=== PATIENT | female | born 1960 | race Caucasian/White ===

== ENCOUNTER 2021-02-15 10:46 | Outpatient (CLI) | payer OTHER, SELFPAY ==
--- NOTE | ~2021-02-15 | MR_ITS ---
EXAMINATION: MR lumbar spine wo con DATE: 02/15/2021 11:33 INDICATION: Lumbar radiculopathy. Low back pain. TECHNIQUE: Magnetic resonance imaging (MRI) of the lumbar spine was performed without intravenous con trast. Sequences included sagittal T2-weighted FSE, sagittal T2-weighted FS FSE, sagittal T1-weighted FSE, and axial T2-weighted FSE. COMPARISON: Lumbar spine MRI 06/24/13 FINDINGS: There is 6 degrees dextrocurvature of lumbar spine. There is 3 mm anterolisthesis of L4 on L5. Vertebral body heights are normal. There is mildly decreased disc height at L4-L5 and L5-S1. The distal spinal cord signal intensity is normal. The conus medullaris is at L1. There is peripheral dis placement of the nerve roots at S1, consistent with arachnoiditis. The following disc levels are spec ifically discussed: L1-L2: The disc does not extend beyond the endplate margin. There is mild bilateral facet joint osteo arthritis. There is no neural foraminal stenosis. There is no central canal stenosis. L2-L3: The disc is mildly bulging. There is mild bilateral facet joint osteoarthritis. There is mild bilateral neural foraminal stenosis. There is mild central canal stenosis. L3-L4: The disc is bulging. There is moderate bilateral facet joint osteoarthritis. There is mild yady ateral neural foraminal stenosis. There is mild central canal stenosis. L4-L5: The disc is bulging and has an annular fissure. There is severe bilateral facet joint osteoart hritis. There is moderate right and mild left neural foraminal stenosis. There is mild central canal stenosis. L5-S1: The disc is bulging with superimposed left subarticular zone extrusion with mass effect on lef t S1 nerve root in left lateral recess. There is moderate bilateral facet joint osteoarthritis. There is mild bilateral neural foraminal stenosis. There is mild central canal stenosis. There is mild rivera nosis in left lateral recess. IMPRESSION: 1. Moderate lumbar spondylosis, worsened from 06/24/13. Of note, a recurrent extrusion at L5-S1 exerts mass effect on left S1 nerve root. 2. Arachnoiditis. Reviewed, dictated and finalized at location A. IMPRESSION: 1. Moderate lumbar spondylosis, worsened from 06/24/13. Of note, a recurrent ext rusion at L5-S1 exerts mass effect on left S1 nerve root. 2. Arachnoiditis.
== END 2021-02-15 10:47 | disposition home or self-care (01) ==
LOC: ANHIMG 10:47
PROVIDERS: PCP Internal Medicine; Visit Provider Internal Medicine
DX: M47.816 Spondylosis without myelopathy or radiculopathy, lumbar region (principal); T63.301A Toxic effect of unspecified spider venom, accidental (unintentional), initial encounter
CPT/HCPCS: 72148

== ENCOUNTER 2021-09-06 00:25 | Day surgery (SDC) | payer OTHER, SELFPAY ==
[2021-08-31 13:41] VITALS: BMI 32.0
[2021-09-06 08:07] VITALS: BP 135/78; PULSE 88; RESP 21; TEMP 36; O2SAT 98; BMI 32.8
[2021-09-06] MEDS: LACTATED RINGERS 1,000 ML 150 ML IV CONT (08:14)
--- NOTE | 2021-09-06 08:40 | WPDGICN ---
Assessment and Plan Assessment and plan (1) Screening for colon cancer: Code(s): Z12.11 - Encounter for screening for malignant neoplasm of colon Status: Acute Assessment and Plan: Colonoscopy with possible biopsy or polypectomy or cautery or injection of substances. GI Consult Note Consult date/time: 09/06/21 08:40 HPI: Page Paz is a 60 year old female referred for colon cancer screening. Her last colonoscopy was about 10 years ago. She denies any family history of colon cancer. She denies change in bowel habits or blood in her stools. Her weight has been stable Review of Systems Review of Systems: All systems reviewed & are unremarkable except as noted in HPI and below PMFSH Family History Family History Mother Family history of liver disease Family history of diabetes mellitus in first degree relative Diabetes mellitus Father Family history of diabetes mellitus in first degree relative Family history of lymphoma Diabetes mellitus Sibling Patient's sister is in good health Patient's brother is in good health Social History Social History Smoking status: Never smoker Second hand tobacco smoke exposure: Yes Smoking end date: 06/09/83 Alcohol intake: never Substance use: never Living arrangements: with family Spiritual care concerns: No Meds Home Medications and Allergies Home Medications Medication Instructions Recorded Confirmed Type tramadol 37.5 mg-acetaminophen 325 1 tablet PO QID PRN tablet 04/23/19 09/06/21 History mg tablet valacyclovir 500 mg tablet 500 mg PO DAILY 09/13/19 09/06/21 History methylprednisolone 4 mg tablets in See Rx Instructions PO PER PKG DIR 08/21/21 09/06/21 Rx a dose pack #21 ea Allergies Allergy/AdvReac Type Severity Reaction Status Date / Time Quinolones Allergy Mild unknown Verified 09/06/21 08:05 codeine Allergy Unknown Nausea and Verified 09/06/21 08:05 Vomiting Vital Signs Vital Signs - 24 hr 09/06/21 08:07 Temperature 36.0 C L Pulse Rate 88 Respiratory Rate 21 H Blood Pressure 135/78 Pulse Oximetry 98 Exam Const: General: alert Orientation/consciousness: patient oriented x3 Resp: Auscultation: clear to auscultation bilaterally Cardio: Rhythm: regular rhythm GI: GI Palp: Yes Soft to palpation and No Tenderness to palpation present (GI) Neuro: General: patient oriented x3
--- NOTE | 2021-09-06 08:47 | P.PNAN_ITS ---
Anes - Initial Pre Proc Eval Procedure: Operation Date: 09/06/21 09:00 Proposed Procedures p Screening Colonoscopy - Kameron Giles MD Date/Time: 09/06/21 08:47 Surgeon: Kameron Giles MD Pre Op Diagnosis: neoplasm screening Patient Data Age: 60 Gender: F Height: 1.68 m Weight: 92.4 kg Last Vital Signs Temp 96.8 F L 09/06/21 08:07 Pulse 88 09/06/21 08:07 Resp 21 H 09/06/21 08:07 BP 135/78 09/06/21 08:07 Pulse Ox 98 09/06/21 08:07 Allergies Allergy/AdvReac Type Severity Reaction Status Date / Time Quinolones Allergy Mild unknown Verified 09/06/21 08:05 codeine Allergy Unknown Nausea and Verified 09/06/21 08:05 Vomiting Home Medications Medication Instructions Recorded Confirmed Type tramadol 37.5 mg-acetaminophen 325 1 tablet PO QID PRN tablet 04/23/19 09/06/21 History mg tablet valacyclovir 500 mg tablet 500 mg PO DAILY 09/13/19 09/06/21 History methylprednisolone 4 mg tablets in See Rx Instructions PO PER PKG DIR 08/21/21 09/06/21 Rx a dose pack #21 ea Patient hx anesthesia problems: none Family hx anesthesia problems: none Results Review: All pre-operative results and documents have been reviewed as part of the pre-operative evaluation. [facility] Family History Family History Mother Family history of liver disease Family history of diabetes mellitus in first degree relative Diabetes mellitus Father Family history of diabetes mellitus in first degree relative Family history of lymphoma Diabetes mellitus Sibling Patient's sister is in good health Patient's brother is in good health Social History Social History Smoking status: Never smoker Second hand tobacco smoke exposure: Yes Smoking end date: 06/09/83 Alcohol intake: never Substance use: never Living arrangements: with family Spiritual care concerns: No Anes - Eval Final PreProcedure Day of Procedure 09/06/21 08:47 Patient weight: obese Heart: regular rate and rhythm Lungs: clear to auscultation Airway: Mallampati scale class II Neurological: alert and oriented Last oral intake: >/= 8 hours ASA classification: II Emergent: no Anesthetic plan: proceed Anesthesia type and monitoring: general GIVS and standard monitoring Results Review: All pre-operative results and documents have been reviewed as part of the pre-operative evaluation. Informed Consent: The patient's anesthetic plan and its attendant risks and benefits were discussed with the patient/family/POA. Questions were solicited and answers provided to the satisfaction of the patient/family/POA.
[2021-09-06 09:14] VITALS: BP 118/63; PULSE 77; RESP 19; O2SAT 97
[2021-09-06 09:24] VITALS: BP 118/67; PULSE 69; RESP 18; O2SAT 96
[2021-09-06 09:34] VITALS: BP 121/69; PULSE 68; RESP 19; O2SAT 97
[2021-09-06 09:44] VITALS: BP 122/63; PULSE 69; RESP 19; O2SAT 99
[2021-09-06] MEDS: ARTIFICIAL TEARS OPHTH SOLN 15 ML BOTTLE 1 DROP EACH EYE (09:45)
[2021-09-06] MEDS: PROPARACAINE HCL 0.5% 15 ML OPHTH SOLN 1 DROP EACH EYE (09:53)
[2021-09-06] MEDS: DICLOFENAC SODIUM 0.1% OPHTH SOLN 2.5 ML BOTTLE 1 DROP EACH EYE (09:59)
== END 2021-09-06 10:02 | disposition home or self-care (01) ==
PROVIDERS: PCP Internal Medicine; Visit Provider Internal Medicine Gastroenterology
PROC: 0DJD8ZZ Inspection of Lower Intestinal Tract, Via Natural or Artificial Opening Endoscopic (ICD-10-PCS; CPT 45378; principal; 2021-09-06 09:00)
DX: Z12.11 Encounter for screening for malignant neoplasm of colon (principal); K57.30 Diverticulosis of large intestine without perforation or abscess without bleeding; E66.9 Obesity, unspecified; Z68.32 Body mass index [BMI] 32.0-32.9, adult
CPT/HCPCS: 45378; A9270; J2704; J7120

== ENCOUNTER 2021-09-11 17:22 | Outpatient (CLI) | payer OTHER, SELFPAY ==
--- NOTE | ~2021-09-11 | MM_ITS ---
EXAMINATION: MM screening [facility] BI w chula HISTORY: Screening TECHNIQUE: Craniocaudal and mediolateral oblique 3-D tomosynthesis images were obtained and synthetic 2-D images were generated. CAD analysis was submitted and interpreted. COMPARISON: Comparison to multiple prior studies sequentially, with oldest reviewed study dated 08/2011. BREAST PARENCHYMAL COMPOSITION: There are scattered areas of fibroglandular density. FINDINGS: There is no evidence of suspicious mass, calcification, or architectural distortion to sugg est malignancy in either breast. There has been no suspicious interval change. IMPRESSION: 1. No mammographic evidence of malignancy. 2. Recommend routine screening mammography in one year. BI-RADS Category 1: Negative Reviewed, dictated and finalized at location A.
== END 2021-09-11 17:23 | disposition home or self-care (01) ==
PROVIDERS: PCP Internal Medicine; Visit Provider Internal Medicine
DX: Z12.31 Encounter for screening mammogram for malignant neoplasm of breast (principal)
CPT/HCPCS: 77063; 77067

== ENCOUNTER 2022-03-18 08:43 | Emergency (ER) | payer OTHER, SELFPAY ==
[2022-03-18 08:49] VITALS: BP 115/70; PULSE 75; RESP 16; TEMP 36; O2SAT 98
--- NOTE | 2022-03-18 08:54 | ED.URI ---
HPI - URI/Sore Throat General Chief Complaint: Upper Respiratory Infection Stated Complaint: Sore Throat Time Seen by Provider: 03/18/22 08:50 Source: patient Mode of arrival: ambulatory Limitations: no limitations History of Present Illness HPI Narrative: Ms. Paz is a 61-year-old female patient presenting to the clinic today with complaints of chronic pharyngitis. She reports that she gets this pharyngitis flareup every year. States that her ENT doctor retired however he used to give her amoxicillin and a steroid to help with her symptoms. She reports that she is felt as though her throat is swelling and she is having difficulty swallowing for the past 1 to 2 days. She reports that she had fever yesterday that had broken as well as some chills. States she called her ENT and found out that he retired so she is seeking treatment here today. MD elicited complaint: sore throat Related Data Home Medications Medication Instructions Recorded Confirmed tramadol 37.5 mg-acetaminophen 325 1 tablet PO QID PRN Pain 04/23/19 03/18/22 mg tablet valacyclovir 500 mg tablet 500 mg PO DAILY 09/13/19 03/18/22 Allergies Allergy/AdvReac Type Severity Reaction Status Date / Time Quinolones Allergy Mild unknown Verified 03/18/22 08:46 codeine Allergy Unknown Nausea and Verified 03/18/22 08:46 Vomiting Review of Systems Review of Systems: Pertinent positives per HPI. Patient denies any fever, chills, rash, headache, visual changes, dizziness, cough, shortness of breath, chest pain, palpitations, nausea, vomiting, diarrhea, constipation, abdominal pain, or any urinary issues. [facility] Family History Family History Mother Family history of liver disease Family history of diabetes mellitus in first degree relative Diabetes mellitus Father Family history of diabetes mellitus in first degree relative Family history of lymphoma Diabetes mellitus Sibling Patient's sister is in good health Patient's brother is in good health Social History Social History Smoking status: Never smoker Second hand tobacco smoke exposure: Yes Smoking end date: 06/09/83 Alcohol intake: never Substance use: never Spiritual care concerns: No Comments At the time of my signature, I reviewed and agree with the nursing past medical, surgical, social, and family history. There is no relevant family history pertinent to the patient complaint. Exam Narrative: General: Well-developed, well nourished, in no apparent distress Head: Normocephalic, atraumatic Eyes: Pupils equally round and reactive to light bilaterally, EOM intact, sclera and conjunctive clear, no discharge, lids normal Ears: TMs intact and clear, ear canals clear, no drainage, grossly hearing normal. Nose: Nares patent, no discharge, no inflammation, no sinus tenderness. Mouth: Oral pharynx without lesions or masses, good dentition, MMM. Oropharynx red with swelling and erythremia Neck: Supple, trachea midline, enlargement of anterior cervical nodes, no thyroid masses or goiter palpable. Cardio: Regular rate and rhythm, s1 and s2 normal, no murmur appreciated. Resp: Clear to auscultation bilaterally, no rhonchi, rales, wheezing or rubs Course Course Emergency Course: Portions of this record may have been created with voice recognition software. Level of Care: Express Care Visit Vital Signs Vital signs: Vital Signs Temperature 36.0 C L 03/18/22 08:49 Pulse Rate 75 03/18/22 08:49 Respiratory Rate 16 03/18/22 08:49 Blood Pressure 115/70 03/18/22 08:49 Pulse Oximetry 98 03/18/22 08:49 Oxygen Delivery Room Air 03/18/22 08:49 Temperature 36.0 C L 03/18/22 08:49 Pulse Rate 75 03/18/22 08:49 Respiratory Rate 16 03/18/22 08:49 Blood Pressure 115/70 03/18/22 08:49 Pulse Oximetry 98 03/18/22 08:49 Oxygen D
== END 2022-03-18 09:00 | disposition home or self-care (01) ==
PROVIDERS: Emergency Provider Nurse Practitioner Family; PCP Internal Medicine
DX: J02.9 Acute pharyngitis, unspecified (principal); Z87.891 Personal history of nicotine dependence
CPT/HCPCS: 99213; G0463

== ENCOUNTER 2022-05-30 11:28 | Outpatient (CLI) | payer OTHER, SELFPAY ==
[2022-05-30 12:26] LABS: Basophils Percent Auto 0.6 % (0.2-1.2); Eosinophils Absolute Auto 0.1 K/mm3 (0-0.3); Eosinophils Percent Auto 1.7 % (0-4.4); Hematocrit 38.4 % (37.0-47.0); Hemoglobin 12.5 g/dL (12.0-15.0); Immature Granulocyte Absolute 0.04 K/mm3 (0.00-0.031); Immature Granulocyte Percent A 0.6 % (0-0.5); Lymphocytes Absolute Auto 2.59 K/mm3 (0.9-3.2); Lymphocytes Percent Auto 36.2 % (18.3-44.2); Mean Corpuscular HGB Conc 32.6 g/dl (32-36); Mean Corpuscular Hemoglobin 30.7 pg (26-34); Mean Corpuscular Volume 94.3 fl (80-100); Mean Platelet Volume 8.8 fl (7.4-10.4); Monocytes Absolute Auto 0.4 K/mm3 (0.1-0.6); Monocytes Percent Auto 5.9 % (2.6-8.5); Neutrophils Absolute Auto 3.9 K/mm3 (1.3-6.7); Platelet Count Result 275 k/mm3 (150-375); Red Blood Count 4.07 M/mm3 (4.2-5.4); Red Cell Distribution Width 12.7 % (11.5-14.5); White Blood Count 7.2 K/mm3 (4.5-10.0)
[2022-05-30 12:37] LABS: Alanine Aminotransferase 19 U/L (6-35); Alkaline Phosphatase 107 U/L (38-126); Anion Gap 3 mmol/L (8-16); Aspartate Amino Transferase 22 U/L (14-36); Bilirubin,Total 0.2 mg/dL (0.2-1.3); Blood Urea Nitrogen 26 mg/dL (7-17); Calcium 8.6 mg/dL (8.4-10.2); Carbon Dioxide 29 mmol/L (22-30); Chloride 106 mmol/L (98-107); Estimated Glomerular Filt Rate > 60; Glucose 100 mg/dL (65-110); Potassium 3.9 mmol/L (3.4-5.0); Sodium 138 mmol/L (137-145)
== END 2022-05-30 11:29 | disposition home or self-care (01) ==
LOC: ANHLAB 11:29
PROVIDERS: PCP Internal Medicine; Visit Provider Internal Medicine
DX: R19.5 Other fecal abnormalities (principal)
CPT/HCPCS: 36415; 80053; 85025

== ENCOUNTER 2022-06-06 08:06 | Outpatient (CLI) | payer OTHER, SELFPAY ==
--- NOTE | ~2022-06-06 | US_ITS ---
Limited Abdominal Sonogram: Real-time sonographic imaging of the right upper quadrant was performed. Clinical History: Abdominal pain, fecal abnormality Findings: The liver appears echogenic, with no evidence of bile duct dilatation. There are multiple apparent hepatic cysts, largest measuring 4.6 cm and the right hepatic lobe. Main portal vein demonst rates normal direction of flow. The gallbladder is well distended, and appears normal with no evidenc e of gallstone or wall thickening. The common bile duct measures less than 3 mm. The visualized panc reas, aorta, and IVC are unremarkable. Impression: Probable diffuse fatty infiltration of liver. Multiple hepatic cysts. Reviewed, dictated and finalized at location . T MAKER Impression: Probable diffuse fatty infiltration of liver. Multiple hepatic cysts.
== END 2022-06-06 08:07 | disposition home or self-care (01) ==
PROVIDERS: PCP Internal Medicine; Visit Provider Internal Medicine
DX: R19.5 Other fecal abnormalities (principal); K76.89 Other specified diseases of liver
CPT/HCPCS: 76705

== ENCOUNTER 2022-06-07 07:30 | Outpatient (CLI) | payer OTHER, SELFPAY | END 2022-06-07 07:31 | disposition home or self-care (01) | LOC: ANHLAB 07:32 | PROVIDERS: PCP Internal Medicine; Visit Provider Internal Medicine | DX: R19.5 Other fecal abnormalities (principal) | CPT/HCPCS: 87045; 87427 ==

== ENCOUNTER 2022-07-02 07:23 | Outpatient (CLI) | payer OTHER, SELFPAY ==
[2022-07-02 08:21] LABS: Amylase 88 U/L (30-110); Lipase 121 U/L (23-300)
== END 2022-07-02 07:24 | disposition home or self-care (01) ==
LOC: ANHLAB 07:24
PROVIDERS: PCP Emergency Medicine; Visit Provider Emergency Medicine
DX: R19.5 Other fecal abnormalities (principal)
CPT/HCPCS: 36415; 82150; 83690

== ENCOUNTER 2022-07-10 07:43 | Outpatient (CLI) | payer OTHER, SELFPAY ==
[2022-07-14 05:36] LABS: Fecal Fat, Ql Abnormal (Normal)
[2022-07-17 22:32] LABS: Calprotectin, Stool 17 mcg/g
== END 2022-07-10 07:44 | disposition home or self-care (01) ==
PROVIDERS: PCP Emergency Medicine; Visit Provider Nurse Practitioner Family
DX: R19.5 Other fecal abnormalities (principal); K90.9 Intestinal malabsorption, unspecified; K76.0 Fatty (change of) liver, not elsewhere classified
CPT/HCPCS: 82705; 83993; 87269

== ENCOUNTER 2024-06-14 11:33 | Emergency (ER) | payer OTHER, SELFPAY ==
--- NOTE | ~2024-06-14 | XR_ITS ---
XR chest 2V Ordering provider: Caryn Sampson History: 63 years Female with . cough, CONGESTION . Comparison: June 17, 2013 FINDINGS: MEDIASTINUM: The cardiac silhouette is not enlarged. LUNGS: No infiltrates, effusions or pneumothorax. OTHER: No free air under the diaphragm. IMPRESSION: No acute cardiopulmonary pathology. Reviewed, dictated and finalized at location A. RANCE APPLICATION INVESTIGATOR
[2024-06-14 11:45] VITALS: BP 126/80; PULSE 78; RESP 16; TEMP 36.8; O2SAT 99
--- NOTE | 2024-06-14 11:53 | ED_ITS ---
HPI - URI/Sore Throat General Chief Complaint: Upper Respiratory Infection <Caryn Sampson PA-C - Last Filed: 06/14/24 16:55> Stated Complaint: cough <Caryn Sampson PA-C - Last Filed: 06/14/24 16:55> Time Seen by Provider: 06/14/24 11:53 <Caryn Sampson PA-C - Last Filed: 06/14/24 16:55> Focused HPI: This is a 63 year old female that presents to the ER for cold symptoms. Present over the last week. Reports she has not been able to get rid of her cough which prompted her to be seen. GENERAL: Well-appearing, well-nourished, and in no acute distress. HEAD: Normocephalic, atraumatic. CHEST: Clear to auscultation. ?No respiratory distress. HEART: Regular rate and rhythm.? NEURO: ?Alert and oriented x3. Patient screened in triage and initial orders placed.? ?Additional care and disposition to be based upon?diagnostic testing and treatment. <Caryn Sampson PA-C - Last Filed: 06/14/24 16:55> Source: patient <Azra Zavala MD - Last Filed: 06/14/24 21:31> Mode of arrival: ambulatory <Azra Zavala MD - Last Filed: 06/14/24 21:31> Limitations: no limitations <Azra Zavala MD - Last Filed: 06/14/24 21:31> History of Present Illness HPI Narrative: Agree with the above with following additions/corrections: Patient has had a dry cough of 1 week's duration as it started last Friday. She has been trying [id number] medications like Coricidin, Mucinex DM, and ibuprofen but does not feel they are helping. She denies any hemoptysis or fever. She developed a sore through after coughing. She has air travel coming up tomorrow (to [place]) and wanted it checked out for this reason. Her previous traveled before this was a few weeks before she felt sick. No underlying respiratory conditions such as COPD or asthma. Although she states she o ccasionally smokes, she states she is a social smoker and not for awhile. <Azra Zavala MD - Last Filed: 06/14/24 21:31> Related Data Home Medications: Home Medications ?Medication ?Instructions ?Recorded ?Confirmed ?Last Taken ?Type tramadol 37.5 mg-acetaminophen 325 1 tablet PO QID PRN Pain 04/23/19 07/08/22 09/05/21 History mg tablet valacyclovir 500 mg tablet 500 mg PO DAILY 09/13/19 07/08/22 09/05/21 History <Caryn Sampson PA-C - Last Filed: 06/14/24 16:55> Allergies/Adverse Reactions: Allergies Allergy/AdvReac Type Severity Reaction Status Date / Time Quinolones Allergy Mild unknown Verified 08/01/22 08:26 codeine AdvReac Unknown Nausea and Verified 06/14/24 15:12 Vomiting <Caryn Sampson PA-C - Last Filed: 06/14/24 16:55> Review of Systems Review of Systems: All systems reviewed & are unremarkable except as noted in HPI and below <Caryn Sampson PA-C - Last Filed: 06/14/24 16:55> [facility] Past Medical History Medical History: Medical History Enlarged tonsils Hernia of abdominal wall Post-hysterectomy menopause Steatorrhea <Caryn Sampson PA-C - Last Filed: 06/14/24 16:55> Family History Family History: Family History Mother Family history of liver disease Family history of diabetes mellitus in first degree relative Diabetes mellitus Father Family history of diabetes mellitus in first degree relative Family history of lymphoma Diabetes mellitus Sibling Patient's sister is in good health Patient's brother is in good health <Caryn Sampson PA-C - Last Filed: 06/14/24 16:55> Social History Social History: Social History Smoking status: Current some day smoker Second hand tobacco smoke exposure: Yes Additional smoking assessment comments: Social smoker Alcohol intake: never Substance use: never Lack of Transportation: No Lack of Food: Never True Current Housing: I Have Housing Concerned About Future Housing: No Difficulty Paying Gas/Electric Bills: No Difficulty Paying for Meds: No Currently Unemployed: No Education: Associate Degree Difficulty w/ Childcare or Family Care: No Living arrangements: with family Spiritual care concerns: No <Caryn Sampson PA-C - Last Filed: 06/14/24 16:55> Exam Narrative: GENERAL: Well-appearing, well-nourished, and in no acute distress. HEAD: Normocephalic, atraumatic. EYES: Non injected, non icteric ENT: Nares clear, no rhinorrhea or epistaxis. NECK: Supple. CHEST: Speaking in full sentences. No respiratory distress. Lungs clear to auscultation bilaterally with good air movement and no appreciable wheezes, crackles, stridor or areas of consolidation. HEART: Regular rate and rhythm. . ABDOMEN: Soft, nondistended. EXTREMITIES: Normal range of motion. SKIN: Warm, dry, no rash. NEURO: No focal deficits. Alert and oriented x3. PSYCH: Normal mood and affect. <Azra Zavala MD - Last Filed: 06/14/24 21:31> Course Vital Signs Vital signs: Vital Signs Temperature 98.2 F 06/14/24 11:45 Pulse Rate 78 06/14/24 11:45 Respiratory Rate 16 06/14/24 11:45 Blood Pressure 126/80 06/14/24 11:45 Pulse Oximetry 99 06/14/24 11:45 Oxygen Delivery Room Air 06/14/24 11:45 Temperature 98.2 F 06/14/24 11:45 Pulse Rate 78 06/14/24 11:45 Respiratory Rate 16 06/14/24 11:45 Blood Pressure 126/80 06/14/24 11:45 Pulse Oximetry 99 06/14/24 11:45 Oxygen Delivery Room Air 06/14/24 11:45 <Caryn Sampson PA-C - Last Filed: 06/14/24 16:55> Vital Signs Temperature 98.2 F 06/14/24 11:45 Pulse Rate 78 06/14/24 11:45 Respiratory Rate 16 06/14/24 11:45 Blood Pressure 126/80 06/14/24 11:45 Pulse Oximetry 99 06/14/24 11:45 Oxygen Delivery Room Air 06/14/24 11:45 Temperature 98.2 F 06/14/24 11:45 Pulse Rate 78 06/14/24 11:45 Respiratory Rate 16 06/14/24 11:45 Blood Pressure 126/80 06/14/24 11:45 Pulse Oximetry 99 06/14/24 11:45 Oxygen Delivery Room Air 06/14/24 11:45 <Azra Zavala MD - Last Filed: 06/14/24 21:31> MDM - URI/Sore Throat MDM Narrative Medical decision making narrative: Patient presents with a cough of 1 week's duration. No fever. She developed a sore throat after her cough. In the emergency department they are afebrile with vital signs within normal limits. Cough without positive viral testing and with a negative chest x-ray will be presumed to be acute bronchitis especially given symptoms been going on for greater than 5 days. Otherwise reassuring physical exam without wheeze and lungs are clear to auscultation bilaterally. No role for steroids or antibiotics. Patient given various medications in the emergency department for symptom relief and discharged with combination of similar. Advised follow-up with her primary care physician return to the emergency department with any new or worsening symptoms. <Azra Zavala MD - Last Filed: 06/14/24 21:31> Differential Diagnosis Differential diagnosis: Likely upper respiratory infection, viral infection, bronchitis, influenza and other (Pneumonia) <Azra Zavala MD - Last Filed: 06/14/24 21:31> Lab Data Attestation: I reviewed the patient's lab results. <Azra Zavala MD - Last Filed: 06/14/24 21:31> Labs: Lab Results 06/14/24 Range/Units 11:59 Influenza A (RT-PCR) Negative (Negative) Influenza B (RT-PCR) Negative (Negative) RSV (RT-PCR) Negative (Negative) SARS-CoV-2 RNA (RT-PCR) Negative (Negative) <Caryn Sampson PA-C - Last Filed: 06/14/24 16:55> Lab Results 06/14/24 Range/Units 11:59 Influenza A (RT-PCR) Negative (Negative) Influenza B (RT-PCR) Negative (Negative) RSV (RT-PCR) Negative (Negative) SARS-CoV-2 RNA (RT-PCR) Negative (Negative) <Azra Zavala MD - Last Filed: 06/14/24 21:31> Imaging Data Radiologist's impression: ITS Impressions Chest X-Ray 06/14/24 12:20 IMPRESSION: No acute cardiopulmonary pathology. <Caryn Sampson PA-C - Last Filed: 06/14/24 16:55> Critical Care Time Critical Care Time Critical Care Time: No <Caryn Sampson PA-C - Last Filed: 06/14/24 16:55> Discharge Plan Discharge Clinical Impression: Acute cough Acute bronchitis Qualifiers: Bronchitis organism: unspecified organism Qualified Code(s): J20.9 - Acute bronchitis, unspecified <Caryn Sampson PA-C - Last Filed: 06/14/24 16:55> Patient Disposition: Home, Self-Care <Caryn Sampson PA-C - Last Filed: 06/14/24 16:55> Condition: Stable <Caryn Sampson PA-C - Last Filed: 06/14/24 16:55> Instructions: Antibiotic Form, Acute Bronchitis (ED), Acute Cough (ED) <Caryn Sampson PA-C - Last Filed: 06/14/24 16:55> Additional Instructions: Acetaminophen/Tylenol (maximum 4000 mg per day) is safe to take with NSAIDs (ibuprofen/Motrin) for pain relief. No evidence of pneumonia on chest x-ray. You can use the medications as been prescribed for symptom relief/management. No role for antibiotics. Rest and maintain your hydration to allow your body to immune system to fight this infection which is likely viral although As we discussed, you tested negative for RSV, influenza a, influenza B, and COVID Follow-up with primary care physician. Return to the emergency department with new or worsening or unmanaged symptoms. <Caryn Sampson PA-C - Last Filed: 06/14/24 16:55> Patient Language: Tajik <ROBERT Carcamo Last Filed: 06/14/24 16:55> Prescriptions: New ibuprofen 600 mg tablet 600 mg PO TID PRN (Reason: pain) Qty: 20 0RF acetaminophen 500 mg capsule 1,000 mg PO Q6H PRN (Reason: pain) Qty: 20 0RF benzonatate 100 mg capsule 100 mg PO BID PRN (Reason: cough) Qty: 20 0RF Sore Throat and Cough 5-7.5 mg lozenge 1 idalmis PO Q4H PRN (Reason: cough) Qty: 18 0RF dextromethorphan HBr 15 mg/5 mL liquid 15 mg PO QHS Qty: 118 0RF No Action Saccharomyces boulardii [Florastor] 250 mg capsule 250 mg PO BID Qty: 120 0RF tramadol-acetaminophen 37.5-325 mg tablet 1 tablet PO QID PRN (Reason: Pain) valacyclovir 500 mg tablet 500 mg PO DAILY <Caryn Sampson PA-C - Last Filed: 06/14/24 16:55> Follow-up/Referrals: Prem Collier MD [Primary Care Provider] - <Caryn Sampson PA-C - Last Filed: 06/14/24 16:55> Stand Alone Forms: Work/School Release IP <Caryn Sampson PA-C - Last Filed: 06/14/24 16:55> Time of Disposition: 15:15 <Caryn Sampson PA-C - Last Filed: 06/14/24 16:55> 15:15 <Azra Zavala MD - Last Filed: 06/14/24 21:31>
[2024-06-14 12:41] LABS: Influenza A QL RT-PCR Negative (Negative); Influenza B QL RT-PCR Negative (Negative); RSV RNA, RT-PCR Negative (Negative); SARS-CoV-2 RNA PCR Negative (Negative)
--- OUTSIDE RECORDS SUMMARY | 2024-06-20 19:03 | XMS_ITS | Encounter Summary ---
Author Organization [facility] Healthcare Address [address] [place] [address] Care Team Providers Care Molecular Biology Professor Name Role Phone Maged Godoy DO Primary Care Provider [phone] Zuly Barriga MD Unavailable Reason for Visit * Reason Comments Follow-up Back Pain Encounter Details Date Type Department Care Team (Latest Contact Info) Description 01/12/2024 3:42 PM CDT - 01/12/2024 11:59 PM CDT Hospital Encounter [facility] [address] [place] [address] Zuly Barriga MD [address] [place] [address] Encounter for monitoring opioid maintenance therapy (Primary Dx); Low back pain, unspecified back pain laterality, unspecified chronicity, unspecified whether sciatica present; Chronic pain syndrome Discharge Disposition: Discharge to home or self care Social History Tobacco Use Types Packs/Day Years Used Date Smoking Tobacco: Former Smokeless Tobacco: Never Alcohol Use Standard Drinks/Week Comments Yes 0 (1 standard drink = 0.6 oz pur e alcohol) occasionally AUDIT-C Answer Date Recorded Q1: How often do you have a drink containing alc ohol? Monthly or less 12/24/2021 Q2: How many drinks containi ng alcohol do you have on a typical day when you are drinking? 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 Gender Identity Not on file Sexual Orientation Not on file documented as of this encounter Last Filed Vital Signs Vital Sign Reading Time Taken Comments Blood Pressure 131/89 01/12/2024 3:53 PM CDT Pulse 68 01/12/2024 3:53 PM CDT Temperature 36.3 ??C (97.4 ??F) 01/12/2024 3:53 PM CD T Respiratory Rate 16 01/12/2024 3:53 PM CDT Oxygen Saturation 97% 01/12/2024 3:53 PM CDT Inhaled Oxygen Concentration - - Weight - - Height - - Body Mass Index - - documented in this encounter Discharge Instructions * Patient Instructions* Dianna Bradshaw RN - 01/12/2024 3:45 PM CDT PAIN MANAGEMENT [facility] DISCHARGE INFORMATION PLAN / NEW ORDERS: Follow up in 6 months [phone] Calls are accepted Friday-Friday, 7:30am-4pm, excluding observed holidays. We highly encourage the use of [facility] for non-urgent matters as well as prescription refill requests. If you are scheduled for an injection and have an active infection and/or feeling ill in any way, please contact the office for further instructions. MEDICATION REFILL REQUESTS: To allow timely scheduling of evaluations, please contact the office to schedule your appointment 6-8 weeks in advance. For all opioid/narcotic prescription refills and non-opioid/non-narcotic refills with no refills remaining, please contact the Pain Management Center 5-7 business days prior to the date of need to avoid any delays. Refills may be requested thru MyChart which is the preferred method for refill requests. Call [phone] and leave a message on the RN Message Line with the following information: Name, date of , and phone number Name(s) of the medication(s) needing refill Name and number for the pharmacy where the refill(s) should be sent Please note, prescription refill dates are calculated based on the quantity of medication provided,not the date on which the pharmacy filled the prescription. Patients whom are prescribed opioid medications are required to be evaluated at least once every three months or more frequently, as deemed appropriate by the prescribing provider. Patients who are prescribed non-opioid medications are required to be evaluated at least every 6 months or more frequently, as deemed appropriate by the prescribing provider. [] Physical Therapy Scheduling - [phone] [] Surgical Evaluation Center - [phone] (Surgical Eval Center will call to schedule your pre-op evaluation appt) [] Dr. Mallory and Dr. Edmond - Pain Psychologist - [phone] [] MRI Scheduling - [phone] We encourage you to schedule at [facility] as our physicians work closely withthe Radiology Imaging Department and the physicians that read the images. In addition the images are of higher quality, and we receive the results quicker. If you choose to use an imaging location outside of [facility] You will need to bring the CD to the film library at [facility] prior to any future appointments. You will need to bring a copy of the report to your next appointment. Please notify us immediately with a message on our nurse line or by sending a [facility] message with the following: Location Location phone number Date your MRI is scheduled Please note that MRI authorizations may take up to 7-14 business days for determination. Pain Management will not fill out FMLA, workers compensation forms or disability forms. Please contact your primary care physician. Pain Management does not print or supply copies of medical records. Medical records may be requested thru [facility] medical records department [phone]. We strive to provide you with EXCELLENT service as our patient. You may receive a survey after your visit today. If you can not rate your experience as EXCELLENT, please let us know before you leave how we can improve and better meet your needs. Thank you for choosing [facility] / Pain Management! documented in this encounter Medications at Time of Discharge docusate calcium (COLACE) 240 mg capsuleIndication s:constipation ibuprofen (ADVIL,MOTRIN) 200 mg tab/cap Take 3 tablet/capsul e (600 mg total) by mouth 2 (two) times a day as needed valACYclovir (VALTREX) 500 mg tablet Take 1 tablet (500 mg total) by mouth daily 01/23/2018 methocarbamoL (ROBAXIN) 500 mg tablet Take 1 tablet (500 mg total) by mouth 3 (three) times a day as needed for muscle spasms 90 tablet 1 10/03/2023 03/22/2024 traMADol-acetamin ophen (ULTRACET) 37.5-325 mg per tabletIndications :Chronic pain syndrome Take 1 tablet by mouth 3 (three) times a day as needed for pain for pain 90 tablet 1 12/08/2023 03/24/2024 documented as of this encounter Discharge Disposition Disposition Code Departure Means Destination Discharge to home or self care documented in this encounter Progress Notes * Zuly Barriga MD - 01/12/2024 3:45 PM CDT Pain Management Follow up Note Patient ID Name: Page Paz Date of : 1960 PCP: Maged Godoy DO Chief Complaint: Chief Complaint Patient presents with Follow-up Back Pain Today's visit: Page Paz is a 63 y.o. female with low back and hip pain who returns today for follow-up. The pain is overall significantly improved. It is occasionally 7/10 however this is on rare occasions. It is aching and she uses ice on occasion. She has had improvement in her sleep, she has been using cognitive strategies which were beneficial. She continues to be as active as possible. She takes Ultramoccasionally at night as well as methocarbamol. She denies any concerns for addiction or tolerance,no side effects from this medication. Pain Assessment Pain Score: 1 Pain Location: Back (Lumbar) Pain Radiating Towards: does not radiate Pain Descriptors: Aching Pain Frequency: Intermittent Pain Onset: Ongoing Clinical Progression: Not changed Patient's Stated Pain Goal: No pain 05/06/2023 8:00 AM 01/12/2024 4:00 PM MODIFIED OSWESTRY LOW BACK PAIN QUESTIONNAIRE Section 1 - Pain Intensity 0 - I can tolerate the pain I have without having to use pain medication2 - Pain medication provides me with complete relief from pain Section 2 - Personal Care (e.g., washing, dressing) 0 - I can take care of myself normally without causing increased pain 0 - I can take care of myself normally without causing increased pain Section 3 - Lifting 3 - Pain prevents me from lifting heavy weights off the floor, but I can managelight to medium weights if they are conveniently positioned 2 - Pain prevents me from lifting heavyweights off the floor, but I can manage if the weights are conveniently positioned (e.g., on a table) Section 4 - Walking 1 - Pain prevents me from walking more than 1 mile (1.6 km) 0 - Pain does not prevent me from walking any distance Section 5 - Sitting 1 - I can sit in my favorite chair for as long as I like 1 - I can sit in my favorite chair for as long as I like Section 6 - Standing 2 - Pain prevents me from standing for more than 1 hour 2 - Pain prevents me from standing for more than 1 hour Section 7 - Sleeping 4 - Even when I take medication, I sleep less than 2 hours 1 - I can sleep well only using pain medication Section 8 - Social Life 2 - Pain prevents me from participating in more energetic activities (e.g.,sports, dancing) 0 - My social life is normal and does not increase my pain Section 9 - Traveling 1 - I can travel anywhere, but it increases my pain 1 - I can travel anywhere, but it increases my pain Section 10 - Employment/Homemaking 1 - My normal homemaking/job activities increase my pain, but I can still perform all that is required of me 1 - My normal homemaking/job activities increase my pain, but I can still perform all that is required of me Modified Oswestry Low Back Pain Score 15 10 Percentage 30 20 REVIEW OF MEDICATIONS She has a current medication list which includes the following prescription(s): docusate calcium, ibuprofen, methocarbamol, tramadol-acetaminophen, and valacyclovir. Vitals Vitals: 01/12/24 1553 BP: 131/89 Pulse: 68 Resp: 16 Temp: 97.4 ??F (36.3 ??C) SpO2: 97% Physical Exam BP 131/89 Pulse 68 Temp 97.4 ??F (36.3 ??C) Resp 16 SpO2 97% CONSTITUTIONAL: general appearance normal EYES: Normal conjunctivae/lids EARS / NOSE / MOUTH / THROAT: Hearing assessment normal. CARDIOVASCULAR: no lower extremity edema CHEST: Symmetric. RESPIRATORY: Normal effort MUSCULOSKELETAL EXAMINATION: Moving all four extremities spontaneously against gravity. SKIN: no obvious rashes PSYCHIATRIC: Normal mood and affect. Memory intact. Alert. Speech Patterns: Normal. Assessment: Page Paz is a 63 y.o. female with lumbago who returns today for follow-up. Plan: Continue with current medications, no changes, no concerns for addiction or tolerance, no side effects. Follow-up in 3 to 6 months I Zuly Barriga MD Director Of Trauma Pain Management, Department of Anesthesiology [facility] 01/12/2024 documented in this encounter Nursing Notes * Dianna Bradshaw, RN - 01/12/2024 3:45 PM CDT Escorted patient to exam room. Obtained vital signs. Reviewed patient's allergies and current medications. Obtained and verified patient's complex medical/surgical history. Confirmed the reason for visit with the patient. Obtained the following screening assessments: [x] Modified Oswestry Low Back Pain Questionnaire [x] PMC Intake Questionnaire [x] [facility] Follow up Questionnaire [x] Fall Risk Assessment (Angelia Gomez Steadi) [x] Depression/Anxiety Assessment (GAD7, PHQ-9, [place] Suicide, [place] Depression) [] Disability Scale [] CAGE [] SOAPP-R Additional tasks included: [] Random medication adherence check (pill verification by two nurses) [] Work/school note written [] Wound/skin check/dressing change [] Pain assessment for more than one site [] Coordination of a specialty referral or imaging study (stat MRI for same day) [] Anticoagulant therapy coordination on day of visit [] Monitoring or assistance in patient physical exam or assessment [] Expanded evaluation and/or monitoring of vital signs [] Coordination of multiple or complex referrals or imaging studies [] Administration of medication by the clinical staff [x] Specimen/lab preparation and collection (urine drug screen) [] Vital Signs Temp: 97.4 ??F (36.3 ??C) Pulse: 68 Resp: 16 BP: 131/89 SpO2: 97 % Post-visit transport confirmed with the patient. Total time spent for patient care, education, and care coordination was approximately 31-40 minutes. documented in this encounter Plan of Treatment Not on file documented as of this encounter Goals Goal Patient Goal Type Associated Problems Recent Progress Patient-Stated? Author CCM Chronic Pain Care Plan Chronic Care Management On track(2023 3:53 PM CDT) No Landy Gomez, MARIE Note: Problem: Chronic Pain Goals: 1. Minimize further functional decline 2. Maximize quality of life 3. Control pain Strategies: - Activity/exercise program recommendation - Conservative stepwise pain medicine strategy with multi-disciplinary approach - Recommend healthy lifestyle strategies and compensatory methods as needed Reduce the likelihood of falling Lifestyle On track(2023 3:53 PM CDT) No Landy Gomez RN Note: Below are four things you can do to prevent falls: 1. Begin an exercise program to improve your leg strength & balance 2. Ask your doctor or pharmacist to review your medicines 3. Get annual eye check-ups & update your eyeglasses 4. Make your home safer by: ?? Removing clutter & tripping hazards ?? Putting railings on all stairs & adding grab bars in the bathroom ?? Having good lighting, especially on stairs Contact your local community or senior center for information on exercise, fall prevention programs, or options for improving home safety. documented as of this encounter Results * Pain Management Profile 6 with Confirmation, Urine (01/13/2024 9:29 PM CDT) Creatinine, ur 27.2 > or = 20.0 mg/dL [facility] pH, ur 6.2 4.5 - 9.0 [facility] Oxidants, ur NEGATIVE <200 mcg/mL [facility] Comment: Test Performed at: [facility] [address] ??[id number] ? AUBREE ALBERT Amphetamine, ur NEGATIVE <500 ng/mL [facility] Barbiturates, ur NEGATIVE <300 ng/mL [facility] Benzodiazepines, ur NEGATIVE <100 ng/mL [facility] Tetrahydrocannabino l, ur NEGATIVE <20 ng/mL [facility] Benzoylecgonine NEGATIVE <150 ng/mL [facility] Pain mgt Methadone, Ur NEGATIVE <100 ng/mL [facility] Opiates, ur NEGATIVE <100 ng/mL [facility] Pain mgt Oxycodone, Ur NEGATIVE <100 ng/mL [facility] Phencyclidine, ur NEGATIVE <25 ng/mL [facility] Ethanol, ur NEGATIVE <500 ng/mL [facility] Pain mgt 6-Acetylmorphine, Ur NEGATIVE <10 ng/mL [facility] Urine 01/13/2024 9:29 PM CDT 01/13/2024 9:29 PM CDT Zuly Barriga MD LAB BLOOD ORDERABLES Final Result [facility] [address] Department [place] [address] [employer] documented in this encounter Visit Diagnoses Diagnosis Encounter for monitoring opioid maintenance therapy- Primary Low back pain, unspecified back pain laterality, unspecified chronicity, unspecified whether sciatica present Chronic pain syndrome documented in this encounter Care Teams Molecular Biology Professor Relationship Specialty Start Date End Date Maged Godoy DO PCP - General 09/28/20 Zuly Barriga MD Consulting Physician Pain Management 12/14/21 documented as of this encounter
--- OUTSIDE RECORDS SUMMARY | 2024-06-20 19:03 | XMS_ITS | Clinical Summary ---
Author Organization [facility] Address [address] [place] [address] Care Team Providers Care Autoglazier Name Role Phone Unavailable Primary Care Provider Unavailabl e Source Comments [facility],non-owned Affiliates and Associated Physician Practices is amultiple site organization consisting of ambulatory clinics and hospital sitesin [place], [place], [place] and [place]. This disclosure is being madepursuant to the Care Everywhere program and may not contain all information available regarding this patient. Last updated 18.[facility] Qwilt Allergies Active Allergy Reactions Criticality Noted Date Comments Codeine 05/07/2017 Immunizations Name Administration Dates Next Due INFLUENZA VACCINE, QUADR. (F LUZONE; FLULAVAL; FLUARIX; AFLURIA QUADRIVALENT; 6MO+), 0.5 ML (IIV4) 05/07/2017 Social History Tobacco Use Types Packs/Day Years Used Date Smoking Tobacco: Never Assessed Sex and Gender Information Value Date Recorded Sex Assigned at Not on file Gender Identity Not on file Sexual Orientation Not on file Plan of Treatment Health Maintenance Due Date Last Done Comments COLOGUARD (AGES 45-75) - COL ON CA SCREENING 1960 COLON MONITORING 1960 COLONOSCOPY - COLON CA SCREENING 1960 CT COLONOGRAPHY - COLON CA SCREENING 1960 Colorectal Cancer Screening 1960 FIT - COLON CA SCREENING 1961 FLEX SIG - COLON CA SCREENING 1960 LIPID TESTING 1960 MAMMOGRAM 1960 PAP SMEAR 1961 HIV SCREENING 1976 HEPATITIS C SCREENING 10/10/1979 DTAP/TDAP/TD VACCINES (1 - Tdap) 1980 PNEUMOCOCCAL VACCINE 50+ (1 of 1 - PCV) 10/15/2011 ZOSTER VACCINE (1 of 2) 10/15/2011 COVID-19 VACCINE (1 - 2023-2 5 season) 2024 INFLUENZA VACCINE (#1) 2024 05/07/2017 DEPRESSION SCREENING 06/09/2024 Respiratory Syncytial Virus (RSV) Vaccine Pt: or over 60 yrs (1 - 1-dose 75+ series) 2036 HEPATITIS B VACCINE Aged Out No longe r eligible based on patient's age to complete this topic HIB VACCINE Aged Out No longer eligi ble based on patient's age to complete this topic HPV VACCINE Aged Out No longer eligi ble based on patient's age to complete this topic MENINGOCOCCAL (Group B) VACCINE Aged Out No longer eligible based on patient's age to complete this topic MENINGOCOCCAL VACCINE Aged Out No celio lyndon eligible based on patient's age to complete this topic PNEUMOCOCCAL VACCINE Aged Out No long er eligible based on patient's age to complete this topic
--- OUTSIDE RECORDS SUMMARY | 2024-06-20 19:03 | XMS_ITS | Clinical Summary ---
Author Organization [facility] Address [address] [address] Care Team Providers Care Secondary Market Manager Name Role Phone Maged Godoy Primary Care Provider [phone] Zuly Barriga MD Unavailable Allergies Active Allergy Reactions Criticality Noted Date Comments Codeine Rash,Headache Medium Reaction: Headache, Rash, Medications docusate calcium (COLACE) 240 mg capsuleIndicatio ns:constipation Acti ve valACYclovir (VALTREX) 500 mg tablet Take 1 tablet (500 mg total) by mouth daily 01/23/2018 Active ibuprofen (ADVIL,MOTRIN) 200 mg tab/cap Take 3 tablet/caps ule (600 mg total) by mouth 2 (two) times a day as needed Active traMADol-acetami nophen (ULTRACET) 37.5-325 mg per tabletIndication s:Chronic pain syndrome Take 1 tablet by mouth 3 (three) times a day as needed for pain for pain 90 tablet 3 03/24/2024 Active methocarbamoL (ROBAXIN) 500 mg tablet Take 1 tablet (500 mg total) by mouth 3 (three) times a day as needed for muscle spasms 90 tablet 1 03/24/2024 Active Active Problems Problem Noted Date Diagnosed Date Degeneration of intervertebral disc of lumbar re gion 02/09/2015 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 05/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 Lumbago 07/20/2013 Pain in the coccyx 07/20/2013 Chronic pain 07/20/2013 Pain in extremity 03/15/2013 Surgical History Surgery Date Site/Laterality Comments VT TOTAL ABDOMINAL HYSTERECT W/WO RMVL TUBE OVARY Hysterectomy - (Added by TW Conv) BLADDER SURGERY Bladder Surgery - (Added by TW Conv) [place] UNLISTED PROCEDURE ABDOME N PERITONEUM & OMENTUM Hernia Repair - (Added by TW Conv) [place] TONSILLECTOMY PRIMARY/SEC ONDARY <AGE 12 Tonsillectomy - (Added by TW Conv) Medical History Medical History Date Comments Personal history of other di seases of the circulatory system History of mitral valve diso rder - (Added by TW Conv) Mitral valve prolapse Family History Medical History Relation Name Comments Diabetes Other 1 Diabetes Mellit us - (Added by TW Conv) Cancer Other 2 Cancer - (Added by TW Conv) Relation Name Status Comments Other 1 Other 2 Social History Tobacco Use Types Packs/Day Years Used Date Smoking Tobacco: Former Smokeless Tobacco: Never Tobacco Cessation:Counseling Given: Not Answered Alcohol Use Standard Drinks/Week Comments Yes 0 [...] on file Legal 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 Gender Identity Not on file Sexual Orientation Not on file Obstetrics History Last Filed Vital Signs Vital Sign Reading Time Taken Comments Blood Pressure 131/89 01/12/2024 3:53 PM CDT Pulse 68 01/12/2024 3:53 PM CDT Temperature 36.3 ??C (97.4 ??F) 01/12/2024 3:53 PM CD T Respiratory Rate 16 01/12/2024 3:53 PM CDT Oxygen Saturation 97% 01/12/2024 3:53 PM CDT Inhaled Oxygen Concentration - - Weight 90.7 kg (200 lb) 08/01/2021 10:28 AM INSTRUCTOR OF SPANISH Height 167.6 cm (5' 6 ) 08/01/2021 10:28 AM INSTRUCTOR OF SPANISH Body Mass Index 32.28 08/01/2021 10:28 AM INSTRUCTOR OF SPANISH Plan of Treatment Health Maintenance Due Date Last Done Comments Breast Cancer Screening-Mammogram 1960 Colon Cancer Screening-Colonoscopy 1960 Depression Screening 1960 Hepatitis C Screening 1960 DTaP/Tdap/Td Vaccine (1 - Tdap) 1972 Hepatitis B Screening 10/15/1979 Regular Well Visit/Exam 18-64 10/15/1979 Zoster Vaccine (1 of 2) 10/15/2011 Influenza Vaccine (#1) 2024 05/07/2017 Pneumococcal vaccine <65 Aged Out No longer eligible based on patient's age to complete this topic Goals Goal Patient Goal Type Associated Problems Recent Progress Patient-Stated? Author CCM Chronic Pain Care Plan Chronic Care Management On track(2023 3:53 PM CDT) Landy Beckford, RN Note: Problem: Chronic Pain Goals: 1. Minimize further functional decline 2. Maximize quality of life 3. Control pain Strategies: - Activity/exercise program recommendation - Conservative stepwise pain medicine strategy with multi-disciplinary approach - Recommend healthy lifestyle strategies and compensatory methods as needed Reduce the likelihood of falling Lifestyle On track(2023 3:53 PM CDT) No Landy Gomez, RN Note: Below are four things you [...] programs, or options for improving home safety. Insurance [facility] OPEN ACCESS [employer] ACCESS [employer] [facility] Care Teams Secondary Market Manager Relationship Specialty Start Date End Date Maged Godoy DO PCP - General 09/28/20 Zuly Barriga MD Consulting Physician Pain Management 12/14/21
--- OUTSIDE RECORDS SUMMARY | 2024-06-20 19:03 | XMS_ITS | Patient Health Summary ---
Author Organization [facility] Address [address] [place] [address] Care Team Providers Care Switchman Supervisor Name Role Phone Unavailable Primary Care Provider Unavailabl e Note from [facility],non-owned Affiliates and Associated Physician Practices is amultiple site organization consisting of ambulatory clinics and hospital sitesin [place], [place], [place] and [place]. This disclosure is being madepursuant to the Care Everywhere program and may not contain all information available regarding this patient. Last updated 18.[facility] Allergies * Codeine Immunizations * INFLUENZA VACCINE, QUADR. (FLUZONE; FLULAVAL; FLUARIX; AFLURIA QUADRIVALENT; 6MO+), 0.5 ML (IIV4)(Given 05/07/2017) Social History Tobacco Use Types Packs/Day Years Used Date Smoking Tobacco: Never Assessed Sex and Gender Information Value Date Recorded Sex Assigned at Not on file Gender Identity Not on file Sexual Orientation Not on file Procedures * SKIN TEST PPD - POINT OF CARE(Performed 02/06/2017) Performed for PPD screening test Results * SKIN TEST PPD - POINT OF CARE (02/06/2017) PPD 0mm Comment:no induration, paper signed and scanned into patient's chart. MISCELLANEOUS SAMPLE S / Unknown 02/06/2017 Josephine Palmer APRN-[facility] - POINT OF CARE ORDERABLES
--- OUTSIDE RECORDS SUMMARY | 2024-06-20 19:03 | XMS_ITS | Encounter Summary ---
Author Organization [facility] Address [address] [place] [address] Care Team Providers Care Podiatric Technician Name Role Phone Unavailable Primary Care Provider Unavailabl e Reason for Visit * Reason Comments PPD Skin Test Placement Encounter Details Date Type Department Care Team (Late st Contact Info) Description 02/04/2017 4:00 PM CDT Office Visit [facility] [address] [place] [id number] Provider, Mariposa Munoz Nameokleena PPD screening test (Primary Dx) Social History Tobacco Use Types Packs/Day Years Used Date Smoking Tobacco: Never Assessed Sex and Gender Information Value Date Recorded Sex Assigned at Not on file Gender Identity Not on file Sexual Orientation Not on file documented as of this encounter Patient Instructions * Patient Instructions* Josephine Palmer APRN-CARI - 02/04/2017 4:16 PM CDT Tuberculin Skin Test TOURIST CAMP ATTENDANT: A tuberculin skin test is done to see if you are infected with the bacteria that cause tuberculosis(TB). Tuberculin is a liquid that healthcare providers inject into the skin of your arm. Your skin will react to tuberculin if you are infected. TB is a serious infection that usually starts in the lungs. The bacteria are easily spread from one person to another through the air. They can live in your body a long time without making you sick. This is called latent TB. Latent TB can develop into active TB if it is not treated. Why you need a tuberculin skin test: The most common reason for a tuberculin skin test is for a job, such as a healthcare worker. You may need this test if you have been exposed to someone with TB ortraveled to an area where TB is more common. Contact your healthcare provider if: You have questions or concerns about the test or about TB. After the test: ?? Return in 2 to 3 days. Your skin must be checked 2 to 3 days after the test. You will need another TB skin test if you do not come back within 3 days. ?? Watch for signs of allergic reaction. Some people have an allergic reaction to tuberculin. Seek care immediately if you have any symptoms of allergic reaction, such as hives or swelling. What the test results mean: Your test is negative if there is no change to your skin. Your test is positive if the area around the skin test is raised or hard. Talk to your healthcare provider about your test results. The TB skin test can only show that you were infected with the germ that causes tuberculosis. You will need more tests to learn if you have latent or active TB. The most common tests are chest x-rays and sputum samples. ?? 2016 [employer]. Information is for End User's use only and may not be sold, redistributed or otherwise used for commercial purposes. All illustrations and images included in CareNotes?? are the copyrighted property of [employer] or [employer]. The above information is an federal aid coordinator only. It is not intended as medical advice for individual conditions or treatments. Talk to your doctor, nurse or pharmacist before following any medical regimen to see if it is safe and effective for you. documented in this encounter Progress Notes * Josephine Palmer APRN-CNP - 02/04/2017 4:18 PM CDT Patient here today for PPD placement. Patient to return to clinic in 48-72 hours, as discussed, forPPD reading. Allergies reviewed. Patient's PPD form reviewed with patient, scanned into record, andreturned to patient. Patient tolerated well. Josephine Palmer APRN, GENIE-BC documented in this encounter Plan of Treatment Not on file documented as of this encounter Procedures Procedure Name Priority Date/Time Associated Diagnosis Comments SKIN TEST PPD - POINT OF CARE Routine 02/06/2017 PPD screening test documented in this encounter Results * SKIN TEST PPD - POINT OF CARE (02/06/2017) PPD 0mm Comment:no induration, paper signed and scanned into patient's chart. MISCELLANEOUS SAMPLE S / Unknown 02/06/2017 Josephine Palmer APRN-PLACEMENT ASSISTANT LAB - POINT OF CARE ORDERABLES documented in this encounter Visit Diagnoses Diagnosis PPD screening test- Primary Screening examination for pulmonary tuberculosis documented in this encounter Administered Medications Administered Medications Medication Order MAR Action Action Date Dose Rate Site PPD Intradermal Given 02/04/2017 0.1 mL Left Forearm documented in this encounter
--- OUTSIDE RECORDS SUMMARY | 2024-06-20 19:03 | XMS_ITS | Encounter Summary ---
Author Organization [facility] Healthcare Address [address] [place] [address] Care Team Providers Care Assembler Knife Name Role Phone Maged Godoy DO Primary Care Provider [phone] Zuly Barriga MD Unavailable Reason for Visit * Reason Comments Back Pain Encounter Details Date Type Department Care Team (Latest Contact Info) Description 10/03/2022 8:34 AM CDT - 10/03/2022 11:59 PM CDT Hospital Encounter [facility] at [facility] [address] [place] [address] Zuly Barriga MD [address] [place] [address] Low back pain, unspecified back pain laterality, unspecified chronicity, unspecified whether sciatica present Discharge Disposition: Discharge to home or self [...] on file Legal Sex Female 4:55 AM DISPOSAL 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 Gender Identity Not on file Sexual Orientation Not on file documented as of this encounter Last Filed Vital Signs Vital Sign Reading Time Taken Comments Blood Pressure 138/82 10/03/2022 8:42 AM CDT Pulse 69 10/03/2022 8:42 AM CDT Temperature 36.2 ??C (97.2 ??F) 10/03/2022 8:42 AM CD T Respiratory Rate 17 10/03/2022 8:42 AM CDT Oxygen Saturation 95% 10/03/2022 8:42 AM CDT Inhaled Oxygen Concentration - - Weight - - Height - - Body Mass Index - - documented in this encounter Discharge Instructions * Patient Instructions* Nidia Leon RN - 10/03/2022 8:45 AM CDT Follow up in 3 months documented in this encounter Medications at Time [...] as needed for muscle spasms 90 tablet 2 12/24/2021 12/16/2022 predniSONE (DELTASONE) 20 mg tablet Take 1 tablet (20 mg) by mouth daily 02/11/2021 05/06/2023 traMADol-acetamin ophen (ULTRACET) 37.5-325 mg per tabletIndications :Chronic pain syndrome TAKE 1 TABLET BY MOUTH THREE TIMES DAILY NEEDED FOR PAIN 60 tablet 3 10/03/2022 05/06/2023 documented as of this encounter Discharge Disposition Disposition Code Departure Means Destination Discharge to home or self care documented in this encounter Progress Notes * Zuly Barriga MD - 10/03/2022 8:45 AM CDT Pain Management Follow up Note Patient ID Name: Page Paz Date of : 1960 DOS: 10/03/2022 PCP: Maged Godoy DO Chief Complaint: Chief Complaint Patient presents with Back Pain Today's visit 10/03/2022: Page Paz is a 61 y.o. female with low back pain and hip pain. Previous hip injections of significant benefit (>80%), able to work in the garden, in has resulted in slightly increase in back pain. Overall pain significantly improved. Tramadol continues to be of benefit, no side effects, no concerns for addiction or tolerance. There is no signs of aberrant use. She denies dry mouth, constipation. Methocarbamol of benefit, heat of benefit with aching low back pain. No radiation of pain into the lower extremities, no associated numbness or tingling. Pain Assessment Pain Score: 4 Pain Location: Back (Lumbar) Pain Radiating Towards: hip pain resolved Pain Descriptors: Aching Pain Frequency: Intermittent Pain Onset: Ongoing Clinical Progression: Not changed REVIEW OF MEDICATIONS She has a current medication list which includes the following prescription(s): docusate calcium, ibuprofen, methocarbamol, tramadol-acetaminophen, valacyclovir, and prednisone. Current Meds Current Outpatient Medications Medication Sig Dispense Refill docusate calcium (COLACE) 240 mg capsule ibuprofen (ADVIL,MOTRIN) 200 mg tab/cap Take 3 tablet/capsule (600 mg total) by mouth 2 (two) timesa day as needed methocarbamoL (ROBAXIN) 500 mg tablet Take 1 tablet (500 mg total) by mouth 3 (three) times a day as needed for muscle spasms 90 tablet 2 traMADol-acetaminophen (ULTRACET) 37.5-325 mg per tablet Take 1 tablet by mouth 3 (three) times a day as needed for pain for pain 60 tablet 0 valACYclovir (VALTREX) 500 mg tablet Take 1 tablet (500 mg total) by mouth daily predniSONE (DELTASONE) 20 mg tablet Take 20 mg by mouth daily (Patient not taking: Reported on 10/03/2022) No current facility-administered medications for this encounter. 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 Chronic pain History Past Medical History: Diagnosis Date Mitral valve prolapse Personal history of other diseases of the circulatory system History of mitral valve disorder - (Added by TW Conv) Past Surgical History: Procedure Laterality Date BLADDER SURGERY Bladder Surgery - (Added by TW Conv) [place] TONSILLECTOM[place] PRIMARY/SECONDARY <AGE 13 Tonsillectomy - (Added by TW Conv) [place] TOTAL ABDOMINAL HYSTERECT W/WO RMVL TUBE OVARY Hysterectomy - (Added by TW Conv) [place] UNLISTED PROCEDURE ABDOMEN PERITONEUM & OMENTUM Hernia Repair - (Added by TW Conv) Family History Problem Relation Age of Onset Diabetes Other Diabetes Mellitus - (Added by TW Conv) Cancer Other Cancer - (Added by TW Conv) Vitals Vitals: 10/03/22 0842 BP: 138/82 Pulse: 69 Resp: 17 Temp: 97.2 ??F (36.2 ??C) SpO2: 95% ROS 8 pt ROS is negative except as above in HPI and is reviewed in intake form today. Physical Exam BP 138/82 Pulse 69 Temp 97.2 ??F (36.2 ??C) Resp 17 SpO2 95% CONSTITUTIONAL: general appearance normal EYES: Normal conjunctivae/lids EARS / NOSE / MOUTH / THROAT: Hearing assessment normal. CARDIOVASCULAR: no lower extremity edema CHEST: Symmetric. RESPIRATORY: Normal effort MUSCULOSKELETAL EXAMINATION: Moving all four extremities spontaneously against gravity, strength 5/5 bilateral lower extremities, negative log roll bilaterally. Sensation intact to light touch. SKIN: no obvious rashes PSYCHIATRIC: Normal mood and affect. Memory intact. Alert. Speech Patterns: Normal. Assessment: Page Paz is a 61 y.o. female with lumbago, low back pain who returns today for follow-up. Plan: The patient shows no signs of aberrant drug use. We discussed appropriate use of opioid medicationsand advised the patient not to take other sedating medications (e.g. Benzodiazepines) with the opioids at the same time. We also advised not to drive under the influence of opioid medications. We advised patient store opioids in a locked container. We educated the patient on the risks of prolonged opioid use (e.g. side effects, tolerance, dependency, addiction) and recommend that she try to minimize her dose to the lowest dose necessary. Chronic Opioid Therapy Current analgesics: Tramadol 37.5 TID Daily dose (MME):11.25 Benzodiazepines: None Other Considerations: Complaint with all requests Plan: Continue Zuly Barriga MD Supervisor Hand Workers Pain Management, Department of Anesthesiology [facility] 10/03/2022 documented in this encounter Plan of Treatment Not on file documented as of this encounter Goals Goal Patient Goal Type Associated Problems Recent Progress Patient-Stated? Author CCM Chronic Pain Care Plan Chronic Care Management On track(2023 3:53 PM CDT) No Landy Gomez, RN Note: Problem: Chronic Pain Goals: 1. [...] stairs Contact your local community or [facility] for information on exercise, fall prevention programs, or options for improving home safety. documented as of this encounter Visit Diagnoses Diagnosis Low back pain, unspecified back pain laterality, unspecified chronicity, unspecified whether sciatica present documented in this encounter Care Teams Assembler Knife Relationship Specialty Start Date End Date Maged Godoy DO PCP - General 09/28/20 Zuly Barriga MD Consulting Physician Pain Management 12/14/21 documented as of this encounter
--- OUTSIDE RECORDS SUMMARY | 2024-06-20 19:03 | XMS_ITS | Referral Summary ---
Author Organization [facility] Address [address] [place] [address] Care Team Providers Care Accessibility Lift Technician Name Role Phone Unavailable Primary Care Provider Unavailabl e Source Comments [facility],non-owned Affiliates and Associated Physician Practices is amultiple site organization consisting of ambulatory clinics and hospital sitesin [place], [place], [place] and [place]. This disclosure is being madepursuant to the Care Everywhere program and may not contain all information available regarding this patient. Last updated 18.[facility] Allergies Active Allergy Reactions Criticality Noted Date [...] Orientation Not on file Plan of Treatment Not on file Administered Medications
--- OUTSIDE RECORDS SUMMARY | 2024-06-20 19:03 | XMS_ITS | Encounter Summary ---
Author Organization [facility] Healthcare Address [address] [place] [address] Care Team Providers Care Chemical Treatment Plant Technician Name Role Phone Maged Godoy DO Primary Care Provider [phone] Zuly Barriga MD Unavailable Reason for Visit * Reason Comments Back Pain Encounter Details Date Type Department Care Team (Latest Contact Info) Description 05/06/2023 7:54 AM VEGETABLE PACKER - 05/06/2023 11:59 PM VEGETABLE PACKER Hospital Encounter [facility] at [facility] [address] [place] [address] Zuly Barriga MD [address] [place] [address] Chronic pain syndrome Discharge Disposition: Discharge to [...] on file Legal Sex Female 4:55 AM VEGETABLE PACKER Gender Identity Not on file Sexual Orientation Not on file documented as of this encounter Last Filed Vital Signs Vital Sign Reading Time Taken Comments Blood Pressure 141/93 05/06/2023 8:12 AM VEGETABLE PACKER Pulse 75 05/06/2023 8:12 AM VEGETABLE PACKER Temperature 36.1 ??C (96.9 ??F) 05/06/2023 8:12 AM CS T Respiratory Rate 14 05/06/2023 8:12 AM VEGETABLE PACKER Oxygen Saturation 99% 05/06/2023 8:12 AM VEGETABLE PACKER Inhaled Oxygen Concentration - - Weight - - Height - - Body Mass Index - - documented in this encounter Discharge Instructions * Patient Instructions* Brittany Jacobs RN - 05/06/2023 8:00 AM VEGETABLE PACKER Implement the following sleep stimulus control protocol Keep a consistent bedtime and wake time. Do not use your bed for anything except sleep; that is, do not read, watch TV, eat, or worry in bed If you find yourself unable to fall asleep within 15 minutes, get up and go into another part of the room. Since we do not want you to watch the clock, just estimate how long you have been lying awake. Remember, that goal is to associate your bed with falling asleep quickly! If you are in bed more than 15 minutes without falling asleep get out of bed. Return to bed intending to go to sleep only when you are very sleepy. While out of bed during the night, you can engage in quiet but boring activities like reading, organizing your desk, etc. Do not exercise, or take warm showers or baths. Do not lie down or fall asleep when not in bed. Do not have a TV in your room. If you do return to bed and still cannot fall asleep within 15 minutes, get back out of bed and repeat the steps. Do this as often as necessary throughout the night. Set your alarm and get up at the same time every morning no matter how much you sleep you got during the night. This will help your body acquire a consistent sleep rhythm. Do not nap during the day. Try a guided meditation clotilde such as Sheldon, Calm or Headspace PAIN MANAGEMENT [facility] DISCHARGE INFORMATION PLAN / NEW ORDERS: Follow up in [address] Barriga [phone] Calls are accepted Friday-Friday, 7:30am-4pm, excluding observed holidays. We highly encourage the use of [employer] for non-urgent matters as well as prescription [...] the preferred method for refill requests. Call [phone] and leave a message on the RN [...] prescribing provider. [] Physical Therapy Scheduling - [phone] [] Dr. Mallory - Pain Psychologist - [phone] [] MRI Scheduling - [phone] We encourage you to schedule at [facility] as our physicians work closely withthe Radiology Imaging Department and the physicians that read the images. In addition the images are of higher quality, and we receive the results quicker. If you choose to use an imaging location outside of [facility] You will need to bring the CD to the film library at [facility] prior to any future appointments. You will need to bring a copy of the report to your next appointment. Please notify us immediately with a message on our nurse line or by sending a MyChart message with the following: Location Location phone number Date your MRI is scheduled Please note that MRI authorizations may take up to 7-14 business days for determination. Pain Management will not fill out workers compensation forms or disability forms. Please contact your primary care physician. Pain Management does not print or supply copies of medical records. Medical records may be requested thru [facility] medical records department [phone]. We strive to provide you with EXCELLENT service as our patient. You may receive a survey after your visit today. If you can not rate your experience as EXCELLENT, please let us know before you leave how we can improve and better meet your needs. Thank you for choosing [facility] / Pain Management! TABLE PACKER TABLE PACKER documented in this encounter Medications at Time [...] needed for muscle spasms 90 tablet 2 12/16/2022 10/02/2023 traMADol-acetamin ophen (ULTRACET) 37.5-325 mg per tabletIndications :Chronic pain syndrome Take 1 tablet by mouth 3 (three) times a day as needed for pain for pain 60 tablet 3 05/06/2023 12/08/2023 documented as of this encounter Ordered Prescriptions Prescription Sig Dispense Quantity Refills Last Filled Start Date End Date traMADol-acetamino phen (ULTRACET) 37.5-325 mg per tabletIndications: Chronic pain syndrome Take 1 tablet by mouth 3 (three) times a day as needed for pain for pain 60 tablet 3 05/06/2023 12/08/2023 documented in this encounter Discharge Disposition Disposition Code Departure Means Destination Discharge to home or self care documented in this encounter Progress Notes * Zuly Barriga MD - 05/06/2023 8:00 AM CST Pain Management Follow up Note Patient ID Name: Page Paz Date of : 1960 PCP: Maged Godoy DO Chief Complaint: Chief Complaint Patient presents with Back Pain Today's visit: Page Paz is a 62 y.o. female with low back pain who returns today for six month follow up. Overall the pain is well controlled. The pain is in the low back and is aching. There is no radiation. She is taking 1 tramadol at night. No side effects, no concerns for addiction or tolerance. No change in pain. Pain Assessment Pain Score: 1 Pain Location: Back (Lumbar) Pain Descriptors: Aching Pain Frequency: Intermittent Pain Onset: Ongoing Struggling with nightly insomina. Has been having issues with falling asleep and not staying asleep. PCP has retired and has not spoken with them about this. 1 tramadol at night, has tried melatonin (trial of increasing doses for 12 months). Wakes up feeling tired. At night takes hours to fall asleep. She tosses and turns, gets up to take care of bio needs. When it gets to be early hours she will get up to watch TV. Aurora sleepiness scale - 1 Will keep room dark and quiet. 05/06/2023 8:00 AM MODIFIED OSWESTRY LOW BACK PAIN QUESTIONNAIRE Section 1 - Pain Intensity 0 - I can tolerate the pain I have without having to use pain medication Section 2 - Personal Care (e.g., washing, dressing) 0 - I can take care of myself normally without causing increased pain Section 3 - Lifting 3 - Pain prevents me from lifting heavy weights off the floor, but I can managelight to medium weights if they are conveniently positioned Section 4 - Walking 1 - Pain prevents me from walking more than 1 mile (1.6 km) Section 5 - Sitting 1 - I can sit in my favorite chair for as long as I like Section 6 - Standing 2 - Pain prevents me from standing for more than 1 hour Section 7 - Sleeping 4 - Even when I take medication, I sleep less than 2 hours Section 8 - Social Life 2 - Pain prevents me from participating in more energetic activities (e.g.,sports, dancing) Section 9 - Traveling 1 - I can travel anywhere, but it increases my pain Section 10 - Employment/Homemaking 1 - My normal homemaking/job activities increase my pain, but I can still perform all that is required of me Modified Oswestry Low Back Pain Score 15 Percentage 30 REVIEW OF MEDICATIONS She has a current medication list which includes the following prescription(s): docusate calcium, ibuprofen, methocarbamol, tramadol-acetaminophen, and valacyclovir. Vitals Vitals: 05/06/23 0812 BP: 141/93 Pulse: 75 Resp: 14 Temp: 96.9 ??F (36.1 ??C) SpO2: 99% ROS 8 pt ROS as above in HPI and as reviewed in intake form today Physical Exam BP 141/93 Pulse 75 Temp 96.9 ??F (36.1 ??C) Resp 14 SpO2 99% CONSTITUTIONAL: general appearance normal EYES: Normal conjunctivae/lids EARS / NOSE / MOUTH / THROAT: Hearing assessment normal. CARDIOVASCULAR: no lower extremity edema CHEST: Symmetric. RESPIRATORY: Normal effort MUSCULOSKELETAL EXAMINATION: moving all 4 extremities against gravity. SKIN: no obvious rashes PSYCHIATRIC: Normal mood and affect. Memory intact. Alert. Speech Patterns: Normal. Assessment: Page Paz is a 62 y.o. female with low back pain who returns today for follow up. Plan: Education regarding sleep hygiene given Discussed sleep study - given the trouble is falling asleep will hold off Continue Ultracet for pain as needed daily. Follow up in 6 months; to reach out in 1 month if no improvement in sleep. Zuly Barriga MD Cyber Instructor Pain Management, Department of Anesthesiology [facility] 05/06/2023 TABLE PACKER documented in this encounter Plan of Treatment [...] on stairs Contact your local community or [facility] for information on exercise, fall prevention programs, or options for improving home safety. documented as of this encounter Visit Diagnoses Diagnosis Chronic pain syndrome documented in this encounter Discontinued Medications Medication Sig Discontinue Reason Start Date End Da te predniSONE (DELTASONE) 20 mg tablet Take 1 tablet (20 mg) by mouth daily Therapy completed 02/11/2021 05/06/2023 traMADol-acetaminophen (ULTRACET) 37.5-325 mg per tabletIndications:Chroni c pain syndrome TAKE 1 TABLET BY MOUTH THREE TIMES DAILY NEEDED FOR PAIN Reorder 10/03/2022 05/06/2023 documented as of this encounter Care Teams Chemical Treatment Plant Technician Relationship Specialty Start Date End Date Maged Godoy DO PCP - General 09/28/20 Zuly Barriga MD Consulting Physician Pain Management 12/14/21 documented as of this encounter
--- OUTSIDE RECORDS SUMMARY | 2024-06-20 19:03 | XMS_ITS | Encounter Summary ---
Author Organization [facility] Address [address] [place] [address] Care Team Providers Care Call Out Clerk Name Role Phone Unavailable Primary Care Provider Unavailabl e Reason for Visit * Reason Comments Imm Inj Encounter Details Date Type Department Care Team (Late st Contact Info) Description 05/07/2017 6:20 PM RETAIL DEPARTMENT MANAGER Office Visit [facility] [address] [place] [id number] Provider, Mariposa Munoz Nameokleena Encounter for vaccination (Primary Dx) Social History Tobacco Use Types Packs/Day Years Used Date Smoking Tobacco: Never Assessed Sex and Gender Information Value Date Recorded Sex Assigned at Not on file Gender Identity Not on file Sexual Orientation Not on file documented as of this encounter Progress Notes * Katherine Price APRN-CNP - 05/07/2017 6:22 PM CST Patient here for influenza vaccine today. Allergies reviewed. Vaccine consent signed, reviewed withpatient, and scanned into record. Education materials provided to patient. Patient tolerated well. Katherine Price APRN, IMPLEMENTATION ARCHITECT-BC [place] DEPARTMENT MANAGER documented in this encounter Plan of Treatment Not on file documented as of this encounter Visit Diagnoses Diagnosis Encounter for vaccination- Primary documented in this encounter
--- OUTSIDE RECORDS SUMMARY | 2024-06-20 19:03 | XMS_ITS | Encounter Summary ---
Author Organization [facility] Healthcare Address [address] [place] [address] Care Team Providers Care Rock Breaker Name Role Phone Maged Godoy DO Primary Care Provider [phone] Zuly Barriga MD Unavailable [phone] Reason for Visit * Reason Comments Back Pain Encounter Details Date Type Department Care Team (Latest Contact Info) Description 12/24/2021 2:29 PM CDT - 12/24/2021 11:59 PM CDT Hospital Encounter 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 Gender Identity Not on file Sexual Orientation Not on file documented as of this encounter Last Filed Vital Signs Vital Sign Reading Time Taken Comments Blood Pressure 130/72 12/24/2021 2:38 PM CDT Pulse 81 12/24/2021 2:38 PM CDT Temperature 36.1 ??C (97 ??F) 12/24/2021 2:38 PM CDT Respiratory Rate 16 12/24/2021 2:38 PM CDT Oxygen Saturation 97% 12/24/2021 2:38 PM CDT Inhaled Oxygen Concentration - - Weight - - Height - - Body Mass Index - - documented in this encounter Discharge Instructions * Patient Instructions* Nidia Leon RN - 12/24/2021 2:45 PM CDT Discharged by Dr Barriga documented in this encounter Medications at Time [...] needed for pain for pain 60 tablet 12/24/2021 03/14/2022 documented as of this encounter Ordered Prescriptions Prescription Sig Dispense Quantity Refills Last Filled Start Date End Date traMADol-acetamino phen (ULTRACET) 37.5-325 mg per tabletIndications: Chronic pain syndrome Take 1 tablet by mouth 3 (three) times a day as needed for pain for pain 60 tablet 12/24/2021 03/14/2022 methocarbamoL (ROBAXIN) 500 mg tablet Take 1 tablet (500 mg total) by mouth 3 (three) times a day as needed for muscle spasms 90 tablet 2 12/24/2021 12/16/2022 documented in this encounter Discharge Disposition Disposition Code Departure Means Destination Discharge to home or self care documented in this encounter Progress Notes * Zuly Barriga MD - 12/24/2021 2:45 PM CDT Pain Management Follow up Note Patient ID Name: Page Paz Date of : 1960 DOS: 12/24/2021 PCP: Maged Godoy DO Chief Complaint: Chief Complaint Patient presents with ??? Back Pain Today's visit 12/24/2021: Page Paz is a 61 y.o. female with chronic low back pain, hip pain who returns today for follow-up. At last appointment she underwent hip injection which resulted in near complete resolution of her pain. She continues to take methocarbamol and tramadol which are of benefit. She denies any concerns for addiction or tolerance. Pain today is 3/10. She has some low back pain however it is more of an ache, in no longer takes all of her attention. 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 She denies any bowel or bladder incontinence, no new signs or symptoms. REVIEW OF MEDICATIONS She has a current medication list which includes the following prescription(s): docusate calcium, ibuprofen, methocarbamol, tramadol-acetaminophen, valacyclovir, and prednisone. Allergies Allergies Allergen Reactions ??? Codeine Rash and Headache Reaction: Headache, Rash, Active Problems Patient Active Problem List Diagnosis ??? Pain in extremity ??? Lumbago ??? Pain in the coccyx ??? 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 Degeneration of intervertebral disc of lumbar region ??? Chronic pain History Past Medical History: Diagnosis Date ??? Mitral valve prolapse ??? Personal history of other diseases of the circulatory system History of mitral valve disorder - (Added by TW Conv) Past Surgical History: Procedure Laterality Date ??? BLADDER SURGERY Bladder Surgery - (Added by Conv) ??? [place] ABDOMEN SURG[place] PROC UNLISTED Hernia Repair - (Added by Conv) ? ? [place] REMOVAL OF TONSILS,<12 Y/O Tonsillectomy - (Added by TW Conv) ??? [place] TOTAL ABDOM HYSTERECTOMY Hysterectomy - (Added by TW Conv) Family History Problem Relation Age of Onset ??? Diabetes Other Diabetes Mellitus - (Added by Conv) ??? Cancer Other Cancer - (Added by TW Conv) Vitals Vitals: 12/24/21 1438 BP: 130/72 Pulse: 81 Resp: 16 Temp: 97 ??F (36.1 ??C) SpO2: 97% ROS Eight point review systems is negative except as above in HPI and is reviewed in intake form today. Physical Exam BP 130/72 Pulse 81 Temp 97 ??F (36.1 ??C) Resp 16 SpO2 97% CONSTITUTIONAL: general appearance normal EYES: Normal conjunctivae/lids EARS / NOSE / MOUTH / THROAT: Hearing assessment normal. CARDIOVASCULAR: no lower extremity edema CHEST: Symmetric. RESPIRATORY: Normal effort MUSCULOSKELETAL EXAMINATION: moving all four extremities spontaneously against gravity, nonantalgicgait. SKIN: no obvious rashes PSYCHIATRIC: Normal mood and affect. Memory intact. Alert. Speech Patterns: Normal. Assessment: Page Paz is a 61 y.o. female with low back and hip pain who returns today for follow-up. Plan: Continue with current medications, no concerns for addiction or tolerance, oral morphine equivalents 11.25 MME. Follow-up in three months. Zuly Barriga MD [facility], Department of Anesthesiology [facility] 12/24/2021 documented in this encounter Plan of Treatment Not on file documented as of this encounter Goals Goal Patient Goal Type Associated Problems Recent Progress Patient-Stated? Author CCM Chronic Pain Care Plan Chronic Care Management On track(2023 3:53 PM CDT) No Landy Gomez RN Note: Problem: Chronic Pain Goals: 1. Minimize further functional decline 2. Maximize quality of life 3. Control pain Strategies: - Activity/exercise program recommendation - Conservative stepwise pain medicine strategy with multi-disciplinary approach - Recommend healthy lifestyle strategies and compensatory methods as needed Reduce the likelihood of falling Lifestyle On track(2023 3:53 PM CDT) Landy Beckford, RN Note: Below are four things you [...] on stairs Contact your local community or [facility] for information on exercise, fall prevention programs, or options for improving home safety. documented as of this encounter Visit Diagnoses Diagnosis Low back pain, unspecified back pain laterality, unspecified chronicity, unspecified whether sciatica present- Primary Other chronic pain Chronic pain syndrome documented in this encounter Discontinued Medications Medication Sig Discontinue Reason Start Date End Da te methocarbamoL (ROBAXIN) 500 mg tablet TAKE 1 TABLET(500 MG) BY MOUTH FOUR TIMES DAILY Reorder 10/10/2021 12/24/2021 traMADol-acetaminophen (ULTRACET) 37.5-325 mg per tabletIndications:Chroni c pain syndrome Take 1 tablet by mouth 3 (three) times a day as needed for pain for pain Reorder 11/27/2021 12/24/2021 documented as of this encounter Care Teams Rock Breaker Relationship Specialty Start Date End Date Maged Godoy DO PCP - General 09/28/20 Zuly Barriga MD Consulting Physician Pain Management 12/14/21 documented as of this encounter
--- OUTSIDE RECORDS SUMMARY | 2024-06-20 19:03 | XMS_ITS | Encounter Summary ---
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 documented as of this encounter Procedures Procedure Name Priority Date/Time Associated Diagnosis Comments DRUG MONITORING TEMPLATE Routine 01/13/2024 9:29 PM CDT PAIN MANAGEMENT PROFILE 6 WITH CONFIRMATION, URINE Routine 01/13/2024 9:29 PM CDT Encounter for monitoring opioid maintenance therapy documented in this encounter Results * Drug Monitoring Template (01/13/2024 9:29 PM CDT) Service Comment 3 SEE NOTE [facility] Comment: This drug testing is for medical treatment only. Analysis was performed as non-forensic testing and these results should be used only by healthcare providers to render diagnosis or treatment, or to monitor progress of medical conditions. LDT Notes: Confirmation tests were developed and their analytical performance characteristics have been determined by [employer]. It has not been cleared or approved by the FDA. This assay has been validated pursuant to the CLIA regulations and is used for clinical purposes. Healthcare Providers needing Interpretation assistance, please contact us at [phone] ( ) M-F, 8am to 10pm EST Test Performed at: [email or web address] [address] [place] [address] ??[id number] ? DAMON STEWART MD Urine 01/13/2024 9:29 PM CDT 01/13/2024 9:29 PM CDT us uZly Barriga MD LAB URINE ORDERABLES Final Result [facility] [address] [place] [address] [facility] * Pain Management Profile 6 with Confirmation, Urine (01/13/2024 9:29 PM CDT) Creatinine, ur 27.2 > or = 20.0 mg/dL Edwin pH, ur 6.2 4.5 - 9.0 [facility] Oxidants, ur NEGATIVE <200 mcg/mL [facility] Comment: Test Performed at: [facility] [address] [place], [place] ??[phone] ? [employer] Amphetamine, ur NEGATIVE <500 ng/mL [facility] Barbiturates, ur NEGATIVE <300 ng/mL [facility] Benzodiazepines, ur NEGATIVE <100 ng/mL [facility] Tetrahydrocannabino l, ur NEGATIVE <20 ng/mL [facility] Benzoylecgonine NEGATIVE <150 ng/mL [facility] Pain mgt Methadone, Ur NEGATIVE <100 ng/mL [facility] Opiates, ur NEGATIVE <100 ng/mL [facility] Pain mgt Oxycodone, Ur NEGATIVE <100 ng/mL [facility] Phencyclidine, ur NEGATIVE <25 ng/mL [facility] Ethanol, ur NEGATIVE <500 ng/mL [facility] Pain mgt 6-Acetylmorphine, Ur NEGATIVE <10 ng/mL [facility] Urine 01/13/2024 9:29 PM CDT 01/13/2024 9:29 PM CDT Zuly Barriga MD LAB BLOOD ORDERABLES Final Result [facility] [address] [place] [address] [facility] documented in this encounter Visit Diagnoses Diagnosis Encounter for monitoring opioid maintenance therapy documented in this encounter Care Teams Financial Coordinator Relationship Specialty Start Date End Date Maged Godoy DO PCP - General 09/28/20 Zuly Barriga MD Consulting Physician Pain Management 12/14/21 documented as of this encounter
--- OUTSIDE RECORDS SUMMARY | 2024-06-20 19:03 | XMS_ITS | Encounter Summary ---
Author Organization [facility] Healthcare Address [address] [place] [address] Care Team Providers Care Refining Machine Operator Name Role Phone Maged Godoy DO Primary Care Provider [phone] Reason for Visit * Reason Comments Back Pain Hip Pain Encounter Details Date Type Department Care Team (Latest Contact Info) Description 08/01/2021 10:11 AM YARD ENGINEER - 08/01/2021 10:17 AM YARD ENGINEER Hospital Encounter [facility] at [facility] [address] [facility] [address] 1st [place] [address] Zuly Barriga MD [address] [facility] [address] [place] [address] Hip pain, chronic, left Discharge Disposition: Discharge to home or self care Social History Tobacco Use Types Packs/Day Years Used Date Smoking Tobacco: Former Smokeless Tobacco: Never Alcohol Use Standard Drinks/Week Comments Yes 0 (1 standard drink = 0.6 oz pur e alcohol) occasionally Comments No Sex and Gender Information Value Date Recorded Sex Assigned at Not on file Legal Sex Female 4:55 AM YARD ENGINEER Gender Identity Not on file Sexual Orientation Not on file documented as of this encounter Last Filed Vital Signs Vital Sign Reading Time Taken Comments Blood Pressure 126/78 08/01/2021 11:04 AM YARD ENGINEER Pulse 72 08/01/2021 11:04 AM YARD ENGINEER Temperature 36.2 ??C (97.1 ??F) 08/01/2021 10:[address] Respiratory Rate 18 08/01/2021 11:04 AM YARD ENGINEER Oxygen Saturation 99% 08/01/2021 11:04 AM YARD ENGINEER Inhaled Oxygen Concentration - - Weight 90.7 kg (200 lb) 08/01/2021 10:28 AM YARD ENGINEER Height 167.6 cm (5' 6 ) 08/01/2021 10:28 AM YARD ENGINEER Body Mass Index 32.28 08/01/2021 10:28 AM YARD ENGINEER documented in this encounter Discharge Instructions * Discharge Instructions* Cyn Ahumada RN - 08/01/2021 11:04 AM YARD ENGINEER PAIN MANAGEMENT CENTER POST-PROCEDURE PATIENT EDUCATION The following procedure was performed in clinic today: Left Hip Steroid Injection You have received two medications in your injection today. The first is a numbing medicine. This medicine may give you quick pain relief that may wear off before tomorrow. The second medicine is a steroid which may take 2-7 days experience the full benefit of your steroid injection. Although not everyone obtains pain relief from steroid injections, often the injectionscan provide you with improvement in pain and function that last several months or longer. If you get significant benefits, the injections can be safely repeated periodically to maintain the improvements. Injections are also commonly coupled with other treatments such as, and not limited to, physical therapy in an attempt to either maximize the benefits or prolong the effects. Steroid injections are generally well tolerated; however, some patients may experience side effects. Most resolve within an hour of the procedure but may re-occur within 24-48 hours. These side effects include: ??? Dizziness or light headedness upon standing. Change positions slowly. ??? Steroid Flushing of the face and chest that can last several days and be accompanied by a feeling of warmth or low grade increase in temperature. ??? Mild bruising, bleeding, or swelling at the injection site(s) ??? Mild weakness or numbness in the extremities ??? Anxiety, trouble sleeping ??? Increased blood sugars. Patients with diabetes should monitor glucose levels regularly and notify the provider managing their diabetes of any sustained increases. Limit activity today. No driving today. You may resume your normal activity, including driving, in the morning. Increased pain, soreness, and/or aching may occur at the injection site. A cold pack may be used in20 minute intervals (20 minutes on / 20 minutes off) during the first 24 hours. After 24 hours, if discomfort continues, heat may be applied over the injection site(s) in the same 20 minute intervals. For your safety, DO NOT lie on top of the heating pad or allow yourself to fall asleep during use. To avoid the risk of infection, DO NOT submerge the injection site. Hot tubs, swimming pools, and bath tubs should be avoided for the next 24 hours. You may shower for bathing. Serious complications are rare, but are possible. If you experience ANY of the following, please call 911 or go to the nearest Emergency Department. Emergency staff should be made aware of your procedure. After receiving care for your complication, please notify the Pain Management Center. ??? Allergic Reaction ??? Extensive bleeding ??? Infection (may be indicated by a fever of 101o or greater, heat, redness, or drainage at the injection site) ??? Headache when sitting or standing that resolves when lying down ??? New loss of balance/difficulty walking ??? New loss of bowel or bladder control ??? Increasing muscle weakness or prolonged numbness in the extremities Please attempt to not have a Covid-19 vaccine 2 weeks prior to a steroid injection or 2 weeks aftera steroid injection. At this time there is limited information regarding the impact to steroid injections on the efficacy of the Covid vaccine. Physician guidance recommends delaying steroid injections when possible. PAIN MANAGEMENT CENTER DISCHARGE INFORMATION PLAN / NEW ORDERS: ??? Follow up in 3 months Pain Management Center at [facility] - [phone]. Calls are accepted Friday-Friday, 7:30am-4pm, excluding observed holidays. ??? We highly encourage the use of MyChart for non-urgent matters as well as prescription refill requests. ??? If you need to schedule an appointment with Dr. Mallory - Pain Psychologist - [phone] ??? If you are scheduled for an MRI we [facility] closely with the [facility] Imaging Department and the physicians that read the images. In addition the images are of higher quality, and we receive the results quicker. If you choose to use an imaging location outside of [facility] and/or have [employer], please notify us immediately with a message on our nurse line or by sending a [employer] message with the following: - Location - Location phone number - Date your MRI is scheduled - Please note that MRI authorizations may take up to 7-14 business days for determination. The Pain Management Center is committed to providing your medication refills in a timely manner. When submitting a refill request, please note the following guidelines: ??? Federal guidelines recommend patients with chronic pain, for whom opioid medications are prescribed, be evaluated at least once every three months or more frequently, as deemed appropriate by theprescribing provider. o Patients who are prescribed non-opioid medications should plan to be evaluated at least every 6 months or more frequently, as deemed appropriate by the prescribing provider. o To allow timely scheduling of evaluations, please contact the office to schedule your appointment4-6 weeks in advance. ??? For all opioid/narcotic prescription refills and non-opioid/non-narcotic refills with no refills remaining, please contact the Pain Management Center 5-7 days prior to the date of need. o Refills may be requested thru MyChart which is the preferred method for refill requests. o Call [phone] and leave a message on the RN Message Line with the following information: - Name, date of , and phone number - Name(s) of the medication(s) needing refill - Name and number for the pharmacy where the refill(s) should be sent o Please note, prescription refill dates are calculated based on the quantity of medication provided, not the date on which the pharmacy filled the prescription. [email or web address] We strive to provide you with EXCELLENT service as our patient. You may receive a survey after your visit today. If you can not rate your experience as EXCELLENT, please let us know how we can improve and better meet your needs. Thank you for choosing [facility] / Pain Management! ENGINEER documented in this encounter Medications at Time of Discharge docusate calcium (COLACE) 240 mg capsuleIndication s:constipation ibuprofen (ADVIL,MOTRIN) 200 mg tab/cap Take 3 tablet/capsul e (600 mg total) by mouth 2 (two) times a day as needed valACYclovir (VALTREX) 500 mg tablet Take 1 tablet (500 mg total) by mouth daily 01/23/2018 methocarbamoL (ROBAXIN) 500 mg tablet TAKE 1 TABLET(500 MG) BY MOUTH FOUR TIMES DAILY 120 tablet 1 07/06/2021 10/10/2021 predniSONE (DELTASONE) 20 mg tablet Take 1 tablet (20 mg) by mouth daily 02/11/2021 05/06/2023 traMADol-acetamin ophen (ULTRACET) 37.5-325 mg per tabletIndications :Chronic pain syndrome TAKE 1 TABLET BY MOUTH THREE TIMES DAILY NEEDED FOR PAIN 60 tablet 2 07/06/2021 09/21/2021 documented as of this encounter Discharge Disposition Disposition Code Departure Means Destination Discharge to home or self care documented in this encounter Progress Notes * Zuly Barriga MD - 08/01/2021 10:45 AM CST Pain Management Follow up Note Patient ID Name: Page Paz Date of : 1960 DOS: 08/01/2021 PCP: Maged Godoy, Chief Complaint: Chief Complaint Patient presents with ??? Back Pain ??? Hip Pain Today's visit 08/01/2021: Page Paz is a 60 y.o. female with left hip pain, low back pain who returns today for follow-up.She underwent left hip injection in April with approximately 50% improvement in her pain which is ongoing. She continues to have some posterior pelvic pain, lateral hip pain, it is worse with ambulation. It is worse with sitting for prolonged periods of time. No further radiation of pain into the lower extremity. Continues to work with physical therapy, strengthening activities. Denies bowel or bladder incontinence. Pain Assessment Pain Score: 6 Pain Location: Hip Pain Radiating Towards: hip pain Pain Descriptors: Aching, Dull, Penetrating, Sharp Pain Frequency: Constant/continuous Pain Onset: Ongoing Clinical Progression: Gradually worsening Patient's Stated Pain Goal: 2 Pain 2 Pain Score 2: 5 - Moderate pain Pain Location 2: Back (Lumbar) Pain Descriptors 2: Heaviness Pain Frequency 2: Intermittent Pain Onset 2: On-going Clinical Progression 2: Gradually worsening Patient's Stated Pain Goal 2: 2 Current Meds Current Outpatient Medications Medication Sig Dispense Refill ??? docusate calcium (COLACE) 240 mg capsule ??? ibuprofen (ADVIL,MOTRIN) 200 mg tab/cap Take 600 mg by mouth 2 (two) times a day as needed ??? methocarbamoL (ROBAXIN) 500 mg tablet TAKE 1 TABLET(500 MG) BY MOUTH FOUR TIMES DAILY 120 tablet 1 ??? traMADol-acetaminophen (ULTRACET) 37.5-325 mg per tablet TAKE 1 TABLET BY MOUTH THREE TIMES DAILY NEEDED FOR PAIN 60 tablet 2 ??? valACYclovir (VALTREX) 500 mg tablet Take 500 mg by mouth daily ??? predniSONE (DELTASONE) 20 mg tablet Take 20 mg by mouth daily (Patient not taking: Reported on 05/01/2021) No current facility-administered medications for this encounter. Allergies Allergies Allergen Reactions ??? Codeine Rash [...] Bladder Surgery - (Added by TW Conv) ??? ME ABDOMEN SURGERY PROC UNLISTED Hernia Repair - (Added by TW Conv) ? ? ME REMOVAL OF TONSILS,<12 Y/O Tonsillectomy - (Added by TW Conv) ??? ME TOTAL ABDOM HYSTERECTOMY Hysterectomy - (Added by TW Conv) Family History Problem Relation Age of Onset ??? Diabetes Other Diabetes Mellitus - (Added by Conv) ??? Cancer Other Cancer - (Added by Conv) Vitals Vitals: 08/01/21 1028 BP: 142/86 Pulse: 88 Resp: 17 Temp: 97.1 ??F (36.2 ??C) SpO2: 97% Weight: 90.7 kg (200 lb) Height: 167.6 cm (5' 6 ) ROS Eight point review systems is negative except as above in HPI and is reviewed in intake form today. Physical Exam BP 142/86 Pulse 88 Temp 97.1 ??F (36.2 ??C) Resp 17 Ht 167.6 cm (5' 6 ) Wt 90.7 kg (200 lb) SpO2 97% BMI 32.28 kg/m?? CONSTITUTIONAL: general appearance normal EYES: Normal conjunctivae/lids EARS / NOSE / MOUTH / THROAT: Hearing assessment normal. CARDIOVASCULAR: no lower extremity edema CHEST: Symmetric. RESPIRATORY: Normal effort MUSCULOSKELETAL EXAMINATION: strength 5/5 bilateral lower extremities, sensation intact to light touch, negative sit slump. Positive log roll, FADIR on the left. SKIN: no obvious rashes PSYCHIATRIC: Normal mood and affect. Memory intact. Alert. Speech Patterns: Normal. Assessment: Page Paz is a 60 y.o. female with left hip pain consistent with left hip osteoarthritis. Plan: Repeat left hip injection today Follow-up in three months Zuly Barriga MD [facility] Pain [facility], Department of Anesthesiology [facility] 08/01/2021 ENGINEER documented in this encounter Miscellaneous Notes * Op Note - Zuly Barriga MD - 08/01/2021 10:45 AM CST Attending Surgeon: Zuly Barriga M.D. Surgical Assistants: None Procedure: Left Hip Joint Steroid Injection under Fluoroscopy. Pre-procedural Diagnosis: Other Chronic Pain, Osteoarthritis, Left Hip Post-procedural Diagnosis: Same Indication for Procedure: Left Hip pain. Operative Findings: None Estimated Blood Loss: None Intraoperative Fluids: None Specimens: None Complications: None INFORMED CONSENT: After reviewing the procedure with the patient, informed consent to proceed with the injection was obtained. A procedural permit was also signed. DESCRIPTION OF PROCEDURE: The patient lies laterally on the pain-free side with lower leg flexed and upper leg straight. A pillow was placed between the patient's lower extremities so that the upper leg lies horizontal. Landmarks of the left hip joint were identified fluoroscopically. After prep with chlorhexidine x 3 and drape with sterile towels, 3 cc of 1% lidocaine was used for skin infiltration at a finger-width proximal to the apex of the greater trochanter. Then a 22-gauge 3-inch spinal needle was inserted and advanced until it touched the neck of the femur. The appropriate position ofthe needle was confirmed by AP and lateral views. Aspiration was negative for blood or any other fluid. Omnipaque 300 X 0.5 ml. was injected, resulting in distribution of contrast in the capsule of the joint Then a mixture of 4 cc 0.25% bupivacaine with 40 mg Depo-Medrol was injected slowly after negative aspiration. Subsequently, the needle was removed. The patient's skin was cleaned. The patient tolerated the procedure very well without apparent complications. The patient had marked relief. DISPOSITION: Patient discharged home in stable condition. No Resident involved on case Zuly Barriga MD 08/01/2021 ENGINEER documented in this encounter Plan of Treatment [...] Lifestyle On track(2023 3:53 PM CDT) Landy Beckford RN Note: Below are four things you [...] on stairs Contact your local community or [facility] for information on exercise, fall prevention programs, or options for improving home safety. documented as of this encounter Visit Diagnoses Diagnosis Hip pain, chronic, left documented in this encounter Administered Medications Inactive Administered Medications - up to 3 most recent administrations Medication Order MAR Action Action Date Dose Rate Site bupivacaine (MARCAINE) 0.5 % (5 mg/mL) preservative free injection As needed, Starting on Fri08/01/21 at 1100, Intra-Op Given 08/01/2021 11:00 AM YARD ENGINEER 3 mL iohexoL (OMNIPAQUE) 300 mg iodine/mL injection solution As needed, Starting on Fri08/01/21 at 1100, Intra-Op Given 08/01/2021 11:00 AM YARD ENGINEER 0.5 mL lidocaine (XYLOCAINE) 20 mg/mL (2 %) preservative free injection As needed, Starting on Fri08/01/21 at 1057, Intra-Op Given 08/01/2021 10:57 AM YARD ENGINEER 5 mL methylPREDNISolone acetate (DEPO-medrol) injection As needed, Starting on Fri08/01/21 at 1100, Intra-Op Given 08/01/2021 11:00 AM YARD ENGINEER 40 mg documented in this encounter Care Teams Refining Machine Operator Relationship Specialty Start Date End Date Maged Godoy DO PCP - General 09/28/20 documented as of this encounter
--- OUTSIDE RECORDS SUMMARY | 2024-06-20 19:03 | XMS_ITS | Encounter Summary ---
Author Organization [facility] Healthcare Address [address] [place] [address] Care Team Providers Care Radio Adjuster Name Role Phone Maged Godoy DO Primary Care Provider [phone] Zuly Barriga MD Unavailable Reason for Visit * Reason Comments Follow-up Med Management Encounter Details Date Type Department Care Team (Latest Contact Info) Description 05/16/2022 8:30 AM TECHNOLOGY APPLICATIONS CONSULTANT - 05/16/2022 11:59 PM TECHNOLOGY APPLICATIONS CONSULTANT Hospital Encounter [facility] [address] [facility] 1st [place] [address] Zuly Barriga MD [address] [place] [address] Low back pain, unspecified back pain laterality, unspecified chronicity, unspecified whether sciatica present (Primary Dx); Chronic pain syndrome; Pain in the coccyx Discharge Disposition: Discharge to home or self [...] on file Legal Sex Female 4:55 AM TECHNOLOGY APPLICATIONS CONSULTANT Gender Identity Not on file Sexual Orientation Not on file documented as of this encounter Last Filed Vital Signs Vital Sign Reading Time Taken Comments Blood Pressure 137/81 05/16/2022 8:42 AM TECHNOLOGY APPLICATIONS CONSULTANT Pulse 69 05/16/2022 8:42 AM TECHNOLOGY APPLICATIONS CONSULTANT Temperature 36.6 ??C (97.9 ??F) 05/16/2022 8:42 AM CS T Respiratory Rate 18 05/16/2022 8:42 AM TECHNOLOGY APPLICATIONS CONSULTANT Oxygen Saturation 99% 05/16/2022 8:42 AM TECHNOLOGY APPLICATIONS CONSULTANT Inhaled Oxygen Concentration - - Weight - - Height - - Body Mass Index - - documented in this encounter Medications at Time [...] needed for pain for pain 60 tablet 05/16/2022 07/11/2022 documented as of this encounter Ordered Prescriptions Prescription Sig Dispense Quantity Refills Last Filled Start Date End Date traMADol-acetamino phen (ULTRACET) 37.5-325 mg per tabletIndications: Chronic pain syndrome Take 1 tablet by mouth 3 (three) times a day as needed for pain for pain 60 tablet 05/16/2022 07/11/2022 documented in this encounter Discharge Disposition Disposition Code Departure Means Destination Discharge to home or self care documented in this encounter Progress Notes * Zuly Barriga MD - 05/16/2022 8:45 AM CST Pain Management Follow up Note Patient ID Name: Page Paz Date of : 1960 DOS: 05/16/2022 PCP: Maged Godoy DO Chief Complaint: Chief Complaint Patient presents with Follow-up Med Management Today's visit 05/16/2022: Page Paz is a 61 y.o. female with low back pain, tailbone pain who returns today for follow-up.The pain is overall 2/10, it is located in low back. It is worse with standing and walking for longperiods of time. She is able to complete all of her activities of daily living, she is able to engage with family and friends. She has undergone a hip injection on 08/01/2021 which has been significantly improved and not returned. She continues to take Ultracet less frequently than is prescribed. She finds that this is helpful and days where the pain is severe. She denies any concerns for addiction or tolerance, no side effects from this medication. Pain Assessment Pain Score: 2 Pain Location: Back (Lumbar) Pain Descriptors: Aching Pain Frequency: Constant/continuous Pain Onset: Ongoing Clinical Progression: Gradually improving Patient's Stated Pain Goal: 2 REVIEW OF MEDICATIONS She has a current medication list which includes the following prescription(s): docusate calcium, ibuprofen, methocarbamol, prednisone, valacyclovir, and tramadol-acetaminophen. Allergies Allergies Allergen Reactions Codeine Rash and [...] Bladder Surgery - (Added by TW Conv) AL ABDOMEN SURGERY PROC UNLISTED Hernia Repair - (Added by TW Conv) AL REMOVAL OF TONSILS,<12 Y/O Tonsillectomy - (Added by TW Conv) AL TOTAL ABDOM HYSTERECTOMY Hysterectomy - (Added by TW Conv) Family History Problem Relation Age of Onset Diabetes Other Diabetes Mellitus - (Added by TW Conv) Cancer Other Cancer - (Added by TW Conv) Vitals Vitals: 05/16/22 0842 BP: 137/81 Pulse: 69 Resp: 18 Temp: 97.9 ??F (36.6 ??C) SpO2: 99% ROS Eight point review systems is negative except as above in HPI and is reviewed in intake form today. Physical Exam BP 137/81 Pulse 69 Temp 97.9 ??F (36.6 ??C) Resp 18 SpO2 99% CONSTITUTIONAL: general appearance normal EYES: Normal conjunctivae/lids EARS / NOSE / MOUTH / THROAT: Hearing assessment normal. CARDIOVASCULAR: no lower extremity edema CHEST: Symmetric. RESPIRATORY: Normal effort MUSCULOSKELETAL EXAMINATION: Moving all four extremities spontaneously against gravity, nonantalgicgait. SKIN: no obvious rashes PSYCHIATRIC: Normal mood and affect. Memory intact. Alert. Speech Patterns: Normal. Assessment: Page Paz is a 61 y.o. female with chronic low back pain, pain in the coccyx returns today for follow-up. Encounter Diagnoses Name Primary? Chronic pain syndrome Low back pain, unspecified back pain laterality, unspecified chronicity, unspecified whether sciatica present Yes Pain in the coccyx Plan: Continue Ultracet, refill sent today Follow-up in three months Zuly Barriga MD Patient Experience Coordinator Pain Management, Department of Anesthesiology [facility] 05/16/2022 NOLOGY APPLICATIONS CONSULTANT documented in this encounter Miscellaneous Notes * Addendum Note - Rebel Sexton RT - 05/16/2022 8:45 AM CSTEncounter addended by: Rebel Sexton RT on: 05/16/2022 9:10 AM Actions taken: Charge Capture section accepted NOLOGY APPLICATIONS CONSULTANT documented in this encounter Plan of Treatment [...] on stairs Contact your local community or [facility] for information on exercise, fall prevention programs, or options for improving home safety. documented as of this encounter Visit Diagnoses Diagnosis Low back pain, unspecified back pain laterality, unspecified chronicity, unspecified whether sciatica present- Primary Chronic pain syndrome Pain in the coccyx Other disorder of coccyx documented in this encounter Discontinued Medications Medication Sig Discontinue Reason Start Date End Da te traMADol-acetaminophen (ULTRACET) 37.5-325 mg per tabletIndications:Chroni c pain syndrome TAKE 1 TABLET BY MOUTH THREE TIMES DAILY NEEDED FOR PAIN Reorder 04/19/2022 05/16/2022 documented as of this encounter Care Teams Radio Adjuster Relationship Specialty Start Date End Date Maged Godoy DO PCP - General 09/28/20 Zuly Barriga MD Consulting Physician Pain Management 12/14/21 documented as of this encounter
--- OUTSIDE RECORDS SUMMARY | 2024-06-20 19:03 | XMS_ITS | Referral Summary ---
Author Organization [facility] Address [address] [address] Care Team Providers Care Manuscripts Curator Name Role Phone Maged Godoy Primary Care Provider [phone] Zuly Barriga MD Unavailable Allergies Active Allergy [...] Chronic pain 07/20/2013 Pain in extremity 03/15/2013 Social History Tobacco Use Types Packs/Day Years [...] on file Legal Sex Female 4:55 AM COMMERCIAL PORTFOLIO MANAGER Gender Identity Not on file Sexual Orientation Not on file Last Filed Vital Signs Vital Sign Reading Time Taken Comments Blood Pressure 131/89 01/12/2024 3:53 PM CDT Pulse 68 01/12/2024 3:53 PM CDT Temperature 36.3 ??C (97.4 ??F) 01/12/2024 3:53 PM CD T Respiratory Rate 16 01/12/2024 3:53 PM CDT Oxygen Saturation 97% 01/12/2024 3:53 PM CDT Inhaled Oxygen Concentration - - Weight 90.7 kg (200 lb) 08/01/2021 10:28 AM COMMERCIAL PORTFOLIO MANAGER Height 167.6 cm (5' 6 ) 08/01/2021 10:28 AM COMMERCIAL PORTFOLIO MANAGER Body Mass Index 32.28 08/01/2021 10:28 AM COMMERCIAL PORTFOLIO MANAGER Plan of Treatment Not on file Goals Goal Patient Goal Type Associated Problems [...] on stairs Contact your local community or [facility] for information on exercise, fall prevention programs, or options for improving home safety. Insurance [employer] OPEN ACCESS Senior [facility] [employer] ACCESS [employer] OPEN ACCESS KRAFTWERK OPEN ACCESS Care Teams Manuscripts Curator Relationship Specialty Start Date End Date Maged Godoy DO PCP - General 09/28/20 Zuly Barriga MD Consulting Physician Pain Management 12/14/21
--- OUTSIDE RECORDS SUMMARY | 2024-06-20 19:03 | XMS_ITS | Encounter Summary ---
Author Organization [facility] Healthcare Address [address] [place] [address] Care Team Providers Care Supervisor Spring Up Name Role Phone WaltTimmy weekse Primary Care Provider [phone] Reason for Referral * Diagnostic Imaging (Routine) - Closed Specialty Diagnoses / Procedures Referred By Contac t Referred To Contact Diagnoses Low back pain Procedures FL Fluoro Guided Needle Placement Zuly Barriga MD [address] [place] [address] Phone: tel: fax: [address] [place] [address] Referral ID Status Reason Start Date Expiration Date Visits Re quested Visits Authorized [id number] Closed 07/23/2021 08/22/2022 1 1 D CARE COOK Reason for Visit * Diagnostic Imaging (Routine) - Closed Specialty Diagnoses / Procedures Referred By Contac t Referred To Contact Diagnoses Low back pain Procedures FL Fluoro Guided Needle Placement Zuly Barriga MD [address] [place] [address] Phone: tel: fax: [address] [place] [address] Referral ID Status Reason Start Date Expiration Date Visits Re quested Visits Authorized [id number] Closed 07/23/2021 08/22/2022 1 1 Encounter Details Date Type Department Care Team (Latest Contact Info) Description 08/01/2021 10:18 AM CHILD CARE COOK - 08/01/2021 11:59 PM CHILD CARE COOK Hospital Encounter [facility] Center at [address] [address] Low back pain Discharge Disposition: Discharge to home or self care Social History Tobacco Use Types Packs/Day Years Used Date Smoking Tobacco: Former Smokeless Tobacco: Never Alcohol Use Standard Drinks/Week Comments Yes 0 (1 standard drink = 0.6 oz pur e alcohol) occasionally Comments No Sex and Gender Information Value Date Recorded Sex Assigned at Not on file Legal Sex Female 4:55 AM CHILD CARE COOK Gender Identity Not on file Sexual Orientation [...] Management On track(2023 3:53 PM CDT) Landy Beckford RN Note: Problem: Chronic Pain Goals: 1. [...] on stairs Contact your local community or [facility] for information on exercise, fall prevention programs, or options for improving home safety. documented as of this encounter Procedures Procedure Name Priority Date/Time Associated Diagnosis Comments FLUORO GUIDED NEEDLE PLACEMENT Schedule Routine, Read Routine (OP Routine) 08/01/2021 11:01 AM CHILD CARE COOK Low back pain documented in this encounter Results * FL Fluoro Guided Needle Placement (08/01/2021 11:01 AM CHILD CARE COOK) Narrative [facility] - 08/01/2021 11:13 AM CHILD CARE COOK The images from this study are not interpreted by Radiology. ??Please refer to the physician's procedure / OR operative note. Zuly Barriga MD IMG FLUOROSCOPY RITIAK EARLY Final Result RAD_PACS_MB documented in this encounter Visit Diagnoses Diagnosis Low back pain Lumbago documented in this encounter Care Teams Supervisor Spring Up Relationship Specialty Start Date End Date Maged Godoy DO PCP - General 09/28/20 documented as of this encounter
--- OUTSIDE RECORDS SUMMARY | 2024-06-20 19:04 | XMS_ITS | Encounter Summary ---
Author Organization [facility] Healthcare Address [address] [place] [address] Care Team Providers Care Freight Rate Specialist Name Role Phone Maged Godoy DO Primary Care Provider [phone] Reason for Referral * Diagnostic Imaging (Routine) - Closed Specialty Diagnoses / Procedures Referred By Contac t Referred To Contact Diagnoses Hip pain Procedures XR Hips Bilateral 2 Views W Pelvis Zuly Barriga MD [address] [place] [address] Phone: tel: fax: [address] [address] Referral ID Status Reason Start Date Expiration Date Visits Re quested Visits Authorized [id number] Closed 04/11/2021 05/11/2022 1 1 Reason for Visit * Reason Comments Follow-up Back Pain Hip Pain Encounter Details Date Type Department Care Team (Latest Contact Info) Description 04/11/2021 10:15 AM CDT - 04/11/2021 10:58 AM CDT Hospital Encounter [facility] Pain Center at [place] [facility] 1[address] [place] [id number] Zuly Barriga MD [address] [place] [address] Hip pain (Primary Dx) Discharge Disposition: Discharge to home or self care Social History Tobacco Use Types Packs/Day Years Used Date Smoking Tobacco: Former Smokeless Tobacco: Never Alcohol Use Standard Drinks/Week Comments Yes 0 (1 standard drink = 0.6 oz pur e alcohol) occasionally Comments No Sex and Gender Information Value Date Recorded Sex Assigned at Not on file 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 Gender Identity Not on file Sexual Orientation Not on file documented as of this encounter Last Filed Vital Signs Vital Sign Reading Time Taken Comments Blood Pressure 144/80 04/11/2021 10:24 AM CDT Pulse 91 04/11/2021 10:24 AM CDT Temperature 36.3 ??C (97.4 ??F) 04/11/2021 10:24 AM C DT Respiratory Rate 15 04/11/2021 10:24 AM CDT Oxygen Saturation 99% 04/11/2021 10:24 AM CDT Inhaled Oxygen Concentration - - Weight - - Height - - Body Mass Index - - documented in this encounter Discharge Instructions * Patient Instructions* Brittany Jacobs RN - 04/11/2021 10:30 AM CDT PAIN MANAGEMENT CENTER DISCHARGE INFORMATION PLAN / NEW ORDERS: ??? Follow up at the next available appointment time for hip injection ??? Get imaging done [facility]! [facility] at [facility] - [phone]. Calls are accepted Friday-Friday, 7:30am-4pm, excluding observed holidays. We highly encourage the use of [facility] for non-urgent matters as well as prescription refill requests. If you need to schedule an appointment with Dr. Mallory - Pain Psychologist - [phone] The Pain Management Center is committed to [...] preferred method for refill requests. o Call [phone] and leave a message on the RN [...] on which the pharmacy filled the prescription. [email or web address] We strive to provide you with EXCELLENT service as our patient. You may receive a survey after your visit today. If you can not rate your experience as EXCELLENT, please let us know how we can improve and better meet your needs. Thank you for choosing [facility] / Pain Management! documented in this encounter [...] 1 tablet (500 mg total) by mouth 4 (four) times a day 120 tablet 1 02/13/2021 07/06/2021 predniSONE (DELTASONE) 20 mg tablet Take 1 tablet (20 mg) by mouth daily 02/11/2021 05/06/2023 traMADol-acetamin ophen (ULTRACET) 37.5-325 mg per tabletIndications :Chronic pain syndrome Take 1 tablet by mouth 3 (three) times a day as needed for pain 60 tablet 2 02/13/2021 05/01/2021 documented as of this encounter Discharge Disposition Disposition Code Departure Means Destination Discharge to home or self care documented in this encounter Progress Notes * Zuly Barriga MD - 04/11/2021 10:30 AM CDT Pain Management Follow up Note Patient ID Name: Page Paz Date of : 1960 PCP: Maged Godoy DO Chief Complaint: Chief Complaint Patient presents with ??? Follow-up ??? Back Pain ??? Hip Pain Today's visit: Page Paz is a 60 y.o. female with pain in the low back which radiates down the left to the leftposterior hip. The pain is currently 6/10. It is worse in the morning, it is aching, sharp, tender,and throbbing in nature. She endorses a lot of stiffness, increased pain with sitting. The pain is improved with ice, rest, medications. On 03/21 she underwent left L4-5 transforaminal epidural steroid injection which resulted in 20% relief mainly in soreness and lower extremity pain. She continuesto take ibuprofen, methocarbamol and tramadol which she feels are of benefit. She denies bowel or bladder incontinence, no new numbness, tingling, weakness. REVIEW OF MEDICATIONS She has a current medication list which includes the following prescription(s): docusate calcium, ibuprofen, methocarbamol, prednisone, tramadol-acetaminophen, and valacyclovir. Allergies Allergies Allergen Reactions ??? Codeine Rash [...] Surgery - (Added by TW Conv) ??? SD ABDOMEN SURGERY PROC UNLISTED Hernia Repair - (Added by TW Conv) ? ? SD REMOVAL OF TONSILS,<12 Y/O Tonsillectomy - (Added by TW Conv) ??? SD TOTAL ABDOM HYSTERECTOMY Hysterectomy - (Added by TW Conv) Family History Problem Relation Age of Onset ??? Diabetes Other Diabetes Mellitus - (Added by TW Conv) ??? Cancer Other Cancer - (Added by TW Conv) Vitals Vitals: 04/11/21 1024 BP: 144/80 Pulse: 91 Resp: 15 Temp: 97.4 ??F (36.3 ??C) SpO2: 99% ROS Eight point review systems is negative except as above in HPI and is reviewed in intake form today. Physical Exam BP 144/80 Pulse 91 Temp 97.4 ??F (36.3 ??C) Resp 15 SpO2 99% CONSTITUTIONAL: general appearance normal EYES: Normal conjunctivae/lids EARS / NOSE / MOUTH / THROAT: Hearing assessment normal. CARDIOVASCULAR: no lower extremity edema CHEST: Symmetric. RESPIRATORY: Normal effort MUSCULOSKELETAL EXAMINATION: Positive log roll on the right, decreased range of motion right hip. Negative sit slump bilaterally. Strength 5/5 bilateral lower extremities. Sensation intact to light touch. SKIN: no obvious rashes PSYCHIATRIC: Normal mood and affect. Memory intact. Alert. Speech Patterns: Normal. Assessment: Page Paz is a 60 y.o. female with right hip pain radiating into the buttock who returns today for follow-up. Encounter Diagnosis Name Primary? Hip pain Yes Plan: Radiographs of the hip ordered today Plan for right hip injection Continue with current medications Follow-up next available for evaluation of above plan. Zuly Barriga MD Shipping Assistant Pain Management, Department of Anesthesiology [facility] 04/24/2021 BRATION SPECIALIST documented in this encounter Plan of Treatment [...] on stairs Contact your local community or [facility] for information on exercise, fall prevention programs, or options for improving home safety. documented as of this encounter Results * XR Hips Bilateral 2 Views W Pelvis (04/11/2021 11:38 AM CDT) Anatomical Region Laterality Modality Lower Extremities, Hip, Pelvis Bilateral C omputed Radiography 04/11/2021 1:38 PM CDT Impressions 04/11/2021 1:38 PM CDT There is no acute fracture or malalignment of either hip. ??The hip joint spaces are preserved bilaterally. ??The femoral head contours are preserved. ??There is a tiny right superior acetabular osteophyte, suggesting mild right hip osteoarthrosis. ??There are no degenerative changes of the left hip. ??The sacroiliac joints are unremarkable. There are pelvic phleboliths. ??The soft tissues are unremarkable. Electronically signed by: Gabo Bradford MD Narrative 04/11/2021 1:38 PM CDT EXAMINATION: XR HIPS BILATERAL 2 VIEWS W PELVIS HISTORY: 60 years-old Female with HIP PAIN, NO RECENT XRAY No prior studies are available for comparison Procedure Note Gabo Bradford MD - 04/11/2021 EXAMINATION: XR HIPS BILATERAL 2 VIEWS W PELVIS HISTORY: 60 years-old Female with HIP PAIN, NO RECENT XRAY No prior studies are available for comparison IMPRESSION: There is no acute fracture or malalignment of either hip. The hip joint spaces are preserved bilaterally. The femoral head contours are preserved. There is a tiny right superior acetabular osteophyte, suggesting mild right hip osteoarthrosis. There are no degenerative changes of the left hip. The sacroiliac joints are unremarkable. There are pelvic phleboliths. The soft tissues are unremarkable. Electronically signed by: Gabo Bradford MD Zuly Barriga MD IMG XR PROCEDURES Fin al Result documented in this encounter Visit Diagnoses Diagnosis Hip pain- Primary Pain in joint, pelvic region and thigh Hip pain Pain in joint, pelvic region and thigh documented in this encounter Care Teams Freight Rate Specialist Relationship Specialty Start Date End Date Maged Godoy DO PCP - General 09/28/20 documented as of this encounter
--- OUTSIDE RECORDS SUMMARY | 2024-06-20 19:04 | XMS_ITS | Encounter Summary ---
Author Organization [facility] Healthcare Address [address] [place] [address] Care Team Providers Care Numerical Control Machine Tool Operator Name Role Phone Maged Godoy DO Primary Care Provider [phone] Encounter Details Date Type Department Care Team (Late st Contact Info) Description 09/28/2020 8:25 PM CDT Lab [address] [address] Encounter for long-term opiate analgesic use Social History Tobacco Use Types Packs/Day Years Used Date Smoking Tobacco: Former Smokeless Tobacco: Never Alcohol Use Standard Drinks/Week Comments Yes 0 (1 standard drink = 0.6 oz pur e alcohol) occasionally Comments No Sex and Gender Information Value Date Recorded Sex Assigned at Not on file 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 Author [facility] Chronic Pain Care Plan Chronic Care Management [...] on stairs Contact your local community or [facility] for information on exercise, fall prevention programs, or options for improving home safety. documented as of this encounter Procedures Procedure Name Priority Date/Time Associated Diagnosis Comments PAIN MANAGEMENT PROFILE 6 WITH CONFIRMATION, URINE Routine 09/28/2020 10:30 AM CDT Encounter for long-term opiate analgesic use documented in this encounter Results * Pain Management Profile 6 with Confirmation, Urine (09/28/2020 10:30 AM CDT) Creatinine, ur 125.2 > or = 20.0 mg/dL [facility] pH, ur 6.1 4.5 - 9.0 [facility] Oxidants, ur NEGATIVE <200 mcg/mL [facility] Amphetamine, ur NEGATIVE <500 ng/mL [facility] Barbiturates, ur NEGATIVE <300 ng/mL [facility] Benzodiazepines, ur NEGATIVE <100 ng/mL [facility] Tetrahydrocannabino l, ur NEGATIVE <20 ng/mL [facility] Benzoylecgonine NEGATIVE <150 ng/mL [facility] Pain mgt Methadone, Ur NEGATIVE <100 ng/mL [facility] Opiates, ur NEGATIVE <100 ng/mL [facility] Pain mgt Oxycodone, Ur NEGATIVE <100 ng/mL [facility] Phencyclidine, ur NEGATIVE <25 ng/mL [facility] Ethanol, ur NEGATIVE <500 ng/mL [facility] Comment:See Note 2 Service Comment 3 SEE NOTE [facility] Comment: See Note 1 Note 1 This drug testing is for medical treatment only. ?? Analysis was performed as non-forensic testing and these results should be used only by healthcare providers to render diagnosis or treatment, or to monitor progress of medical conditions. For assistance with interpreting these drug results, please contact a [facility] T[facility] Specialist: [phone] ( ), M-F, 8am-6pm EST. Note 2 This test was developed and its analytical performance characteristics have been determined by [facility]. It has not been cleared or approved by the FDA. This assay has been validated pursuant to the CLIA regulations and is used for clinical purposes. Test Performed at: [facility] [address] ??[id number] ? AUBREE ALBERT MD Pain mgt 6-Acetylmorphine, Ur NEGATIVE <10 ng/mL [facility] Urine 09/28/2020 10:3 0 AM CDT 09/28/2020 8:25 PM CDT Zuly Barriga MD LAB BLOOD ORDERABLES Final Result [facility] [address] Department [place] [address] documented in this encounter Visit Diagnoses Diagnosis Encounter for long-term opiate analgesic use Encounter for long-term (current) use of other medications documented in this encounter Care Teams Numerical Control Machine Tool Operator Relationship Specialty Start Date End Date Maged Godoy DO PCP - General 09/28/20 documented as of this encounter
--- OUTSIDE RECORDS SUMMARY | 2024-06-20 19:04 | XMS_ITS | Encounter Summary ---
Author Organization [facility] Healthcare Address [address] [place] [address] Care Team Providers Care Hand Umbrella Tipper Name Role Phone Maged Godoy DO Primary Care Provider [phone] Encounter Details Date Type Department Care Team (Late st Contact Info) Description 09/28/2020 8:15 PM CDT Lab [address] [address] Social History Tobacco Use Types Packs/Day Years Used Date Smoking Tobacco: Former Smokeless Tobacco: Never Alcohol Use Standard Drinks/Week Comments Yes 0 (1 standard drink = 0.6 oz pur e alcohol) occasionally Comments No Sex and Gender Information Value Date Recorded Sex Assigned at Not on file 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 documented as of this encounter Visit Diagnoses Not on filedocumented in this encounter Care Teams Hand Umbrella Tipper Relationship Specialty Start Date End Date Maged Godoy DO PCP - General 09/28/20 documented as of this encounter
--- OUTSIDE RECORDS SUMMARY | 2024-06-20 19:04 | XMS_ITS | Encounter Summary ---
Author Organization [facility] Healthcare Address [address] [place] [address] Care Team Providers Care Bacon De Rinder Name Role Phone WaltTimmy weekse Primary Care Provider [phone] Reason for Referral * Diagnostic Imaging (Routine) - Closed Specialty Diagnoses / Procedures Referred By Contac t Referred To Contact Diagnoses Hip pain Procedures FL Fluoro Guided Needle Placement Zuly Barriga MD [address] [place] [address] Phone: tel: fax: [place] [place] [address] Referral ID Status Reason Start Date Expiration Date Visits Re quested Visits Authorized [id number] Closed 05/01/2021 05/31/2022 1 1 NE PROCESSING SUPERVISOR Reason for Visit * Diagnostic Imaging (Routine) - Closed Specialty Diagnoses / Procedures Referred By Contac t Referred To Contact Diagnoses Hip pain Procedures FL Fluoro Guided Needle Placement Zuly Barriga MD [address] [place] [address] Phone: tel: fax: [address] [place] [address] Referral ID Status Reason Start Date Expiration Date Visits Re quested Visits Authorized [id number] Closed 05/01/2021 05/31/2022 1 1 Encounter Details Date Type Department Care Team (Latest Contact Info) Description 05/01/2021 9:46 AM DEBONE PROCESSING SUPERVISOR - 05/01/2021 11:59 PM DEBONE PROCESSING SUPERVISOR Hospital Encounter [facility] Pain Center at [address] [place] [place] [address] Hip pain Discharge Disposition: Discharge to home or self care Social History Tobacco Use Types Packs/Day Years Used Date Smoking Tobacco: Former Smokeless Tobacco: Never Alcohol Use Standard Drinks/Week Comments Yes 0 (1 standard drink = 0.6 oz pur e alcohol) occasionally Comments No Sex and Gender Information Value Date Recorded Sex Assigned at Not on file Legal Sex Female 4:55 AM DEBONE PROCESSING SUPERVISOR Gender Identity Not on file Sexual Orientation [...] as needed for pain 60 tablet 2 05/01/2021 07/06/2021 documented as of this encounter Discharge Disposition [...] on stairs Contact your local community or [facility] for information on exercise, fall prevention programs, or options for improving home safety. documented as of this encounter Procedures Procedure Name Priority Date/Time Associated Diagnosis Comments FLUORO GUIDED NEEDLE PLACEMENT Schedule Routine, Read Routine (OP Routine) 05/01/2021 10:10 AM DEBONE PROCESSING SUPERVISOR Hip pain documented in this encounter Results * FL Fluoro Guided Needle Placement (05/01/2021 10:10 AM DEBONE PROCESSING SUPERVISOR) Narrative [facility] - 05/01/2021 10:30 AM DEBONE PROCESSING SUPERVISOR The images from this study are not interpreted by Radiology. ??Please refer to the physician's procedure / OR operative note. us Zuly Barriga MD IMG FLUOROSCOPY RITIKA EARLY Final Result RAD_PACS_MB documented in this encounter Visit Diagnoses Diagnosis Hip pain Pain in joint, pelvic region and thigh documented in this encounter Care Teams Bacon De Rinder Relationship Specialty Start Date End Date Maged Godoy DO PCP - General 09/28/20 documented as of this encounter
--- OUTSIDE RECORDS SUMMARY | 2024-06-20 19:04 | XMS_ITS | Encounter Summary ---
Author Organization [facility] Healthcare Address [address] [place] [address] Care Team Providers Care Subscription Agent Name Role Phone Maged Godoy Primary Care Provider [phone] Reason for Visit * Reason Onset Date Comments Imaging 02/21/2021 Request Call Back 02/21/2021 Encounter Details Date Type Department Care Team (Late st Contact Info) Description 02/21/2021 Telephone [facility] [place] [id number] [facility] 1[address] [place] [address] Shanice Delarosa RN Imaging; Request Call Back Social History Tobacco Use Types Packs/Day Years Used Date Smoking Tobacco: Former Smokeless Tobacco: Never Alcohol Use Standard Drinks/Week Comments Yes 0 (1 standard drink = 0.6 oz pur e alcohol) occasionally Comments No Sex and Gender Information Value Date Recorded Sex Assigned at Not on file 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 Barriga received the MRI report. Dr. Jones agreed lots of arthritis. Other issures too. She could do a Nerve root injection however that might make pain worse. Prefers patient make a follow up visit to discuss. Patient states understanding. Call transferred to outpatient scheduler. * Telephone Encounter - Lor Rodriguez RN - 02/21/2021 10:[address] Barriga patient, seen on 02/13/21. MRI results received. Will discuss with Dr. Barriga. * Telephone Encounter - Shanice Jalloh RN - 02/21/2021 9:36 AM CDT Patient saying that she had MRI that was ordered by PCP completed. PCP said that she had some bulging discs and arthritis in her back. Said that PCP was going to send results of MRI to us and to [facility]. Was calling to see if we had gotten results and what her next steps would be. Requesting call back to discuss. documented in this encounter Plan of Treatment [...] on filedocumented in this encounter Care Teams Subscription Agent Relationship Specialty Start Date End Date Maged Godoy DO PCP - General 09/28/20 documented as of this encounter
--- OUTSIDE RECORDS SUMMARY | 2024-06-20 19:04 | XMS_ITS | Encounter Summary ---
Author Organization [facility] Healthcare Address [address] [place] [address] Care Team Providers Care Apartment Coordinator Name Role Phone Maged Godoy Primary Care Provider [phone] Reason for Visit * Reason Onset Date Comments pre procedure call 04/27/2021 Encounter Details Date Type Department Care Team (Late st Contact Info) Description 04/27/[address] [address] Yuliet Pereyra RN pre procedure call Social History Tobacco Use Types Packs/Day Years Used Date Smoking Tobacco: Former Smokeless Tobacco: Never Alcohol Use Standard Drinks/Week Comments Yes 0 (1 standard drink = 0.6 oz pur e alcohol) occasionally Comments No Sex and Gender Information Value Date Recorded Sex Assigned at Not on file Legal Sex Female 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 Procedure Date, Time, Location ??? Arrival 15 minutes prior to appointment ??? Discharge transportation is needed ??? Oral intake: [x] Able to eat, drink, and take medications as normal. [] No solid food for 6 hours; No liquids for 3 hours; Take medications with sips of water. ??? Blood thinner: [x] Notify the office immediately if taking a new blood thinner [] Notify the office immediately if blood thinner: was not stopped on date: ??? Lab work - N/A [] Lab work is required prior to the procedure. Please arrive 1 hour early to have the following test: [] CBC [] PT/INR ??? Notify the office immediately if: a. In the last 10 days have you had any respiratory symptoms including cough, shortness of breath/trouble breathing, fever, sudden loss of taste or smell, sore throat, or body aches? b. Any antibiotics in the last 7 days? c. Have received a Covid-19 vaccine in the last 2 weeks or plan to receive a Covid-19 vaccine in the next 2 weeks? d. Are currently being tested for Covid-19? e. Have tested positive for Covid-19 within the last 14 days? f. Have had close contact with anyone confirmed or suspected Covid-19 in the past 2 weeks? Procedure Patients receiving steroid injection 1. Have you received the Covid-19 vaccine within the last 2 weeks? Yes [] No[] 2. Do you plan to receive the Covid-19 vaccine in the next 2 weeks? Yes [] No [] Patients should attempt to not have a Covid-19 vaccine 2 weeks prior to a steroid injection or 2 weeks after a steroid injection. At this time there is limited information regarding the impact to steroid injections on the efficacy of the Covid vaccine. Physician guidance recommends delaying steroidinjections when possible. FACTURING BUSINESS ANALYST documented in this encounter Plan of Treatment [...] stairs Contact your local community or senior [place] for information on exercise, fall prevention programs, or options for improving home safety. documented as of this encounter Visit Diagnoses Not on filedocumented in this encounter Care Teams Apartment Coordinator Relationship Specialty Start Date End Date Maged Godoy DO PCP - General 09/28/20 documented as of this encounter
--- OUTSIDE RECORDS SUMMARY | 2024-06-20 19:04 | XMS_ITS | Encounter Summary ---
Author Organization [facility] Healthcare Address [address] [place] [address] Care Team Providers Care Temperature Regulator Pyrometer Name Role Phone Maged Godoy DO Primary Care Provider [phone] Reason for Visit * Reason Comments Injections Encounter Details Date Type Department Care Team (Latest Contact Info) Description 03/21/2021 7:42 AM CDT - 03/21/2021 7:45 AM CDT Hospital Encounter [facility] at [facility] [address] [facility] [address]st [place] [address] Zuly Barriga MD [address] [facility] [address] [place] [address] Degeneration of intervertebral disc of lumbar region; Low back pain with left-sided sciatica, unspecified back pain laterality, unspecified chronicity Discharge Disposition: Discharge to home or self care Social History Tobacco Use Types Packs/Day Years Used Date Smoking Tobacco: Former Smokeless Tobacco: Never Alcohol Use Standard Drinks/Week Comments Yes 0 (1 standard drink = 0.6 oz pur e alcohol) occasionally Comments No Sex and Gender Information Value Date Recorded Sex Assigned at Not on file 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 Gender Identity Not on file Sexual Orientation Not on file documented as of this encounter Last Filed Vital Signs Vital Sign Reading Time Taken Comments Blood Pressure 120/69 03/21/2021 8:57 AM CDT Pulse 83 03/21/2021 8:57 AM CDT Temperature 36.8 ??C (98.2 ??F) 03/21/2021 7:52 AM CD T Respiratory Rate 16 03/21/2021 8:57 AM CDT Oxygen Saturation 98% 03/21/2021 8:57 AM CDT Inhaled Oxygen Concentration - - Weight - - Height - - Body Mass Index - - documented in this encounter Discharge Instructions * Discharge Instructions* Lor Rodriguez RN - 03/21/2021 8:59 AM CDT PAIN [facility]NA[facility]EMENT [facility] POST-PROCEDURE PATIENT EDUCATION The following procedure was performed in clinic today: Lumbar Selective Nerve Root Blocks: Left L5-S1 You have received two medications in your [...] guidance recommends delaying steroid injections when possible. * Patient Instructions* Lor Rodriguez RN - 03/21/2021 8:00 AM CDT Plan: Follow up visit in 2-3 weeks. documented in this encounter Medications at Time [...] or self care documented in this encounter H&P Notes * Zuly Barriga MD - 03/21/2021 8:00 AM CDT History and physical reviewed and no significant changes from prior. Source Note - Zuly Barriga MD - 02/23/2021 11:30 AM CDT Pain Management Follow up Note Patient ID Name: Page Paz Date of : 1960 DOS: 03/09/2021 PCP: Maged Godoy DO Chief Complaint: Chief Complaint Patient presents with ??? Back Pain Today's visit 03/09/2021: Page Paz is a 60 y.o. female with back pain at the low back and coccydnia. The only thing that helps the pain is steroid. The pain is worse with sitting, it is always present. The pain radiates into the left hip and lower extremity. No bowel or bladder incontinence, no new numbness, weakness ortingling. Pain Assessment Pain Score: 8 Pain Location: Back (Lumbar) Pain Radiating Towards: to left hip and down left leg to knee Pain Descriptors: Radiating Pain Frequency: Constant/continuous Pain Onset: Ongoing Clinical Progression: Gradually worsening Patient's Stated Pain Goal: 3 REVIEW OF MEDICATIONS She has a current medication list which includes the following prescription(s): docusate calcium, ibuprofen, methocarbamol, prednisone, tramadol-acetaminophen, and valacyclovir. Current Meds Current Outpatient Medications Medication Sig Dispense Refill ??? docusate calcium (STOOL SOFTENER, DOCUSATE SUJATHA,) 240 mg capsule ??? ibuprofen (ibuprofen) 200 mg tab/cap Take 600 mg by mouth 2 (two) times a day as needed ??? methocarbamoL (ROBAXIN) 500 mg tablet Take 1 tablet (500 mg total) by mouth 4 (four) times a day 120 tablet 1 ??? predniSONE (DELTASONE) 20 mg tablet Take 20 mg by mouth daily ??? traMADol-acetaminophen (ULTRACET) 37.5-325 mg per tablet Take 1 tablet by mouth 3 (three) timesa day as needed for pain 60 tablet 2 ??? valACYclovir (VALTREX) 500 mg tablet Take 500 mg by mouth daily No current facility-administered medications for this encounter. [...] Surgery - (Added by TW Conv) ??? CO ABDOMEN SURGERY PROC UNLISTED Hernia Repair - (Added by TW Conv) ? ? CO REMOVAL OF TONSILS,<12 Y/O Tonsillectomy - (Added by TW Conv) ??? CO TOTAL ABDOM HYSTERECTOMY Hysterectomy - (Added by TW Conv) Family History Problem Relation Age of Onset ??? Diabetes Other Diabetes Mellitus - (Added by TW Conv) ??? Cancer Other Cancer - (Added by TW Conv) Vitals Vitals: 02/23/21 1125 BP: 141/81 Pulse: 82 Resp: 18 Temp: 97.5 ??F (36.4 ??C) SpO2: 98% Weight: 88 kg (193 lb 14.4 oz) Height: 167.6 cm (5' 6 ) ROS 8 pt ROS as above in HPI and as reviewed in intake form Physical Exam BP 141/81 Pulse 82 Temp 97.5 ??F (36.4 ??C) Resp 18 Ht 167.6 cm (5' 6 ) Wt 88 kg (193 lb 14.4 oz) SpO2 98% BMI 31.30 kg/m?? CONSTITUTIONAL: general appearance normal EYES: Normal conjunctivae/lids EARS / NOSE / MOUTH / THROAT: Hearing assessment normal. CARDIOVASCULAR: no lower extremity edema CHEST: Symmetric. RESPIRATORY: Normal effort MUSCULOSKELETAL EXAMINATION: Strength 5/5 bilateral lower extremities, positive sit slump on the left. SKIN: no obvious rashes PSYCHIATRIC: Normal mood and affect. Memory intact. Alert. Speech Patterns: Normal. Assessment: Page Paz is a 60 y.o. female with low back pain, coccydina Plan: - Left L5-S1 TFESI next appointment. Zuly Barriga MD Electrolysis Investigator Pain Management, Department of Anesthesiology [facility] 03/09/2021 documented in this encounter Miscellaneous Notes * Op Note - Zuly Barriga MD - 03/21/2021 8:00 AM CDT Attending Surgeon: Zuly Barriga M.D. Surgical Assistants: None Procedure: Transforaminal Epidural Steroid Injection (Selective Nerve Root Injection) at Left L4-5,under Fluoroscopy Pre-procedural Diagnosis: left sided lumbar radiculopathy and Lumbar disc displacement Post-procedural Diagnosis: Same Indication for Procedure: low back pain with radiation Operative Findings: None Estimated Blood Loss: None Intraoperative Fluids: None Specimens: None Complications: None Informed Consent: After reviewing the procedure with the patient, informed consent to proceed with the injection was obtained. A procedural permit was also signed. Description of Procedure: The patient was placed in the prone position on the fluoroscopy table. Fluoroscopy was used to identify the Left L4-5 level. The lumbar area was prepped with chlorhexadine solution and draped with sterile towels. Sterile technique was used throughout. At the needle entry point for the injection at l eft lumbar level Left L4-5 , the skin and subcutaneous tissues were infiltrated with 1% lidocaine. A 22-gauge B - bevel spinal needle was introduced and positioned with fluoroscopic imaging. The needle was advanced to the posterior margin of the neural foramen. Needle positioning was verified withAP and lateral fluoroscopic images under live fluoroscopy. Omnipaque 300 X 0.2 ml. was injected viaextension tubing, resulting in contrast being spread into the anticipated path of the nerve root. Radiographic contrast was not seen to spread into the epidural space. There was no vascular uptake onlive fluoroscopy. Bupivacaine, 2.5 mg., with dexamethasone, 4 mg., (for a total volume of 2 ml.) were injected, resulting in dispersion of the previously injected contrast. No paresthesias were encountered during needle placement or injection of the solution. The procedure was well tolerated, and there were no apparent complications. The patient had marked relief. DISPOSITION: Patient discharged home in stable condition. No Resident involved on case Zuly Barriga MD 03/21/2021 8:45 PM documented in this encounter Plan of Treatment [...] PM CDT) No Landy Gomez, MARIE Note: Below are four things you can [...] as of this encounter Visit Diagnoses Diagnosis Degeneration of intervertebral disc of lumbar region Low back pain with left-sided sciatica, unspecified back pain laterality, unspecified chronicity documented in this encounter Administered Medications Inactive Administered Medications - up to 3 most recent administrations Medication Order MAR Action Action Date Dose Rate Site bupivacaine (MARCAINE) 0.25 % (2.5 mg/mL) preservative free injection As needed, Starting on Fri03/21/21 at 0848, Intra-Op Given 03/21/2021 8:48 AM CDT 1 mL dexAMETHasone (DECADRON) preservative free solution Administer over 2 Minutes, As needed, Starting on Fri03/21/21 at 0848, Intra-Op Given 03/21/2021 8:48 AM CDT 10 mg iohexoL (OMNIPAQUE) 300 mg iodine/mL injection solution As needed, Starting on Fri03/21/21 at 0848, Intra-Op Given 03/21/2021 8:48 AM CDT 1 mL lidocaine PF (XYLOCAINE) 10 mg/mL (1 %) preservative free injection As needed, Starting on Fri03/21/21 at 0849, Intra-Op Given 03/21/2021 8:49 AM CDT 6 mL documented in this encounter Care Teams Temperature Regulator Pyrometer Relationship Specialty Start Date End Date Maged Godoy DO PCP - General 09/28/20 documented as of this encounter
--- OUTSIDE RECORDS SUMMARY | 2024-06-20 19:04 | XMS_ITS | Encounter Summary ---
Author Organization [facility] Healthcare Address [address] [place] [address] Care Team Providers Care Corporate Communications Intern Name Role Phone Unknown, Notinfile Primary Care Provider Unavail able Reason for Visit * Reason Onset Date Comments Med Refill, needs appointment 06/18/2019 tr amadol apap refill Encounter Details Date Type Department Care Team (Late st Contact Info) Description 06/18/2019 Telephone [facility] at [place] [id number] [facility] [address] [place] [address] Zuly Barriga MD [address] [facility] [address] [place], [place] [id number] Med Refill, needs appointment (tramadol apap refill ) Social History Tobacco Use Types Packs/Day Years Used Date Smoking Tobacco: Former Smokeless Tobacco: Never Alcohol Use Standard Drinks/Week Comments Yes 0 (1 standard drink = 0.6 oz pur e alcohol) occasionally Comments No Sex and Gender Information Value Date Recorded Sex Assigned at Not on file Legal Sex Female 4:55 AM CLINICAL DATA 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 ( YULI 12/21/18) ICAL DATA ASSOCIATE * Addendum Note - Trang Solares RN - 06/23/2019 11:36 AM CSTAddended by: TRANG SOLARES V. on: 06/23/2019 11:36 AM Modules accepted: Orders ICAL DATA ASSOCIATE * Telephone Encounter - Trang Solares RN - 06/23/2019 11:35 AM CLINICAL DATA ASSOCIATE Request Sent from [facility] 06/23/2019. ICAL DATA ASSOCIATE * Telephone Encounter - Landy Gomez RN - 06/23/2019 10:35 AM CLINICAL DATA ASSOCIATE Pt has never made appt. Prescription refill refusd. ICAL DATA ASSOCIATE * Telephone Encounter - Trang Solares RN - 06/21/2019 8:40 AM CLINICAL DATA ASSOCIATE Spoke with the patient, reminded her that she needed to make an appointment With Dr. Barriga ( last office visit was 12/23/2018). She verbalized understanding, states will call today to schedule next appointment. ICAL DATA ASSOCIATE documented in this encounter Plan of Treatment Not on file documented as of this encounter Goals Goal Patient Goal Type Associated Problems Recent Progress Patient-Stated? Author CCM Chronic Pain Care Plan Chronic Care Management On track(2023 3:53 PM CDT) No Rehrig, Landy [place], RN Note: Problem: Chronic Pain Goals: 1. [...] syndrome documented in this encounter Care Teams Corporate Communications Intern Relationship Specialty Start Date End Date Unknown, Notinfile PCP - General 10/24/17 09/27/20 documented as of this encounter
--- OUTSIDE RECORDS SUMMARY | 2024-06-20 19:04 | XMS_ITS | Encounter Summary ---
Author Organization [facility] Healthcare Address [address] [place] [address] Care Team Providers Care Hospice Plan Administrator Name Role Phone Maged Godoy Primary Care Provider [phone] Reason for Visit * Reason Onset Date Comments pre procedure call 07/30/2021 Encounter Details Date Type Department Care Team (Late st Contact Info) Description 07/30/[address] [address] Yuliet Pereyra RN pre procedure call Social History Tobacco Use Types Packs/Day Years Used Date Smoking Tobacco: Former Smokeless Tobacco: Never Alcohol Use Standard Drinks/Week Comments Yes 0 (1 standard drink = 0.6 oz pur e alcohol) occasionally Comments No Sex and Gender Information Value Date Recorded Sex Assigned at Not on file 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 See documentation 1. Have you received the Covid-19 vaccine within the last 2 weeks? Yes [] No[x] 2. Do you plan to receive the Covid-19 vaccine in the next 2 weeks? Yes [] No [x] Please attempt to not have a Covid-19 vaccine 2 weeks prior to a steroid injection or 2 weeks aftera steroid injection. At this time there is limited information regarding the impact to steroid injections on the efficacy of the Covid vaccine. Physician guidance recommends delaying steroid injections when possible. L MARKETER documented in this encounter Plan of Treatment [...] on stairs Contact your local community or [facility] for information on exercise, fall prevention programs, or options for improving home safety. documented as of this encounter Visit Diagnoses Not on filedocumented in this encounter Care Teams Hospice Plan Administrator Relationship Specialty Start Date End Date Maged Godoy DO PCP - General 09/28/20 documented as of this encounter
--- OUTSIDE RECORDS SUMMARY | 2024-06-20 19:04 | XMS_ITS | Encounter Summary ---
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 documented as of this encounter Visit Diagnoses Not on filedocumented in this encounter Care Teams Play Leader Relationship Specialty Start Date End Date Unknown, Notinfile PCP - General 10/24/17 09/27/20 documented as of this encounter
--- OUTSIDE RECORDS SUMMARY | 2024-06-20 19:04 | XMS_ITS | Encounter Summary ---
Author Organization [facility] Healthcare Address [address] [place] [address] Care Team Providers Care Flavorer Name Role Phone Unknown, Notinfile Primary Care Provider Unavail able Reason for Visit * Reason Comments Back Pain Encounter Details Date Type Department Care Team (Latest Contact Info) Description 07/28/2019 3:29 PM SPORTS STATISTICIAN - 07/28/2019 11:59 PM SPORTS STATISTICIAN Hospital Encounter [facility] [place] [id number] [facility] [address] [place] [address] Zuly Barriga MD [address] [facility] [address] [place], [place] [id number] Pain in the coccyx (Primary Dx); Chronic pain syndrome Discharge Disposition: Discharge to home or self care Social History Tobacco Use Types Packs/Day Years Used Date Smoking Tobacco: Former Smokeless Tobacco: Never Alcohol Use Standard Drinks/Week Comments Yes 0 (1 standard drink = 0.6 oz pur e alcohol) occasionally Comments No Sex and Gender Information Value Date Recorded Sex Assigned at Not on file Legal Sex Female 4:55 AM SPORTS STATISTICIAN Gender Identity Not on file Sexual Orientation Not on file documented as of this encounter Last Filed Vital Signs Vital Sign Reading Time Taken Comments Blood Pressure 128/60 07/28/2019 3:39 PM SPORTS STATISTICIAN Pulse 93 07/28/2019 3:39 PM SPORTS STATISTICIAN Temperature 36.6 ??C (97.8 ??F) 07/28/2019 3:39 PM CS T Respiratory Rate 18 07/28/2019 3:39 PM SPORTS STATISTICIAN Oxygen Saturation 99% 07/28/2019 3:39 PM SPORTS STATISTICIAN Inhaled Oxygen Concentration - - Weight 81.6 kg (180 lb) 07/28/2019 3:39 PM SPORTS STATISTICIAN Height - - Body Mass Index 29.07 04/27/2018 12:17 PM SPORTS STATISTICIAN documented in this encounter Discharge Instructions * Patient Instructions* Nena Calvo, MARIE - 07/28/2019 3:30 PM SPORTS STATISTICIAN PAIN MANAGEMENT CENTER ([facility]) DISCHARGE INSTRUCTIONS [phone] (M-F) (8am-4pm) PLAN: PROCEDURE TODAY: PROCEDURE AT NEXT VISIT: DIAGNOSTIC TEST(S): FOLLOW UP: with Dr. Barriga in 3 months The Pain [facility] is committed to providing your medication refills in a timely manner. When submitting a refill request, please note the following guidelines: ??? Federal guidelines recommend patients with chronic pain, for whom opioid medications are prescribed, be evaluated at least once every two-three months.The Pain Management Center adheres to these guidelines and patients should plan to be seen at least every two-three months (or more frequently, as deemed appropriate by the prescribing provider). o To allow timely scheduling of evaluations, please contact the office to schedule your appointment6-8 weeks in advance. ??? For all opioid/narcotic prescription refills, please contact the Pain Management Center at least 7 days prior to the date of need. o Call [phone], Option # 3 for [facility] and then #4 Nurse Message Line. Please leave the following information: - Name, date of , and phone number - Name(s) of the medication(s) needing refill - Name and number for the pharmacy where the refill(s) should be sent ??? All non-opioid/non-narcotic refill requests should be submitted to the pharmacy directly. The pharmacy will then contact the Pain Management Center with the necessary information. ??? If you have any questions or concerns, please contact the Pain Management Center at [phone]. For any questions about your visit or your procedure, please call the [facility] [phone] (M-F) (8am-4pm). Please leave a message on the Nurse Line for ALL Non Urgent matters. If you have an urgent matter during normal business hours please choose option #3 for established patients. If you need urgent attention after 4 pm, on the weekends, or a holiday that can not wait until the office opens: Please call 911 or go to the nearest Emergency Room. TS STATISTICIAN documented in this encounter Medications at Time of Discharge docusate calcium (COLACE) 240 mg capsuleIndication s:constipation valACYclovir (VALTREX) 500 mg tablet Take 1 tablet (500 mg total) by mouth daily 01/23/2018 meloxicam (MOBIC) 7.5 mg tablet Take 1 tablet (7.5 mg total) by mouth daily 30 tablet 11 12/23/2018 12/23/2019 traMADol-acetamin ophen (ULTRACET) 37.5-325 mg per tabletIndications :Fibromyalgia Take 1 tablet by mouth every 12 (twelve) hours as needed for pain 60 tablet 2 07/28/2019 05/09/2020 documented as of this encounter Ordered Prescriptions Prescription Sig Dispense Quantity Refills Last Filled Start Date End Date traMADol-acetamino phen (ULTRACET) 37.5-325 mg per tabletIndications: Fibromyalgia Take 1 tablet by mouth every 12 (twelve) hours as needed for pain 60 tablet 2 07/28/2019 05/09/2020 documented in this encounter Discharge Disposition Disposition Code Departure Means Destination Discharge to home or self care documented in this encounter Progress Notes * Zuly Barriga MD - 07/28/2019 3:30 PM CST Patient Name: Page Paz : 1960 Today's Date: 07/28/2019 PCP: Maryanne Unknown Referring: No ref. provider found Chief Complaint Patient presents with ??? Back Pain HPI Page Paz returns to clinic today to establish care after her previous pain physician left practice. She has a past medical history of coccydynia, she has previously had L5-S1 diskectomy [address] Mercado which was complicated by CSF leak which resolved after blood patch. The coccydynia developed approximately 6 weeks later. 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 She has previously undergone injections which have resulted in significant increase inpain. She uses modalities as well as biofeedback and occasional tramadol to manage her pain. She has been taking approximately 1500 mg of ibuprofen per day. She has not done pelvic floor PT. She overall feels that her pain tolerance has improved over the years, she is able to do much of which she wants, she continues to have significant pain with riding motorcycle with her which she enjoys. She takes 1 tramadol prior to this in anticipation of increased pain. She has not tried Tylenol. TODAY 07/28/2019 Ms. Paz returns to clinic today for continued evaluation treatment of her coccydynia. Overall she feels that she has been able to manage the pain significantly with the use of her current medications and with regular jacuzzi use. She takes one tramadol a day. This allows her to continue to work, engage with her family. She denies any side effects from this medication. She denies any bowel or bladder incontinence, no lower extremity weakness, numbness or tingling. Review of Systems As above in HPI and as reviewed in intake form today, otherwise a point review of systems is negative. Patient's Medications New Prescriptions No medications on file Previous Medications DOCUSATE CALCIUM (STOOL SOFTENER, DOCUSATE SUJATHA,) 240 MG CAPSULE Authorizing Provider: Ton Santana MD Notes: -- MELOXICAM (MOBIC) 7.5 MG TABLET Take 1 tablet (7.5 mg total) by mouth daily Authorizing Provider: Zuly Barriga MD Notes: -- VALACYCLOVIR (VALTREX) 500 MG TABLET Authorizing Provider: Ton Santana MD Notes: -- Modified Medications Modified Medication Previous Medication TRAMADOL-ACETAMINOPHEN (ULTRACET) 37.5-325 MG PER TABLET traMADol-acetaminophen (ULTRACET) 37.5-325mg per tablet Take 1 tablet by mouth every 12 (twelve) hours as needed for pain Take 1 tablet by mouth every 12 (twelve) hours as needed for pain Authorizing Provider: Zuly Barriga MD Authorizing Provider: Zuly Barriga MD Notes: -- Notes: >> TOMER BLANDON Jul 28, 2019 3:43 PM every day, good relief, no side effects, last dose 07/27/2019 HS Discontinued Medications No medications on file Allergies Allergen Reactions ??? Codeine Headache and Rash Reaction: Headache, Rash, Physical Exam Vitals: 07/28/19 1539 BP: 128/60 Pulse: 93 Resp: 18 Temp: 97.8 ??F (36.6 ??C) TempSrc: Oral SpO2: 99% Weight: 81.6 kg (180 lb) Body mass index is 29.07 kg/m??. CONSTITUTIONAL: general appearance normal EYES: Normal conjunctivae/lids EARS / NOSE / MOUTH / THROAT: Hearing assessment normal to conversational tones. Lips, teeth and gums normal. CARDIOVASCULAR: No Lower extremity edema CHEST: Symmetric. RESPIRATORY: Normal respiratory effort on room air. MUSCULOSKELETAL EXAMINATION: nonantalgic gait. Strength 5/5 bilateral lower extremities. SKIN: no obvious rashes NEUROLOGIC EXAM: Cranial nerves II-XII grossly normal. Balance normal. PSYCHIATRIC: Normal mood and affect. Memory intact. Alert. Speech Patterns: Normal. Assessment The above note documents my personal evaluation of this patient. In addition, I have reviewed and confirmed with the patient and nurse the supportive information documented in today's scanned PatientHealth Questionnaire and Office Note. Problem List Nervous Chronic pain (Chronic) Relevant Medications traMADol-acetaminophen (ULTRACET) 37.5-325 mg per tablet Plan 1. Interventions: Given prior increased pain with interventions we will not pursue any at this time. 2. Medications: I educated the patient on the risks of prolonged opioid use including but not limited to, tolerance, dependence, opioid induced hyperalgesia, immunosuppression, osteoporosis, and hormonal imbalance. She is currently using one tramadol per day, no signs or symptoms of addiction, yazan ance, diversion. We will continue prescribing. 3. Imaging: No further imaging needed at this current time. 4. Referral: Encouraged regular physical activity 5. Follow-up: In Three months for re-evaluation of the above regimen. No orders of the defined types were placed in this encounter. Zuly Barriga MD Instructor Pain Management, Department of Anesthesiology [facility] 07/29/2019 1:51 PM TS STATISTICIAN documented in this encounter Plan of Treatment [...] on stairs Contact your local community or [facility] for information on exercise, fall prevention programs, or options for improving home safety. documented as of this encounter Visit Diagnoses Diagnosis Pain in the coccyx- Primary Other disorder of coccyx Chronic pain syndrome documented in this encounter Discontinued Medications Medication Sig Discontinue Reason Start Date End Da te traMADol-acetaminophen (ULTRACET) 37.5-325 mg per tabletIndications:Fibrom yalgia Take 1 tablet by mouth every 12 (twelve) hours as needed for pain Reorder 12/23/2018 07/28/2019 documented as of this encounter Care Teams Flavorer Relationship Specialty Start Date End Date Unknown, Notinfile PCP - General 10/24/17 09/27/20 documented as of this encounter
--- OUTSIDE RECORDS SUMMARY | 2024-06-20 19:04 | XMS_ITS | Encounter Summary ---
Author Organization [facility] Healthcare Address [address] [place] [address] Care Team Providers Care Hollow Ware Maker Name Role Phone Maged Godoy DO Primary Care Provider [phone] Reason for Visit * Reason Comments Hip Pain Encounter Details Date Type Department Care Team (Latest Contact Info) Description 06/12/2021 10:22 AM SHIPPING/RECEIVING CLERK - 06/12/2021 11:59 PM SHIPPING/RECEIVING CLERK Hospital Encounter [facility] at [facility] [address] [facility] 1[address] [place] [address] Zuly Barriga MD [address] [facility] [address] [place] [address] Other chronic pain Discharge Disposition: Discharge to home or self care Social History Tobacco Use Types Packs/Day Years Used Date Smoking Tobacco: Former Smokeless Tobacco: Never Alcohol Use Standard Drinks/Week Comments Yes 0 (1 standard drink = 0.6 oz pur e alcohol) occasionally Comments No Sex and Gender Information Value Date Recorded Sex Assigned at Not on file Legal Sex Female 4:55 AM SHIPPING/RECEIVING CLERK Gender Identity Not on file Sexual Orientation Not on file documented as of this encounter Last Filed Vital Signs Vital Sign Reading Time Taken Comments Blood Pressure 148/79 06/12/2021 10:33 AM SHIPPING/RECEIVING CLERK Pulse 79 06/12/2021 10:33 AM SHIPPING/RECEIVING CLERK Temperature 36.6 ??C (97.8 ??F) 06/12/2021 10:[address] Respiratory Rate 12 06/12/2021 10:33 AM SHIPPING/RECEIVING CLERK Oxygen Saturation 97% 06/12/2021 10:33 AM SHIPPING/RECEIVING CLERK Inhaled Oxygen Concentration - - Weight 92.1 kg (203 lb) 06/12/2021 10:33 AM SHIPPING/RECEIVING CLERK Height 167.6 cm (5' 6 ) 06/12/2021 10:33 AM SHIPPING/RECEIVING CLERK Body Mass Index 32.77 06/12/2021 10:33 AM SHIPPING/RECEIVING CLERK documented in this encounter Discharge Instructions * Patient Instructions* Nidia Leon RN - 06/12/2021 10:30 AM SHIPPING/RECEIVING CLERK PAIN MANAGEMENT CENTER DISCHARGE INFORMATION PLAN / NEW ORDERS: ??? Repeat hip injection on the 01 of July Pain Management Center at [facility] - [phone]. Calls are accepted Friday-Friday, 7:30am-4pm, excluding observed holidays. ??? We highly encourage the use of [facility] for non-urgent matters as well as prescription refill requests. ??? If you need to schedule an appointment with Dr. Mallory - Pain Psychologist - [phone] ??? If you are scheduled for an MRI we encourage you to schedule [facility] work closely with the Radiology Imaging Department and the physicians that read the images. In addition the images are of higher quality, and we receive the results quicker. If you choose to use an imaging location outside of [facility] and/or have [employer], please notify us immediately with a message on our nurse line or by sending a [employer] message with the following: - Location - [...] preferred method for refill requests. o Call [phone] and leave a message on the RN [...] on which the pharmacy filled the prescription. [email or web address] We strive to provide you with EXCELLENT service as our patient. You may receive a survey after your visit today. If you can not rate your experience as EXCELLENT, please let us know how we can improve and better meet your needs. Thank you for choosing [facility] / Pain Management! PING/RECEIVING CLERK documented in this encounter Medications at Time [...] Progress Notes * Zuly Barriga MD - 06/12/2021 10:30 AM CST Pain Management Follow up Note Patient ID Name: Page Paz Date of : 1960 DOS: 06/12/2021 PCP: Maged Godoy DO Chief Complaint: Chief Complaint Patient presents with ??? Hip Pain Today's visit 06/12/2021: Page Paz is a 60 y.o. female with chronic tailbone pain, low back pain and hip pain who returnstoday for follow up. Page Paz was seen last in our pain clinic on 05/01/2021 with recommendations to include hip injection. Since the last visit she feels the pain is somewhat better. She continues to have resolution of radiating leg pain after LES, now with further improvement in mobility following hip injection. Has been able to initiate exercise program and stretching. Is walking more but is always worried about being too far from where she can prop up her leg. She denies numbness, tingling or weakness. The pain today is a 5/10 but is not as sharp as previously. The pain is located in the hip, radiates across the low back and into the posterior thighs. The pain is aching and dull in nature. It is aggravated with walking, standing and bending. It is alleviated with lying. Current Meds Current Outpatient Medications Medication Sig Dispense Refill ??? docusate calcium (STOOL SOFTENER, DOCUSATE SUJATHA,) 240 mg capsule ??? ibuprofen (ibuprofen) 200 mg tab/cap Take 600 mg by mouth 2 (two) times a day as needed ??? methocarbamoL (ROBAXIN) 500 mg tablet Take 1 tablet (500 mg total) by mouth 4 (four) times a day 120 tablet 1 ??? traMADol-acetaminophen (ULTRACET) 37.5-325 mg per tablet Take 1 tablet by mouth 3 (three) timesa day as needed for pain 60 tablet 2 ??? valACYclovir (VALTREX) 500 mg tablet Take 500 mg by mouth daily ??? predniSONE (DELTASONE) 20 mg tablet Take 20 mg by mouth daily (Patient not taking: Reported on 05/01/2021) No current facility-administered medications for this encounter. Continues to take Tramadol TID with benefit. Would like to reduce to baseline 1 tab per day. Allergies Allergies Allergen Reactions ??? Codeine Rash [...] Surgery - (Added by TW Conv) ??? AR ABDOMEN SURGERY PROC UNLISTED Hernia Repair - (Added by TW Conv) ? ? AR REMOVAL OF TONSILS,<12 Y/O Tonsillectomy - (Added by TW Conv) ??? AR TOTAL ABDOM HYSTERECTOMY Hysterectomy - (Added by TW Conv) Family History Problem Relation Age of Onset ??? Diabetes Other Diabetes Mellitus - (Added by TW Conv) ??? Cancer Other Cancer - (Added by TW Conv) Vitals Vitals: 06/12/21 1033 BP: 148/79 Pulse: 79 Resp: 12 Temp: 97.8 ??F (36.6 ??C) SpO2: 97% Weight: 92.1 kg (203 lb) Height: 167.6 cm (5' 6 ) ROS 8 pt ros as above in HPI and as reviewed in intake form today Physical Exam BP 148/79 Pulse 79 Temp 97.8 ??F (36.6 ??C) Resp 12 Ht 167.6 cm (5' 6 ) Wt 92.1 kg (203 lb) SpO2 97% BMI 32.77 kg/m?? CONSTITUTIONAL: general appearance normal EYES: Normal conjunctivae/lids EARS / NOSE / MOUTH / THROAT: Hearing assessment normal. CARDIOVASCULAR: no lower extremity edema CHEST: Symmetric. RESPIRATORY: Normal effort MUSCULOSKELETAL EXAMINATION: Negative sit slump, positive log roll on the left. SKIN: no obvious rashes PSYCHIATRIC: Normal mood and affect. Memory intact. Alert. Speech Patterns: Normal. Assessment: Page Paz is a 60 y.o. female with chronic coccydynia who has had improvement in her new onset leg and hip pain after LES and left hip injection. Plan: - repeat left hip injection 08/01; discussed importance of limiting joint injections such as hip injections - Continue with HEP - Discussed continued temporary increase in Tramadol with plan to reduce to baseline after next injection Zuly Barriga MD Limousine Rental Clerk Pain Management, Department of Anesthesiology [facility] 06/12/2021 PING/RECEIVING CLERK documented in this encounter Plan of Treatment [...] as of this encounter Visit Diagnoses Diagnosis Other chronic pain documented in this encounter Care Teams Hollow Ware Maker Relationship Specialty Start Date End Date Maged Godoy DO PCP - General 09/28/20 documented as of this encounter
--- OUTSIDE RECORDS SUMMARY | 2024-06-20 19:04 | XMS_ITS | Encounter Summary ---
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 Gender Identity Not on file Sexual Orientation Not on file documented as of this encounter Last Filed Vital Signs Vital Sign Reading Time Taken Comments Blood Pressure 121/65 09/28/2020 10:20 AM CDT Pulse 72 09/28/2020 10:20 AM CDT Temperature 36.3 ??C (97.3 ??F) 09/28/2020 10:20 AM C DT Respiratory Rate 16 09/28/2020 10:20 AM CDT Oxygen Saturation 97% 09/28/2020 10:20 AM CDT Inhaled Oxygen Concentration - - Weight 90.7 kg (200 lb) 09/28/2020 10:20 AM CDT Height 167.6 cm (5' 6 ) 09/28/2020 10:20 AM CDT Body Mass Index 32.28 09/28/2020 10:20 AM CDT documented in this encounter Discharge Instructions * Patient Instructions* Brittany Jacobs, MARIE - 09/28/2020 10:30 AM CDT [facility] C[facility] DISCHARGE INFORMATION PLAN: ??? Follow up as needed NEW ORDERS: ??? If you have any questions or concerns, please contact the [facility] at [phone]. Calls are accepted Friday-Friday, 7:30am-4pm, excluding observed holidays. ??? Non-urgent matters: Select the nurse line option and leave a message ??? Urgent matters: Select the current patient scheduling option ??? Urgent/emergent matters occurring outside of business hours that cannot wait until the office opens: Call 911 or go to the nearest Emergency Room. The [facility] is committed to providing your medication refills in a timely manner. When submitting a refill request, please note the following guidelines: ??? Federal guidelines recommend patients with chronic pain, for whom opioid medications are prescribed, be evaluated at least once every three months. The [facility] adheres to these guidelines and patients should plan to be seen at least every three months (or more frequently, as deemed appropriate by the prescribing provider). o Patients who are prescribed non-opioid medications should plan to be evaluated at least every 6 months (or more frequently, as deemed appropriate by the prescribing provider). o To allow timely scheduling of evaluations, please contact the office to schedule your appointment4-6 weeks in advance. ??? For all opioid/narcotic prescription refills, please contact the Pain Management Center 3-5 days prior to the date of need. o Call [phone] and leave a message on the RN [...] on which the pharmacy filled the prescription. ??? All non-opioid/non-narcotic refill requests should be submitted to the pharmacy directly. The pharmacy will then contact the [facility] with the necessary information. Procedure Patients receiving steroid injection 1. Have you received the Covid-19 vaccine within the last 2 weeks? Yes [] No[] 2. Do you plan to receive the Covid-19 vaccine in the next 2 weeks? Yes [] No [] Please attempt to not have a Covid-19 vaccine 2 weeks prior to a steroid injection or 2 weeks aftera steroid injection. At this time there is limited information regarding the impact to steroid injections on the efficacy of the Covid vaccine. Physician guidance recommends delaying steroid injections when possible. [email or web address] documented in this encounter Medications at Time of Discharge docusate calcium (COLACE) 240 mg capsuleIndication s:constipation ibuprofen (ADVIL,MOTRIN) 200 mg tab/cap Take 3 tablet/capsul e (600 mg total) by mouth 2 (two) times a day as needed valACYclovir (VALTREX) 500 mg tablet Take 1 tablet (500 mg total) by mouth daily 01/23/2018 traMADol-acetamin ophen (ULTRACET) 37.5-325 mg per tabletIndications :Fibromyalgia Take 1 tablet by mouth every 12 (twelve) hours as needed for pain 60 tablet 09/19/2020 10/25/2020 documented as of this encounter Discharge Disposition Disposition Code Departure Means Destination Discharge to home or self care documented in this encounter Progress Notes * Zuly Barriga MD - 09/28/2020 10:30 AM CDT Pain Management Follow up Note Patient ID Name: Page Paz Date of : 1960 DOS: 09/28/2020 PCP: Maged Godoy DO Chief Complaint: Chief Complaint Patient presents with Back Pain Follow-up Today's visit 09/28/2020 Page Paz is a 59 y.o. female with coccydynia who returns today for follow-up. Pain is currently 5/10. It is located in the tailbone. It is mostly located specifically in the tailbone however he can occasionally radiate the low back and hip. When she stands she feels increased pressure in the tailbone, she additionally feels worsening pain with sitting. The pain is constant. Cold helps as does utilization of Jacuzzi. She takes ibuprofen during the day and tramadol at night.She feels that this medication is beneficial. She denies any side effects, no concerns for addiction or tolerance. Pain Assessment Pain Score: 5 - Moderate pain Pain Location: Other (Comment)(tailbone) Pain Radiating Towards: occassionally radiates to lower back and hips Pain Descriptors: Aching, Discomfort Pain Frequency: Constant/continuous Pain Onset: Ongoing Clinical Progression: Not changed Patient's Stated Pain Goal: No pain REVIEW OF MEDICATIONS She has a current medication list which includes the following prescription(s): docusate calcium, ibuprofen, tramadol-acetaminophen, and valacyclovir. Current Meds Current Outpatient Medications Medication Sig Dispense Refill docusate calcium (STOOL SOFTENER, DOCUSATE SUJATHA,) 240 mg capsule IBUPROFEN ORAL Take by mouth traMADol-acetaminophen (ULTRACET) 37.5-325 mg per tablet Take 1 tablet by mouth every 12 (twelve) hours as needed for pain 60 tablet 0 valACYclovir (VALTREX) 500 mg tablet No current facility-administered medications for this encounter. 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 Chronic pain History Past Medical History: Diagnosis Date Mitral valve prolapse Personal history of other diseases of the circulatory system History of mitral valve disorder - (Added by BRIAN Conv) Past Surgical History: Procedure Laterality Date BLADDER SURGERY Bladder Surgery - (Added by TW Conv) IA ABDOMEN SURGERY PROC UNLISTED Hernia Repair - (Added by TW Conv) IA REMOVAL OF TONSILS,<12 Y/O Tonsillectomy - (Added by TW Conv) IA TOTAL ABDOM HYSTERECTOMY Hysterectomy - (Added by TW Conv) Family History Problem Relation Age of Onset Diabetes Other Diabetes Mellitus - (Added by TW Conv) Cancer Other Cancer - (Added by TW Conv) Vitals Vitals: 09/28/20 1020 BP: 121/65 Pulse: 72 Resp: 16 Temp: 97.3 ??F (36.3 ??C) SpO2: 97% Weight: 90.7 kg (200 lb) Height: 167.6 cm (5' 6 ) ROS Eight point review of systems is negative except as above in HPI and is reviewed in intake form today. Physical Exam BP 121/65 Pulse 72 Temp 97.3 ??F (36.3 ??C) Resp 16 Ht 167.6 cm (5' 6 ) Wt 90.7 kg (200 lb) SpO2 97% BMI 32.28 kg/m?? CONSTITUTIONAL: general appearance normal EYES: Normal conjunctivae/lids EARS / NOSE / MOUTH / THROAT: Hearing assessment normal. CARDIOVASCULAR: no lower extremity edema CHEST: Symmetric. RESPIRATORY: Normal effort MUSCULOSKELETAL EXAMINATION: strength 5/5 bilateral lower extremities, sensation intact to light touch. Nonantalgic gait. SKIN: no obvious rashes PSYCHIATRIC: Normal mood and affect. Memory intact. Alert. Speech Patterns: Normal. Assessment: Page Paz is a 59 y.o. female with low back pain and coccydynia who presents today for follow-up. Encounter Diagnoses Name Primary? Encounter for long-term opiate analgesic use Yes Other chronic pain Pain in the coccyx Chronic low back pain, unspecified back pain laterality, unspecified whether sciatica present Plan: UDS ordered today Medications currently providing significant benefit, currently taking 7.5 oral morphine equivalents. No side effects, endorses benefit, no complaints of concerns for addiction or tolerance. Plan to follow-up in three months. The visit is deemed to have a MODERATE level of medical decision making. MDM type Number and complexity of problems addressed Amount/complexity of Data to be reviewed and analyzed Risk of complications/ morbidity of patient management Moderate Moderate [x] 1 or more chronic illness with exacerbation, progression or side effects of treatment; [] 2 or more stable chronic illnesses; [] 1 undiagnosed new problem with uncertain diagnosis; [] 1 acute illness with systemic symptoms; [] 1 acute complicated injury Must meet 1 of 3 categories: Category 1: [] Reviewed notes from their referring physician [] Reviewed notes from their primary care doctor [] Reviewed notes from external sources [x] Ordered unique test [] Assesement requiring independent historian Category 2: [] Independent interpretation of a test performed by another healthcare professional Category 3: [] Discussion of management or test interpretation with external healthcare professional [x] Prescription drug management [] Decisions on elective procedures/ minor surgery with identified patient or procedure risk factors [] Diagnosis or treatments significantly limited by social determinants of health Zuly Barriga MD Instructor Pain Management, Department of Anesthesiology [facility] 10/05/2020 documented in this encounter Plan of Treatment Not on file documented as of this encounter Goals Goal Patient Goal Type Associated Problems Recent Progress Patient-Stated? Author CCM Chronic Pain Care Plan Chronic Care Management On track(2023 3:53 PM CDT) Landy Beckford, MARIE Note: Problem: Chronic Pain Goals: 1. [...] Procedure Name Priority Date/Time Associated Diagnosis Comments MISCELLANEOUS LAB TEST Routine 10:30 AM CDT documented in this encounter Results * - Miscellaneous Lab Test (09/28/2020 10:30 AM CDT) Test name Drug monitoring, tramadol, quantitative, with medMATCH, Urine [facility] Reference lab [facility] Specimen Type Urine [facility] Report Charted 10/03/2020 [facility] Result see scanned report [facility] Sendout Complete [facility] Miscellaneous 09/28/2020 10: 30 AM CDT 10/04/2020 10:10 AM CDT Narrative [facility] - 10/04/2020 10:18 AM CDT tramadol us Zuly Barriga MD LAB BLOOD ORDERABLES Final Result [facility] [address] Department [place] [address] * Pain Management Profile 6 with Confirmation, Urine (09/28/2020 10:30 AM CDT) Creatinine, ur 125.2 > or = 20.0 mg/dL [facility] pH, ur 6.1 4.5 - 9.0 [facility] Oxidants, ur NEGATIVE <200 mcg/mL [facility] Amphetamine, ur NEGATIVE <500 ng/mL [facility] Barbiturates, ur NEGATIVE <300 ng/mL [facility] Benzodiazepines, ur NEGATIVE <100 ng/mL [facility] Tetrahydrocannabino l, ur NEGATIVE <20 ng/mL [facility] Benzoylecgonine NEGATIVE <150 ng/mL [facility] Pain mgt Methadone, Ur NEGATIVE <100 ng/mL [facility] Opiates, ur NEGATIVE <100 ng/mL [facility] Pain mgt Oxycodone, Ur NEGATIVE <100 ng/mL [facility] Phencyclidine, ur NEGATIVE <25 ng/mL [facility] Ethanol, ur NEGATIVE <500 ng/mL [facility] Comment:See Note 2 Service Comment 3 SEE NOTE [facility] Comment: See Note 1 Note 1 This drug testing is for medical treatment only. ?? Analysis was performed as non-forensic testing and these results should be used only by healthcare providers to render diagnosis or treatment, or to monitor progress of medical conditions. For assistance with interpreting these drug results, please contact a [email or web address] Toxicology Specialist: [phone] ( ), M-F, 8am-6pm EST. Note 2 This test was developed and its analytical performance characteristics have been determined by [email or web address]. It has not been cleared or approved by the FDA. This assay has been validated pursuant to the CLIA regulations and is used for clinical purposes. Test Performed at: [facility] [address] ??[id number] ? AUBREE ALBERT MD Pain mgt 6-Acetylmorphine, Ur NEGATIVE <10 ng/mL [facility] Urine 09/28/2020 10:3 0 AM CDT 09/28/2020 8:25 PM CDT Zuly Barriga MD LAB BLOOD ORDERABLES Final Result [facility] [address] Department [place] [address] documented in this encounter Visit Diagnoses Diagnosis Encounter for long-term opiate analgesic use- Primary Encounter for long-term (current) use of other medications Other chronic pain Pain in the coccyx Other disorder of coccyx Chronic low back pain, unspecified back pain laterality, unspecified whether sciatica present documented in this encounter Historical Medications * This list may reflect changes made after this encounter. 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
--- OUTSIDE RECORDS SUMMARY | 2024-06-20 19:04 | XMS_ITS | Encounter Summary ---
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 Name Role Phone Unknown, Notinfile Primary Care Provider Unavail able Encounter Details Date Type Department Care Team (Late st Contact Info) Description 05/18/2018 Telephone [facility] Center at [address] [place] [address] José Miguel Dent MD [address] [address] Social History Tobacco Use Types Packs/Day Years Used Date Smoking Tobacco: Former Alcohol Use Standard Drinks/Week Comments No 0 (1 standard drink = 0.6 oz pur e alcohol) Comments No Sex and Gender Information Value Date Recorded Sex Assigned at Not on file 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
--- OUTSIDE RECORDS SUMMARY | 2024-06-20 19:04 | XMS_ITS | Encounter Summary ---
Author Organization [facility] Healthcare Address [address] [place] [address] Care Team Providers Care Social Security Assessor Name Role Phone Maged Godoy DO Primary Care Provider [phone] Reason for Visit * Reason Comments Back Pain Encounter Details Date Type Department Care Team (Latest Contact Info) Description 02/13/2021 8:08 AM CDT - 02/13/2021 11:59 PM CDT Hospital Encounter [facility] [address] [place] [address] Zuly Barriga MD [address] [place] [address] Degeneration of intervertebral disc of lumbar region (Primary Dx); Low back pain with sciatica, sciatica laterality unspecified, unspecified back pain laterality, unspecified chronicity; Chronic pain syndrome Discharge Disposition: Discharge to home or self care Social History Tobacco Use Types Packs/Day Years Used Date Smoking Tobacco: Former Smokeless Tobacco: Never Alcohol Use Standard Drinks/Week Comments Yes 0 (1 standard drink = 0.6 oz pur e alcohol) occasionally Comments No Sex and Gender Information Value Date Recorded Sex Assigned at Not on file 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 Gender Identity Not on file Sexual Orientation Not on file documented as of this encounter Last Filed Vital Signs Vital Sign Reading Time Taken Comments Blood Pressure 144/89 02/13/2021 8:47 AM CDT Pulse 77 02/13/2021 8:47 AM CDT Temperature 36.1 ??C (97 ??F) 02/13/2021 8:47 AM CDT Respiratory Rate 18 02/13/2021 8:47 AM CDT Oxygen Saturation 98% 02/13/2021 8:47 AM CDT Inhaled Oxygen Concentration - - Weight 89.6 kg (197 lb 9.6 oz) 02/13/2021 8:47 A M CDT Height 167.6 cm (5' 6 ) 02/13/2021 8:47 AM CDT Body Mass Index 31.89 02/13/2021 8:47 AM CDT documented in this encounter Discharge Instructions * Patient Instructions* Brittany Jacobs RN - 02/13/2021 8:30 AM CDT [facility] DISCHARGE INFORMATION PLAN: ??? Complete authorization to obtain information page NEW ORDERS: ??? If you have any questions or concerns, please contact the [facility] via Spoke or at [phone]. Calls are accepted Friday-Friday, 7:30am-4pm, excluding observed holidays. We highly encourage the use of Spoke for non- urgent matters as well as prescription refill requests. ??? Non-urgent matters: Select the nurse line option and leave a message ??? Urgent matters: Select the current patient scheduling option ??? Urgent/emergent matters occurring outside of business hours that cannot wait until the office opens: Call 911 or go to the nearest Emergency Room. The [facility] is committed to providing your medication [...] preferred method for refill requests. o Call [phone] and leave a message on the RN [...] on which the pharmacy filled the prescription. Procedure Patients receiving steroid injection Please attempt to not have a Covid-19 vaccine 2 weeks prior to a steroid injection or 2 weeks aftera steroid injection. At this time there is limited information regarding the impact to steroid injections on the efficacy of the Covid vaccine. Physician guidance recommends delaying steroid injections when possible. [email or web address] documented in this encounter Medications at Time [...] 02/13/2021 05/01/2021 documented as of this encounter Ordered Prescriptions Prescription Sig Dispense Quantity Refills Last Filled Start Date End Date traMADol-acetamino phen (ULTRACET) 37.5-325 mg per tabletIndications: Chronic pain syndrome Take 1 tablet by mouth 3 (three) times a day as needed for pain 60 tablet 2 02/13/2021 05/01/2021 methocarbamoL (ROBAXIN) 500 mg tablet Take 1 tablet (500 mg total) by mouth 4 (four) times a day 120 tablet 1 02/13/2021 07/06/2021 documented in this encounter Discharge Disposition Disposition Code Departure Means Destination Discharge to home or self care documented in this encounter Progress Notes * Zuly Barriga MD - 02/13/2021 8:30 AM CDT Pain Management Follow up Note Patient ID Name: Page Paz Date of : 1960 DOS: 02/13/2021 PCP: Maged Godoy DO Chief Complaint: Chief Complaint Patient presents with ??? Back Pain Today's visit 02/13/2021: Page Paz is a 60 y.o. female with recent fall 2 weeks ago. Coughing, sneezing straining makes the pain worse. Worse with sitting. Flexaril helps. Recliner helps. Medrol dose pack helping. She wasinstructed to take her tramadol more frequently for the pain by the ED. Pain feels like it did prior to lumbar discectomy. Pain radiates in to the left lower extremity to the foot. There is no bowel or bladder incontinence, no new weakness, numbness or tingling. She doesnot want surgery. She has an MRI scheduled for 02/15/21. REVIEW OF MEDICATIONS She has a current medication list which includes the following prescription(s): cyclobenzaprine, docusate calcium, ibuprofen, prednisone, valacyclovir, and tramadol-acetaminophen. Current Meds Current Outpatient Medications Medication Sig Dispense Refill ??? cyclobenzaprine (FLEXERIL) 10 mg tablet Take 10 mg by mouth 2 (two) times a day as needed ??? docusate calcium (STOOL SOFTENER, DOCUSATE SUJATHA,) 240 mg capsule ??? ibuprofen (ibuprofen) 200 mg tab/cap Take 600 mg by mouth 2 (two) times a day as needed ??? predniSONE (DELTASONE) 20 mg tablet Take 20 mg by mouth daily ??? valACYclovir (VALTREX) 500 mg tablet Take 500 mg by mouth daily ??? traMADol-acetaminophen (ULTRACET) 37.5-325 mg per tablet TAKE 1 TABLET BY MOUTH EVERY 12 HOURS NEEDED FOR PAIN (Patient not taking: Reported on 02/13/2021) 60 tablet 2 No current facility-administered medications for this encounter. [...] Surgery - (Added by TW Conv) ??? VA ABDOMEN SURGERY PROC UNLISTED Hernia Repair - (Added by TW Conv) ? ? VA REMOVAL OF TONSILS,<12 Y/O Tonsillectomy - (Added by TW Conv) ??? VA TOTAL ABDOM HYSTERECTOMY Hysterectomy - (Added by TW Conv) Family History Problem Relation Age of Onset ??? Diabetes Other Diabetes Mellitus - (Added by TW Conv) ??? Cancer Other Cancer - (Added by TW Conv) Vitals Vitals: 02/13/21 0847 BP: 144/89 Pulse: 77 Resp: 18 Temp: 97 ??F (36.1 ??C) SpO2: 98% Weight: 89.6 kg (197 lb 9.6 oz) Height: 167.6 cm (5' 6 ) ROS 8 p ROS as above in HPI and as reviewed in intake form today Physical Exam BP 144/89 Pulse 77 Temp 97 ??F (36.1 ??C) Resp 18 Ht 167.6 cm (5' 6 ) Wt 89.6 kg (197 lb 9.6 oz) SpO2 98% BMI 31.89 kg/m?? CONSTITUTIONAL: general appearance normal EYES: Normal conjunctivae/lids EARS / NOSE / MOUTH / THROAT: Hearing assessment normal. CARDIOVASCULAR: no lower extremity edema CHEST: Symmetric. RESPIRATORY: Normal effort MUSCULOSKELETAL EXAMINATION: Strength 5/5 bilateral lower extremities. Positive sit slump on the left. SKIN: no obvious rashes PSYCHIATRIC: Normal mood and affect. Memory intact. Alert. Speech Patterns: Normal. CT reviewed with no acute fractures. Assessment: Page Paz is a 60 y.o. female with left lumbar radiculitis after a fall. Plan: - Trial methocarbamol 500mg QID and stop cyclobezaprine - Tramadol refilled - Release of information signed to allow sending of MRI results - Consider TFESI pending results - Consider neuropathic pain agent in the future. The visit is deemed to have a MODERATE level of medical decision making. MDM type Number and complexity of problems addressed Amount/complexity of Data to be reviewed and analyzed Risk of complications/ morbidity of patient management Moderate Moderate [] 1 or more chronic illness with exacerbation, progression or side effects of treatment; [] 2 or more stable chronic illnesses; [x] 1 undiagnosed new problem with uncertain diagnosis; [] 1 acute illness with systemic symptoms; [] 1 acute complicated injury Must meet 1 of 3 categories: Category 1: [] Reviewed notes from their referring physician [] Reviewed notes from their primary care doctor [] Reviewed notes from external sources [] Ordered unique test [] Assesement requiring independent historian Category 2: [x] Independent interpretation of a test performed by another healthcare professional Category 3: [] Discussion of management or test interpretation with external healthcare professional [x] Prescription drug management [] Decisions on elective procedures/ minor surgery with identified patient or procedure risk factors [] Diagnosis or treatments significantly limited by social determinants of health Zuly Barriga MD Nutritionalist Pain Management, Department of Anesthesiology [facility] 02/13/2021 documented in this encounter Miscellaneous Notes * Addendum Note - Jered Garvin RT - 02/13/2021 8:30 AM CDTEncounter addended by: Jered Garvin RT on: 02/13/2021 10:15 AM Actions taken: Procedure log completed, Charge Capture section accepted documented in this encounter Plan of Treatment [...] on stairs Contact your local community or [facility] for information on exercise, fall prevention programs, or options for improving home safety. documented as of this encounter Visit Diagnoses Diagnosis Degeneration of intervertebral disc of lumbar region- Primary Low back pain with sciatica, sciatica laterality unspecified, unspecified back pain laterality, unspecified chronicity Chronic pain syndrome documented in this encounter Discontinued Medications Medication Sig Discontinue Reason Start Date End Da te cyclobenzaprine (FLEXERIL) 10 mg tablet Take 10 mg by mouth 2 (two) times a day as needed 02/08/2021 02/13/2021 traMADol-acetaminophen (ULTRACET) 37.5-325 mg per tabletIndications:Chroni c pain syndrome TAKE 1 TABLET BY MOUTH EVERY 12 HOURS NEEDED FOR PAIN Reorder 01/04/2021 02/13/2021 documented as of this encounter Historical Medications * This list may reflect changes made after this encounter. predniSONE (DELTASONE) 20 mg tablet Take 1 tablet (20 mg) by mouth daily 02/11/2021 05/06/2023 cyclobenzaprine (FLEXERIL) 10 mg tablet Take 10 mg by mouth 2 (two) times a day as needed 02/08/2021 02/13/2021 added in this encounter Care Teams Social Security Assessor Relationship Specialty Start Date End Date Maged Godoy DO PCP - General 09/28/20 documented as of this encounter
--- OUTSIDE RECORDS SUMMARY | 2024-06-20 19:04 | XMS_ITS | Encounter Summary ---
Author Organization [facility] Healthcare Address [address] [place] [address] Care Team Providers Care Scheduling Assistant Name Role Phone Unknown, Notinfile Primary Care Provider Unavail able Reason for Visit * Reason Onset Date Comments Med Refill 06/29/2019 Encounter Details Date Type Department Care Team (Late st Contact Info) Description 06/29/2019 Telephone [facility] at [address] [place] [address] Zuly Barriga MD [address] [place], [place] [id number] Med Refill Social History Tobacco Use Types Packs/Day Years Used Date Smoking Tobacco: Former Smokeless Tobacco: Never Alcohol Use Standard Drinks/Week Comments Yes 0 (1 standard drink = 0.6 oz pur e alcohol) occasionally Comments No Sex and Gender Information Value Date Recorded Sex Assigned at Not on file 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 ING SERVICE TECHNICIAN documented in this encounter Plan of Treatment [...] on filedocumented in this encounter Care Teams Scheduling Assistant Relationship Specialty Start Date End Date Unknown, Notinfile PCP - General 10/24/17 09/27/20 documented as of this encounter
--- OUTSIDE RECORDS SUMMARY | 2024-06-20 19:04 | XMS_ITS | Encounter Summary ---
Author Organization [facility] Healthcare Address [address] [place] [address] Care Team Providers Care Converter Operator Name Role Phone Unknown, Notinfile Primary Care Provider Unavail able Reason for Visit * Reason Comments Follow-up tailbone pain Encounter Details Date Type Department Care Team (Latest Contact Info) Description 05/11/2020 12:54 PM TUFTER HAND - 05/11/2020 11:59 PM TUFTER HAND Hospital Encounter [facility] at [facility] [address] [place] [id number] Zuly Barriga MD [address] [facility] [address] [place] [address] Pain in the coccyx (Primary Dx); Chronic low back pain, unspecified back pain [...] on file Legal Sex Female 4:55 AM TUFTER HAND Gender Identity Not on file Sexual Orientation [...] hours as needed for pain 60 tablet 05/10/2020 08/02/2020 documented as of this encounter Discharge Disposition Disposition Code Departure Means Destination Discharge to home or self care documented in this encounter Progress Notes * Zuly Barriga MD - 05/11/2020 2:15 PM CST Patient Name: Page Paz : 1960 Today's Date: 05/11/2020 PCP: Unknown, Notinfile Referring: No ref. provider found Chief Complaint Patient presents with ??? Follow-up tailbone pain HPI This was a telemedicine visit with Ms. Paz which took place via Telephone. During the visit, I was located [facility] and the patient was located at home. The session lasted 11 minutes. The patient has been informed that the visit may not be secure and acknowledged the information. Page Paz continues to follow for her coccygeal pain. Since her last appointment, her pain has been well controlled. She continues to take tramadol daily. She denies any side effects from the medications. No concerns for addiction or tolerance. No dry mouth or constipation. She has been working from home, limiting exposure, no ill contacts. She does not feel that the pain is preventing her from doing any activities that she wants. Pain Assessment Pain Score: 7 Pain Location: Other (Comment)(tailbone) Review of Systems Constitutional: Negative. HENT: Negative. Eyes: Negative. Respiratory: Negative. Cardiovascular: Negative. Gastrointestinal: Negative. Genitourinary: Negative. Skin: Negative. Patient's Medications New Prescriptions No medications on file Previous Medications DOCUSATE CALCIUM (STOOL SOFTENER, DOCUSATE SUJATHA,) 240 MG CAPSULE Authorizing Provider: Ton Santana MD Notes: -- TRAMADOL-ACETAMINOPHEN (ULTRACET) 37.5-325 MG PER TABLET Take 1 tablet by mouth every 12 (twelve) hours as needed for pain Authorizing Provider: Zuly Barriga MD Notes: -- VALACYCLOVIR (VALTREX) 500 MG TABLET Authorizing Provider: Ton Santana MD Notes: -- Modified Medications No medications on file Discontinued Medications No medications on file Allergies Allergen Reactions ??? Codeine Headache and Rash Reaction: Headache, Rash, Physical Exam Limited secondary to telephone interview. Speech fluent and appropriate, nonlabored respirations onroom air. Euthymic. Assessment The above note documents my personal evaluation of this patient. In addition, I have reviewed and confirmed with the patient and nurse the supportive information documented in today's scanned PatientHealth Questionnaire and Office Note. Problem List Nervous Lumbago (Chronic) Pain in the coccyx - Primary (Chronic) Plan No changes to medications today, Tramadol refilled. Chronic Opioid Therapy: Reviewed 05/11/2020 Current Analgesics: Tramadol 37.5 Morphine equivalent: 3.75 mg per day Benzo: None Plan: Continue Urine drug screen next in person appointment Continue regular physical activity Follow-up in three months. Zuly Barriga MD Instructor Pain Management, Department of Anesthesiology [facility] 05/11/2020 3:58 PM ER HAND documented in this encounter Miscellaneous Notes * Perioperative Nursing Note - Nena Calvo RN - 05/11/2020 2:15 PM CST Reason for visit: Patient has comorbidities that make telehealth the safest pathway to receive their care during Covid pandemic. ER HAND documented in this encounter Plan of Treatment [...] on stairs Contact your local community or [facility] for information on exercise, fall prevention programs, or options for improving home safety. documented as of this encounter Visit Diagnoses Diagnosis Pain in the coccyx- Primary Other disorder of coccyx Chronic low back pain, unspecified back pain laterality, unspecified whether sciatica present documented in this encounter Care Teams Converter Operator Relationship Specialty Start Date End Date Unknown, Notinfile PCP - General 10/24/17 09/27/20 documented as of this encounter
--- OUTSIDE RECORDS SUMMARY | 2024-06-20 19:04 | XMS_ITS | Encounter Summary ---
Author Organization [facility] Healthcare Address [address] [place] [address] Care Team Providers Care Dimethylaniline Sulfator Operator Name Role Phone Maged Godoy DO Primary Care Provider [phone] Reason for Visit * Reason Onset Date Comments Request Call Back 03/01/2021 Encounter Details Date Type Department Care Team (Late st Contact Info) Description 03/01/[address] [address] Lor Rodriguez RN Request Call Back Social History Tobacco Use Types Packs/Day Years Used Date Smoking Tobacco: Former Smokeless Tobacco: Never Alcohol Use Standard Drinks/Week Comments Yes 0 (1 standard drink = 0.6 oz pur e alcohol) occasionally Comments No Sex and Gender Information Value Date Recorded Sex Assigned at Not on file 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 OK TO OVERBOOK PER DR SALGUERO * Telephone Encounter - Zuly Salguero MD - 03/09/2021 4:16 PM CDT That's fine to overbook * Telephone Encounter - Willow Ricketts RN - 03/09/2021 4:13 PM CDT ISNT SCHEDULED UNTIL 03/29 wOULD YOU WANT TO TRY TO SEE HER SOONER/ OVERBOOK? * Telephone Encounter - Zuly Salguero MD - 03/08/2021 10:05 PM CDT I appreciate that the steroids can assist with pain but that is a large dose of steroids with potential side effects. * Telephone Encounter - Nidia Leon RN - 03/08/2021 2:58 PM CDT Patient calling back. She was wanting to be worked into your schedule and possibly get a steroid pack. Please call back * Telephone Encounter - Lor Rodriguez RN - 03/01/2021 1:15 PM CDT Called patient to notify we do not have a wait list. States understanding. Reviewed medications as well. She is taking methocarbamol, tramadol (Ultracet), and ibuprofen. States she has taken oral steroid since the tailbone injury when she was waiting to get in with [facility] and it really helped . Will refer. * Telephone Encounter - Lor Rodriguez RN - 03/01/2021 12:16 PM CDT Patient left a VM message. States she just saw Dr. Salguero for consultation to discuss MRI and theplan is to have a steroid injection. Well, I couldn't get in until . Patient states thatis going to be very difficult for her so is calling to ask 2 things: 1. Since steroids are the only things that seem to really help the pain, will Dr. Salguero prescribe for me? If I can take 20mg predisone once a day I do much better. (patient states Dr. Salguero hasprovided tramadol and a muscle relaxer but the steroids help the most ). And, 2. If you all have a waiting list for cancellations so I can move my appointment up, can I be placed on it? documented in this encounter Plan of Treatment [...] 3:53 PM CDT) Landy Beckford, MARIE Note: Below are four things you [...] on filedocumented in this encounter Care Teams Dimethylaniline Sulfator Operator Relationship Specialty Start Date End Date Maged Godoy DO PCP - General 09/28/20 documented as of this encounter
--- OUTSIDE RECORDS SUMMARY | 2024-06-20 19:04 | XMS_ITS | Encounter Summary ---
Author Organization [facility] Healthcare Address [address] [place] [address] Care Team Providers Care Venetian Blind Tape Cutter Name Role Phone Maged Godoy DO Primary Care Provider [phone] Reason for Referral * Diagnostic Imaging (Routine) - Closed Specialty Diagnoses / Procedures Referred By Contac t Referred To Contact Diagnoses Hip pain Procedures XR Hips Bilateral 2 Views W Pelvis Zuly Barriga MD [address] [place] [address] Phone: tel: fax: [facility] [place] [address] [place] [address] Referral ID Status Reason Start Date Expiration Date Visits Re quested Visits Authorized [id number] Closed 04/11/2021 05/11/2022 1 1 Reason for Visit * Diagnostic Imaging (Routine) - Closed Specialty Diagnoses / Procedures Referred By Contac t Referred To Contact Diagnoses Hip pain Procedures XR Hips Bilateral 2 Views W Pelvis Zuly Barriga MD [address] [place] [address] Phone: tel: fax: [facility] [place] [place] [address] Referral ID Status Reason Start Date Expiration Date Visits Re quested Visits Authorized [id number] Closed 04/11/2021 05/11/2022 1 1 Encounter Details Date Type Department Care Team (Latest Contact Info) Description 04/11/2021 10:59 AM CDT - 04/11/2021 11:59 PM CDT Hospital Encounter [facility] [address] [place] [id number] Hip pain Discharge Disposition: Discharge to home or self care Social History Tobacco Use Types Packs/Day Years Used Date Smoking Tobacco: Former Smokeless Tobacco: Never Alcohol Use Standard Drinks/Week Comments Yes 0 (1 standard drink = 0.6 oz pur e alcohol) occasionally Comments No Sex and Gender Information Value Date Recorded Sex Assigned at Not on file 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 documented as of this encounter Procedures Procedure Name Priority Date/Time Associated Diagnosis Comments XR HIPS BILATERAL W PELVIS 2 VIEW Schedule Routine, Read Routine (OP Routine) 04/11/2021 11:38 AM CDT Hip pain documented in this encounter Results * XR Hips Bilateral [...] unremarkable. Electronically signed by: Gabo Bradford MD us Zuly Barriga MD IMG XR PROCEDURES Fin al Result documented in this encounter Visit Diagnoses Diagnosis Hip pain Pain in joint, pelvic region and thigh documented in this encounter Care Teams Venetian Blind Tape Cutter Relationship Specialty Start Date End Date Maged Godoy DO PCP - General 09/28/20 documented as of this encounter
--- OUTSIDE RECORDS SUMMARY | 2024-06-20 19:04 | XMS_ITS | Encounter Summary ---
Author Organization [facility] Healthcare Address [address] [place] [address] Care Team Providers Care Account Retention Representative Name Role Phone Maged Godoy DO Primary Care Provider [phone] Reason for Visit * Reason Comments Back Pain Encounter Details Date Type Department Care Team (Latest Contact Info) Description 02/23/2021 11:16 AM CDT - 02/23/2021 11:59 PM CDT Hospital Encounter [facility] [address] [place] [address] Zuly Barriga MD [address] [place] [address] Pain in the coccyx (Primary Dx); Low back pain with sciatica, sciatica laterality unspecified, unspecified back pain laterality, unspecified chronicity Discharge [...] on file 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 Gender Identity Not on file Sexual Orientation Not on file documented as of this encounter Last Filed Vital Signs Vital Sign Reading Time Taken Comments Blood Pressure 141/81 02/23/2021 11:25 AM CDT Pulse 82 02/23/2021 11:25 AM CDT Temperature 36.4 ??C (97.5 ??F) 02/23/2021 11:25 AM C DT Respiratory Rate 18 02/23/2021 11:25 AM CDT Oxygen Saturation 98% 02/23/2021 11:25 AM CDT Inhaled Oxygen Concentration - - Weight 88 kg (193 lb 14.4 oz) 02/23/2021 11:25 A M CDT Height 167.6 cm (5' 6 ) 02/23/2021 11:25 AM CDT Body Mass Index 31.3 02/23/2021 11:25 AM CDT documented in this encounter Discharge Instructions * Patient Instructions* Shanice Jalloh, RN - 02/23/2021 11:30 AM CDT PAIN MANA[facility]EMENT CENTER DISCHARGE INFORMATION PLAN: ??? Follow up for Left L5-S1 Transforaminal epidural steroid injection [facility] - [phone]. Calls are accepted Friday-Friday, 7:30am-4pm, excluding observed holidays. We highly encourage the use of [facility] for non-urgent matters as well as prescription refill requests. Dr. Mallory - Pain Psychologist - [phone] The Pain Management Center is committed to [...] preferred method for refill requests. o Call [phone] and leave a message on the RN [...] on which the pharmacy filled the prescription. [email or web address] documented in this encounter Medications at Time [...] Progress Notes * Zuly Barriga MD - 02/23/2021 11:30 AM [...] Surgery - (Added by TW Conv) ??? RI ABDOMEN SURGERY PROC UNLISTED Hernia Repair - (Added by TW Conv) ? ? RI REMOVAL OF TONSILS,<12 Y/O Tonsillectomy - (Added by TW Conv) ??? RI TOTAL ABDOM HYSTERECTOMY Hysterectomy - (Added by TW Conv) Family History Problem Relation Age of Onset ??? Diabetes Other Diabetes Mellitus - (Added by TW Conv) ??? Cancer Other Cancer - (Added by Conv) Vitals Vitals: 02/23/21 1125 BP: 141/81 [...] L5-S1 TFESI next appointment. Zuly Barriga MD First Aid Director Pain Management, Department of Anesthesiology [facility] 03/09/2021 documented in this encounter Plan of Treatment [...] stairs Contact your local community or [facility] for information on exercise, fall prevention programs, or options for improving home safety. documented as of this encounter Visit Diagnoses Diagnosis Pain in the coccyx- Primary Other disorder of coccyx Low back pain with sciatica, sciatica laterality unspecified, unspecified back pain laterality, unspecified chronicity documented in this encounter Care Teams Account Retention Representative Relationship Specialty Start Date End Date Maged Godoy DO PCP - General 09/28/20 documented as of this encounter
--- OUTSIDE RECORDS SUMMARY | 2024-06-20 19:04 | XMS_ITS | Encounter Summary ---
Author Organization [facility] Healthcare Address [address] [place] [address] Care Team Providers Care Residential Door Installer Name Role Phone Maged Godoy DO Primary Care Provider [phone] Reason for Visit * Reason Onset Date Comments pt call 04/13/2021 Encounter Details Date Type Department Care Team (Late st Contact Info) Description 04/13/2021 Telephone [facility] [address]st [place] [address] Zuly Barriga MD [address] [facility] [address] [place] [address] pt call Social History Tobacco Use Types Packs/Day Years Used Date Smoking Tobacco: Former Smokeless Tobacco: Never Alcohol Use Standard Drinks/Week Comments Yes 0 (1 standard drink = 0.6 oz pur e alcohol) occasionally Comments No Sex and Gender Information Value Date Recorded Sex Assigned at Not on file 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 Please review images and make reccomendations * Telephone Encounter - Molly Barkley - 04/13/2021 10:01 AM CDT Pt calling to obtain results of her xrays. Please Advise documented in this encounter Plan of Treatment [...] on filedocumented in this encounter Care Teams Residential Door Installer Relationship Specialty Start Date End Date Maged Godoy DO PCP - General 09/28/20 documented as of this encounter
--- OUTSIDE RECORDS SUMMARY | 2024-06-20 19:04 | XMS_ITS | Encounter Summary ---
Author Organization [facility] Address [address] [place] [address] Care Team Providers Care Coat Feller Name Role Phone Unknown, Notinfile Primary Care Provider Unavail able Reason for Visit * Reason Comments Follow-up Tailbone - Refill on Tramadol Encounter Details Date Type Department Care Team (Latest Contact Info) Description 12/23/2018 1:56 PM CDT - 12/23/2018 11:59 PM CDT Hospital Encounter [facility] at [place] [id number] [facility] [address] [place] [address] Zuly Barriga MD [address] [facility] [address] [place], [place] [id number] Other chronic pain (Primary Dx); Encounter for long-term opiate analgesic use; Stress incontinence of urine; Pain in the coccyx; Chronic pain syndrome Discharge Disposition: Discharge to home or self care Social History Tobacco Use Types Packs/Day Years Used Date Smoking Tobacco: Former Smokeless Tobacco: Never Alcohol Use Standard Drinks/Week Comments Yes 0 (1 standard drink = 0.6 oz pur e alcohol) occasionally Comments No Sex and Gender Information Value Date Recorded Sex Assigned at Not on file 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 Gender Identity Not on file Sexual Orientation Not on file documented as of this encounter Last Filed Vital Signs Vital Sign Reading Time Taken Comments Blood Pressure 131/64 12/23/2018 2:01 PM CDT Pulse 86 12/23/2018 2:01 PM CDT Temperature 36.5 ??C (97.7 ??F) 12/23/2018 2:01 PM CD T Respiratory Rate 18 12/23/2018 2:01 PM CDT Oxygen Saturation 97% 12/23/2018 2:01 PM CDT Inhaled Oxygen Concentration - - Weight 81.6 kg (180 lb) 12/23/2018 2:01 PM CDT Height - - Body Mass Index 29.07 04/27/2018 12:17 PM 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 If a message has already been left for a refill please follow up with your pharmacy to verify they have yourprescription and when it will be ready. [x] Opioid (Narcotic) Agreement signed and patient received copy. [x] Side Effects of Opioid Medications given to patient New Medication: MeloxicamPatient Education Meloxicam (By mouth) Meloxicam (yzk-WI-o-corazon) Treats symptoms of osteoarthritis (OA) and rheumatoid arthritis (RA). This medicine is an NSAID. Brand Name(s): Comfort Pac with Meloxicam, Mobic, Vivlodex There may be other brand names for this medicine. When This Medicine Should Not Be Used: This medicine is not right for everyone. Do not use it if you had an allergic reaction to meloxicamor another NSAID drug, including aspirin. How to Use This Medicine: Capsule, Liquid, Tablet ?? Take your medicine as directed. Your dose may need to be changed several times to find what works best for you. ?? You may take this medicine with or without food. If this medicine upsets your stomach, take it with food or milk. ?? Capsule or tablet: Swallow whole. Do not crush, break, or chew it. ?? Oral liquid: Shake the bottle gently before use. Measure the oral liquid medicine with a marked measuring spoon, oral syringe, or medicine cup. ?? This medicine should come with a Medication Guide. Ask your pharmacist for a copy if you do not have one. ?? Missed dose: Take a dose as soon as you remember. If it is almost time for your next dose, wait until then and take a regular dose. Do not take extra medicine to make up for a missed dose. ?? Store the medicine in a closed container at room temperature, away from heat, moisture, and direct light. Drugs and Foods to Avoid: Ask your doctor or pharmacist before using any other medicine, including gtei-gua-ejpnijh medicines, vitamins, and herbal products. ?? Do not use aspirin or any other NSAID medicine (including diflunisal, salsalate) unless your doctor says it is okay. ?? Do not take the oral liquid together with sodium polystyrene sulfonate. Meloxicam oral liquid contains sorbitol, which may cause a serious bowel problem if taken with sodium polystyrene sulfonate. ?? Some medicines can affect how meloxicam works. Tell your doctor if you are using any of the following: ?? Cholestyramine, cyclosporine, digoxin, lithium, methotrexate, pemetrexed ?? Blood pressure medicine ?? Blood thinner (including warfarin) ?? Diuretic (water pill) ?? Medicine to treat depression ?? Steroid medicine (including hydrocortisone, methylprednisolone, prednisolone, prednisone) Warnings While Using This Medicine: ?? Tell your doctor if you are or . Do not use this medicine during the laterpart of a unless your doctor tells you to. ?? Tell your doctor if you have kidney disease, liver disease, asthma, blood circulation problems, heart disease, high blood pressure, heart failure, or a history of ulcers or other stomach problems.Tell your doctor if you smoke or drink alcohol regularly. ?? This medicine may cause the following problems: ?? High risk of blood clots, heart attack, stroke, or heart failure ?? High risk of stomach or bowel bleeding ?? High blood pressure ?? Liver or kidney problems ?? High potassium levels in the blood ?? Serious skin reactions ?? Tell your doctor if you are trying to get . Some women who take this medicine have trouble getting . ?? Your doctor will do lab tests at regular visits to check on the effects of this medicine. Keep all appointments. ?? Keep all medicine out of the reach of children. Never share your medicine with anyone. Possible Side Effects While Using This Medicine: Call your doctor right away if you notice any of these side effects: ?? Allergic reaction: Itching or hives, swelling in your face or hands, swelling or tingling in your mouth or throat, chest tightness, trouble breathing ?? Blistering, peeling, red skin rash ?? Change in how much or how often you urinate, painful urination ?? Chest pain, trouble breathing, coughing up blood ?? Dark urine or pale stools, nausea, vomiting, loss of appetite, stomach pain, yellow skin or eyes ?? Numbness or weakness on one side of your body, sudden or severe headache, problems with vision, speech, or walking ?? Rapid weight gain, swelling in your hands, ankles, or feet ?? Severe stomach pain, vomiting blood or material that looks like coffee grounds, bloody or black,tarry stools ?? Unusual bleeding, bruising, or weakness If you notice these less serious side effects, talk with your doctor: ?? Mild nausea, diarrhea, heartburn If you notice other side effects that you think are caused by this medicine, tell your doctor. Call your doctor for medical advice about side effects. You may report side effects to FDA at 6-836-VRJ-4889 ?? 2017 [employer] Information is for End User's use only and may not be sold, redistributed or otherwise used for commercial purposes. The above information is an campus aide only. It is not intended as medical advice for individual conditions or treatments. Talk to your doctor, nurse or pharmacist before following any medical regimen to see if it is safe and effective for you. DIET: [] Resume normal diet [] See [facility] Post Discharge Procedure Information Sheet ACTIVITY: [] Resume normal activity [] See [facility] Post Discharge Procedure Information Sheet REFERRALS: Physical Therapy [x] [facility] ([phone]) [] Other: Behavior Medicine [] Pain Psychologist, [facility] Please call to schedule appointment [phone] or [phone] Diagnostic Test(s): FOLLOW UP APPOINTMENTS: [] Return as needed [x] Follow up appointment: 3 month We will contact you the next business day to obtain: [] An update on your condition [] Your Pain diary scores [] Procedure at your next visit : INSTRUCTIONS before your next procedure: [] See [facility] Pre-Procedure Information Sheet [] Do not eat for six (6) hours or drink for three (3) hours before the time/date of the procedure. [] Inquire with your prescribing provider if ok to hold blood thinner for days before procedure. [] Blood work required 2 hours before procedure: [] Division Operations Manager needed for next procedure Patient provided information and repeated back with understanding. If you need to reach us: For any questions about your procedure, please call the Pain Management Center [phone] (M-F) (8am-4pm) If you need urgent attention after 4 pm and weekends that can not wait until the office opens: Please go to the nearest Emergency Room. documented in this encounter Medications at Time [...] as needed for pain 60 tablet 2 12/23/2018 07/28/2019 documented as of this encounter Ordered Prescriptions Prescription Sig Dispense Quantity Refills Last Filled Start Date End Date traMADol-acetamino phen (ULTRACET) 37.5-325 mg per tabletIndications: Fibromyalgia Take 1 tablet by mouth every 12 (twelve) hours as needed for pain 60 tablet 2 12/23/2018 07/28/2019 meloxicam (MOBIC) 7.5 mg tablet Take 1 tablet (7.5 mg total) by mouth daily 30 tablet 11 12/23/2018 12/23/2019 documented in this encounter Discharge Disposition Disposition Code Departure Means Destination Discharge to home or self care documented in this encounter Progress Notes * Zuly Barriga MD - 12/23/2018 1:56 PM CDT Patient Name: Page Paz : 1960 Today's Date: 12/23/2018 PCP: Maryanne Unknown Referring: No ref. provider found Chief Complaint Patient presents with ??? Follow-up Tailbone - Refill on Tramadol HPI Page Paz returns to clinic today [...] increased pain. She has not tried Tylenol. Review of Systems As above in HPI and as reviewed in intake form today. Patient's Medications New Prescriptions No medications on file Previous Medications DOCUSATE CALCIUM (STOOL SOFTENER, DOCUSATE SUJATHA,) 240 MG CAPSULE Authorizing Provider: Ton Santana MD Notes: -- IBUPROFEN-DIPHENHYDRAMINE CIT 200-38 MG TABLET Authorizing Provider: Ton Santana MD Notes: -- TRAMADOL-ACETAMINOPHEN (ULTRACET) 37.5-325 MG PER TABLET Take 1 tablet by mouth every 12 (twelve) hours as needed for pain. Authorizing Provider: José Miguel Dent MD Notes: -- VALACYCLOVIR (VALTREX) 500 MG TABLET Authorizing Provider: Ton Santana MD Notes: -- Modified Medications No medications on file Discontinued Medications No medications on file Allergies Allergen Reactions ??? Codeine Headache and Rash Reaction: Headache, Rash, Physical Exam Vitals: 12/23/18 1401 BP: 131/64 BP Location: Left arm Patient Position: Sitting Pulse: 86 Resp: 18 Temp: 97.7 ??F (36.5 ??C) TempSrc: Oral SpO2: 97% Weight: 81.6 kg (180 lb) Body mass index is 29.07 kg/m??. CONSTITUTIONAL: general appearance normal EYES: Normal conjunctivae/lids EARS / NOSE / MOUTH / THROAT: Hearing assessment normal to conversational tones. Lips, teeth and gums normal. CARDIOVASCULAR: No Lower extremity edema CHEST: Symmetric. RESPIRATORY: Normal respiratory effort on room air. MUSCULOSKELETAL EXAMINATION: nonantalgic gait. SKIN: no obvious rashes NEUROLOGIC EXAM: Cranial [...] Office Note. Problem List Nervous Chronic pain - Primary (Chronic) Relevant Orders Drug Monitoring, Panel 1, with Confirmation, with D/L, with medMATCH, Urine Pain Management, Alcohol Metabolites, w/ Confirmation, with medMATCH, Urine Pain Management, Heroin Metabolite, w/ Confirmation, w/ medMATCH, Urine Pain Management, Tramadol, Quantitative, w/ medMATCH, Urine Plan 1. Interventions: Given prior increased pain with interventions we will not pursue any at this time. 2. Medications: We discussed continuing to decrease the amount of Tramadol she takes over time. We will try to use more adjuvants including meloxicam which was ordered, and p.r.n. Tylenol. I educatedthe patient on the risks of prolonged opioid use including but not limited to, tolerance, dependence, opioid induced hyperalgesia, immunosuppression, osteoporosis, and hormonal imbalance. 3. Imaging: No further imaging needed at this current time. 4. Referral: Referral placed for pelvic floor PT. 5. Follow-up: In Three months for re-evaluation of the above regimen. Orders Placed This Encounter Procedures ??? Drug Monitoring, Panel 1, with Confirmation, with D/L, with medMATCH, Urine Standing Status: Future Number of Occurrences: 1 Standing Expiration Date: 12/24/2019 Order Specific Question: Prescribed Drug 1 Answer: TRAMADOL ??? Pain Management, Alcohol Metabolites, w/ Confirmation, with medMATCH, Urine Standing Status: Future Number of Occurrences: 1 Standing Expiration Date: 12/24/2019 Order Specific Question: Prescribed Drug 1 Answer: TRAMADOL ??? Pain Management, Heroin Metabolite, w/ Confirmation, w/ medMATCH, Urine Standing Status: Future Number of Occurrences: 1 Standing Expiration Date: 12/24/2019 Order Specific Question: Prescribed Drug 1 Answer: TRAMADOL ??? Pain Management, Tramadol, Quantitative, w/ medMATCH, Urine Standing Status: Future Number of Occurrences: 1 Standing Expiration Date: 12/24/2019 Order Specific Question: Prescribed Drug 1 Answer: TRAMADOL Zuly Barriga MD Instructor Pain Management, Department of Anesthesiology [facility] 12/23/2018 2:21 PM documented in this encounter Miscellaneous Notes * Addendum Note - Kassie Gandhi R-RT - 12/23/2018 4:25 PM CDTEncounter addended by: RT Jorge Luis on: 12/23/2018 4:25 PM Actions taken: Procedure log completed documented in this encounter Plan of Treatment [...] on stairs Contact your local community or [facility] for information on exercise, fall prevention programs, or options for improving home safety. documented as of this encounter Procedures Procedure Name Priority Date/Time Associated Diagnosis Comments PAIN MGMT, TRAMADOL, QN,W/MEDMATCH,U Routine 12/23/2018 2:36 PM CDT Other chronic pain Encounter for long-term opiate analgesic use PAIN MGMT, HEROIN METAB, W/CONF,W/MEDMATCH,U Routine 12/23/2018 2:36 PM CDT Other chronic pain Encounter for long-term opiate analgesic use PAIN MANAGEMENT, ALCOHOL, METABOLITES, WITH CONFIRMATION, W/MEDMATCH,URINE Routine 12/23/2018 2:36 PM CDT Other chronic pain Encounter for long-term opiate analgesic use DRUG MONITORING, PANEL 1, WITH CONFIRMATION, WITH D/L, WITH MEDMATCH, URINE Routine 12/23/2018 2:36 PM CDT Other chronic pain Encounter for long-term opiate analgesic use documented in this encounter Results * Pain Management, Tramadol, Quantitative, w/ medMATCH, Urine (12/23/2018 2:36 PM CDT) Prescribed Drug 1 Tramadol [facility] Desmethyltramadol NEGATIVE <100 ng/mL [facility] Comment:See Note 1 medMATCH Desmethyltram INCONSISTENT [facility] Tramadol NEGATIVE <100 ng/mL [facility] Comment:See Note 1 medMATCH Tramadol INCONSISTENT [facility] (Always Message) [facility] Comment:See Note 2 Urine 12/23/2018 2:36 PM CDT 12/24/2018 5:49 AM CDT Narrative Resulting Agency Comment Performing Organization Information: ?Site ID: [facility] ?Name: [facility] ?Address: [address] [place] [address], Floor [address] [place] [address] ?Director: Dakota Funk Ph.D. Zuly Barriga MD LAB URINE ORDERABLES Final Result Performing Organization Address [facility] de Phone Number [facility] * Pain Management, Heroin Metabolite, w/ Confirmation, w/ medMATCH, Urine (12/23/2018 2:36 PM CDT) Prescribed Drug 1 Tramadol [facility] 6-Acetylmorphi ne, ur NEGATIVE <10 ng/mL [facility] 6-Acetylmorphi ne, ur CONSISTENT [facility] (Always Message) [facility] Comment:See Note 2 Urine 12/23/2018 2:36 PM CDT 12/24/2018 5:49 AM CDT Narrative Resulting Agency Comment Performing Organization Information: ?Site ID: [facility] ?Name: [facility] ?Address: [address] [place] [id number] ?Director: Dakota Funk Ph.D. Zuly Barriga MD LAB URINE ORDERABLES Final Result Performing Organization Address [facility] de Phone Number [facility] * Pain Management, Alcohol Metabolites, w/ Confirmation, with medMATCH, Urine (12/23/2018 2:36 PM CDT) Pathologist [facility] Prescribed Drug 1 Tramadol [facility] Alcohol Metabolites NEGATIVE <500 ng/mL [facility] Alcohol metabolites CONSISTENT [facility] (Always Message) [facility] Comment:See Note 2 Urine 12/23/2018 2:36 PM CDT 12/24/2018 5:49 AM CDT Narrative Resulting Agency Comment Performing Organization Information: ?Site ID: [facility] ?Name: [facility] ?Address: [address] [place] [address], [facility] [address] [place] [address] ?Director: Dakota Funk Ph.D. Zuly Barriga MD LAB URINE ORDERABLES Final Result [facility] * Drug Monitoring, Panel 1, with Confirmation, with D/L, with medMATCH, Urine (12/23/2018 2:36 PM CDT) Prescribed Drug 1 Tramadol [facility] Creatinine 28.6 > or = 20.0 mg/dL [facility] pH, ur 6.05 4.5 - 9.0 [facility] Oxidant NEGATIVE <200 mcg/mL [facility] Amphetamine, ur, quant NEGATIVE <500 ng/mL [facility] Amphetamine, ur CONSISTENT [facility] Barbiturates, ur NEGATIVE <300 ng/mL [facility] Barbiturates CONSISTENT [facility] Benzodiazepines NEGATIVE <100 ng/mL [facility] Benzodiazepines CONSISTENT [facility] Marijuana Metabolite NEGATIVE <20 ng/mL [facility] Marijuana Metabolite CONSISTENT [facility] Cocaine metabolite NEGATIVE <150 ng/mL [facility] Cocaine metabolite CONSISTENT [facility] Methadone Metabolite NEGATIVE <100 ng/mL [facility] Methadone Metab CONSISTENT [facility] Opiates NEGATIVE <100 ng/mL [facility] Opiates CONSISTENT [facility] Oxycodone NEGATIVE <100 ng/mL [facility] Oxycodone CONSISTENT [facility] Phencyclidine NEGATIVE <25 ng/mL [facility] Phencyclidine CONSISTENT [facility] (Always Message) [facility] Comment: See Note 2 Note 1 This test was developed and its analytical performance characteristics have been determined by [facility]. It has not been cleared or approved by the FDA. This assay has been validated pursuant to the CLIA regulations and is used for clinical purposes. Note 2 This drug testing is for medical treatment only. ?? Analysis was performed as non-forensic testing and these results should be used only by healthcare providers to render diagnosis or treatment, or to monitor progress of medical conditions. medMATCH comments are: - present when drug test results may be the result of ?? metabolism of one or more drugs or when results are ?? inconsistent with prescribed medication(s) listed. - may be blank when drug results are consistent with ?? prescribed medication(s) listed. For assistance with interpreting these drug results, please contact a [facility] Toxicology Specialist: [phone] ( ), M-F, 8am-6pm EST. Urine 12/23/2018 2:36 PM CDT 12/24/2018 5:49 AM CDT Narrative Resulting Agency Comment Performing Organization Information: ?Site ID: [facility] ?Name: [facility] ?Address: [address] [place] [address], [address] [place] [address] ?Director: Daokta Funk Ph.D. us Zuly Barriga MD LAB URINE ORDERABLES Final Result [facility] documented in this encounter Visit Diagnoses Diagnosis Other chronic pain- Primary Encounter for long-term opiate analgesic use Encounter for long-term (current) use of other medications Stress incontinence of urine Pain in the coccyx Other disorder of coccyx Chronic pain syndrome documented in this encounter Discontinued Medications Medication Sig Discontinue Reason Start Date End Da te ibuprofen-diphenhydramin e cit 200-38 mg tablet 9 traMADol-acetaminophen (ULTRACET) 37.5-325 mg per tabletIndications:Fibrom yalgia Take 1 tablet by mouth every 12 (twelve) hours as needed for pain. Reorder 04/27/2018 12/23/2018 documented as of this encounter Care Teams Coat Feller Relationship Specialty Start Date End Date Unknown, Notinfile PCP - General 10/24/17 09/27/20 documented as of this encounter
--- OUTSIDE RECORDS SUMMARY | 2024-06-20 19:04 | XMS_ITS | Encounter Summary ---
Author Organization [facility] Address [address] [place] [address] Care Team Providers Care Route Driver Salesperson Name Role Phone Unknown, Notinfile Primary Care Provider Unavail able Reason for Visit * Reason Onset Date Comments please call 05/08/2018 Encounter Details Date Type Department Care Team (Late st Contact Info) Description 05/08/2018 Telephone [facility] at [address] [place] [address] José Miguel Dent MD [address] [address] please call Social History Tobacco Use Types Packs/Day Years Used Date Smoking Tobacco: Former Alcohol Use Standard Drinks/Week Comments No 0 (1 standard drink = 0.6 oz pur e alcohol) Comments No Sex and Gender Information Value Date Recorded Sex Assigned at Not on file 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 Pt received a 7 day refill on 05-10-18 PROCESSOR * Telephone Encounter - Danielle Plata BS - 05/08/2018 3:41 PM CASH PROCESSOR Tramadol/APAP 37.5mg tabs PA request in file folder PROCESSOR * Telephone Encounter - Nena Calvo RN - 05/08/2018 12:29 PM CASH PROCESSOR Received Rx for Tramadol and took it to [facility] in [place]. She states that it is still pending insurance approval. Please call patient as she is out of medications PROCESSOR documented in this encounter Plan of Treatment [...] on filedocumented in this encounter Care Teams Route Driver Salesperson Relationship Specialty Start Date End Date Unknown, Notinfile PCP - General 10/24/17 09/27/20 documented as of this encounter
--- OUTSIDE RECORDS SUMMARY | 2024-06-20 19:04 | XMS_ITS | Encounter Summary ---
Author Organization [facility] Address [address] [place] [address] Care Team Providers Care International Travel Consultant Name Role Phone Unknown, Notinfile Primary Care Provider Unavail able Reason for Visit * Reason Onset Date Comments Rx Refill 08/02/2020 Encounter Details Date Type Department Care Team (Late st Contact Info) Description 08/02/2020 Telephone [place] [id number] [facility] [address] [place] [id number] Jered Garvin, RT Rx Refill Social History Tobacco Use Types Packs/Day Years Used Date Smoking Tobacco: Former Smokeless Tobacco: Never Alcohol Use Standard Drinks/Week Comments Yes 0 (1 standard drink = 0.6 oz pur e alcohol) occasionally Comments No Sex and Gender Information Value Date Recorded Sex Assigned at Not on file 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 Please send to the [facility]'s([place], [place]) on file. LE STRINGER documented in this encounter Plan of Treatment [...] on filedocumented in this encounter Care Teams International Travel Consultant Relationship Specialty Start Date End Date Unknown, Notinfile PCP - General 10/24/17 09/27/20 documented as of this encounter
--- OUTSIDE RECORDS SUMMARY | 2024-06-20 19:04 | XMS_ITS | Encounter Summary ---
Author Organization [facility] Healthcare Address [address] [place] [address] Care Team Providers Care A&P Mechanic Name Role Phone Unknown, Notinfile Primary Care Provider Unavail able Reason for Visit * Reason Onset Date Comments Med Refill 05/11/2018 pharm is not abl e to fill her script for Tramadol Encounter Details Date Type Department Care Team (Late st Contact Info) Description 05/11/2018 Telephone [facility] Pain Center at [address] [place] [address] José Miguel Dent MD [address] [address] Med Refill (pharm is not able to fill her script for Tramadol) Social History Tobacco Use Types Packs/Day Years Used Date Smoking Tobacco: Former Alcohol Use Standard Drinks/Week Comments No 0 (1 standard drink = 0.6 oz pur e alcohol) Comments No Sex and Gender Information Value Date Recorded Sex Assigned at Not on file Legal Sex Female 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 Gender Identity Not on file Sexual Orientation Not on file documented as of this encounter Miscellaneous Notes * Telephone Encounter - Aleta Warner RN - 05/13/2018 1:07 PM CST duplicate ANALYSIS WELL LOGGING OPERATOR * Telephone Encounter - Uzma Rojas - 05/11/2018 10:32 AM CST pharm is not able to fill her script for Tramadol, pt is out of meds ANALYSIS WELL LOGGING OPERATOR documented in this encounter Plan of Treatment [...] on filedocumented in this encounter Care Teams A&P Mechanic Relationship Specialty Start Date End Date Unknown, Notinfile PCP - General 10/24/17 09/27/20 documented as of this encounter
--- OUTSIDE RECORDS SUMMARY | 2024-06-20 19:04 | XMS_ITS | Encounter Summary ---
Author Organization [facility] Healthcare Address [address] [place] [address] Care Team Providers Care Planograph Operator Name Role Phone Maged Godoy Primary Care Provider [phone] Reason for Visit * Reason Onset Date Comments Pre Arrival 03/19/2021 Encounter Details Date Type Department Care Team (Late st Contact Info) Description 03/19/[address] [place] [address] Cyn Ahumada RN Pre Arrival Social History Tobacco Use Types Packs/Day Years Used Date Smoking Tobacco: Former Smokeless Tobacco: Never Alcohol Use Standard Drinks/Week Comments Yes 0 (1 standard drink = 0.6 oz pur e alcohol) occasionally Comments No Sex and Gender Information Value Date Recorded Sex Assigned at Not on file 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 Notify the office immediately if: a. [...] suspected Covid-19 in the past 2 weeks? documented in this encounter Plan of Treatment [...] on filedocumented in this encounter Care Teams Planograph Operator Relationship Specialty Start Date End Date Maged Godoy DO PCP - General 09/28/20 documented as of this encounter
--- OUTSIDE RECORDS SUMMARY | 2024-06-20 19:04 | XMS_ITS | Encounter Summary ---
Author Organization [facility] Healthcare Address [address] [place] [address] Care Team Providers Care Hand Or Machine Paster Name Role Phone Unknown, Notinfile Primary Care Provider Unavail able Reason for Visit * Reason Onset Date Comments Med Refill 12/08/2018 Encounter Details Date Type Department Care Team (Late st Contact Info) Description 12/08/2018 Telephone [facility] Pain Center at [address] [place] [address] Zuly Barriga MD [address] [place], [place] [id number] Med Refill Social History Tobacco Use Types Packs/Day Years Used Date Smoking Tobacco: Former Alcohol Use Standard Drinks/Week Comments No 0 (1 standard drink = 0.6 oz pur e alcohol) Comments No Sex and Gender Information Value Date Recorded Sex Assigned at Not on file 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 Dent has retird from practice and she need to schedule an appointment with Dr. Haro, if she would like to continue with pain managing medications. Patient verbalized understanding, stated she will call back next week. * Telephone Encounter - Landy Gomez RN - 12/08/2018 12:29 PM CDT Pt needs to schedule a FOV with Dr. Haro before refills. * Telephone Encounter - Nidia Fonseca RN - 12/08/2018 9:02 AM CDT Tramadol Send to [facility] in [place] [facility] [address]. Patient states she is patient of Dr. Garcia and unsure if she needs to follow up. documented in this encounter Plan of Treatment [...] filedocumented in this encounter Care Teams Hand Or Machine Paster Relationship Specialty Start Date End Date Unknown, Notinfile PCP - General 10/24/17 09/27/20 documented as of this encounter
--- OUTSIDE RECORDS SUMMARY | 2024-06-20 19:04 | XMS_ITS | Encounter Summary ---
Author Organization [facility] Healthcare Address [address] [place] [address] Care Team Providers Care Peanut Shaker Name Role Phone Walt, Maged Primary Care Provider [phone] Reason for Referral * Diagnostic Imaging (Routine) - Closed Specialty Diagnoses / Procedures Referred By Contac t Referred To Contact Diagnoses Low back pain Procedures FL Fluoro Guided Needle Placement Zuly Barriga MD [address] [place] [address] Phone: tel: fax: [id number] [place] [address] Referral ID Status Reason Start Date Expiration Date Visits Re quested Visits Authorized [id number] Closed 03/21/2021 04/20/2022 1 1 Reason for Visit * Diagnostic Imaging (Routine) - Closed Specialty Diagnoses / Procedures Referred By Contac t Referred To Contact Diagnoses Low back pain Procedures FL Fluoro Guided Needle Placement Zuly Barriga MD [address] [place] [address] Phone: tel: fax: [phone] [place] [address] Referral ID Status Reason Start Date Expiration Date Visits Re quested Visits Authorized [id number] Closed 03/21/2021 04/20/2022 1 1 Encounter Details Date Type Department Care Team (Latest Contact Info) Description 03/21/2021 7:46 AM CDT - 03/21/2021 11:59 PM CDT Hospital Encounter [facility] Pain Center at [address] [place] [address] Low back pain Discharge Disposition: Discharge to home or self care Social History Tobacco Use Types Packs/Day Years Used Date Smoking Tobacco: Former Smokeless Tobacco: Never Alcohol Use Standard Drinks/Week Comments Yes 0 (1 standard drink = 0.6 oz pur e alcohol) occasionally Comments No Sex and Gender Information Value Date Recorded Sex Assigned at Not on file 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 documented as of this encounter Procedures Procedure Name Priority Date/Time Associated Diagnosis Comments FLUORO GUIDED NEEDLE PLACEMENT Schedule Routine, Read Routine (OP Routine) 03/21/2021 9:00 AM CDT Low back pain documented in this encounter Results * FL Fluoro Guided Needle Placement (03/21/2021 9:00 AM CDT) Narrative [facility] - 03/21/2021 11:28 AM CDT The images from this study are not interpreted by Radiology. ??Please refer to the physician's procedure / OR operative note. us Zuly Barriga MD IMG FLUOROSCOPY RITIKA EARLY Final Result [facility] documented in this encounter Visit Diagnoses Diagnosis Low back pain Lumbago documented in this encounter Care Teams Peanut Shaker Relationship Specialty Start Date End Date Maged Godoy DO PCP - General 09/28/20 documented as of this encounter
--- OUTSIDE RECORDS SUMMARY | 2024-06-20 19:04 | XMS_ITS | Encounter Summary ---
Author Organization [facility] Healthcare Address [address] [place] [address] Care Team Providers Care Paper Rewinder Operator Name Role Phone Unknown, Notinfile Primary Care Provider Unavail able Encounter Details Date Type Department Care Team (Late st Contact Info) Description 12/28/2018 Telephone [facility] Pain Center at [place] [id number] [facility] [address] [place] [address] Zuly Barriga MD [address] [place] [address] Social History Tobacco Use Types Packs/Day Years Used Date Smoking Tobacco: Former Smokeless Tobacco: Never Alcohol Use Standard Drinks/Week Comments Yes 0 (1 standard drink = 0.6 oz pur e alcohol) occasionally Comments No Sex and Gender Information Value Date Recorded Sex Assigned at Not on file Legal 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 Consistent with pts stated rare use and desired reduction, will continue to wean. documented in this encounter Plan of Treatment [...] on stairs Contact your local community or [facility] for information on exercise, fall prevention programs, or options for improving home safety. documented as of this encounter Visit Diagnoses Not on filedocumented in this encounter Care Teams Paper Rewinder Operator Relationship Specialty Start Date End Date Unknown, Notinfile PCP - General 10/24/17 09/27/20 documented as of this encounter
--- OUTSIDE RECORDS SUMMARY | 2024-06-20 19:04 | XMS_ITS | Encounter Summary ---
Author Organization [facility] Healthcare Address [address] [place] [address] Care Team Providers Care Recreation Engineer Name Role Phone Maged Godoy DO Primary Care Provider [phone] Reason for Visit * Reason Comments Hip Pain Encounter Details Date Type Department Care Team (Latest Contact Info) Description 05/01/2021 9:06 AM HOTEL CASINO FLOORPERSON - 05/01/2021 9:45 AM HOTEL CASINO FLOORPERSON Hospital Encounter [facility] Pain Center at [address] [place] [address] Zuly Barriga MD [address] [facility] [address] [place] [address] Chronic pain syndrome Discharge Disposition: Discharge to home or self care Social History Tobacco Use Types Packs/Day Years Used Date Smoking Tobacco: Former Smokeless Tobacco: Never Alcohol Use Standard Drinks/Week Comments Yes 0 (1 standard drink = 0.6 oz pur e alcohol) occasionally Comments No Sex and Gender Information Value Date Recorded Sex Assigned at Not on file Legal Sex Female 4:55 AM HOTEL CASINO FLOORPERSON Gender Identity Not on file Sexual Orientation Not on file documented as of this encounter Last Filed Vital Signs Vital Sign Reading Time Taken Comments Blood Pressure 150/126 05/01/2021 10:02 AM HOTEL CASINO FLOORPERSON Pulse 84 05/01/2021 10:01 AM HOTEL CASINO FLOORPERSON Temperature 36.5 ??C (97.7 ??F) 05/01/2021 9:21 AM CS T Respiratory Rate 18 05/01/2021 10:01 AM HOTEL CASINO FLOORPERSON Oxygen Saturation 98% 05/01/2021 10:01 AM HOTEL CASINO FLOORPERSON Inhaled Oxygen Concentration - - Weight - - Height - - Body Mass Index - - documented in this encounter Discharge Instructions * Discharge Instructions* Shanice Jalloh RN - 05/01/2021 10:01 AM HOTEL CASINO FLOORPERSON PAIN [facility] POST-PROCEDURE PATIENT EDUCATION The following procedure was performed in clinic today: Left hip injection You have received two medications in your [...] / NEW ORDERS: ??? Follow up in 1-[address] [facility] at - [phone]. Calls are accepted Friday-Friday, 7:30am-4pm, excluding observed holidays. ??? We highly encourage the use of appsplithart for non-urgent matters as well as prescription refill requests. ??? If you need to schedule an appointment with Dr. Mallory - Pain Psychologist - [phone] ??? If you are scheduled for an MRI we encourage you to schedule at as our physicians work closely with the Radiology Imaging Department and the physicians that read the images. In addition the images are of higher quality, and we receive the results quicker. If you choose to use an imaging location outside of please notify us immediately with a message on our nurse line or sending a [employer] message with the following: - Location - Location phone number - Date your MRI is scheduled - Please note that MRI authorizations may take up to 7-10 business days for determination. The Pain Management [...] preferred method for refill requests. o Call [phone] and leave a message on the [employer] Message Line with the following information: - Name, date of , and phone number - Name(s) of the medication(s) needing refill - Name and number for the pharmacy where the refill(s) should be sent o Please note, prescription refill dates are calculated based on the quantity of medication provided, not the date on which the pharmacy filled the prescription. [email or web address] We strive to provide you with EXCELLENT service as our patient. You may receive a survey after your visit today. If you can not rate your experience as EXCELLENT, please let us know how we can improve and better meet your needs. Thank you for choosing / Pain Management! L CASINO FLOORPERSON documented in this encounter Medications at Time [...] (20 mg) by mouth daily 02/11/2021 05/06/2023 documented as of this encounter Ordered Prescriptions Prescription Sig Dispense Quantity Refills Last Filled Start Date End Date traMADol-acetamino phen (ULTRACET) 37.5-325 mg per tabletIndications: Chronic pain syndrome Take 1 tablet by mouth 3 (three) times a day as needed for pain 60 tablet 2 05/01/2021 07/06/2021 documented in this encounter Discharge Disposition Disposition Code Departure Means Destination Discharge to home or self care documented in this encounter H&P Notes * Zuly Barriga MD - 05/01/2021 9:30 AM CST History and physical reviewed and unchanged from previous. Reviewed potential risks and benefits, she is agreement with proceeding today. L CASINO FLOORPERSON Source Note - Zuly Barriga MD - 04/11/2021 10:30 AM CDT Pain Management Follow up Note Patient ID Name: Page Paz Date of : 1960 PCP: Maged Godoy, Chief Complaint: Chief Complaint [...] Surgery - (Added by TW Conv) ??? LA ABDOMEN SURGERY PROC UNLISTED Hernia Repair - (Added by TW Conv) ? ? LA REMOVAL OF TONSILS,<12 Y/O Tonsillectomy - (Added by TW Conv) ??? LA TOTAL ABDOM HYSTERECTOMY Hysterectomy - (Added by [...] evaluation of above plan. Zuly Barriga MD Sales Administration Manager Pain Management, Department of Anesthesiology [facility] 04/24/2021 L CASINO FLOORPERSON documented in this encounter Miscellaneous Notes * Op Note - Zuly Barriga MD - 05/01/2021 9:30 AM CST Attending Surgeon: Zuly Barriga M.D. [...] Resident involved on case Zuly Barriga MD 05/01/2021 L CASINO FLOORPERSON * Addendum Note - Lor Rodriguez RN - 05/01/2021 9:30 AM CSTEncounter addended by: Lor Rodriguez RN on: 05/01/2021 10:27 AM Actions taken: Charge Capture section accepted L CASINO FLOORPERSON * Addendum Note - Carmenza Nash RT - 05/01/2021 9:30 AM CSTEncounter addended by: Carmenza Nash RT on: 05/01/2021 10:38 AM Actions taken: Charge Capture section accepted L CASINO FLOORPERSON documented in this encounter Plan of Treatment [...] on stairs Contact your local community or [facility] for information on exercise, fall prevention programs, or options for improving home safety. documented as of this encounter Visit Diagnoses Diagnosis Chronic pain syndrome documented in this encounter Administered Medications Inactive Administered Medications - up to 3 most recent administrations Medication Order MAR Action Action Date Dose Rate Site bupivacaine (MARCAINE) 0.5 % (5 mg/mL) preservative free injection As needed, Starting on Fri05/01/21 at 0954, Intra-Op Given 05/01/2021 9:54 AM HOTEL CASINO FLOORPERSON 4 mL iohexoL (OMNIPAQUE) 300 mg iodine/mL injection solution As needed, Starting on Fri05/01/21 at 0957, Intra-Op Given 05/01/2021 9:57 AM HOTEL CASINO FLOORPERSON 1.5 mL lidocaine PF (XYLOCAINE) 10 mg/mL (1 %) preservative free injection As needed, Starting on Fri05/01/21 at 0957, Intra-Op Given 05/01/2021 9:57 AM HOTEL CASINO FLOORPERSON 5 mL triamcinolone (KENALOG) 40 mg/mL injection As needed, Starting on Fri05/01/21 at 0954, Intra-Op Given 05/01/2021 9:54 AM HOTEL CASINO FLOORPERSON 40 mg documented in this encounter Discontinued Medications Medication Sig Discontinue Reason Start Date End Da te traMADol-acetaminophen (ULTRACET) 37.5-325 mg per tabletIndications:Chroni c pain syndrome Take 1 tablet by mouth 3 (three) times a day as needed for pain Reorder 02/13/2021 05/01/2021 documented as of this encounter Care Teams Recreation Engineer Relationship Specialty Start Date End Date Maged Godoy DO PCP - General 09/28/20 documented as of this encounter
--- OUTSIDE RECORDS SUMMARY | 2024-06-20 19:05 | XMS_ITS | Encounter Summary ---
Author Organization [facility] Care Team Providers Care Trace Evidence Technician Name Role Phone Unavailable Primary Care Provider Unavailabl e Encounter Details Date Type Department Care Team (Late st Contact Info) Description 04/02/2013 - 04/02/2013 11:59 PM CDT Hospital [facility] MD [address] [facility] [address] [place] [address] Low back pain; Pain in soft tissues of limb; Degeneration of lumbar or lumbosacral intervertebral disc Social History Tobacco Use Types Packs/Day Years Used Date Smoking Tobacco: Never Assessed Comments Unknown Sex and Gender Information Value Date Recorded Sex Assigned at Not on file Legal Sex Female 4:55 AM VIAL GAUGER Gender Identity Not on file Sexual Orientation Not on file documented as of this encounter Plan of Treatment Not on file documented as of this encounter Procedures Procedure Name Priority Date/Time Associated Diagnosis Comments XR SPINE LUMBAR 6 OR MORE VIEWS Routine 04/02/2013 9:51 AM CDT XR SPINE (ENTIRE) NON WT 1V Routine 04/02/2013 9:51 AM CDT documented in this encounter Results * XR Spine (Entire) Non Wt 1V (04/02/2013 9:51 AM CDT) Anatomical Region Laterality Modality Spine N/A Radiographic Serena ging 04/02/2013 9:51 AM CDT Narrative 04/02/2013 10:04 AM CDT RAMYA DANG M.D. FINAL REPORT ACC# ??Date Time ??Exam [id number] Apr 02, 2013 09:51:00 [id number] Spn Lumbar cmp wBend min6v [id number] Apr 02, 2013 09:51:00 [id number] Spine TL ScoliosisStanding EXAMINATION: ? 1. Lumbar spine complete with bending minimum 6 views 2. Spine Thoracolumbar scoliosis standing HISTORY: ??Lumbar spondylosis FINDINGS: ?? Standing AP and lateral views of the entire spine on digital long cassette and 6 views of the lumbar spine including bending are submitted with correlation to a lumbar spine MR performed 03/22/2013. There is a mild dextrocurvature of the lumbar spine. The vertebral body heights are normal. There is mild disc space narrowing at L3-L4 and L4-L5. There is no pelvic tilt, coronal imbalance, or sagittal imbalance. IMPRESSION: ?? 1. Mild degenerative disc disease L3-L5. Requested By: SHADY RODRÍGUEZ M.D. Dictated By: ?? RAMYA DANG M.D. ??on Apr 02 2013 10:04A This document has been electronically signed by: RAMYA DANG M.D. on Apr 02 2013 10:04A Procedure Note Provider, MD Ton - 10/13/2016 RAMYA DANG M.D. FINAL REPORT ACC# Date Time Exam [id number] Apr 02, 2013 09:51:00 [id number] Spn Lumbar cmp wBend min6v [id number] Apr 02, 2013 09:51:00 [id number] Spine TL ScoliosisStanding EXAMINATION: 1. Lumbar spine complete with bending minimum 6 views 2. Spine Thoracolumbar scoliosis standing HISTORY: Lumbar spondylosis FINDINGS: Standing AP and lateral views of the entire spine on digital long cassette and 6 views of the lumbar spine including bending are submitted with correlation to a lumbar spine MR performed 03/22/2013. There is a mild dextrocurvature of the lumbar spine. The vertebral body heights are normal. There is mild disc space narrowing at L3-L4 and L4-L5. There is no pelvic tilt, coronal imbalance, or sagittalimbalance. IMPRESSION: 1. Mild degenerative disc disease L3-L5. Requested By: SHADY RODRÍGUEZ M.D. Dictated By: RAMYA DANG M.D. on Apr 02 2013 10:04A This document has been electronically signed by: RAMYA DANG M.D. on Apr 02 2013 10:04A us Historical Provider MD SANTIAGO XR PROCEDURES Final R esult * XR Lumbar Spine Complete (04/02/2013 9:51 AM CDT) Anatomical Region Laterality Modality L-spine N/A Radiographic Serena ging 04/02/2013 9:51 AM CDT Narrative 04/02/2013 10:04 AM CDT RAMYA DANG M.D. FINAL REPORT ACC# ??Date Time ??Exam [id number] Apr 02, 2013 09:51:00 [id number] Spn Lumbar cmp wBend min6v [id number] Apr 02, 2013 09:51:00 [id number] Spine TL ScoliosisStanding EXAMINATION: ? 1. Lumbar spine complete with bending minimum 6 views 2. Spine Thoracolumbar scoliosis standing HISTORY: ??Lumbar spondylosis FINDINGS: ?? Standing AP and lateral views of the entire spine on digital long cassette and 6 views of the lumbar spine including bending are submitted with correlation to a lumbar spine MR performed 03/22/2013. There is a mild dextrocurvature of the lumbar spine. The vertebral body heights are normal. There is mild disc space narrowing at L3-L4 and L4-L5. There is no pelvic tilt, coronal imbalance, or sagittal imbalance. IMPRESSION: ?? 1. Mild degenerative disc disease L3-L5. Requested By: SHADY RODRÍGUEZ M.D. Dictated By: ?? RAMYA DANG M.D. ??on Apr 02 2013 10:04A This document has been electronically signed by: RAMYA DANG M.D. on Apr 02 2013 10:04A Procedure Note Provider, MD Ton - 10/13/2016 RAMYA DANG M.D. FINAL REPORT ACC# Date Time Exam [id number] Apr 02, 2013 09:51:00 [id number] Spn Lumbar cmp wBend min6v [id number] Apr 02, 2013 09:51:00 [id number] Spine TL ScoliosisStanding EXAMINATION: 1. Lumbar spine complete with bending minimum 6 views 2. Spine Thoracolumbar scoliosis standing HISTORY: Lumbar spondylosis FINDINGS: Standing AP and lateral views of the entire spine on digital long cassette and 6 views of the lumbar spine including bending are submitted with correlation to a lumbar spine MR performed 03/22/2013. There is a mild dextrocurvature of the lumbar spine. The vertebral body heights are normal. There is mild disc space narrowing at L3-L4 and L4-L5. There is no pelvic tilt, coronal imbalance, or sagittalimbalance. IMPRESSION: 1. Mild degenerative disc disease L3-L5. Requested By: SHADY RODRÍGUEZ M.D. Dictated By: RAMYA DANG M.D. on Apr 02 2013 10:04A This document has been electronically signed by: RAMYA DANG M.D. on Apr 02 2013 10:04A us Historical Provider MD SANTIAGO XR PROCEDURES Final R esult documented in this encounter Visit Diagnoses Diagnosis Low back pain Lumbago Pain in soft tissues of limb Degeneration of lumbar or lumbosacral intervertebral disc documented in this encounter
--- OUTSIDE RECORDS SUMMARY | 2024-06-20 19:05 | XMS_ITS | Encounter Summary ---
Author Organization [facility] Facility Care Team Providers Care Dental Therapist Name Role Phone Unavailable Primary Care Provider Unavailabl e Encounter Details Date Type Department Care Team (Late st Contact Info) Description 03/22/2013 - 03/22/2013 11:59 PM CDT Hospital Encounter [facility] Arron Degroot III, MD [address] [place] [address] [address] [place] [address] Pain in soft tissues of limb; Displacement of lumbar intervertebral disc without myelopathy; Arthropathy involving other sites; Degeneration of lumbar or lumbosacral intervertebral disc Social History Tobacco Use Types Packs/Day Years Used Date Smoking Tobacco: Never Assessed Comments Unknown Sex and Gender Information Value Date Recorded Sex Assigned at Not on file Legal 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 WILBUR ENGLAND M.D. FINAL REPORT The radiology attending physician has personally reviewed this study, and has reviewed and/or edited this written report and agrees with it. ACC# ??Date Time ??Exam [id number] Mar 22, 2013 16:53:00 [id number] MRI Lumbar Spine wo cont EXAMINATION: ?? Lumbar spine magnetic resonance imaging (MRI) without contrast. ? HISTORY: 52-year-old woman with left leg pain. TECHNIQUE: Multiplanar multi-weighted magnetic resonance imaging of the lumbar spine was performed without administration of intravenous gadolinium contrast according to the degenerative disc disease protocol. Comparison: None available. FINDINGS: The lumbar spine is in the normal anatomic alignment. Vertebral bodies are of normal height without compression fractures. The bone marrow demonstrates normal signal intensity on all sequences. ??The conus medullaris terminates at the level of L1 ??and the distal spinal cord signal intensity is normal. Intervertebral discs show normal height and T2 signal intensity. The disc bulges are seen at L4-L5, and L5-S1 levels. Annular tears are present at L5-S1 No soft tissue abnormality within the limited views of the abdomen and pelvis is identified.The aorta is normal. L1-L2: The disc is normal in configuration. There is no facet arthropathy. There is no neural foraminal narrowing. There is no central canal stenosis. L2-L3: There is mild disc bulge which is asymmetric to right. There is no facet arthropathy. There is no neural foraminal narrowing. There is no central canal stenosis. L3-L4: There is mild disc bulge which is asymmetric to the right. There is mild bilateral facet arthropathy. There is mild right-sided neural foraminal narrowing. There is no central canal stenosis. L4-L5: There is a small disc bulge asymmetric to the right. There is no facet arthropathy. There is moderate right neural foraminal narrowing. There is no central canal stenosis. L5-S1: There is a moderate-sized disc bulge with a left central disc protrusion and causes an impression on the left anterior thecal sac and also compresses the left S1 nerve root against the left facet. There is mild bilateral facet arthropathy. There is no neural foraminal narrowing. There is no central canal stenosis. IMPRESSION: ?? 1. Disc bulge and left paracentral protrusion at L5-S1 that impresses upon the anterior thecal sac, and compresses the left S1 nerve root against the left facet. 2. Mild degenerative changes of the lumbar spine as described in detail above. Requested By: Arron Broussard ??M.D. Dictated By: ?? WILBUR ENGLAND M.D. ??on Mar 23 2013 ??9:16A This document has been electronically signed by: JUANIS WONG M.D. on Mar 23 2013 12:50P Procedure Note Provider, MD Ton - 10/13/2016 JUANIS WONG M.D. WILBUR ENGLAND M.D. FINAL REPORT The radiology attending physician has personally reviewed this study, and has reviewed and/or edited this written report and agrees with it. ACC# Date Time Exam [id number] Mar 22, 2013 16:53:00 [id number] MRI Lumbar Spine wo cont EXAMINATION: Lumbar spine magnetic resonance imaging (MRI) without contrast. HISTORY: 52-year-old woman with left leg pain. TECHNIQUE: Multiplanar multi-weighted magnetic resonance imaging of the lumbar spine was performed without administration of intravenous gadolinium contrast according to the degenerative disc disease protocol. Comparison: None available. FINDINGS: The lumbar spine is in the normal anatomic alignment. Vertebral bodies are of normal height without compression fractures. The bone marrow demonstrates normal signal intensity on all sequences. The conus medullaris terminates at the level of L1 and the distal spinal cord signal intensity is normal. Intervertebral discs show normal height and T2 signal intensity. The disc bulges are seen at L4-L5, and L5-S1 levels. Annular tears are present at L5-S1 No soft tissue abnormality within the limited views of the abdomen and pelvis is identified.The aorta is normal. L1-L2: The disc is normal in configuration. There is no facet arthropathy. There is no neural foraminal narrowing. There is no central canal stenosis. L2-L3: There is mild disc bulge which is asymmetric to right. There is no facet arthropathy. There is no neural foraminal narrowing. There is no central canal stenosis. L3-L4: There is mild disc bulge which is asymmetric to the right. There is mild bilateral facet arthropathy. There is mild right-sided neural foraminal narrowing. There is no central canal stenosis. L4-L5: There is a small disc bulge asymmetric to the right. There is no facet arthropathy. There is moderate right neural foraminal narrowing. There is no central canal stenosis. L5-S1: There is a moderate-sized disc bulge with a left central disc protrusion and causes an impression on the left anterior thecal sac and also compresses the left S1 nerve root against the left facet. There is mild bilateral facet arthropathy. There is no neural foraminal narrowing. There is no central canal stenosis. IMPRESSION: 1. Disc bulge and left paracentral protrusion at L5-S1 that impresses upon the anterior thecal sac, and compresses the left S1 nerve root against the left facet. 2. Mild degenerative changes of the lumbar spine as described in detail above. Requested By: Arron Broussard M.D. Dictated By: WILBUR ENGLAND M.D. on Mar 23 2013 9:16A This document has been electronically signed by: JUANIS WONG M.D. on Mar 23 2013 12:50P us Historical Provider MD [facility] MRI PROCEDURES Final Result documented in this encounter Visit Diagnoses Diagnosis Pain in soft tissues of limb Displacement of lumbar intervertebral disc without myelopathy Arthropathy involving other sites Degeneration of lumbar or lumbosacral intervertebral disc documented in this encounter
--- OUTSIDE RECORDS SUMMARY | 2024-06-20 19:05 | XMS_ITS | Encounter Summary ---
Author Organization [facility] Healthcare Address [address] [place] [address] Care Team Providers Care Screener Operator Name Role Phone Charlie Stevenson MD Primary Care Provider [phone] Encounter Details Date Type Department Care Team (Late st Contact Info) Description 10/23/2017 10:41 AM CDT - 10/23/2017 11:59 PM T Hospital Encounter [facility] OP INTERIM [phone] José Miguel Dent MD [address] [facility] [address] [place] [address] Discharge Disposition: Discharge to home or self care Social History Tobacco Use Types Packs/Day Years Used Date Smoking Tobacco: Former Comments Unknown Sex and Gender Information Value Date Recorded Sex Assigned at Not on file 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
--- OUTSIDE RECORDS SUMMARY | 2024-06-20 19:05 | XMS_ITS | Encounter Summary ---
Author Organization [facility] Facility Care Team Providers Care Tufting Machine Operator Name Role Phone Unavailable Primary Care Provider Unavailabl e Encounter Details Date Type Department Care Team (Late st Contact Info) Description 04/28/2014 2:17 PM NURSING EDUCATOR - 04/28/2014 11:59 PM NURSING EDUCATOR Hospital Encounter [facility] José Miguel Ramos MD [address] [address] Other chronic pain; Lumbosacral spondylosis without myelopathy; Personal history of allergy to narcotic agent; Other disorders of coccyx; Pain in soft tissues of limb; Low back pain Social History Tobacco Use Types Packs/Day Years Used Date Smoking Tobacco: Former Comments Unknown Sex and Gender Information Value Date Recorded Sex Assigned at Not on file Legal Sex Female 4:55 AM NURSING EDUCATOR Gender Identity Not on file Sexual Orientation Not on file documented as of this encounter Plan of Treatment Not on file documented as of this encounter Visit Diagnoses Diagnosis Other chronic pain Lumbosacral spondylosis without myelopathy Personal history of allergy to narcotic agent Other disorders of coccyx Pain in soft tissues of limb Low back pain Lumbago documented in this encounter
--- OUTSIDE RECORDS SUMMARY | 2024-06-20 19:05 | XMS_ITS | Encounter Summary ---
Author Organization [facility] Facility Care Team Providers Care Beef Pluck Trimmer Name Role Phone Unavailable Primary Care Provider Unavailabl e Encounter Details Date Type Department Care Team (Late st Contact Info) Description 04/06/2013 2:21 PM CDT - 04/06/2013 4:00 PM CDT Hospital Encounter [facility] Shady Mercado MD [address] [place] [id number] Pre-procedural laboratory examination; Pre-operative cardiovascular examination; Displacement of lumbar intervertebral disc without myelopathy; Displacement of intervertebral disc without myelopathy; Degeneration of intervertebral disc; Thoracic or lumbosacral neuritis or radiculitis; Mitral valve disorder; Generalized muscle weakness; Other chronic pain; Disturbance of skin sensation; Encounter for long-term (current) use of other medications; Acquired absence of both cervix and uterus; Personal history of tobacco use, presenting hazards to health; History of disease of blood and blood-forming organs; Family history of other disease of digestive system; Family history of diabetes mellitus Social History Tobacco Use Types Packs/Day Years Used Date Smoking Tobacco: Never Assessed Comments Unknown Sex and Gender Information Value Date Recorded Sex Assigned at Not on file 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 Gender Identity Not on file Sexual Orientation Not on file documented as of this encounter Plan of Treatment Not on file documented as of this encounter Procedures Procedure Name Priority Date/Time Associated Diagnosis Comments URINE (AEROBIC) CULTURE, CDR Routine 04/06/2013 4:32 PM CDT PLASMA PROTHROMBIN TIME (PT) Routine 04/06/2013 4:32 PM CDT PLASMA PARTIAL THROMBOPLASTIN TIME (PTT) Routine 04/06/2013 4:32 PM CDT PLASMA BASIC METABOLIC PANEL Routine 04/06/2013 4:32 PM CDT URINALYSIS Routine 04/06/2013 4:32 PM CDT BLOOD CELL COUNT (CBC) Routine 3 4:32 PM CDT BLOOD ABO, RH, INDIRECT AB SCREEN Routine 04/06/2013 4:32 PM CDT ELECTROCARDIOGRAPHY (ECG) 04/06/2013 ALL MICROBIOLOGY REPORT SECTION Routine 04/06/2013 12:00 AM CDT DISCHARGE LABORATORY CUMULATIVE REPORT Routine 04/06/2013 12:00 AM CDT documented in this encounter Results * Urine (aerobic) culture (04/06/2013 4:32 PM CDT) Urine, clean voided (Unknown) 04/06/2013 4:32 PM CDT 04/06/2013 6:01 PM CDT Narrative HISTORICAL RESULTS - 04/08/2013 11:19 AM CDT Insignificant growth based on current clinical standards. us Historical Provider LAB MICROBIOLOGY - GENERA L ORDERABLES Final Result HISTORICAL RESULTS * Urinalysis (04/06/2013 4:32 PM CDT) Color, ur Light-Yellow Yellow HISTORI SUJATHA RESULTS Clarity, ur Clear Clear HISTORIC AL RESULTS Specific gravity, ur 1.016 1.003 - 1.030 HISTORICAL RESULTS pH, ur 6.5 5.0 - 8.0 HISTORICAL RESULTS Protein, ur Negative Trace HISTORIC AL RESULTS Glucose, ur Negative Negative HISTORIC AL RESULTS Ketones, ur Negative Negative HISTORIC AL RESULTS Bilirubin, ur Negative Negative HISTOR ICAL RESULTS U Blood Negative Negative HISTORICAL RESULTS Urobilinogen, quant, ur <2.0 0.0 - 2.0 mg/dl HISTORICAL RESULTS Nitrites, ur Negative Negative HISTORI SUJATHA RESULTS Leukocyte esterase, ur Negative Negative HISTORICAL RESULTS Urine 04/06/2013 4:32 PM CDT Shady Mercado MD LAB BLOOD ORDERABLES Final Result Performing Organization Address [facility] de Phone Number HISTORICAL RESULTS * Plasma partial thromboplastin time (PTT) (04/06/2013 4:32 PM CDT) Pathologist [facility] APTT 29.8 25.0 - 37.0 seconds HISTORICAL RESULTS Comment: Interpretive Data Therapeutic heparin range:60.0 - 94.0 sec based on correlation with therapeutic heparin activity range of 0.3 -0.7 Units/mL. Current interpretive data was last revised on 2011. Plasma 04/06/2013 4:32 PM CDT Shady Mercado MD LAB BLOOD ORDERABLES Final Result Performing Organization Address [facility] de Phone Number HISTORICAL RESULTS * Plasma basic metabolic panel (04/06/2013 4:32 PM CDT) [facility] Sodium 141 135 - 145 mmol/L HISTORICAL RESULTS K, pl 4.2 3.3 - 4.9 mmol/L HISTORICAL RESULTS Chloride 104 97 - 110 mmol/L HISTORICAL RESULTS CO2 30 22 - 32 mmol/L HISTORICAL RESULTS A. gap 7 0 - 16 mmol/L HISTORICAL RESULTS Glucose 90 70 - 199 mg/dl HISTORICAL RESULTS BUN 21 8 - 25 mg/dl HISTORICAL RESULTS Creatinine 0.80 0.60 - 1.10 mg/dl HISTORICAL RESULTS Calcium 9.6 8.6 - 10.3 mg/dl HISTORICAL RESULTS Plasma 04/06/2013 4:32 PM CDT Shady Mercado MD LAB BLOOD ORDERABLES Final Result Performing Organization Address [facility] de Phone Number HISTORICAL RESULTS * Plasma prothrombin time (PT) (04/06/2013 4:32 PM CDT) Pathologist [facility] Prothrombin time (PT) 10.0 9.0 - 12.0 seconds HISTORICAL RESULTS INR 0.95 0.90 - 1.20 HISTORIC AL RESULTS Comment: Interpretive Data Inpatient therapeutic ranges* Atrial fibrillation ?2.0-3.0 INR Venous thrombo-embolism ?2.0-3.0 INR Bioprosthetic heart valve ?* Mechanical heart valve, bileaflet or tilting disk,aortic position ? 2.0-3.0 INR All other,or bileaflet or tilting disk, in mitral position ? 2.5-3.5 INR *See the pharmacy resource directory (PHRED) for an updated copy of the Tool Book at [email or web address] Current Interpretive Data was last revised 2011. Plasma 04/06/2013 4:32 PM CDT Shady Mercado MD LAB BLOOD ORDERABLES Final Result HISTORICAL RESULTS * (ABNORMAL) Blood cell count (CBC) (04/06/2013 4:32 PM CDT) [facility] WBC 9.7 3.8 - 9.8 K/cumm HISTORICAL RESULTS RBC 3.81(L) 3.90 - 5.00 M/cumm HISTORICAL RESULTS Hgb 12.1 12.1 - 15.1 g/dl HISTORICAL RESULTS Hct 35.0(L) 36.1 - 44.3 % HISTORICAL RESULTS MCV 91.8 80.0 - 97.6 fl HISTORICAL RESULTS MCH 31.7 26.7 - 33.7 pg HISTORICAL RESULTS MCHC 34.5 32.7 - 35.5 g/dl HISTORICAL RESULTS Rdw 13.6 11.8 - 14.6 % HISTORICAL RESULTS Platelets 355 140 - 440 K/cumm HISTORICAL RESULTS MPV 6.2(L) 6.8 - 10.4 fl HISTORICAL RESULTS Neutrophils 55.4 38.7 - 74.5 % HISTORICAL RESULTS Lymphocytes 35.4 20.0 - 54.3 % HISTORICAL RESULTS Monos 6.9 4.3 - 13.5 % HISTORICAL RESULTS Eosinophils 2.0 0.0 - 6.0 % HISTORICAL RESULTS Basophils 0.3 0.0 - 3.0 % HISTORICAL RESULTS Neutrophils, abs 5.4 1.8 - 6.6 K/cumm HISTORICAL RESULTS Lymphocytes, abs 3.4(H) 1.2 - 3.3 K/cumm HISTORICAL RESULTS Monocytes, absolute 0.7 0.2 - 1.2 K/cumm HISTORICAL RESULTS Eosinophils, abs 0.2 0.0 - 0.5 K/cumm HISTORICAL RESULTS Basophils, abs 0.0 0.0 - 0.2 K/cumm HISTORICAL RESULTS Blood specimen (specimen) 04/06/2013 4:32 PM CDT Shady Mercado MD LAB BLOOD ORDERABLES Final Result Performing Organization Address [facility] Co de Phone Number HISTORICAL RESULTS * Blood ABO, Rh, indirect ab screen (04/06/2013 4:32 PM CDT) Danielle, indirect Negative HISTORICAL RESULTS ABO, Rho(D) O Positive HISTORI SUJATHA RESULTS Blood specimen (specimen) 04/06/2013 4:32 PM CDT Shady Mercado MD LAB BLOOD ORDERABLES Final Result Performing Organization Address [facility] Co de Phone Number HISTORICAL RESULTS * All Microbiology Report Section (04/06/2013 12:00 AM CDT) 04/06/2013 Narrative HISTORICAL RESULTS - 04/08/2013 2:02 PM CDT ? [facility] ?[facility] [place] ?[place] [address] ? Patient Name: ??PAGE PAZ ? Med Rec Number: [id number] ? Fin Number: ?[id number] ? Date: ?1960 ? Sex/Age: ? Female 52 years ? Admit Date: ?04/06/2013 ? Discharge Date: 04/06/2013 ? Doctor: ?Shady Mercado ? Facility: ?[facility] ? Location: ?CPAP ?* Abnormal ??A Alert ??f Footnote ??^ Corrected ??L Low ??H High ?i Interp Data ??@ Ref Lab ? Chart Type:Cumulative ?* * * * MICROBIOLOGY - URINE * * * * ?PROCEDURE: Urine Culture ? SOURCE: Urine, clean voided ? COLLECTED: 04/06/13 ??1632 ?BODY SITE: ? STARTED: 04/06/13 ??1801 ? FREE TEXT SOURCE: ? FINAL REPORT ? REPORTED: 04/08/13 1119 ? Insignificant growth based on current clinical standards. ? ORDER COMMENTS ? (1)Received in transport media. ? us Historical Provider MD LAB MICROBIOLOGY - GENERA L ORDERABLES Final Result HISTORICAL RESULTS * Discharge Laboratory Cumulative Report (04/06/2013 12:00 AM CDT) 04/06/2013 Narrative HISTORICAL RESULTS - 04/08/2013 3:23 PM CDT ?[facility] ?Department of Laboratories ? [facility] [place] ? [place] [address] Patient Name: ??PAGE PAZ Rec Number: [id number] Fin Number: ?[id number] Date: ?1960 Sex/Age: ? Female 52 years Admit Date: ?04/06/2013 Discharge Date: 04/06/2013 Doctor: ?Shady Mercado Facility: ?[facility] Location: ?CPAP Chart Printed: 04/08/2013 15:23 ?? * Abnormal ?? C Critical ?? f Footnote ?? ^ Corrected ?? L Low ?? H High ? i Interp Data ?? @ Reference Lab ? Chart Type:Periodic ? MICROBIOLOGY - ALL TESTS ? PROCEDURE: Urine Culture ?SOURCE: Urine, clean voided COLLECTED: 04/06/13 ??1632 ? BODY SITE: STARTED: 04/06/13 ??1801 FREE TEXT SOURCE: FINAL REPORT REPORTED: 04/08/13 1119 Insignificant growth based on current clinical standards. ORDER COMMENTS (1)Received in transport media. ? MICROBIOLOGY - URINE ? PROCEDURE: Urine Culture ?SOURCE: Urine, clean voided COLLECTED: 04/06/13 ??1632 ? BODY SITE: STARTED: 04/06/13 ??1801 FREE TEXT SOURCE: FINAL REPORT REPORTED: 04/08/13 1119 Insignificant growth based on current clinical standards. ORDER COMMENTS (1)Received in transport media. Historical Provider LAB BLOOD ORDERABLES Cassy garcia Result HISTORICAL RESULTS * ELECTROCARDIOGRAPHY (ECG) (04/06/2013) Narrative 04/06/2013 Ordered by an unspecified provider. Historical Provider ECG ORDERABLES Final Res ult documented in this encounter Visit Diagnoses Diagnosis Pre-procedural laboratory examination Pre-operative cardiovascular examination Displacement of lumbar intervertebral disc without myelopathy Displacement of intervertebral disc without myelopathy Displacement of intervertebral disc, site unspecified, without myelopathy Degeneration of intervertebral disc Degeneration of intervertebral disc, site unspecified Thoracic or lumbosacral neuritis or radiculitis Thoracic or lumbosacral neuritis or radiculitis, unspecified Mitral valve disorder Mitral valve disorders Generalized muscle weakness Muscle weakness (generalized) Other chronic pain Disturbance of skin sensation Encounter for long-term (current) use of other medications Acquired absence of both cervix and uterus Personal history of tobacco use, presenting hazards to health History of disease of blood and blood-forming organs Personal history of diseases of blood and blood-forming organs Family history of other disease of digestive system Family history of diabetes mellitus documented in this encounter
--- OUTSIDE RECORDS SUMMARY | 2024-06-20 19:05 | XMS_ITS | Encounter Summary ---
Author Organization [facility] Facility Care Team Providers Care Director Data Name Role Phone Unavailable Primary Care Provider Unavailabl e Encounter Details Date Type Department Care Team (Late st Contact Info) Description 02/21/2014 - 02/21/2014 11:59 PM CDT Hospital Encounter 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 YASMEEN ZAVALETA M.D. FINAL REPORT The radiology attending physician has personally reviewed this study, and has reviewed and/or edited this written report and agrees with it. ACC# ??Date Time ??Exam [id number] Feb 21, 2014 18:05:00 [id number] MRI Lumbar Spine wo cont EXAMINATION: ?? Lumbar spine magnetic resonance imaging (MRI) without contrast. HISTORY: Coccygeal pain TECHNIQUE: Multiplanar multi-weighted magnetic resonance imaging of the lumbar spine was performed without administration of intravenous gadolinium contrast according to the degenerative disc disease protocol. Contrast information: None given. Comparison: MRI 03/22/2013 FINDINGS: The lumbar spine is in the normal anatomic alignment. Vertebral bodies are of normal height without compression fractures. The bone marrow demonstrates normal signal intensity on all sequences. ??The conus medullaris terminates at the level of L1-L2 and the distal spinal cord signal intensity is normal. Intervertebral discs show disc desiccation at L4-L5 and L5-S1. Annular tears are not identified. No soft tissue abnormality within the limited views of the abdomen and pelvis is identified.The aorta is normal. . ??The sacrum and coccyx appear grossly normal. L1-L2: The disc is normal in configuration. There is no facet arthropathy. There is no neural foraminal narrowing. There is no central canal stenosis. L2-L3: The disc is normal in configuration. There is no facet arthropathy. There is no neural foraminal narrowing. There is no central canal stenosis. L3-L4: There is a mild disc bulge. There is mild right facet arthropathy. There is mild right neural foraminal narrowing. There is no central canal stenosis. L4-L5: There is a mild disc bulge asymmetric to the right. There is no facet arthropathy. There is mild right neural foraminal narrowing. There is no central canal stenosis. L5-S1: There is a disc bulge asymmetric extrusion to the left . There is severe compression of the left S1 nerve root. There is no facet arthropathy. There is mild bilateral neural foraminal narrowing. There is no central canal stenosis. IMPRESSION: ?? 1. Paracentral extrusion at L5-S1 which severely compresses along the left lateral S1 nerve root. 2. Mild multilevel degenerative changes of the lumbar spine. ADDENDUM Addendum issued 03/04/2014 at 11:[address] Ruperto (s) and Romana The imaging was reviewed there is no paracentral extrusion at L5-S1 on the left lateral S1 nerve root. There is no evidence of nerve root compression at this level. This error in dictation is likely secondary to review and correct imaging. ??The correct imaging has been reviewed and no other changes are to be made to the report. Requested By: SHADY RODRÍGUEZ M.D. Dictated By: ?? YASMEEN ZAVALETA M.D. ??on Feb 22 2014 10:29A This document has been electronically signed by: JACK HICKEY M.D. on Feb 22 2014 12:52P Addendum Dictated by: YASMEEN ZAVALETA M.D. on Mar 04 2014 11:03A This Addendum has been electronically signed by: JACK HICKEY M.D. on Mar 04 2014 ??3:27P [id number] Procedure Note Provider, MD Ton - 10/13/2016 Cammy MOORE M.D. FINAL REPORT The radiology attending physician has personally reviewed this study, and has reviewed and/or edited this written report and agrees with it. ACC# Date Time Exam [id number] Feb 21, 2014 18:05:00 [id number] MRI Lumbar Spine wo cont EXAMINATION: Lumbar spine magnetic resonance imaging (MRI) without contrast. HISTORY: Coccygeal pain TECHNIQUE: Multiplanar multi-weighted magnetic resonance imaging of the lumbar spine was performed without administration of intravenous gadolinium contrast according to the degenerative disc disease protocol. Contrast information: None given. Comparison: MRI 03/22/2013 FINDINGS: The lumbar spine is in the normal anatomic alignment. Vertebral bodies are of normal height without compression fractures. The bone marrow demonstrates normal signal intensity on all sequences. The conus medullaris terminates at the level of L1-L2 and the distal spinal cord signal intensity is normal. Intervertebral discs show disc desiccation at L4-L5 and L5-S1. Annular tears are not identified. No soft tissue abnormality within the limited views of the abdomen and pelvis is identified.The aorta is normal. . The sacrum and coccyx appear grossly normal. L1-L2: The disc is normal in configuration. There is no facet arthropathy. There is no neural foraminal narrowing. There is no central canal stenosis. L2-L3: The disc is normal in configuration. There is no facet arthropathy. There is no neural foraminal narrowing. There is no central canal stenosis. L3-L4: There is a mild disc bulge. There is mild right facet arthropathy. There is mild right neural foraminal narrowing. There is no central canal stenosis. L4-L5: There is a mild disc bulge asymmetric to the right. There is no facet arthropathy. There is mild right neural foraminal narrowing. There is no central canal stenosis. L5-S1: There is a disc bulge asymmetric extrusion to the left . There is severe compression of the left S1 nerve root. There is no facet arthropathy. There is mild bilateral neural foraminal narrowing. There is no central canal stenosis. IMPRESSION: 1. Paracentral extrusion at L5-S1 which severely compresses along the left lateral S1 nerve root. 2. Mild multilevel degenerative changes of the lumbar spine. ADDENDUM Addendum issued 03/04/2014 at 11:00 a.m. by (sKyung Hickey and Romana The imaging was reviewed there is no paracentral extrusion at L5-S1 on the left lateral S1 nerve root. There is no evidence of nerve root compression at this level. This error in dictation is likely secondary to review and correct imaging. The correct imaging has been reviewed and no other changes are to be made to the report. Requested By: SHADY RODRÍGUEZ M.D. Dictated By: YASMEEN ZAVALETA M.D. on Feb 22 2014 10:29A This document has been electronically signed by: JACK HICKEY M.D. on Feb 22 2014 12:52P Addendum Dictated by: YASMEEN ZAVALETA M.D. on Mar 04 2014 11:03A This Addendum has been electronically signed by: JACK HICKEY M.D. on Mar 04 2014 3:27P [id number] Historical Provider MD [facility] MRI PROCEDURES Final Result documented in this encounter Visit Diagnoses Diagnosis Other disorders of coccyx Degeneration of lumbar or lumbosacral intervertebral disc documented in this encounter
--- OUTSIDE RECORDS SUMMARY | 2024-06-20 19:05 | XMS_ITS | Encounter Summary ---
Author Organization [facility] Healthcare Address [address] [place] [address] Care Team Providers Care Metal Buildings Assembler Name Role Phone Unknown, Notinfile Primary Care Provider Unavail able Encounter Details Date Type Department Care Team (Late st Contact Info) Description 01/27/[address] 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 documented in this encounter Plan of Treatment Not on file documented as of this encounter Visit Diagnoses Not on filedocumented in this encounter Care Teams Metal Buildings Assembler Relationship Specialty Start Date End Date Unknown, Notinfile PCP - General 10/24/17 09/27/20 documented as of this encounter
--- OUTSIDE RECORDS SUMMARY | 2024-06-20 19:05 | XMS_ITS | Encounter Summary ---
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 Hospital Encounter [facility] José Miguel Ramos MD [address] [address] Lumbosacral spondylosis without myelopathy; Other disorders of coccyx; Other chronic pain; Personal history of allergy to narcotic agent; Pain in soft tissues of limb; Low back pain; History of other diseases of the circulatory system, not elsewhere classified; Acquired absence of both cervix and uterus; Other postprocedural states; Personal history of tobacco use, presenting hazards to health Social History Tobacco Use Types Packs/Day Years Used Date Smoking Tobacco: Never Assessed Comments Unknown Sex and Gender Information Value Date Recorded Sex Assigned at Not on file 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 Gender Identity Not on file Sexual Orientation Not on file documented as of this encounter Plan of Treatment Not on file documented as of this encounter Visit Diagnoses Diagnosis Lumbosacral spondylosis without myelopathy Other disorders of coccyx Other chronic pain Personal history of allergy to narcotic agent Pain in soft tissues of limb Low back pain Lumbago History of other diseases of the circulatory system, not elsewhere classified Acquired absence of both cervix and uterus Other postprocedural states Personal history of tobacco use, presenting hazards to health documented in this encounter
--- OUTSIDE RECORDS SUMMARY | 2024-06-20 19:05 | XMS_ITS | Encounter Summary ---
Author Organization 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 Office Visit [facility] at [address] [place] [address] José Miguel Dent MD [address] [address] Pain in the coccyx (Primary Dx); Chronic [...] on file Legal Sex Female 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 Gender Identity Not on file Sexual Orientation Not on file documented as of this encounter Last Filed Vital Signs Vital Sign Reading Time Taken Comments Blood Pressure 138/75 04/27/2018 12:17 PM IT SOFTWARE ENGINEER Pulse 68 04/27/2018 12:17 PM IT SOFTWARE ENGINEER Temperature 36.6 ??C (97.8 ??F) 04/27/2018 12:[address] Respiratory Rate 18 04/27/2018 12:17 PM IT SOFTWARE ENGINEER Oxygen Saturation 100% 04/27/2018 12:17 PM IT SOFTWARE ENGINEER Inhaled Oxygen Concentration - - Weight 83 kg (183 lb) 04/27/2018 12:17 PM IT SOFTWARE ENGINEER Height 167.6 cm (5' 5.98 ) 04/27/2018 12:17 PM Muna ROGERS Body Mass Index 29.55 04/27/2018 12:17 PM IT SOFTWARE ENGINEER documented in this encounter Ordered Prescriptions Prescription Sig Dispense Quantity Refills Last Filled Start Date End Date traMADol-acetamino phen (ULTRACET) 37.5-325 mg per tabletIndications: Fibromyalgia Take 1 tablet by mouth every 12 (twelve) hours as needed for pain. 60 tablet 2 04/27/2018 12/23/2018 documented in this encounter Discharge Disposition Disposition Code Departure Means Destination Discharge to home or self care documented in this encounter Progress Notes * José Miguel Dent MD - 04/27/2018 10:45 AM CST S FOV Last here 10/[address] Mercado s/p L5-S1 discectomy 04/21 - lead to a resolution of back and leg sx had a csf leak complication post-op that lead to an extra week in the hospital neck pain, DOE, N and V resolved after a blood patch 6 weeks later, developed coccydynia center of tailbone no radiation worsens with prolonged sitting (over an hour with cushion), standing (20-30 min) any bearing down (BM, cough) increases her pain senses some relief with OTC ibuprofen, ice pack on the tailbone and sitting in a recliner does giveher some relief no relief with heat pain well controlled with 1-2 tramadol/day gets occasional constipation - controlled with stool softeners 06/24/13 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 O CONSTITUTIONAL: [x] General appearance normal. [x] Nutrition appearance [] Under Nourished [] Appropriately Nourished [x] [place] Nourished ] [] Morbidly Obese [x] Good grooming EYES: [x] Normal conjunctivae and lids EARS / NOSE / MOUTH / THROAT: [x] External inspection of ears normal. RESPIRATORY: [x] Normal effort. No evidence of any distress. CHEST: [x] Symmetric GASTROINTESTINAL: [] No guarding [] No masses [] No tenderness [] No rebound tenderness MUSCULOSKELETAL EXAMINATION: [x] Gait normal. [] Antalgic gait. [] Slow gait. [] Unsteady gait. [] Station normal. Motor Examination: [] Strength is 5/5 throughout upper and lower extremities. [] Strength is 5/5 in the upper extremities. [] Strength in the upper extremities is normal except [x] Strength is 5/5 in the legs. [] Strength is 5/5 in the legs except Sensory Examination: [] Intact to gross touch to bilateral upper extremities. [] Intact to gross touch to bilateral lower extremities. [] Intact to gross touch in upper extremity except [] Intact to gross touch in lower extremity except Neck: Passive range of motion [] Normal extension. [] Incomplete extension with an approximation of the total range [] Normal flexion. [] Incomplete flexion with an approximation of the total range [] Normal lateral rotation [] Incomplete lateral rotation with an approximation of the total range exacerbated their typical pain [] No tenderness to palpation [] Tenderness was appreciated [] Paraspinal muscle spasm present Thorax: [] No thoracic spine tenderness. [] Thoracic paravertebral spasm noted [] No Kyphosis appreciated [] No Scoliosis appreciated Lumbar-Sacral Region: Passive range of motion [] Normal extension. [] Incomplete extension with an approximation of the total range [] Normal flexion. [] Incomplete flexion with an approximation of the total range [] Normal lateral bending [] Incomplete lateral bending with an approximation of the total range exacerbated their typical pain [] Paraspinous muscles normal. [] Paraspinous muscle spasm noted. Knee range of motion Flexion is Extension is [] Instability was not appreciated [] No tenderness found. REFLEXES: Left: Biceps: [] Absent [] Diminished [] Normal [] Hyper/Brisk [] Clonus Triceps [] Absent [] Diminished [] Normal [] Hyper/Brisk [] Clonus Knee: [] Absent [] Diminished [x] Normal [] Hyper/Brisk [] Clonus Ankle: [] Absent [] Diminished [x] Normal [] Hyper/Brisk [] Clonus Right: Biceps: [] Absent [] Diminished [] Normal [] Hyper/Brisk [] Clonus Triceps [] Absent [] Diminished [] Normal [] Hyper/Brisk [] Clonus Knee: [] Absent [] Diminished [x] Normal [] Hyper/Brisk [] Clonus Ankle: [] Absent [] Diminished [x] Normal [] Hyper/Brisk [] Clonus NEUROLOGIC EXAM: [] Cranial nerves 2-12 were intact. [] Finger to nose normal was normally bilaterally [] Romberg normal. PSYCHIATRIC: [x] Normal orientation. [x] Normal speech patterns. [x] Memory in general appeared to be intact. [x] Normal affect. [x] Normal insight and judgement. A Coccydynia P Goes days without taking med Will refill tramadol since not abused fov 6 weeks SOFTWARE ENGINEER documented in this encounter Plan of [...] (twelve) hours as needed for pain. Reorder 12/04/2017 04/27/2018 documented as of this encounter Historical Medications * This list may reflect changes made after this encounter. valACYclovir (VALTREX) 500 mg tablet Take 1 tablet (500 mg total) by mouth daily 01/23/2018 docusate calcium (COLACE) 240 mg capsuleIndication s:constipation ibuprofen-diphenh ydramine cit 200-38 mg tablet 12/24/19 19 added in this encounter Care Teams Clearing Inspector Relationship Specialty Start Date End Date Unknown, Notinfile PCP - General 10/24/17 09/27/20 documented as of this encounter
--- OUTSIDE RECORDS SUMMARY | 2024-06-20 19:05 | XMS_ITS | Encounter Summary ---
Author Organization [facility] Facility Care Team Providers Care Engineering Assistant Name Role Phone Unavailable Primary Care Provider Unavailabl e Encounter Details Date Type Department Care Team (Late st Contact Info) Description 04/13/2013 5:53 AM SUPERVISOR PLATING AND POINT ASSEMBLY - 04/19/2013 2:51 PM SUPERVISOR PLATING AND POINT ASSEMBLY Hospital Encounter [facility] Shady Mercado MD [address] [place] [address] [address] Displacement of lumbar intervertebral disc without myelopathy; Mitral valve disorder; Degeneration of lumbar or lumbosacral intervertebral disc Social History Tobacco Use Types Packs/Day Years Used Date Smoking Tobacco: Never Assessed Comments Unknown Sex and Gender Information Value Date Recorded Sex Assigned at Not on file Legal Sex Female 4:55 AM SUPERVISOR PLATING AND POINT ASSEMBLY Gender Identity Not on file Sexual Orientation Not on file documented as of this encounter Last Filed Vital Signs Vital Sign Reading Time Taken Comments Blood Pressure 126/63 04/19/2013 2:14 PM SUPERVISOR PLATING AND POINT ASSEMBLY Pulse 92 04/19/2013 2:14 PM SUPERVISOR PLATING AND POINT ASSEMBLY Temperature - - Respiratory Rate - - Oxygen Saturation 98% 04/19/2013 2:14 PM SUPERVISOR PLATING AND POINT ASSEMBLY Inhaled Oxygen Concentration - - Weight 79.4 kg (174 lb 15.7 oz) 04/13/2013 1:50 PM SUPERVISOR PLATING AND POINT ASSEMBLY Height 193 cm (6' 4 ) 04/13/2013 1:50 PM SUPERVISOR PLATING AND POINT ASSEMBLY Body Mass Index 21.3 04/13/2013 1:50 PM SUPERVISOR PLATING AND POINT ASSEMBLY documented in this encounter Miscellaneous Notes * Op Note - Provider, MD Ton - 04/13/2013 12:00 AM CST Patient: Page Paz Reg No: [id number] [facility] #: [id number] Admit Dt.: 04/13/2013 : 1960 Pt Type: 100 Room No: 46314 Attending: Shady Mercado M.D. Surgeon: Shady Mercado M.D. Dictating: Shady Mercado M.D. Service Dt: 04/13/2013 OPERATIVE REPORT FIRST FRUIT PICKER MACHINE OPERATOR: Manuel Villela M.D. ANESTHESIA: General endotracheal. PREOPERATIVE DIAGNOSIS (ES): 1. Left-sided L5-S1 disk herniation. 2. Left-sided S1 radiculopathy. POSTOPERATIVE DIAGNOSIS (ES): 1. Left-sided L5-S1 disk herniation. 2. Left-sided S1 radiculopathy. NAME OF OPERATION: 1. Left-sided L5-S1 minimally invasive microscopic diskectomy with the use of the [employer] Metricstronic METRx Tube System. 2. Use of the intraoperative microscope. INDICATIONS FOR PROCEDURE: Ms. Paz is a 52-year-old female who presents with a severe left S1 radiculopathy who has failed conservative management. She has on her magnetic resonance imaging scan an L5-S1 disk herniation centered to the left causing clear compression of the traversing S1 nerve root. The risks, benefits and alternatives of surgery were described to the patient. Related to the risks, we emphasized bleeding, infection, cerebrospinal fluid leak, injury to the nerve root causing numbness, weakness, paralysis, loss of bowel or bladder function, loss of sexual function, destabilization of spine or medical complications such as stroke, myocardial infarction, deep venous thrombosis, pulmonary embolism, pneumonia or other unforeseen events. The patient acknowledged these risks and asked that we proceed. DESCRIPTION OF PROCEDURE: The patient was brought to the operating room and a time out was performed. She was given induction and intubated by anesthesia. Then 2 gm of Ancef and 10 mg of dexamethasone were administered. She was then flipped prone on the [facility] operating room table. This was positioned in lumbar flexion to maximize the spread in the interlaminar space. Next, we used a fluoroscopy to localize the L5-S1 level. We then prepped and draped this area. Next we made a small stab incision 2 cm lateral to the midline at the L5-S1 area. We then advanced the initial Medtronic dilator stick in this space and localized again the L5-S1 disk space. We attempted to dock this METRx Tube just medial to the facet in the inferior aspect of the lamina of L5. We then advanced the sequential series of dilators after making this slight enlargement of the incision. These were passed in the usual fashion until we reached the 22 mm dilator. At this point the actual METRx retractor 6 cm in depth was placed. The inner dilator tubes were removed at this time. After the METRx retractor was firmly docked into position, we then brought in the operative microscope. Upon suctioning out the blood and freeing up some of the overlying muscle that had been obscuring our view, we had a good position of the 22 mm METRx retractor over the L5-S1 interspace on the left. Unfortunately we noted at this time there was some egress of clear cerebrospinal fluid. Apparently what had happened was that one of the inner dilators in the METRx system must have been advanced during the process of sequential dilation. In any case, we noted that there was a near midline longitudinal durotomy that was out of reach of possible closure. However, we inspected the area thoroughly and there was clearly no injury to the exiting nerve root. It did not appear as if the traversing nerve root was at all injured as well. In the area between the shoulder of the traversing nerve root and the arm pit basically of the exiting nerve root, we could see a fairly sizeable disk herniation. This was dissected free and the overlying veins were coagulated with bipolar. The annulus overlying this was then incised with a 15 blade scalpel. The disk was then circumferentially dissected and it was grabbed with a pituitary rongeur and removed in its entirety. There was a fairly sizeable, nearly spherical shaped disk about a diameter of a thumbnail. Once this was removed, we carefully inspected the area with a Alan elevator to ensure that there was no residual herniated disk material. We did dissect into the disk space somewhat with a straight and upbiting curet as well as a down angled curet to make sure there were no disk fragments that posed a risk of reherniation. We basically performed a fragmentectomy with cleaning out of the disk space nearest our opening but did not attempt to perform a complete diskectomy as this leads to unacceptable postoperative pain. Next, we obtained meticulous hemostasis. After a thorough inspection of the region of the durotomy which was near the midline and which was essentially tamponading itself against the residual midline ligamentum, we then proceeded with repair indirectly just by placing a piece of Duragen over the region of the defect followed by some DuraSeal exact, which is a nonhydrophilic DuraSeal. After application of these products, it appeared that there was no egress of cerebrospinal fluid at all. We then carefully removed the METRx retractor tube, taking care to obtain hemostasis as it was removed. We then did place two 3-0 Vicryl sutures into the fascia to assist with a watertight closure. We then placed 3-0 inverted interrupted sutures in the soft tissues overlying the fascia as well as in the dermis. We then ran a 3-0 nylon suture in the skin to obtain a watertight closure. The wound was dressed and the patient was then flipped back onto the regular operating room table. A wake up test was performed after surgery and the patient was able to plantar flex and dorsiflex her feet with full strength. ESTIMATED BLOOD LOSS, INTRAOPERATIVE FLUIDS, URINE OUTPUT: Please refer to anesthesia records. SPONGE/INSTRUMENT/NEEDLE COUNTS: Were all correct x 2 at the end of the procedure. CONDITION ON DISCHARGE FROM OPERATING ROOM: Was stable. COMPLICATIONS: Included the durotomy as noted above. ATTENDING ATTESTATION: I was present and performed the entirety of the procedure from the initial positioning and initial skin incision to the final skin closure. Electronically Signed By Shady Mercado M.D. 04/19/2013 11:41 A Cammy Taylor/judd #[id number] Editing MT: TD: 04/13/2013 14:21:00 cc: Shady Mercado M.D. documented in this encounter Plan of Treatment Not on file documented as of this encounter Procedures Procedure Name Priority Date/Time Associated Diagnosis Comments DISCHARGE LABORATORY CUMULATIVE REPORT Routine 04/19/2013 12:00 AM SUPERVISOR PLATING AND POINT ASSEMBLY BLOOD ABO, RH, INDIRECT AB SCREEN Routine 04/13/2013 6:20 AM SUPERVISOR PLATING AND POINT ASSEMBLY documented in this encounter Results * Discharge Laboratory Cumulative Report (04/19/2013 12:00 AM SUPERVISOR PLATING AND POINT ASSEMBLY) 04/19/2013 Narrative HISTORICAL RESULTS - 04/19/2013 3:19 PM SUPERVISOR PLATING AND POINT ASSEMBLY ?[facility] ?Department of Laboratories ? [facility] ? [place] [address] Patient Name: ??PAGE PAZ Rec Number: [id number] Fin Number: ?[id number] Date: ?1960 Sex/Age: ? Female 52 years Admit Date: ?04/13/2013 Discharge Date: 04/19/2013 Doctor: ?Shady Mercado Facility: ?[facility] Location: ?[id number] Chart Printed: 04/19/2013 15:19 ?? * Abnormal ?? C Critical ?? f Footnote ?? ^ Corrected ?? L Low ?? H High ? i Interp Data ?? @ Reference Lab ?Chart Type:Cumulative ? TRANSFUSION MEDICINE ?Test: Indirect Danielle. ??ABO/Rh Pat Interp ? Reference: ? Units: 04/13/2013 ?? 06:20:00 ?? Negative ?O Positive us Historical Provider LAB BLOOD ORDERABLES Cassy l Result Performing Organization Address [facility] Co de Phone Number HISTORICAL RESULTS * Blood ABO, Rh, indirect ab screen (04/13/2013 6:20 AM SUPERVISOR PLATING AND POINT ASSEMBLY) ABO, Rho(D) O Positive HISTORI SUJATHA RESULTS Danielle, indirect Negative HISTORICAL RESULTS Blood specimen (specimen) 04/13/2013 6:20 AM SUPERVISOR PLATING AND POINT ASSEMBLY Shady Mercado MD LAB BLOOD ORDERABLES Final Result Performing Organization Address [facility] Co de Phone Number HISTORICAL RESULTS documented in this encounter Visit Diagnoses Diagnosis Displacement of lumbar intervertebral disc without myelopathy Mitral valve disorder Mitral valve disorders Degeneration of lumbar or lumbosacral intervertebral disc documented in this encounter
--- OUTSIDE RECORDS SUMMARY | 2024-06-20 19:05 | XMS_ITS | Encounter Summary ---
Author Organization [facility] Facility Care Team Providers Care Medical Staff Assistant Name Role Phone Unavailable Primary Care Provider Unavailabl e Encounter Details Date Type Department Care Team (Late st Contact Info) Description 09/20/2013 2:26 PM CDT Hospital Encounter [facility] José Miguel Ramos MD [address] [address] Lumbosacral spondylosis without myelopathy; Other chronic pain; Personal history of tobacco use, presenting hazards to health Social History Tobacco Use Types Packs/Day Years Used Date Smoking Tobacco: Never Assessed Comments Unknown Sex and Gender Information Value Date Recorded Sex Assigned at Not on file Legal Sex Female 4:55 AM SUPERVISOR TAPING Gender Identity Not on file Sexual Orientation Not on file documented as of this encounter Plan of Treatment Not on file documented as of this encounter Visit Diagnoses Diagnosis Lumbosacral spondylosis without myelopathy Other chronic pain Personal history of tobacco use, presenting hazards to health documented in this encounter
--- OUTSIDE RECORDS SUMMARY | 2024-06-20 19:05 | XMS_ITS | Encounter Summary ---
Author Organization [facility] Facility Care Team Providers Care Docking Saw Operator Name Role Phone Unavailable Primary Care Provider Unavailabl e Encounter Details Date Type Department Care Team (Late st Contact Info) Description 10/15/2013 1:38 PM CDT Hospital Encounter [facility] José Miguel Ramos MD [address] [address] Lumbosacral spondylosis without myelopathy; Other chronic pain; Other disorders of coccyx Social History Tobacco Use Types Packs/Day Years Used Date Smoking Tobacco: Never Assessed Comments Unknown Sex and Gender Information Value Date Recorded Sex Assigned at Not on file Legal Sex Female 4:55 AM SENIOR SUPPLIER QUALITY ENGINEER Gender Identity Not on file Sexual Orientation Not on file documented as of this encounter Plan of Treatment Not on file documented as of this encounter Visit Diagnoses Diagnosis Lumbosacral spondylosis without myelopathy Other chronic pain Other disorders of coccyx documented in this encounter
--- OUTSIDE RECORDS SUMMARY | 2024-06-20 19:05 | XMS_ITS | Encounter Summary ---
Author Organization [facility] Address [address] [place] [address] Phone Care Team Providers Care Clay Products Glazer Name Role Phone Unknown, Notinfile Primary Care Provider Unavail able Encounter Details Date Type Department Care Team (Late st Contact Info) Description 12/08/2017 Telephone [facility] Pain Management [facility] [place] [address] José Miguel Dent MD [address] [address] Social History Tobacco Use Types Packs/Day Years Used Date Smoking Tobacco: Former Comments Unknown Sex and Gender Information Value Date Recorded Sex Assigned at Not on file Legal Sex Female 4:55 AM INFORMATION ASSOC Gender Identity Not on file Sexual Orientation Not on file documented as of this encounter Miscellaneous Notes * Telephone Encounter - Danielle Plata BS - 12/09/2017 7:50 AM CDT Approval in file folder * Telephone Encounter - Katelynn Bender RN - 12/08/2017 10:38 AM CDT Initiated PA via cover my meds.... decision is pending. documented in this encounter Plan of Treatment Not on file documented as of this encounter Visit Diagnoses Not on filedocumented in this encounter Care Teams Clay Products Glazer Relationship Specialty Start Date End Date Unknown, Notinfile PCP - General 10/24/17 09/27/20 documented as of this encounter
--- OUTSIDE RECORDS SUMMARY | 2024-06-20 19:05 | XMS_ITS | Encounter Summary ---
Author Organization [facility] Facility Care Team Providers Care Cover Stripper Name Role Phone Unavailable Primary Care Provider Unavailabl e Encounter Details Date Type Department Care Team (Late st Contact Info) Description 07/01/2013 - 07/01/2013 11:59 PM MANAGER ARMY Hospital Encounter [facility] Shady Rodríguez MD [address] [facility] [address] [place] [address] Scoliosis (and kyphoscoliosis), idiopathic; Degeneration of lumbar or lumbosacral intervertebral disc Social History Tobacco Use Types Packs/Day Years Used Date Smoking Tobacco: Never Assessed Comments Unknown Sex and Gender Information Value Date Recorded Sex Assigned at Not on file Legal Sex Female 4:55 AM MANAGER ARMY Gender Identity Not on file Sexual Orientation Not on file documented as of this encounter Plan of Treatment Not on file documented as of this encounter Procedures Procedure Name Priority Date/Time Associated Diagnosis Comments XR SPINE LUMBAR ROUTINE Routine 07/01/2013 8:36 AM MANAGER ARMY documented in this encounter Results * XR Lumbar Spine Routine (07/01/2013 8:36 AM MANAGER ARMY) Anatomical Region Laterality Modality L-spine N/A Radiographic Serena ging 07/01/2013 8:36 AM MANAGER ARMY Narrative 07/01/2013 9:04 AM MANAGER ARMY JF SOLER M.D. FCO GUDINO, FINAL REPORT The radiology attending physician has personally reviewed this study, and has reviewed and/or edited this written report and agrees with it. ACC# ??Date Time ??Exam [id number] Jul 01, 2013 08:36:00 [id number] Spine Lumbar min 4 views EXAMINATION: ?Lumbar spine minimum 4 views HISTORY: ??Lumbar spondylosis FINDINGS: ?? Four-view examination of the lumbar spine including AP, lateral neutral, flexion and extension views are performed and compared to prior study dated 04/02/2013. There is mild dextrocurvature of the lumbar spine. Vertebral body heights are normal with no acute fracture. Mild degenerative disc disease of the lumbar spine are noted from L2 through S1, unchanged. Mild hypomobility is seen with flexion or extension. ?? IMPRESSION: Mild lumbar dextroscoliosis and degenerative disc disease from L2-L3 through L5-S1, unchanged. ?? Requested By: SHADY RODRÍGUEZ M.D. Dictated By: ?? FCO GUDINO, ?? on Jul 01 2013 ??9:02A This document has been electronically signed by: JF SOLER M.D. on Jul 01 2013 ??9:04A Procedure Note Provider, MD Ton - 10/13/2016 JF SOLER M.D. FCO GUDINO, FINAL REPORT The radiology attending physician has personally reviewed this study, and has reviewed and/or edited this written report and agrees with it. ACC# Date Time Exam [id number] Jul 01, 2013 08:36:00 [id number] Spine Lumbar min 4 views EXAMINATION: Lumbar spine minimum 4 views HISTORY: Lumbar spondylosis FINDINGS: Four-view examination of the lumbar spine including AP, lateral neutral, flexion and extension views are performed and compared to prior study dated 04/02/2013. There is mild dextrocurvature of the lumbar spine. Vertebral body heights are normal with no acute fracture. Mild degenerative disc disease of the lumbar spine are noted from L2 through S1, unchanged. Mild hypomobility is seen with flexion or extension. IMPRESSION: Mild lumbar dextroscoliosis and degenerative disc disease from L2-L3 through L5-S1, unchanged. Requested By: SHADY RODRÍGUEZ M.D. Dictated By: FCO GUDINO, on Jul 01 2013 9:02A This document has been electronically signed by: JF SOLER M.D. on Jul 01 2013 9:04A us Historical Provider MD [facility] XR PROCEDURES Final R esult documented in this encounter Visit Diagnoses Diagnosis Scoliosis (and kyphoscoliosis), idiopathic Degeneration of lumbar or lumbosacral intervertebral disc documented in this encounter
--- OUTSIDE RECORDS SUMMARY | 2024-06-20 19:05 | XMS_ITS | Encounter Summary ---
Author Organization [facility] Healthcare Address [address] [place] [address] Care Team Providers Care Body Liner Name Role Phone Unknown, Notinfeleni Primary Care Provider Unavail able Encounter Details Date Type Department Care Team (Late st Contact Info) Description 11/11/2016 4:15 PM CDT - 11/11/2016 11:59 PM CDT Hospital Encounter [facility] [phone] José Miguel Dent MD [address] [facility] [address] [place] [address] Discharge Disposition: Discharge to home or self care Social History Tobacco Use Types Packs/Day Years Used Date Smoking Tobacco: Former Comments Unknown Sex and Gender Information Value Date Recorded Sex Assigned at Not on file Legal Sex Female 4:55 AM TRADE SHOW COORDINATOR Gender Identity Not on file Sexual Orientation Not on file documented as of this encounter Discharge Disposition Disposition Code Departure Means Destination Discharge to home or self care documented in this encounter Plan of Treatment Not on file documented as of this encounter Visit Diagnoses Not on filedocumented in this encounter Care Teams Body Liner Relationship Specialty Start Date End Date Unknown, Maryanne PCP - General 11/11/16 10/22/17 documented as of this encounter
--- OUTSIDE RECORDS SUMMARY | 2024-06-20 19:05 | XMS_ITS | Encounter Summary ---
Author Organization [facility] Facility Care Team Providers Care Refinery Pipeline Operator Name Role Phone Unavailable Primary Care Provider Unavailabl e Encounter Details Date Type Department Care Team (Late st Contact Info) Description 07/20/2013 9:21 AM PATENT PROSECUTION PARALEGAL Hospital Encounter [facility] José Miguel Ramos MD [address] [address] Lumbosacral spondylosis without myelopathy; Other chronic pain; Mitral valve disorder; Family history of malignant neoplasm; Family history of diabetes mellitus; Acquired absence of both cervix and uterus; Other postprocedural states; Encounter for long-term (current) use of non-steroidal anti-inflammatories Social History Tobacco Use Types Packs/Day Years Used Date Smoking Tobacco: Never Assessed Comments Unknown Sex and Gender Information Value Date Recorded Sex Assigned at Not on file Legal Sex Female 4:55 AM PATENT PROSECUTION PARALEGAL Gender Identity Not on file Sexual Orientation Not on file documented as of this encounter Plan of Treatment Not on file documented as of this encounter Visit Diagnoses Diagnosis Lumbosacral spondylosis without myelopathy Other chronic pain Mitral valve disorder Mitral valve disorders Family history of malignant neoplasm Family history of diabetes mellitus Acquired absence of both cervix and uterus Other postprocedural states Encounter for long-term (current) use of non-steroidal anti-inflammatories documented in this encounter
--- OUTSIDE RECORDS SUMMARY | 2024-06-20 19:05 | XMS_ITS | Encounter Summary ---
Author Organization [facility] Facility Care Team Providers Care Cooker Meal Name Role Phone Unavailable Primary Care Provider Unavailabl e Encounter Details Date Type Department Care Team (Late st Contact Info) Description 12/24/2013 12:44 PM CDT - 12/24/2013 11:59 PM CDT Hospital Encounter [facility] José Miguel Ramos MD [address] [facility] [address] [place] [address] Social History Tobacco Use Types Packs/Day Years Used Date Smoking Tobacco: Never Assessed Comments Unknown Sex and Gender Information Value Date Recorded Sex Assigned at Not on file Legal Sex Female 4:55 AM MECHANICAL MANUFACTURING ENGINEER Gender Identity Not on file Sexual Orientation Not on file documented as of this encounter Plan of Treatment Not on file documented as of this encounter Visit Diagnoses Not on filedocumented in this encounter
--- OUTSIDE RECORDS SUMMARY | 2024-06-20 19:05 | XMS_ITS | Encounter Summary ---
Author Organization [facility] Facility Care Team Providers Care Web Portal Developer Name Role Phone Unavailable Primary Care Provider Unavailabl e Encounter Details Date Type Department Care Team (Late st Contact Info) Description 02/09/2015 12:28 PM CDT - 02/09/2015 11:59 PM CDT Hospital Encounter [facility] José Miguel Ramos MD [address] [address] Other chronic pain; Other disorders of coccyx; Degeneration of lumbar or lumbosacral intervertebral disc; Personal history of tobacco use, presenting hazards to health Social History Tobacco Use Types Packs/Day Years Used Date Smoking Tobacco: Former Comments Unknown Sex and Gender Information Value Date Recorded Sex Assigned at Not on file Legal Sex Female 4:55 AM PUBLIC RELATIONS SPECIALIST Gender Identity Not on file Sexual Orientation Not on file documented as of this encounter Plan of Treatment Not on file documented as of this encounter Visit Diagnoses Diagnosis Other chronic pain Other disorders of coccyx Degeneration of lumbar or lumbosacral intervertebral disc Personal history of tobacco use, presenting hazards to health documented in this encounter
--- OUTSIDE RECORDS SUMMARY | 2024-06-20 19:05 | XMS_ITS | Encounter Summary ---
Author Organization [facility] Facility Care Team Providers Care Co Op Name Role Phone Unavailable Primary Care Provider Unavailabl e Encounter Details Date Type Department Care Team (Late st Contact Info) Description 05/25/2014 9:02 AM SET UP AND LAY OUT INSPECTOR - 05/25/2014 11:59 PM SET UP AND LAY OUT INSPECTOR Hospital Encounter [facility] José Miguel Ramos MD [address] [address] Low back pain; Other chronic pain; Personal history of allergy to narcotic agent; Personal history of tobacco use, presenting hazards to health Social History Tobacco Use Types Packs/Day Years Used Date Smoking Tobacco: Former Comments Unknown Sex and Gender Information Value Date Recorded Sex Assigned at Not on file Legal Sex Female 4:55 AM SET UP AND LAY OUT INSPECTOR Gender Identity Not on file Sexual Orientation Not on file documented as of this encounter Plan of Treatment Not on file documented as of this encounter Visit Diagnoses Diagnosis Low back pain Lumbago Other chronic pain Personal history of allergy to narcotic agent Personal history of tobacco use, presenting hazards to health documented in this encounter
--- OUTSIDE RECORDS SUMMARY | 2024-06-20 19:05 | XMS_ITS | Encounter Summary ---
Author Organization [facility] Facility Care Team Providers Care Fence Machine Operator Name Role Phone Unavailable Primary Care Provider Unavailabl e Encounter Details Date Type Department Care Team (Late st Contact Info) Description 11/13/2015 3:58 PM CDT - 11/13/2015 11:59 PM CDT Hospital Encounter [facility] José Miguel Ramos MD [address] [address] Cerebrospinal fluid leak from spinal puncture; Sacrococcygeal disorders, not elsewhere classified; Other chronic pain; Other intervertebral disc degeneration, thoracic region; Personal history of nicotine dependence; 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 Social History Tobacco Use Types Packs/Day Years Used Date Smoking Tobacco: Former Comments Unknown Sex and Gender Information Value Date Recorded Sex Assigned at Not on file Legal Sex Female 4:55 AM MISSILE FACILITIES REPAIRER Gender Identity Not on file Sexual Orientation Not on file documented as of this encounter Plan of Treatment Not on file documented as of this encounter Visit Diagnoses Diagnosis Cerebrospinal fluid leak from spinal puncture Sacrococcygeal disorders, not elsewhere classified Other chronic pain Other intervertebral disc degeneration, thoracic region 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
--- OUTSIDE RECORDS SUMMARY | 2024-06-20 19:05 | XMS_ITS | Encounter Summary ---
Author Organization [facility] Facility Care Team Providers Care Husbandry Person Name Role Phone Unavailable Primary Care Provider Unavailabl e Encounter Details Date Type Department Care Team (Late st Contact Info) Description 04/25/2014 - 04/25/2014 11:59 PM SPANISH LECTURER Hospital Encounter [facility] Terrance Chaudhry MD [address] [place] [address] DEPT NEUROSURGERY, [place] [address] Degeneration of lumbar or lumbosacral intervertebral disc; Scoliosis (and kyphoscoliosis), idiopathic Social History Tobacco Use Types Packs/Day Years Used Date Smoking Tobacco: Former Comments Unknown Sex and Gender Information Value Date Recorded Sex Assigned at Not on file Legal Sex Female 4:55 AM SPANISH LECTURER Gender Identity Not on file Sexual Orientation Not on file documented as of this encounter Plan of Treatment Not on file documented as of this encounter Procedures Procedure Name Priority Date/Time Associated Diagnosis Comments XR SPINE LUMBAR ROUTINE Routine 04/25/2014 2:30 PM SPANISH LECTURER documented in this encounter Results * XR Lumbar Spine Routine (04/25/2014 2:30 PM SPANISH LECTURER) Anatomical Region Laterality Modality L-spine N/A Radiographic Serena ging 04/25/2014 2:30 PM SPANISH LECTURER Narrative 04/26/2014 9:35 AM SPANISH LECTURER LEANN MCKEON M.D. BETY ALEXANDRA, FINAL REPORT The radiology attending physician has personally reviewed this study, and has reviewed and/or edited this written report and agrees with it. ACC# ??Date Time ??Exam [id number] Apr 25, 2014 14:30:00 14763 Spine Lumbar min 4 views ACC# ??Date Time ??Exam [id number] Apr 25, 2014 14:30:00 [id number] Spine Lumbar min 4 views EXAMINATION: ?Lumbar spine minimum 4 views HISTORY: ??Lumbar scoliosis FINDINGS: ?? AP, lateral neutral, flexion, and extension views of the lumbar spine are compared with 07/01/2013. There is unchanged mild rotatory dextroscoliosis with apex at L2. In neutral position, sagittal alignment is normal. There is no compression fracture. There is mild L3-S1 degenerative disc disease, unchanged. There is hypomobility of the lumbar spine with flexion and extension, without listhesis. ?? IMPRESSION: 1. Unchanged mild lumbar dextroscoliosis and degenerative disc disease. ?? Requested By: Dictated By: ?? BETY ALEXANDRA, ?? on Apr 25 2014 ??3:25P This document has been electronically signed by: LEANN MCKEON M.D. on Apr 26 2014 ??9:35A [id number] Procedure Note Provider, MD Ton - 10/13/2016 LEANN MCKEON M.D. BETY ALEXANDRA, FINAL REPORT The radiology attending physician has personally reviewed this study, and has reviewed and/or edited this written report and agrees with it. ACC# Date Time Exam [id number] Apr 25, 2014 14:30:00 24209 Spine Lumbar min 4 views ACC# Date Time Exam [id number] Apr 25, 2014 14:30:00 80280 Spine Lumbar min 4 views EXAMINATION: Lumbar spine minimum 4 views HISTORY: Lumbar scoliosis FINDINGS: AP, lateral neutral, flexion, and extension views of the lumbar spine are compared with 07/01/2013. There is unchanged mild rotatory dextroscoliosis with apex at L2. In neutral position, sagittal alignment is normal. There is no compression fracture. There is mild L3-S1 degenerative disc disease, unchanged. There is hypomobility of the lumbar spine with flexion and extension, without listhesis. IMPRESSION: 1. Unchanged mild lumbar dextroscoliosis and degenerative disc disease. Requested By: Dictated By: BETY ALEXANDRA on Apr 25 2014 3:25P This document has been electronically signed by: LEANN MCKEON M.D. on Apr 26 2014 9:35A [id number] Historical Provider MD SANTIAGO XR PROCEDURES Final R esult documented in this encounter Visit Diagnoses Diagnosis Degeneration of lumbar or lumbosacral intervertebral disc Scoliosis (and kyphoscoliosis), idiopathic documented in this encounter
--- OUTSIDE RECORDS SUMMARY | 2024-06-20 20:24 | XMS_ITS | Encounter Summary ---
Author Organization [facility] Healthcare Address [address] [place] [address] Care Team Providers Care Ordained Minister Name Role Phone Maged Godoy DO Primary Care Provider [phone] Reason for Visit * Reason Comments Hip Pain Encounter Details Date Type Department Care Team (Latest Contact Info) Description 06/12/2021 10:22 AM RESEARCH CHEF - 06/12/2021 11:59 PM RESEARCH CHEF Hospital Encounter [facility] at [facility] [address] 1st [place] [address] Zuly Barriga MD [address] [facility] [address] [place] [address] Other chronic pain Discharge Disposition: Discharge to [...] file Legal Sex Female 4:55 AM RESEARCH CHEF Gender Identity Not on file Sexual Orientation Not on file documented as of this encounter Last Filed Vital Signs Vital Sign Reading Time Taken Comments Blood Pressure 148/79 06/12/2021 10:33 AM RESEARCH CHEF Pulse 79 06/12/2021 10:33 AM RESEARCH CHEF Temperature 36.6 ??C (97.8 ??F) 06/12/2021 10:[address] Respiratory Rate 12 06/12/2021 10:33 AM RESEARCH CHEF Oxygen Saturation 97% 06/12/2021 10:33 AM RESEARCH CHEF Inhaled Oxygen Concentration - - Weight 92.1 kg (203 lb) 06/12/2021 10:33 AM RESEARCH CHEF Height 167.6 cm (5' 6 ) 06/12/2021 10:33 AM RESEARCH CHEF Body Mass Index 32.77 06/12/2021 10:33 AM RESEARCH CHEF documented in this encounter Discharge Instructions * Patient Instructions* Nidia Leon RN - 06/12/2021 10:30 AM RESEARCH CHEF PAIN MANAGEMENT CENTER DISCHARGE INFORMATION PLAN / NEW ORDERS: ??? Repeat hip injection on the 01 of July Pain Management Center at [facility] - [phone]. Calls are accepted Friday-Friday, 7:30am-4pm, excluding observed holidays. ??? We highly encourage the use of [facility] for non-urgent matters as well as prescription refill requests. ??? If you need to schedule an appointment with Dr. Mallory - Pain Psychologist - [phone] ??? If you are scheduled for an MRI we [facility] with the Radiology Imaging Department and the physicians that read the images. In addition the images are of higher quality, and we receive the results quicker. If you choose to use an imaging location outside of [facility] and/or have [employer] Insurance, please notify us immediately with a message on our nurse line or by sending a ip.access message with the following: - Location - [...] preferred method for refill requests. o Call [phone] and leave a message on the RN [...] on which the pharmacy filled the prescription. [email or web address] We strive to provide you with EXCELLENT service as our patient. You may receive a survey after your visit today. If you can not rate your experience as EXCELLENT, please let us know how we can improve and better meet your needs. Thank you for choosing [facility] / Pain Management! ARCH CHEF documented in this encounter Medications at Time [...] Surgery - (Added by TW Conv) ??? [place] ABDOMEN SURGERY PROC UNLISTED Hernia Repair - (Added by TW Conv) ? ? [place] REMOVAL OF TONSILS,<12 Y/O Tonsillectomy - (Added by TW Conv) ??? [place] TOTAL ABDOM HYSTERECTOMY Hysterectomy - (Added by [...] baseline after next injection Zuly Barriga MD Escalator Mechanic Pain Management, Department of Anesthesiology [facility] 06/12/2021 ARCH CHEF documented in this encounter Plan of Treatment [...] pain documented in this encounter Care Teams Ordained Minister Relationship Specialty Start Date End Date Maged Godoy DO PCP - General 09/28/20 documented as of this encounter
--- OUTSIDE RECORDS SUMMARY | 2024-06-20 20:24 | XMS_ITS | Clinical Summary ---
Author Organization [facility] Address [address] [place] [address] Care Team Providers Care Adoption Worker Name Role Phone Unavailable Primary Care Provider Unavailabl e Source Comments [facility],non-owned Affiliates and Associated Physician Practices is amultiple site organization consisting of ambulatory clinics and hospital sitesin [place], [place], [place] and [place]. This disclosure is being madepursuant to the Care Everywhere program and may not contain all information available regarding this patient. Last updated 18.[facility] [employer] Allergies Active Allergy Reactions Criticality Noted Date [...]
--- OUTSIDE RECORDS SUMMARY | 2024-06-20 20:24 | XMS_ITS | Encounter Summary ---
Author Organization [facility] Healthcare Address [address] [place] [address] Care Team Providers Care Manager Machine Name Role Phone Maged Godoy DO Primary Care Provider [phone] Zuly Barriga MD Unavailable [phone] Reason for Visit * Reason Comments Follow-up Med Management Encounter Details Date Type Department Care Team (Latest Contact Info) Description 05/16/2022 8:30 AM CLAY MAKER - 05/16/2022 11:59 PM CLAY MAKER Hospital Encounter [facility] at [facility] [address] [facility] [facility] 1st [place] [address] Zuly Barriga MD [address] [place] [address] Low back pain, unspecified [...] on file Legal Sex Female 4:55 AM CLAY MAKER Gender Identity Not on file Sexual Orientation Not on file documented as of this encounter Last Filed Vital Signs Vital Sign Reading Time Taken Comments Blood Pressure 137/81 05/16/2022 8:42 AM CLAY MAKER Pulse 69 05/16/2022 8:42 AM CLAY MAKER Temperature 36.6 ??C (97.9 ??F) 05/16/2022 8:42 AM CS T Respiratory Rate 18 05/16/2022 8:42 AM CLAY MAKER Oxygen Saturation 99% 05/16/2022 8:42 AM CLAY MAKER Inhaled Oxygen Concentration - - Weight - [...] Bladder Surgery - (Added by TW Conv) [place] ABDOMEN SURGERY PROC UNLISTED Hernia Repair - (Added by TW Conv) [place] REMOVAL OF TONSILS,<12 Y/O Tonsillectomy - (Added by TW Conv) [place] TOTAL ABDOM HYSTERECTOMY Hysterectomy - (Added by [...] Follow-up in three months Zuly Barriga MD Railroad Car Letterer Pain Management, Department of Anesthesiology [facility] 05/16/2022 MAKER documented in this encounter Miscellaneous Notes * Addendum Note - Rebel Sexton RT - 05/16/2022 8:45 AM CSTEncounter addended by: Rebel Sexton RT on: 05/16/2022 9:10 AM Actions taken: Charge Capture section accepted MAKER documented in this encounter Plan of Treatment [...] on stairs Contact your local community or [facility] for information on exercise, fall prevention [...] documented as of this encounter Care Teams Manager Machine Relationship Specialty Start Date End Date Maged Godoy DO PCP - General 09/28/20 Zuly Barriga MD Consulting Physician Pain Management 12/14/21 documented as of this encounter
--- OUTSIDE RECORDS SUMMARY | 2024-06-20 20:24 | XMS_ITS | Referral Summary ---
Author Organization [facility] Address [address] [place] [address] Care Team Providers Care Rn Hospital Name Role Phone Unavailable Primary Care Provider Unavailabl e Source Comments [facility],non-owned Affiliates and Associated Physician Practices is amultiple site organization consisting of ambulatory clinics and hospital sitesin [place], [place], [place]. This disclosure is being madepursuant to the Care Everywhere program and may not contain all information available regarding this patient. Last updated 18.[facility] [employer] Allergies Active Allergy Reactions Criticality Noted Date [...]
--- OUTSIDE RECORDS SUMMARY | 2024-06-20 20:24 | XMS_ITS | Encounter Summary ---
Author Organization [facility] Healthcare Address [address] [place] [address] Care Team Providers Care Entry Specialist Name Role Phone Maged Godoy DO Primary Care Provider [phone] Reason for Visit * Reason Comments Back Pain Hip Pain Encounter Details Date Type Department Care Team (Latest Contact Info) Description 08/01/2021 10:11 AM INTERNATIONAL TRADE ANALYST - 08/01/2021 10:17 AM INTERNATIONAL TRADE ANALYST Hospital Encounter [facility] at [facility] [address] [facility] 1st [place] [address] Zuly Barriga MD [address] [facility] [address] [place] [address] Hip pain, chronic, left Discharge Disposition: Discharge [...] on file Legal Sex Female 4:55 AM INTERNATIONAL TRADE ANALYST Gender Identity Not on file Sexual Orientation Not on file documented as of this encounter Last Filed Vital Signs Vital Sign Reading Time Taken Comments Blood Pressure 126/78 08/01/2021 11:04 AM INTERNATIONAL TRADE ANALYST Pulse 72 08/01/2021 11:04 AM INTERNATIONAL TRADE ANALYST Temperature 36.2 ??C (97.1 ??F) 08/01/2021 10:[address] Respiratory Rate 18 08/01/2021 11:04 AM INTERNATIONAL TRADE ANALYST Oxygen Saturation 99% 08/01/2021 11:04 AM INTERNATIONAL TRADE ANALYST Inhaled Oxygen Concentration - - Weight 90.7 kg (200 lb) 08/01/2021 10:28 AM INTERNATIONAL TRADE ANALYST Height 167.6 cm (5' 6 ) 08/01/2021 10:28 AM INTERNATIONAL TRADE ANALYST Body Mass Index 32.28 08/01/2021 10:28 AM INTERNATIONAL TRADE ANALYST documented in this encounter Discharge Instructions * Discharge Instructions* Cyn Ahumada RN - 08/01/2021 11:04 AM INTERNATIONAL TRADE ANALYST PAIN MANAGEMENT CENTER POST-PROCEDURE PATIENT EDUCATION The [...] in 3 months Pain Management Center at [facility] - [phone]. Calls are accepted Friday-Friday, 7:30am-4pm, excluding observed holidays. ??? We highly encourage the use of MyChart for non-urgent matters as well as prescription refill requests. ??? If you need to schedule an appointment with Dr. Mallory - Pain Psychologist - [phone] ??? If you are scheduled for an MRI we [facility] with the Radiology Imaging Department and the physicians that read the images. In addition the images are of higher quality, and we receive the results quicker. If you choose to use an imaging location outside of [facility] and/or have [employer], please notify us immediately with a message on our nurse line or by sending a Ridley message with the following: - Location - [...] preferred method for refill requests. o Call [phone] and leave a message on the RN [...] the pharmacy filled the prescription. [email or web address] We strive to provide you with EXCELLENT service as our patient. You may receive a survey after your visit today. If you can not rate your experience as EXCELLENT, please let us know how we can improve and better meet your needs. Thank you for choosing [facility] / Pain Management! RNATIONAL TRADE ANALYST documented in this encounter Medications at Time [...] Surgery - (Added by TW Conv) ??? [place] ABDOMEN SURGERY PROC UNLISTED Hernia Repair - (Added by TW Conv) ? ? [place] REMOVAL OF TONSILS,<12 Y/O Tonsillectomy - (Added by TW Conv) ??? [place] TOTAL ABDOM HYSTERECTOMY Hysterectomy - (Added by [...] Follow-up in three months Zuly Barriga MD Brand Strategy Manager Pain Management, Department of Anesthesiology [facility] 08/01/2021 RNATIONAL TRADE ANALYST documented in this encounter Miscellaneous Notes * [...] the patient's lower extremities so that the upperleg lies horizontal. Landmarks of the left hip joint were identified fluoroscopically. After prep with chlorhexidine x 3 and drape with sterile towels, 3 cc of 1% lidocaine was used for skin infiltration at a finger-width proximal to the apex of the greater trochanter. Then a 22-gauge 3-inch spinalneedle was inserted and advanced until it touched the neck of the femur. The appropriate position of the needle was confirmed by AP and lateral [...] removed. The patient's skin was cleaned. The patien t tolerated the procedure very well without apparent complications. The patient had marked relief. DISPOSITION: Patient discharged home in stable condition. No Resident involved on case Zuly Barriga MD 08/01/2021 RNATIONAL TRADE ANALYST documented in this encounter Plan of [...] on stairs Contact your local community or [facility] for information on exercise, fall prevention [...] at 1100, Intra-Op Given 08/01/2021 11:00 AM INTERNATIONAL TRADE ANALYST 3 mL iohexoL (OMNIPAQUE) 300 mg iodine/mL injection solution As needed, Starting on Fri08/01/21 at 1100, Intra-Op Given 08/01/2021 11:00 AM INTERNATIONAL TRADE ANALYST 0.5 mL lidocaine (XYLOCAINE) 20 mg/mL (2 %) preservative free injection As needed, Starting on Fri08/01/21 at 1057, Intra-Op Given 08/01/2021 10:57 AM INTERNATIONAL TRADE ANALYST 5 mL methylPREDNISolone acetate (DEPO-medrol) injection As needed, Starting on Fri08/01/21 at 1100, Intra-Op Given 08/01/2021 11:00 AM INTERNATIONAL TRADE ANALYST 40 mg documented in this encounter Care Teams Entry Specialist Relationship Specialty Start Date End Date Maged Godoy DO PCP - General 09/28/20 documented as of this encounter
--- OUTSIDE RECORDS SUMMARY | 2024-06-20 20:24 | XMS_ITS | Encounter Summary ---
Author Organization [facility] Healthcare Address [address] [place] [address] Care Team Providers Care Aws Software Development Engineer Name Role Phone Maged Godoy DO Primary Care Provider [phone] Reason for Visit * Reason Onset Date Comments pt call 04/13/2021 Encounter Details Date Type Department Care Team (Late st Contact Info) Description 04/13/2021 Telephone [facility] [address] [facility] 1st [place] [address] Zuly Barriga MD [address] [facility] [address] [place] [address] pt call Social History Tobacco Use Types Packs/Day Years Used Date Smoking Tobacco: Former Smokeless Tobacco: Never Alcohol Use Standard Drinks/Week Comments Yes 0 (1 standard drink = 0.6 oz pur e alcohol) occasionally Comments No Sex and Gender Information Value Date Recorded Sex Assigned at Not on file Legal Sex Female 4:55 AM WATER RESOURCE AGENT Gender Identity Not on file Sexual Orientation [...] on filedocumented in this encounter Care Teams Aws Software Development Engineer Relationship Specialty Start Date End Date Maged Godoy DO PCP - General 09/28/20 documented as of this encounter
--- OUTSIDE RECORDS SUMMARY | 2024-06-20 20:24 | XMS_ITS | Clinical Summary ---
Author Organization [facility] Address [address] [place] [address] Care Team Providers Care Merchandising Intern Name Role Phone Maged Godoy Primary Care Provider [phone] Zuly Barriga MD Unavailable [phone] Allergies Active Allergy Reactions Criticality Noted Date [...] 03/15/2013 Surgical History Surgery Date Site/Laterality Comments [place] TOTAL ABDOMINAL HYSTERECT W/WO RMVL TUBE OVARY Hysterectomy - (Added by TW Conv) BLADDER SURGERY Bladder Surgery - (Added by TW Conv) [place] UNLISTED PROCEDURE ABDOME N PERITONEUM & OMENTUM Hernia Repair - (Added by TW Conv) [place] TONSILLECTOMY PRIMARY/SEC ONDARY <AGE 12 Tonsillectomy - [...] on file Legal Sex Female 4:55 AM AXLE INSPECTOR Gender Identity Not on file Sexual [...] 90.7 kg (200 lb) 08/01/2021 10:28 AM AXLE INSPECTOR Height 167.6 cm (5' 6 ) 08/01/2021 10:28 AM AXLE INSPECTOR Body Mass Index 32.28 08/01/2021 10:28 AM AXLE INSPECTOR Plan of Treatment Health Maintenance Due Date [...] or options for improving home safety. Insurance [facility] OPEN ACCESS [employer] ACCESS [employer] [facility]ESS [facility] Care Teams Merchandising Intern Relationship Specialty Start Date End Date Maged Godoy DO PCP - General 09/28/20 Zuly Barriga MD Consulting Physician Pain Management 12/14/21
--- OUTSIDE RECORDS SUMMARY | 2024-06-20 20:24 | XMS_ITS | Encounter Summary ---
Author Organization [facility] Healthcare Address [address] [place] [address] Care Team Providers Care Master Scheduler Name Role Phone Maegd Godoy Primary Care Provider [phone] Zuly Barriga MD Unavailable Encounter Details Date Type Department Care Team (Latest Contact Info) Description 01/13/2024 5:02 PM CDT - 01/13/2024 11:59 PM CDT Hospital Encounter [facility] [address] [place] [address] Encounter for monitoring opioid maintenance [...] on file Legal Sex Female 4:55 AM BANK RECONCILIATOR Gender Identity Not on file Sexual Orientation [...] analytical performance characteristics have been determined by [employer]. It has not been cleared or approved by the FDA. This assay has been validated pursuant to the CLIA regulations and is used for clinical purposes. Healthcare Providers needing Interpretation assistance, please contact us at [phone] ( ) M-F, 8am to 10pm EST Test Performed at: [facility] [address] [place] [address] ??[phone] ? DAMON STEWART MD Urine 01/13/2024 9:29 PM CDT 01/13/2024 9:29 PM CDT us Zuly Barriga MD LAB URINE ORDERABLES Final Result [facility] [address] Department [place] [address] [facility] * Pain Management Profile 6 with Confirmation, Urine (01/13/2024 9:29 PM CDT) Creatinine, ur 27.2 > or = 20.0 mg/dL Edwin pH, ur 6.2 4.5 - 9.0 [facility] Oxidants, ur NEGATIVE <200 mcg/mL [facility] Comment: Test Performed at: [facility] [address] [place], [place] ??[phone] ? AUBREE V BETY Amphetamine, ur NEGATIVE <500 ng/mL [facility] Barbiturates, ur NEGATIVE <300 ng/mL [facility] Benzodiazepines, ur NEGATIVE <100 ng/mL [facility] Tetrahydrocannabino l, ur NEGATIVE <20 ng/mL [facility] Benzoylecgonine NEGATIVE <150 ng/mL [facility] Pain mgt Methadone, Ur NEGATIVE <100 ng/mL [facility] Opiates, ur NEGATIVE <100 ng/mL [facility] Pain mgt Oxycodone, Ur NEGATIVE <100 ng/mL [facility] Phencyclidine, ur NEGATIVE <25 ng/mL [facility] Ethanol, ur NEGATIVE <500 ng/mL [facility] Pain mgt 6-Acetylmorphine, Ur NEGATIVE <10 ng/mL [facility] Urine 01/13/2024 9:29 PM CDT 01/13/2024 9:29 PM CDT Zuly Barriga MD LAB BLOOD ORDERABLES Final Result [facility] [address] Department [place] [address] [facility] documented in this encounter Visit Diagnoses Diagnosis Encounter for monitoring opioid maintenance therapy documented in this encounter Care Teams Master Scheduler Relationship Specialty Start Date End Date Maged Godoy DO PCP - General 09/28/20 Zuly Barriga MD Consulting Physician Pain Management 12/14/21 documented as of this encounter
--- OUTSIDE RECORDS SUMMARY | 2024-06-20 20:24 | XMS_ITS | Encounter Summary ---
Author Organization [facility] Healthcare Address [address] [place] [address] Care Team Providers Care Equipment Engineer Name Role Phone Maged Godoy DO Primary Care Provider [phone] Zuly Barriga MD Unavailable [phone] Reason for Visit * Reason Comments Back Pain Encounter Details Date Type Department Care Team (Latest Contact Info) Description 12/24/2021 2:29 PM CDT - 12/24/2021 11:59 PM CDT Hospital Encounter [facility] at [facility] [address] [facility] 1st [place] [address] Zuly Barriga MD [address] [place] [address] Low back pain, unspecified back [...] on file Legal Sex Female 4:55 AM DRIER AND PULVERIZER TENDER Gender Identity Not on file Sexual Orientation [...] this encounter Discharge Instructions * Patient Instructions* Nidai Leon RN - 12/24/2021 2:45 PM CDT [...] Bladder Surgery - (Added by Conv) ??? ND ABDOMEN SURGERY PROC UNLISTED Hernia Repair - (Added by Conv) ? ? ND REMOVAL OF TONSILS,<12 Y/O Tonsillectomy - (Added by TW Conv) ??? ND TOTAL ABDOM HYSTERECTOMY Hysterectomy - (Added by [...] Follow-up in three months. Zuly Barriga MD Cook Manager Pain Management, Department of Anesthesiology [facility] 12/24/2021 documented in this [...] on stairs Contact your local community or [facility] for information on exercise, fall prevention [...] documented as of this encounter Care Teams Equipment Engineer Relationship Specialty Start Date End Date Maged Godoy DO PCP - General 09/28/20 Zuly Barriga MD Consulting Physician Pain Management 12/14/21 documented as of this encounter
--- OUTSIDE RECORDS SUMMARY | 2024-06-20 20:24 | XMS_ITS | Encounter Summary ---
Author Organization [facility] Healthcare Address [address] [place] [address] Care Team Providers Care Edger Saw Operator Name Role Phone Maged Godoy DO Primary Care Provider [phone] Reason for Referral * Diagnostic Imaging (Routine) - Closed Specialty Diagnoses / Procedures Referred By Contac t Referred To Contact Diagnoses Hip pain Procedures XR Hips Bilateral 2 Views W Pelvis Zuly Barriga MD [address] [place] [address] Phone: tel: fax: [facility] [id number] [place] [address] Referral ID Status Reason Start Date Expiration Date Visits Re quested Visits Authorized [id number] Closed 04/11/2021 05/11/2022 1 1 Reason for Visit * Diagnostic Imaging (Routine) - Closed Specialty Diagnoses / Procedures Referred By Contac t Referred To Contact Diagnoses Hip pain Procedures XR Hips Bilateral 2 Views W Pelvis Zuly Barriga MD [address] [place] [address] Phone: tel: fax: [facility] [id number] [place] [address] Referral ID Status Reason Start Date Expiration Date Visits Re quested Visits Authorized [id number] Closed 04/11/2021 05/11/2022 1 1 Encounter Details Date Type Department Care Team (Latest Contact Info) Description 04/11/2021 10:59 AM CDT - 04/11/2021 11:59 PM CDT Hospital Encounter [facility] - Imaging [address] [place] [id number] Hip pain Discharge Disposition: Discharge to home or self care Social History Tobacco Use Types Packs/Day Years Used Date Smoking Tobacco: Former Smokeless Tobacco: Never Alcohol Use Standard Drinks/Week Comments Yes 0 (1 standard drink = 0.6 oz pur e alcohol) occasionally Comments No Sex and Gender Information Value Date Recorded Sex Assigned at Not on file Legal Sex Female 4:55 AM BANK MANAGER Gender Identity Not on file Sexual [...] on stairs Contact your local community or [facility] for information on exercise, fall [...] thigh documented in this encounter Care Teams Edger Saw Operator Relationship Specialty Start Date End Date Maged Godoy DO PCP - General 09/28/20 documented as of this encounter
--- OUTSIDE RECORDS SUMMARY | 2024-06-20 20:24 | XMS_ITS | Referral Summary ---
Author Organization [facility] Address [address] [address] Care Team Providers Care Piano Assembler Name Role Phone Maged Godoy Primary Care Provider [phone] Zuly Barriga MD Unavailable Allergies Active Allergy [...] on file Legal Sex Female 4:55 AM PLANNING ASSOCIATE Gender Identity Not on file Sexual [...] 90.7 kg (200 lb) 08/01/2021 10:28 AM PLANNING ASSOCIATE Height 167.6 cm (5' 6 ) 08/01/2021 10:28 AM PLANNING ASSOCIATE Body Mass Index 32.28 08/01/2021 10:28 AM PLANNING ASSOCIATE Plan of Treatment Not on file Goals [...] on stairs Contact your local community or [facility] for information on exercise, fall prevention programs, or options for improving home safety. Insurance [employer] OPEN ACCESS [employer] ACCESS [employer] OPEN ACCESS [employer] OPEN ACCESS Care Teams Piano Assembler Relationship Specialty Start Date End Date Maged Godoy DO PCP - General 09/28/20 Zuly Barriga MD Consulting Physician Pain Management 12/14/21
--- OUTSIDE RECORDS SUMMARY | 2024-06-20 20:24 | XMS_ITS | Encounter Summary ---
Author Organization [facility] Healthcare Address [address] [place] [address] Care Team Providers Care Mri Tech Name Role Phone Maged Godoy DO Primary Care Provider [phone] Zuly Barriga MD Unavailable Reason for Visit * Reason Comments Back Pain Encounter Details Date Type Department Care Team (Latest Contact Info) Description 10/03/2022 8:34 AM CDT - 10/03/2022 11:59 PM CDT Hospital Encounter [facility] at [facility] [address] [facility] 1st [place] [address] Zuly Barriga MD [address] [place] [address] Low back pain, unspecified back [...] on file Legal Sex Female 4:55 AM LAUNDRY WASHER Gender Identity Not on file Sexual Orientation [...] Bladder Surgery - (Added by TW Conv) [place] TONSILLECTOMY PRIMARY/SECONDARY <AGE 12 Tonsillectomy - (Added by TW Conv) [place] TOTAL ABDOMINAL HYSTERECT W/WO RMVL TUBE OVARY Hysterectomy - (Added by TW Conv) [place] UNLISTED PROCEDURE ABDOMEN PERITONEUM & OMENTUM Hernia [...] all requests Plan: Continue Zuly Barriga MD Bisque Kiln Drawer Pain Management, Department of Anesthesiology [facility] 10/03/2022 documented in this [...] stairs Contact your local community or [facility] for information on exercise, fall prevention programs, or options for improving home safety. documented as of this encounter Visit Diagnoses Diagnosis Low back pain, unspecified back pain laterality, unspecified chronicity, unspecified whether sciatica present documented in this encounter Care Teams Mri Tech Relationship Specialty Start Date End Date Maged Godoy DO PCP - General 09/28/20 Zuly Barriga MD Consulting Physician Pain Management 12/14/21 documented as of this encounter
--- OUTSIDE RECORDS SUMMARY | 2024-06-20 20:24 | XMS_ITS | Encounter Summary ---
Author Organization [facility] Healthcare Address [address] [place] [address] Care Team Providers Care Clinic Licensed Practical Nurse Name Role Phone Maged Godoy DO Primary Care Provider [phone] Zuly Barriga MD Unavailable Reason for Visit * Reason Comments Back Pain Encounter Details Date Type Department Care Team (Latest Contact Info) Description 05/06/2023 7:54 AM SANITATION ASSOCIATE - 05/06/2023 11:59 PM SANITATION ASSOCIATE Hospital Encounter [facility] [address] [facility] 1st [place] [address] Zuly Barriga MD [address] [place] [address] Chronic pain syndrome Discharge Disposition: [...] on file Legal Sex Female 4:55 AM SANITATION ASSOCIATE Gender Identity Not on file Sexual Orientation Not on file documented as of this encounter Last Filed Vital Signs Vital Sign Reading Time Taken Comments Blood Pressure 141/93 05/06/2023 8:12 AM SANITATION ASSOCIATE Pulse 75 05/06/2023 8:12 AM SANITATION ASSOCIATE Temperature 36.1 ??C (96.9 ??F) 05/06/2023 8:12 AM CS T Respiratory Rate 14 05/06/2023 8:12 AM SANITATION ASSOCIATE Oxygen Saturation 99% 05/06/2023 8:12 AM SANITATION ASSOCIATE Inhaled Oxygen Concentration - - Weight - - Height - - Body Mass Index - - documented in this encounter Discharge Instructions * Patient Instructions* Brittany Jacobs RN - 05/06/2023 8:00 AM SANITATION ASSOCIATE Implement the following sleep stimulus control protocol [...] Try a guided meditation clotilde such as [place], Calm or Headspace PAIN MANAGEMENT [facility] DISCHARGE INFORMATION PLAN / NEW ORDERS: Follow up in [address] Barriga [phone] Calls are accepted Friday-Friday, 7:30am-4pm, excluding observed holidays. We highly encourage the use of [employer] for non-urgent matters as well as prescription [...] the preferred method for refill requests. Call [phone] and leave a message on the RN [...] prescribing provider. [] Physical Therapy Scheduling - [phone] [] Dr. Mallory - Pain Psychologist - [phone] [] MRI Scheduling - [phone] We encourage you to schedule at [facility] as our physicians work closely withthe Radiology Imaging Department and the physicians that read the images. In addition the images are of higher quality, and we receive the results quicker. If you choose to use an imaging location outside of [facility] You will need to bring the CD to the film library at [facility] prior to any future appointments. You will [...] records. Medical records may be requested thru [facility] medical records department [phone]. We strive to provide you with EXCELLENT service as our patient. You may receive a survey after your visit today. If you can not rate your experience as EXCELLENT, please let us know before you leave how we can improve and better meet your needs. Thank you for choosing [facility] / Pain Management! TATION ASSOCIATE TATION ASSOCIATE documented in this encounter Medications at Time [...] she will get up to watch TV. Galliano sleepiness scale - 1 Will keep room [...] no improvement in sleep. Zuly Barriga MD Field Cane Scale Clerk Pain Management, Department of Anesthesiology [facility] 05/06/2023 TATION ASSOCIATE documented in this encounter Plan of [...] documented as of this encounter Care Teams Clinic Licensed Practical Nurse Relationship Specialty Start Date End Date Maged Godoy DO PCP - General 09/28/20 Zuly Barriga MD Consulting Physician Pain Management 12/14/21 documented as of this encounter
--- OUTSIDE RECORDS SUMMARY | 2024-06-20 20:24 | XMS_ITS | Encounter Summary ---
Author Organization [facility] Healthcare Address [address] [place] [address] Care Team Providers Care General Repairer Name Role Phone Maged Godoy DO Primary Care Provider [phone] Zuly Barriga MD Unavailable [phone] Reason for Visit * Reason Comments Follow-up Back Pain Encounter Details Date Type Department Care Team (Latest Contact Info) Description 01/12/2024 3:42 PM CDT - 01/12/2024 11:59 PM CDT Hospital Encounter [facility] at [facility] [address] [facility] 1st [place] [address] Zuly Barriga MD [address] [place] [address] Encounter for monitoring opioid maintenance [...] on file Legal Sex Female 4:55 AM BUDGET CONSULTANT Gender Identity Not on file Sexual [...] - 01/12/2024 3:45 PM CDT PAIN MANAGEMENT [facility] DISCHARGE INFORMATION PLAN / NEW ORDERS: Follow up in 6 months [phone] Calls are accepted Friday-Friday, 7:30am-4pm, excluding observed holidays. We highly encourage the use of [employer] [facility] for non-urgent matters as well as prescription [...] the preferred method for refill requests. Call [phone] and leave a message on the RN [...] prescribing provider. [] Physical Therapy Scheduling - [phone] [] Surgical Evaluation Center - [phone] (Surgical Eval Center will call to schedule your pre-op evaluation appt) [] Dr. Mallory and Dr. Edmond - Pain Psychologist - [phone] [] MRI Scheduling - [phone] We encourage you to schedule at [facility] as our physicians work closely withthe Radiology Imaging Department and the physicians that read the images. In addition the images are of higher quality, and we receive the results quicker. If you choose to use an imaging location outside of [facility] You will need to bring the CD to the film library at [facility] prior to any future appointments. You will need to bring a copy of the report to your next appointment. Please notify us immediately with a message on our nurse line or by sending a [email or web address] message with the following: Location Location phone number Date your MRI is scheduled Please note that MRI authorizations may take up to 7-14 business days for determination. Pain Management will not fill out FMLA, workers compensation forms or disability forms. Please contact your primary care physician. Pain Management does not print or supply copies of medical records. Medical records may be requested thru [facility] medical records department [phone]. We strive to provide you with EXCELLENT service as our patient. You may receive a survey after your visit today. If you can not rate your experience as EXCELLENT, please let us know before you leave how we can improve and better meet your needs. Thank you for choosing [facility] / Pain Management! documented in this encounter [...] to 6 months I Zuly Barriga MD Visual Aid Expert Pain Management, Department of Anesthesiology [facility] 01/12/2024 documented in this [...] Pain Questionnaire [x] PMC Intake Questionnaire [x] [facility] Follow up Questionnaire [x] Fall Risk Assessment (Angelia Gomez Steadi) [x] Depression/Anxiety Assessment (GAD7, PHQ-9, [place] Suicide, [place] Depression) [] Disability Scale [] [...] [facility] pH, ur 6.2 4.5 - 9.0 [facility] Oxidants, ur NEGATIVE <200 mcg/mL [facility] Comment: Test Performed at: [facility] [address] ??[id number] ? AUBREE ALBERT Amphetamine, ur NEGATIVE <500 ng/mL [facility] Barbiturates, ur NEGATIVE <300 ng/mL [facility] Benzodiazepines, ur NEGATIVE <100 ng/mL [facility] Tetrahydrocannabino l, ur NEGATIVE <20 ng/mL [facility] Benzoylecgonine NEGATIVE <150 ng/mL [facility] Pain mgt Methadone, Ur NEGATIVE <100 ng/mL [facility] Opiates, ur NEGATIVE <100 ng/mL [facility] Pain mgt Oxycodone, Ur NEGATIVE <100 ng/mL [facility] Phencyclidine, ur NEGATIVE <25 ng/mL [facility] Ethanol, ur NEGATIVE <500 ng/mL [facility] Pain mgt 6-Acetylmorphine, Ur NEGATIVE <10 ng/mL [facility] Urine 01/13/2024 9:29 PM CDT 01/13/2024 9:29 PM CDT Zuly Barriga MD LAB BLOOD ORDERABLES Final Result [facility] [address] Department [place] [address] [employer] documented in this encounter Visit Diagnoses Diagnosis Encounter for monitoring opioid maintenance therapy- Primary Low back pain, unspecified back pain laterality, unspecified chronicity, unspecified whether sciatica present Chronic pain syndrome documented in this encounter Care Teams General Repairer Relationship Specialty Start Date End Date Maged Godoy DO PCP - General 09/28/20 Zuly Barriga MD Consulting Physician Pain Management 12/14/21 documented as of this encounter
--- OUTSIDE RECORDS SUMMARY | 2024-06-20 20:24 | XMS_ITS | Encounter Summary ---
Author Organization [facility] Healthcare Address [address] [place] [address] Care Team Providers Care Elementary School Teacher'S Aide Name Role Phone Maged Godoy Primary Care Provider [phone] Reason for Visit * Reason Onset Date Comments pre procedure call 07/30/2021 Encounter Details Date Type Department Care Team (Late st Contact Info) Description 07/30/[address] [address] Yuliet Pereyra RN pre procedure call Social History Tobacco Use Types Packs/Day Years Used Date Smoking Tobacco: Former Smokeless Tobacco: Never Alcohol Use Standard Drinks/Week Comments Yes 0 (1 standard drink = 0.6 oz pur e alcohol) occasionally Comments No Sex and Gender Information Value Date Recorded Sex Assigned at Not on file Legal Sex Female 4:55 AM CAMP TENDER Gender Identity Not on file Sexual Orientation Not on file documented as of this encounter Miscellaneous Notes * Telephone Encounter - Yuliet Pereyra RN - 07/30/2021 10:12 AM CAMP TENDER Pre procedure call complete. See documentation 1. [...] guidance recommends delaying steroid injections when possible. TENDER documented in this encounter Plan of Treatment [...] on stairs Contact your local community or [facility] for information on exercise, fall prevention programs, or options for improving home safety. documented as of this encounter Visit Diagnoses Not on filedocumented in this encounter Care Teams Elementary School Teacher'S Aide Relationship Specialty Start Date End Date Maged Godoy DO PCP - General 09/28/20 documented as of this encounter
--- OUTSIDE RECORDS SUMMARY | 2024-06-20 20:24 | XMS_ITS | Patient Health Summary ---
Author Organization [facility] Address [address] [place] [address] Care Team Providers Care Pool Manager Name Role Phone Unavailable Primary Care Provider Unavailabl e Note from [facility],non-owned Affiliates and Associated Physician Practices is amultiple site organization consisting of ambulatory clinics and hospital sitesin [place], [place], [place] and [place]. This disclosure is being madepursuant to the Care Everywhere program and may not contain all information available regarding this patient. Last updated 18.[facility] Allergies * Codeine Immunizations * [...]
--- OUTSIDE RECORDS SUMMARY | 2024-06-20 20:24 | XMS_ITS | Encounter Summary ---
Author Organization [facility] Healthcare Address [address] [place] [address] Care Team Providers Care Medical Practitioners Name Role Phone Maged Godoy DO Primary Care Provider [phone] Reason for Visit * Reason Comments Hip Pain Encounter Details Date Type Department Care Team (Latest Contact Info) Description 05/01/2021 9:06 AM SEWER BUILDER - 05/01/2021 9:45 AM SEWER BUILDER Hospital Encounter [facility] at [facility] [address] 1st [place] [address] Zuly Barriga MD [address] [facility] [address] [place] [address] Chronic pain syndrome Discharge Disposition: Discharge to home or self care Social History Tobacco Use Types Packs/Day Years Used Date Smoking Tobacco: Former Smokeless Tobacco: Never Alcohol Use Standard Drinks/Week Comments Yes 0 (1 standard drink = 0.6 oz pur e alcohol) occasionally Comments No Sex and Gender Information Value Date Recorded Sex Assigned at Not on file Legal Sex Female 4:55 AM SEWER BUILDER Gender Identity Not on file Sexual Orientation Not on file documented as of this encounter Last Filed Vital Signs Vital Sign Reading Time Taken Comments Blood Pressure 150/126 05/01/2021 10:02 AM SEWER BUILDER Pulse 84 05/01/2021 10:01 AM SEWER BUILDER Temperature 36.5 ??C (97.7 ??F) 05/01/2021 9:21 AM CS T Respiratory Rate 18 05/01/2021 10:01 AM SEWER BUILDER Oxygen Saturation 98% 05/01/2021 10:01 AM SEWER BUILDER Inhaled Oxygen Concentration - - Weight - - Height - - Body Mass Index - - documented in this encounter Discharge Instructions * Discharge Instructions* Shanice Jalloh RN - 05/01/2021 10:01 AM SEWER BUILDER PAIN MANAGEMENT CENTER POST-PROCEDURE PATIENT EDUCATION The [...] with Dr. Barriga [facility] at [facility] - [phone]. Calls are accepted Friday-Friday, 7:30am-4pm, excluding observed holidays. ??? We highly encourage the use of [employer] for non-urgent matters as well as prescription refill requests. ??? If you need to schedule an appointment with Dr. Mallory - Pain Psychologist - [phone] ??? If you are scheduled for an MRI we [facility] work closely with the Radiology Imaging Department and the physicians that read the images. In addition the images are of higher quality, and we receive the results quicker. If you choose to use an imaging location outside of [facility] please notify us immediately with a message on our nurse line or sending a [employer] message with the following: - Location - [...] preferred method for refill requests. o Call [phone] and leave a message on the [facility] Message Line with the following information: - Name, date of , and phone number - Name(s) of the medication(s) needing refill - Name and number for the pharmacy where the refill(s) should be sent o Please note, prescription refill dates are calculated based on the quantity of medication provided, not the date on which the pharmacy filled the prescription. [email or web address] We strive to provide you with EXCELLENT service as our patient. You may receive a survey after your visit today. If you can not rate your experience as EXCELLENT, please let us know how we can improve and better meet your needs. Thank you for choosing [facility] / Pain Management! R BUILDER documented in this encounter Medications at Time [...] benefits, she is agreement with proceeding today. R BUILDER Source Note - Zuly Barriga MD - [...] Surgery - (Added by TW Conv) ??? ND ABDOMEN SURGERY PROC UNLISTED Hernia Repair - (Added by TW Conv) ? ? ND REMOVAL OF TONSILS,<12 [...] evaluation of above plan. Zuly Barriga MD Unscrambler Pain Management, Department of Anesthesiology [facility] 04/24/2021 R BUILDER documented in this encounter Miscellaneous Notes * [...] involved on case Zuly Barriga MD 05/01/2021 R BUILDER * Addendum Note - Lor Rodriguez RN - 05/01/2021 9:30 AM CSTEncounter addended by: Lor Rodriguez RN on: 05/01/2021 10:27 AM Actions taken: Charge Capture section accepted R BUILDER * Addendum Note - Carmenza Nash RT - 05/01/2021 9:30 AM CSTEncounter addended by: Carmenza Nash RT on: 05/01/2021 10:38 AM Actions taken: Charge Capture section accepted R BUILDER documented in this encounter Plan of Treatment [...] on stairs Contact your local community or [facility] for information on exercise, fall prevention [...] at 0954, Intra-Op Given 05/01/2021 9:54 AM SEWER BUILDER 4 mL iohexoL (OMNIPAQUE) 300 mg iodine/mL injection solution As needed, Starting on Fri05/01/21 at 0957, Intra-Op Given 05/01/2021 9:57 AM SEWER BUILDER 1.5 mL lidocaine PF (XYLOCAINE) 10 mg/mL (1 %) preservative free injection As needed, Starting on Fri05/01/21 at 0957, Intra-Op Given 05/01/2021 9:57 AM SEWER BUILDER 5 mL triamcinolone (KENALOG) 40 mg/mL injection As needed, Starting on Fri05/01/21 at 0954, Intra-Op Given 05/01/2021 9:54 AM SEWER BUILDER 40 mg documented in this encounter Discontinued Medications Medication Sig Discontinue Reason Start Date End Da te traMADol-acetaminophen (ULTRACET) 37.5-325 mg per tabletIndications:Chroni c pain syndrome Take 1 tablet by mouth 3 (three) times a day as needed for pain Reorder 02/13/2021 05/01/2021 documented as of this encounter Care Teams Medical Practitioners Relationship Specialty Start Date End Date Maged Godoy DO PCP - General 09/28/20 documented as of this encounter
--- OUTSIDE RECORDS SUMMARY | 2024-06-20 20:24 | XMS_ITS | Encounter Summary ---
Author Organization [facility] Healthcare Address [address] [place] [address] Care Team Providers Care Director Of Dance Name Role Phone WaltTimmy weekse Primary Care Provider [phone] Reason for Referral * Diagnostic Imaging (Routine) - Closed Specialty Diagnoses / Procedures Referred By Contac t Referred To Contact Diagnoses Low back pain Procedures FL Fluoro Guided Needle Placement Zuly Barriga MD [address] [place] [address] Phone: tel: fax: [place] [address] [place] [address] Referral ID Status Reason Start Date Expiration Date Visits Re quested Visits Authorized [id number] Closed 07/23/2021 08/22/2022 1 1 TIC ATTACHER ZIGZAG Reason for Visit * Diagnostic Imaging (Routine) - Closed Specialty Diagnoses / Procedures Referred By Contac t Referred To Contact Diagnoses Low back pain Procedures FL Fluoro Guided Needle Placement Zuly Barriga MD [address] [place] [address] Phone: tel: fax: [place] [address] [place] [address] Referral ID Status Reason Start Date Expiration Date Visits Re quested Visits Authorized [id number] Closed 07/23/2021 08/22/2022 1 1 Encounter Details Date Type Department Care Team (Latest Contact Info) Description 08/01/2021 10:18 AM ELASTIC ATTACHER ZIGZAG - 08/01/2021 11:59 PM ELASTIC ATTACHER ZIGZAG Hospital Encounter [facility] Center at [address] [address] Low back pain Discharge Disposition: Discharge to home or self care Social History Tobacco Use Types Packs/Day Years Used Date Smoking Tobacco: Former Smokeless Tobacco: Never Alcohol Use Standard Drinks/Week Comments Yes 0 (1 standard drink = 0.6 oz pur e alcohol) occasionally Comments No Sex and Gender Information Value Date Recorded Sex Assigned at Not on file Legal Sex Female 4:55 AM ELASTIC ATTACHER ZIGZAG Gender Identity Not on file Sexual Orientation [...] on stairs Contact your local community or [facility] for information on exercise, fall prevention programs, or options for improving home safety. documented as of this encounter Procedures Procedure Name Priority Date/Time Associated Diagnosis Comments FLUORO GUIDED NEEDLE PLACEMENT Schedule Routine, Read Routine (OP Routine) 08/01/2021 11:01 AM ELASTIC ATTACHER ZIGZAG Low back pain documented in this encounter Results * FL Fluoro Guided Needle Placement (08/01/2021 11:01 AM ELASTIC ATTACHER ZIGZAG) Narrative [facility] - 08/01/2021 11:13 AM ELASTIC ATTACHER ZIGZAG The images from this study are not interpreted by Radiology. ??Please refer to the physician's procedure / OR operative note. Zuly Barriga MD IMG FLUOROSCOPY RITIKA EARLY Final Result RAD_PACS_MB documented in this encounter Visit Diagnoses Diagnosis Low back pain Lumbago documented in this encounter Care Teams Director Of Dance Relationship Specialty Start Date End Date Maged Godoy DO PCP - General 09/28/20 documented as of this encounter
--- OUTSIDE RECORDS SUMMARY | 2024-06-20 20:24 | XMS_ITS | Encounter Summary ---
Author Organization [facility] Healthcare Address [address] [place] [address] Care Team Providers Care Bus And Trolley Inspecting Dispatcher Name Role Phone Maged Godoy Primary Care Provider [phone] Reason for Visit * Reason Onset Date Comments pre procedure call 04/27/2021 Encounter Details Date Type Department Care Team (Late st Contact Info) Description 04/27/[address] [address] Yuliet Pereyra RN pre procedure call Social History Tobacco Use Types Packs/Day Years Used Date Smoking Tobacco: Former Smokeless Tobacco: Never Alcohol Use Standard Drinks/Week Comments Yes 0 (1 standard drink = 0.6 oz pur e alcohol) occasionally Comments No Sex and Gender Information Value Date Recorded Sex Assigned at Not on file Legal Sex Female 4:55 AM PAYABLE REPRESENTATIVE Gender Identity Not on file Sexual Orientation Not on file documented as of this encounter Miscellaneous Notes * Telephone Encounter - Yuliet Pereyra RN - 04/27/2021 12:34 PM PAYABLE REPRESENTATIVE Voicemail message left with the following information: [...] Physician guidance recommends delaying steroidinjections when possible. BLE REPRESENTATIVE documented in this encounter Plan of Treatment [...] stairs Contact your local community or [facility] for information on exercise, fall prevention programs, or options for improving home safety. documented as of this encounter Visit Diagnoses Not on filedocumented in this encounter Care Teams Bus And Trolley Inspecting Dispatcher Relationship Specialty Start Date End Date Maged Godoy DO PCP - General 09/28/20 documented as of this encounter
--- OUTSIDE RECORDS SUMMARY | 2024-06-20 20:24 | XMS_ITS | Encounter Summary ---
Author Organization [facility] Healthcare Address [address] [place] [address] Care Team Providers Care Wrecking Crane Engine Operator Name Role Phone WaltTimmy weekse Primary Care Provider [phone] Reason for Referral * Diagnostic Imaging (Routine) - Closed Specialty Diagnoses / Procedures Referred By Contac t Referred To Contact Diagnoses Hip pain Procedures FL Fluoro Guided Needle Placement Zuly Barriga MD [address] [place] [address] Phone: tel: fax: [place] [id number] [place] [address] Referral ID Status Reason Start Date Expiration Date Visits Re quested Visits Authorized [id number] Closed 05/01/2021 05/31/2022 1 1 TIGRAPHER Reason for Visit * Diagnostic Imaging (Routine) - Closed Specialty Diagnoses / Procedures Referred By Contac t Referred To Contact Diagnoses Hip pain Procedures FL Fluoro Guided Needle Placement Zuly Barriga MD [address] [place] [address] Phone: tel: fax: [place] [phone] [place] [address] Referral ID Status Reason Start Date Expiration Date Visits Re quested Visits Authorized [id number] Closed 05/01/2021 05/31/2022 1 1 Encounter Details Date Type Department Care Team (Latest Contact Info) Description 05/01/2021 9:46 AM STRATIGRAPHER - 05/01/2021 11:59 PM STRATIGRAPHER Hospital Encounter [facility] Center at [place] [address] [place] [address] Hip pain Discharge Disposition: Discharge to home or self care Social History Tobacco Use Types Packs/Day Years Used Date Smoking Tobacco: Former Smokeless Tobacco: Never Alcohol Use Standard Drinks/Week Comments Yes 0 (1 standard drink = 0.6 oz pur e alcohol) occasionally Comments No Sex and Gender Information Value Date Recorded Sex Assigned at Not on file Legal Sex Female 4:55 AM STRATIGRAPHER Gender Identity Not on file Sexual Orientation [...] on stairs Contact your local community or [facility] for information on exercise, fall prevention programs, or options for improving home safety. documented as of this encounter Procedures Procedure Name Priority Date/Time Associated Diagnosis Comments FLUORO GUIDED NEEDLE PLACEMENT Schedule Routine, Read Routine (OP Routine) 05/01/2021 10:10 AM STRATIGRAPHER Hip pain documented in this encounter Results * FL Fluoro Guided Needle Placement (05/01/2021 10:10 AM STRATIGRAPHER) Narrative [facility] - 05/01/2021 10:30 AM STRATIGRAPHER The images from this study are not interpreted by Radiology. ??Please refer to the physician's procedure / OR operative note. us Zuly Barriga MD IMG FLUOROSCOPY RITIKA EARLY Final Result RAD_PACS_MB documented in this encounter Visit Diagnoses Diagnosis Hip pain Pain in joint, pelvic region and thigh documented in this encounter Care Teams Wrecking Crane Engine Operator Relationship Specialty Start Date End Date Maged Godoy DO PCP - General 09/28/20 documented as of this encounter
--- OUTSIDE RECORDS SUMMARY | 2024-06-20 20:24 | XMS_ITS | Encounter Summary ---
Author Organization [facility] Address [address] [place] [address] Care Team Providers Care Upholstery Parts Sorter Name Role Phone Unavailable Primary Care Provider Unavailabl e Reason for Visit * Reason Comments PPD Skin Test Placement Encounter Details Date Type Department Care Team (Late st Contact Info) Description 02/04/2017 4:00 PM CDT Office Visit [facility] [address] [place] [id number] Provider, Mariposa Munoz Nameokleena PPD screening test [...] 02/04/2017 4:16 PM CDT Tuberculin Skin Test PERFUME COMPOUNDER: A tuberculin skin test is done to [...] chest x-rays and sputum samples. ?? 2016 [employer]. Information is for End User's use only and may not be sold, redistributed or otherwise used for commercial purposes. All illustrations and images included in CareNotes?? are the copyrighted property of [employer]. or [employer]. The above information is an hearing aid mechanic only. It is not intended as medical [...] SAMPLE S / Unknown 02/06/2017 Josephine Palmer APRN-BITE BLOCK MAKER LAB - POINT OF CARE ORDERABLES documented in this encounter Visit Diagnoses Diagnosis PPD screening test- Primary Screening examination for pulmonary tuberculosis documented in this encounter Administered Medications Administered Medications Medication Order MAR Action Action Date Dose Rate Site PPD Intradermal Given 02/04/2017 0.1 mL Left Forearm documented in this encounter
--- OUTSIDE RECORDS SUMMARY | 2024-06-20 20:24 | XMS_ITS | Encounter Summary ---
Author Organization [facility] Address [address] [place] [address] Care Team Providers Care Final Expense Agent Name Role Phone Unavailable Primary Care Provider Unavailabl e Reason for Visit * Reason Comments Imm Inj Encounter Details Date Type Department Care Team (Late st Contact Info) Description 05/07/2017 6:20 PM SOCIOLOGY ADJUNCT INSTRUCTOR Office Visit [facility] [address] [place] [id number] Provider, Mariposa Munoz Nameokleena Encounter for vaccination [...] patient. Patient tolerated well. Katherine Price APRN, RN ANTE PARTUM-BC OLOGY ADJUNCT INSTRUCTOR documented in this encounter Plan of Treatment Not on file documented as of this encounter Visit Diagnoses Diagnosis Encounter for vaccination- Primary documented in this encounter
--- OUTSIDE RECORDS SUMMARY | 2024-06-20 20:25 | XMS_ITS | Encounter Summary ---
Author Organization [facility] Healthcare Address [address] [place] [address] Care Team Providers Care Contact Worker Lithography Name Role Phone Unknown, Notinfile Primary Care Provider Unavail able Reason for Visit * Reason Comments Follow-up tailbone pain Encounter Details Date Type Department Care Team (Latest Contact Info) Description 05/11/2020 12:54 PM ACQUISITION CONSULTANT - 05/11/2020 11:59 PM ACQUISITION CONSULTANT Hospital Encounter [facility] at [facility] [address] [place] [phone] Zuly Barriga MD [address] [address] [place] [address] Pain in the coccyx (Primary [...] on file Legal Sex Female 4:55 AM ACQUISITION CONSULTANT Gender Identity Not on file Sexual [...] Telephone. During the visit, I was located [facility] and the patient was located at home. [...] MD Instructor Pain Management, Department of Anesthesiology [facility] 05/11/2020 3:58 PM ISITION CONSULTANT documented in this encounter Miscellaneous Notes * Perioperative Nursing Note - Nena Calvo RN - 05/11/2020 2:15 PM CST Reason for visit: Patient has comorbidities that make telehealth the safest pathway to receive their care during Covid pandemic. ISITION CONSULTANT documented in this encounter Plan of [...] on stairs Contact your local community or [facility] for information on exercise, fall prevention programs, or options for improving home safety. documented as of this encounter Visit Diagnoses Diagnosis Pain in the coccyx- Primary Other disorder of coccyx Chronic low back pain, unspecified back pain laterality, unspecified whether sciatica present documented in this encounter Care Teams Contact Worker Lithography Relationship Specialty Start Date End Date Unknown, Notinfile PCP - General 10/24/17 09/27/20 documented as of this encounter
--- OUTSIDE RECORDS SUMMARY | 2024-06-20 20:25 | XMS_ITS | Encounter Summary ---
Author Organization [facility] Healthcare Address [address] [place] [address] Care Team Providers Care Branch Associate Teller Name Role Phone Unknown, Notinfile Primary Care Provider Unavail able Reason for Visit * Reason Comments Back Pain Encounter Details Date Type Department Care Team (Latest Contact Info) Description 07/28/2019 3:29 PM IMAGING ACCOUNT MANAGER - 07/28/2019 11:59 PM IMAGING ACCOUNT MANAGER Hospital Encounter [facility] at [place] [address] [facility] [address] [place] [address] Zuly Barriga MD [address] [facility] [address] [place], [place] [id number] Pain in the coccyx (Primary Dx); Chronic [...] on file Legal Sex Female 4:55 AM IMAGING ACCOUNT MANAGER Gender Identity Not on file Sexual Orientation Not on file documented as of this encounter Last Filed Vital Signs Vital Sign Reading Time Taken Comments Blood Pressure 128/60 07/28/2019 3:39 PM IMAGING ACCOUNT MANAGER Pulse 93 07/28/2019 3:39 PM IMAGING ACCOUNT MANAGER Temperature 36.6 ??C (97.8 ??F) 07/28/2019 3:39 PM CS T Respiratory Rate 18 07/28/2019 3:39 PM IMAGING ACCOUNT MANAGER Oxygen Saturation 99% 07/28/2019 3:39 PM IMAGING ACCOUNT MANAGER Inhaled Oxygen Concentration - - Weight 81.6 kg (180 lb) 07/28/2019 3:39 PM IMAGING ACCOUNT MANAGER Height - - Body Mass Index 29.07 04/27/2018 12:17 PM IMAGING ACCOUNT MANAGER documented in this encounter Discharge Instructions * Patient Instructions* Nena Calvo, MARIE - 07/28/2019 3:30 PM IMAGING ACCOUNT MANAGER PAIN MANAGEMENT CENTER ([facility]) DISCHARGE INSTRUCTIONS [phone] (M-F) (8am-4pm) PLAN: PROCEDURE TODAY: PROCEDURE AT NEXT VISIT: DIAGNOSTIC TEST(S): FOLLOW UP: with Dr. Barriga in 3 months The Pain [facility] is committed to providing your medication [...] to the date of need. o Call [phone], Option # 3 for [facility] and then #4 Nurse Message Line. Please [...] please contact the Pain Management Center at [phone]. For any questions about your visit or your procedure, please call the Pain [facility] [phone] (M-F) (8am-4pm). Please leave a message on [...] or go to the nearest Emergency Room. ING ACCOUNT MANAGER documented in this encounter Medications at Time [...] MD Instructor Pain Management, Department of Anesthesiology [facility] 07/29/2019 1:51 PM ING ACCOUNT MANAGER documented in this encounter Plan of [...] on stairs Contact your local community or [facility] for information on exercise, fall prevention [...] documented as of this encounter Care Teams Branch Associate Teller Relationship Specialty Start Date End Date Unknown, Notinfile PCP - General 10/24/17 09/27/20 documented as of this encounter
--- OUTSIDE RECORDS SUMMARY | 2024-06-20 20:25 | XMS_ITS | Encounter Summary ---
Author Organization [facility] Healthcare Address [address] [place] [address] Care Team Providers Care Corn Chip Maker Name Role Phone Charlie Stevenson MD Primary Care Provider [phone] Encounter Details Date Type Department Care Team (Late st Contact Info) Description 10/23/2017 10:41 AM CDT - 10/23/2017 11:59 PM T Hospital Encounter [facility] OP INTERIM [phone] José Miguel Dent MD [address] [facility] [address] [place] [address] Discharge Disposition: Discharge to home or self care Social History Tobacco Use Types Packs/Day Years Used Date Smoking Tobacco: Former Comments Unknown Sex and Gender Information Value Date Recorded Sex Assigned at Not on file Legal Sex Female 4:55 AM HIGH LIFT OPERATOR Gender Identity Not on file Sexual Orientation Not on file documented as of this encounter Discharge Disposition Disposition Code Departure Means Destination Discharge to home or self care documented in this encounter Plan of Treatment Not on file documented as of this encounter Visit Diagnoses Not on filedocumented in this encounter Care Teams Corn Chip Maker Relationship Specialty Start Date End Date Charlie Stevenson MD [address] [place] [address] PCP - General 10/23/17 10/23/17 documented as of this encounter
--- OUTSIDE RECORDS SUMMARY | 2024-06-20 20:25 | XMS_ITS | Encounter Summary ---
Author Organization [facility] Care Team Providers Care Compounder Name Role Phone Unavailable Primary Care Provider Unavailabl e Encounter Details Date Type Department Care Team (Late st Contact Info) Description 05/25/2014 9:02 AM WARP SPINNER - 05/25/2014 11:59 PM WARP SPINNER Hospital Encounter [facility] José Miguel Ramos MD [address] [address] Low back pain; Other chronic pain; Personal history of allergy to narcotic agent; Personal history of tobacco use, presenting hazards to health Social History Tobacco Use Types Packs/Day Years Used Date Smoking Tobacco: Former Comments Unknown Sex and Gender Information Value Date Recorded Sex Assigned at Not on file Legal Sex Female 4:55 AM WARP SPINNER Gender Identity Not on file Sexual Orientation Not on file documented as of this encounter Plan of Treatment Not on file documented as of this encounter Visit Diagnoses Diagnosis Low back pain Lumbago Other chronic pain Personal history of allergy to narcotic agent Personal history of tobacco use, presenting hazards to health documented in this encounter
--- OUTSIDE RECORDS SUMMARY | 2024-06-20 20:25 | XMS_ITS | Encounter Summary ---
Author Organization [facility] Healthcare Address [address] [place] [address] Care Team Providers Care Managing Attorney Name Role Phone Unknown, Notinfeleni Primary Care Provider Unavail able Encounter Details Date Type Department Care Team (Late st Contact Info) Description 11/11/2016 4:15 PM CDT - 11/11/2016 11:59 PM CDT Hospital Encounter [facility] OP INTERIM [phone] José Miguel Dent MD [address] [facility] [address] [place] [address] Discharge Disposition: Discharge to home or self care Social History Tobacco Use Types Packs/Day Years Used Date Smoking Tobacco: Former Comments Unknown Sex and Gender Information Value Date Recorded Sex Assigned at Not on file Legal Sex Female 4:55 AM KETTLE FIRER Gender Identity Not on file Sexual Orientation Not on file documented as of this encounter Discharge Disposition Disposition Code Departure Means Destination Discharge to home or self care documented in this encounter Plan of Treatment Not on file documented as of this encounter Visit Diagnoses Not on filedocumented in this encounter Care Teams Managing Attorney Relationship Specialty Start Date End Date Unknown, Maryanne PCP - General 11/11/16 10/22/17 documented as of this encounter
--- OUTSIDE RECORDS SUMMARY | 2024-06-20 20:25 | XMS_ITS | Encounter Summary ---
Author Organization [facility] Healthcare Address [address] [place] [address] Care Team Providers Care Motor Builder Assembler Name Role Phone Unknown, Notinfile Primary Care Provider Unavail able Reason for Visit * Reason Onset Date Comments Med Refill, needs appointment 06/18/2019 tr amadol apap refill Encounter Details Date Type Department Care Team (Late st Contact Info) Description 06/18/2019 Telephone [facility] Pain Center at [place] [address] [facility] [address] [place] [address] Zuly Barriga MD [address] [facility] [address] [place], [place] [id number] Med Refill, needs appointment (tramadol apap refill ) Social History Tobacco Use Types Packs/Day Years Used Date Smoking Tobacco: Former Smokeless Tobacco: Never Alcohol Use Standard Drinks/Week Comments Yes 0 (1 standard drink = 0.6 oz pur e alcohol) occasionally Comments No Sex and Gender Information Value Date Recorded Sex Assigned at Not on file Legal Sex Female 4:55 AM SILK WORKER Gender Identity Not on file Sexual Orientation Not on file documented as of this encounter Miscellaneous Notes * Addendum Note - Landy Gomez RN - 06/24/2019 11:19 AM CSTAddended by: LANDY GOMEZ on: 06/24/2019 11:19 AM Modules accepted: Orders WORKER * Telephone Encounter - Trang Solares RN - 06/23/2019 11:54 AM SILK WORKER Left message for the patient to call back to schedule next appt. ( YULI 12/21/18) WORKER * Addendum Note - Trang Solares RN - 06/23/2019 11:36 AM CSTAddended by: TRANG SOLARES V. on: 06/23/2019 11:36 AM Modules accepted: Orders WORKER * Telephone Encounter - Trang Solares RN - 06/23/2019 11:35 AM SILK WORKER Request Sent from [facility] 06/23/2019. WORKER * Telephone Encounter - Landy Gomez RN - 06/23/2019 10:35 AM SILK WORKER Pt has never made appt. Prescription refill refusd. WORKER * Telephone Encounter - Trang Solares RN - 06/21/2019 8:40 AM SILK WORKER Spoke with the patient, reminded her that she needed to make an appointment With Dr. Barriga ( last office visit was 12/23/2018). She verbalized understanding, states will call today to schedule next appointment. WORKER documented in this encounter Plan of Treatment [...] on stairs Contact your local community or [facility] for information on exercise, fall prevention programs, or options for improving home safety. documented as of this encounter Visit Diagnoses Diagnosis Chronic pain syndrome documented in this encounter Care Teams Motor Builder Assembler Relationship Specialty Start Date End Date Unknown, Notinfile PCP - General 10/24/17 09/27/20 documented as of this encounter
--- OUTSIDE RECORDS SUMMARY | 2024-06-20 20:25 | XMS_ITS | Encounter Summary ---
Author Organization [facility] Healthcare Address [address] [place] [address] Care Team Providers Care Recycling Sorter Name Role Phone Unknown, Notinfile Primary Care Provider Unavail able Encounter Details Date Type Department Care Team (Late st Contact Info) Description 12/28/2018 Telephone [facility] Pain Center at [place] [id number] [facility] [address] [place] [address] Zuly Barriga MD [address] [place] [address] Social History Tobacco Use Types Packs/Day Years Used Date Smoking Tobacco: Former Smokeless Tobacco: Never Alcohol Use Standard Drinks/Week Comments Yes 0 (1 standard drink = 0.6 oz pur e alcohol) occasionally Comments No Sex and Gender Information Value Date Recorded Sex Assigned at Not on file Legal Sex Female 4:55 AM TRUCK SALES MANAGER Gender Identity Not on file Sexual [...] stairs Contact your local community or [facility] for information on exercise, fall prevention programs, or options for improving home safety. documented as of this encounter Visit Diagnoses Not on filedocumented in this encounter Care Teams Recycling Sorter Relationship Specialty Start Date End Date Unknown, Notinfile PCP - General 10/24/17 09/27/20 documented as of this encounter
--- OUTSIDE RECORDS SUMMARY | 2024-06-20 20:25 | XMS_ITS | Encounter Summary ---
Author Organization [facility] Facility Care Team Providers Care Bi Manager Name Role Phone Unavailable Primary Care Provider Unavailabl e Encounter Details Date Type Department Care Team (Late st Contact Info) Description 09/20/2013 2:26 PM CDT Hospital Encounter [facility] José Miguel Ramos MD [address] [address] Lumbosacral spondylosis without myelopathy; Other chronic pain; Personal history of tobacco use, presenting hazards to health Social History Tobacco Use Types Packs/Day Years Used Date Smoking Tobacco: Never Assessed Comments Unknown Sex and Gender Information Value Date Recorded Sex Assigned at Not on file Legal Sex Female 4:55 AM PRESSROOM SUPERVISOR Gender Identity Not on file Sexual Orientation Not on file documented as of this encounter Plan of Treatment Not on file documented as of this encounter Visit Diagnoses Diagnosis Lumbosacral spondylosis without myelopathy Other chronic pain Personal history of tobacco use, presenting hazards to health documented in this encounter
--- OUTSIDE RECORDS SUMMARY | 2024-06-20 20:25 | XMS_ITS | Encounter Summary ---
Author Organization [facility] Healthcare Address [address] [place] [address] Care Team Providers Care Motor Scooter Repairer Name Role Phone Maged Godoy DO Primary Care Provider [phone] Reason for Visit * Reason Comments Back Pain Encounter Details Date Type Department Care Team (Latest Contact Info) Description 02/23/2021 11:16 AM CDT - 02/23/2021 11:59 PM CDT Hospital Encounter [facility] Pain Center at [facility] [address] [facility] 1st [place] [address] Zuly Barriga MD [address] [place] [address] Pain in the coccyx (Primary Dx); Low [...] on file 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 Calls are accepted Friday-Friday, 7:30am-4pm, excluding observed holidays. We highly encourage the use of [facility] for non-urgent matters as well as prescription refill requests. Dr. Mallory - Pain Psychologist - [phone] The Pain Management Center is committed to [...] preferred method for refill requests. o Call [phone] and leave a message on the RN [...] on which the pharmacy filled the prescription. [email or web address] documented in this encounter Medications at Time [...] L5-S1 TFESI next appointment. Zuly Barriga MD [facility], Department of Anesthesiology [facility] Center 03/09/2021 documented in [...] your local community or [facility] for information on exercise, fall prevention programs, or options for improving home safety. documented as of this encounter Visit Diagnoses Diagnosis Pain in the coccyx- Primary Other disorder of coccyx Low back pain with sciatica, sciatica laterality unspecified, unspecified back pain laterality, unspecified chronicity documented in this encounter Care Teams Motor Scooter Repairer Relationship Specialty Start Date End Date Maged Godoy DO PCP - General 09/28/20 documented as of this encounter
--- OUTSIDE RECORDS SUMMARY | 2024-06-20 20:25 | XMS_ITS | Encounter Summary ---
Author Organization [facility] Healthcare Address [address] [place] [address] Care Team Providers Care Blanket Winder Operator Name Role Phone Unknown, Notinfile Primary Care Provider Unavail able Reason for Visit * Reason Onset Date Comments Med Refill 05/11/2018 pharm is not abl e to fill her script for Tramadol Encounter Details Date Type Department Care Team (Late st Contact Info) Description 05/11/2018 Telephone 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
--- OUTSIDE RECORDS SUMMARY | 2024-06-20 20:25 | XMS_ITS | Encounter Summary ---
Author Organization [facility] Healthcare Address [address] [place] [address] Care Team Providers Care Sharepoint Developer Name Role Phone Maged Godoy DO Primary Care Provider [phone] Reason for Visit * Reason Comments Back Pain Encounter Details Date Type Department Care Team (Latest Contact Info) Description 02/13/2021 8:08 AM CDT - 02/13/2021 11:59 PM CDT Hospital Encounter [facility] Pain Center at [facility] [address] [facility] 1st [place] [address] Zuly Barriga MD [address] [place] [address] Degeneration of intervertebral disc of lumbar region [...] on file Legal 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 Complete authorization to obtain information page NEW ORDERS: ??? If you have any questions or concerns, please contact the [facility] via [employer] or at [phone]. Calls are accepted Friday-Friday, 7:30am-4pm, excluding observed holidays. We highly encourage the use of [employer] for non- urgent matters as well as prescription refill requests. ??? Non-urgent matters: Select the nurse line option and leave a message ??? Urgent matters: Select the current patient scheduling option ??? Urgent/emergent matters occurring outside of business hours that cannot wait until the office opens: Call 911 or go to the nearest Emergency Room. The [facility] is committed to providing your [...] preferred method for refill requests. o Call [phone] and leave a message on the RN [...] guidance recommends delaying steroid injections when possible. [email or web address]/ documented in this encounter Medications at Time [...] Surgery - (Added by TW Conv) ??? SC ABDOMEN SURGERY PROC UNLISTED Hernia Repair - (Added by TW Conv) ? ? SC REMOVAL OF TONSILS,<12 Y/O Tonsillectomy - (Added by TW Conv) ??? SC TOTAL ABDOM HYSTERECTOMY Hysterectomy - (Added by [...] social determinants of health Zuly Barriga MD Ethnic Studies Professor Pain Management, Department of Anesthesiology [facility] Center 02/13/2021 documented in this [...] on stairs Contact your local community or [facility] for information on exercise, fall prevention [...] 02/13/2021 added in this encounter Care Teams Sharepoint Developer Relationship Specialty Start Date End Date Maged Godoy DO PCP - General 09/28/20 documented as of this encounter
--- OUTSIDE RECORDS SUMMARY | 2024-06-20 20:25 | XMS_ITS | Encounter Summary ---
Author Organization [facility] Facility Care Team Providers Care [place] Police Lieutenant Name Role Phone Unavailable Primary Care Provider Unavailabl e Encounter Details Date Type Department Care Team (Late st Contact Info) Description 10/15/2013 1:38 PM CDT Hospital Encounter [facility] José Miguel Ramos MD [address] [address] Lumbosacral spondylosis without myelopathy; Other chronic pain; Other disorders of coccyx Social History Tobacco Use Types Packs/Day Years Used Date Smoking Tobacco: Never Assessed Comments Unknown Sex and Gender Information Value Date Recorded Sex Assigned at Not on file Legal 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
--- OUTSIDE RECORDS SUMMARY | 2024-06-20 20:25 | XMS_ITS | Encounter Summary ---
Author Organization [facility] Healthcare Address [address] [place] [address] Care Team Providers Care Swatch Folder Name Role Phone Maged Godoy DO Primary Care Provider [phone] Encounter Details Date Type Department Care Team (Late st Contact Info) Description 09/28/2020 8:15 PM CDT Lab [address] [address] Social History Tobacco Use Types Packs/Day Years Used Date Smoking Tobacco: Former Smokeless Tobacco: Never Alcohol Use Standard Drinks/Week Comments Yes 0 (1 standard drink = 0.6 oz pur e alcohol) occasionally Comments No Sex and Gender Information Value Date Recorded Sex Assigned at Not on file 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 documented as of this encounter Visit Diagnoses Not on filedocumented in this encounter Care Teams Swatch Folder Relationship Specialty Start Date End Date Maged Godoy DO PCP - General 09/28/20 documented as of this encounter
--- OUTSIDE RECORDS SUMMARY | 2024-06-20 20:25 | XMS_ITS | Encounter Summary ---
Author Organization [facility] Facility Care Team Providers Care Wader Boot Top Assembler Name Role Phone Unavailable Primary Care Provider Unavailabl e Encounter Details Date Type Department Care Team (Late st Contact Info) Description 02/09/2015 12:28 PM CDT - 02/09/2015 11:59 PM CDT Hospital Encounter [facility] José Miguel Ramos MD [address] [address] Other chronic pain; Other disorders of coccyx; Degeneration of lumbar or lumbosacral intervertebral disc; Personal history of tobacco use, presenting hazards to health Social History Tobacco Use Types Packs/Day Years Used Date Smoking Tobacco: Former Comments Unknown Sex and Gender Information Value Date Recorded Sex Assigned at Not on file 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
--- OUTSIDE RECORDS SUMMARY | 2024-06-20 20:25 | XMS_ITS | Encounter Summary ---
Author Organization [facility] Facility Care Team Providers Care Impression Printer Name Role Phone Unavailable Primary Care Provider Unavailabl e Encounter Details Date Type Department Care Team (Late st Contact Info) Description 11/13/2015 3:58 PM CDT - 11/13/2015 11:59 PM CDT Hospital Encounter [facility] José Miguel Ramos MD [address] [address] Cerebrospinal fluid leak from spinal puncture; Sacrococcygeal disorders, not elsewhere classified; Other chronic pain; Other intervertebral disc degeneration, thoracic region; Personal history of nicotine dependence; ad terminal makeup operator current use of opiate analgesic Social History Tobacco Use Types Packs/Day Years Used Date Smoking Tobacco: Former Comments Unknown Sex and Gender Information Value Date Recorded Sex Assigned at Not on file Legal Sex Female 4:55 AM LABEL SEWER Gender Identity Not on file Sexual Orientation Not on file documented as of this encounter Plan of Treatment Not on file documented as of this encounter Visit Diagnoses Diagnosis Cerebrospinal fluid leak from spinal puncture Sacrococcygeal disorders, not elsewhere classified Other chronic pain Other intervertebral disc degeneration, thoracic region Personal history of nicotine dependence ad terminal makeup operator current use of opiate analgesic documented in this encounter
--- OUTSIDE RECORDS SUMMARY | 2024-06-20 20:25 | XMS_ITS | Encounter Summary ---
Author Organization [facility] Address [address] [place] [address] Phone Care Team Providers Care Lens Gauger Name Role Phone Unknown, Notinfile Primary Care Provider Unavail able Encounter Details Date Type Department Care Team (Late st Contact Info) Description 12/08/2017 Telephone [facility] Pain Management [facility] [place] [address] José Miguel Dent MD [address] [address] Social History Tobacco Use Types Packs/Day Years Used Date Smoking Tobacco: Former Comments Unknown Sex and Gender Information Value Date Recorded Sex Assigned at Not on file Legal Sex Female 4:55 AM CRACKER OFF Gender Identity Not on file Sexual Orientation [...] on filedocumented in this encounter Care Teams Lens Gauger Relationship Specialty Start Date End Date Unknown, Notinfile PCP - General 10/24/17 09/27/20 documented as of this encounter
--- OUTSIDE RECORDS SUMMARY | 2024-06-20 20:25 | XMS_ITS | Encounter Summary ---
Author Organization [facility] Healthcare Address [address] [place] [address] Care Team Providers Care Marketing Specialist Name Role Phone Unknown, Notinfile Primary Care Provider Unavail able Reason for Visit * Reason Onset Date Comments Med Refill 12/08/2018 Encounter Details Date Type Department Care Team (Late st Contact Info) Description 12/08/2018 Telephone [facility] Pain Center at [address] [place] [address] Zuly Barriga MD [address] [place], [place] [id number] Med Refill Social History Tobacco Use Types Packs/Day Years Used Date Smoking Tobacco: Former Alcohol Use Standard Drinks/Week Comments No 0 (1 standard drink = 0.6 oz pur e alcohol) Comments No Sex and Gender Information Value Date Recorded Sex Assigned at Not on file 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 Patient states she is patient of [...] on filedocumented in this encounter Care Teams Marketing Specialist Relationship Specialty Start Date End Date Unknown, Notinfile PCP - General 10/24/17 09/27/20 documented as of this encounter
--- OUTSIDE RECORDS SUMMARY | 2024-06-20 20:25 | XMS_ITS | Encounter Summary ---
Author Organization [facility] Healthcare Address [address] [place] [address] Care Team Providers Care Photocopying Equipment Mechanic Name Role Phone Maged Godoy DO Primary Care Provider [phone] Reason for Visit * Reason Comments Injections Encounter Details Date Type Department Care Team (Latest Contact Info) Description 03/21/2021 7:42 AM CDT - 03/21/2021 7:45 AM CDT Hospital Encounter [facility] Pain Center at [facility] [address] [facility] 1st [place] [address] Zuly Barriga MD [address] [facility] [address] [place] [address] Degeneration of intervertebral disc of lumbar region; [...] on file Legal Sex Female 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 ID ABDOMEN SURGERY PROC UNLISTED Hernia Repair - (Added by TW Conv) ? ? ID REMOVAL OF TONSILS,<12 Y/O Tonsillectomy - (Added by TW Conv) ??? ID TOTAL ABDOM HYSTERECTOMY Hysterectomy - (Added by [...] L5-S1 TFESI next appointment. Zuly Barriga MD Credit Charge Authorizer Pain Management, Department of Anesthesiology [facility] Center 03/09/2021 documented in [...] mL documented in this encounter Care Teams Photocopying Equipment Mechanic Relationship Specialty Start Date End Date Maged Godoy DO PCP - General 09/28/20 documented as of this encounter
--- OUTSIDE RECORDS SUMMARY | 2024-06-20 20:25 | XMS_ITS | Encounter Summary ---
Author Organization 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 documented as of this encounter Visit Diagnoses Not on filedocumented in this encounter Care Teams Educational Specialist Relationship Specialty Start Date End Date Unknown, Notinfile PCP - General 10/24/17 09/27/20 documented as of this encounter
--- OUTSIDE RECORDS SUMMARY | 2024-06-20 20:25 | XMS_ITS | Encounter Summary ---
Author Organization [facility] Healthcare Address [address] [place] [address] Care Team Providers Care Manager Medical Writing Name Role Phone Unknown, Notinfile Primary Care Provider Unavail able Reason for Visit * Reason Onset Date Comments Med Refill 06/29/2019 Encounter Details Date Type Department Care Team (Late st Contact Info) Description 06/29/[address] [facility] at [address] [place] [address] Zuly Barriga MD [address] [place], [place] [id number] Med Refill Social History Tobacco Use Types Packs/Day Years Used Date Smoking Tobacco: Former Smokeless Tobacco: Never Alcohol Use Standard Drinks/Week Comments Yes 0 (1 standard drink = 0.6 oz pur e alcohol) occasionally Comments No Sex and Gender Information Value Date Recorded Sex Assigned at Not on file Legal Sex Female 4:55 AM INDUSTRIAL RELATIONS OFFICER Gender Identity Not on file Sexual Orientation Not on file documented as of this encounter Miscellaneous Notes * Telephone Encounter - Danielle Plata BS - 06/29/2019 12:53 PM INDUSTRIAL RELATIONS OFFICER FOV 07/28@ 3:30PM. STRIAL RELATIONS OFFICER documented in this encounter Plan of Treatment [...] on filedocumented in this encounter Care Teams Manager Medical Writing Relationship Specialty Start Date End Date Unknown, Notinfile PCP - General 10/24/17 09/27/20 documented as of this encounter
--- OUTSIDE RECORDS SUMMARY | 2024-06-20 20:25 | XMS_ITS | Encounter Summary ---
Author Organization [facility] Healthcare Address [address] [place] [address] Care Team Providers Care Manager Of Manufacturing Name Role Phone Maged Godoy Primary Care Provider [phone] Reason for Visit * Reason Onset Date Comments Pre Arrival 03/19/2021 Encounter Details Date Type Department Care Team (Late st Contact Info) Description 03/19/[address] 1st [place] [address] Cyn Ahumada RN Pre Arrival Social History Tobacco Use Types Packs/Day Years Used Date Smoking Tobacco: Former Smokeless Tobacco: Never Alcohol Use Standard Drinks/Week Comments Yes 0 (1 standard drink = 0.6 oz pur e alcohol) occasionally Comments No Sex and Gender Information Value Date Recorded Sex Assigned at Not on file Legal Sex Female 4:55 AM PLANT TECH Gender Identity Not on file Sexual Orientation [...] filedocumented in this encounter Care Teams Manager Of Manufacturing Relationship Specialty Start Date End Date Maged Godoy DO PCP - General 09/28/20 documented as of this encounter
--- OUTSIDE RECORDS SUMMARY | 2024-06-20 20:25 | XMS_ITS | Encounter Summary ---
Author Organization [facility] Care Team Providers Care Poultry Veterinarian Name Role Phone Unavailable Primary Care Provider Unavailabl e Encounter Details Date Type Department Care Team (Late st Contact Info) Description 04/25/2014 - 04/25/2014 11:59 PM DOPE MAINTENANCE WORKER Hospital Encounter [facility] Terrance Chaudhry MD [address] [place] [address] DEPT NEUROSURGERY, [place] [address] Degeneration of lumbar or lumbosacral intervertebral disc; Scoliosis (and kyphoscoliosis), idiopathic Social History Tobacco Use Types Packs/Day Years Used Date Smoking Tobacco: Former Comments Unknown Sex and Gender Information Value Date Recorded Sex Assigned at Not on file Legal Sex Female 4:55 AM DOPE MAINTENANCE WORKER Gender Identity Not on file Sexual Orientation Not on file documented as of this encounter Plan of Treatment Not on file documented as of this encounter Procedures Procedure Name Priority Date/Time Associated Diagnosis Comments XR SPINE LUMBAR ROUTINE Routine 04/25/2014 2:30 PM DOPE MAINTENANCE WORKER documented in this encounter Results * XR Lumbar Spine Routine (04/25/2014 2:30 PM DOPE MAINTENANCE WORKER) Anatomical Region Laterality Modality L-spine N/A Radiographic Serena ging 04/25/2014 2:30 PM DOPE MAINTENANCE WORKER Narrative 04/26/2014 9:35 AM DOPE MAINTENANCE WORKER LEANN MCKEON M.D. BETY ALEXANDRA, FINAL REPORT The radiology attending physician has personally reviewed this study, and has reviewed and/or edited this written report and agrees with it. ACC# ??Date Time ??Exam [id number] Apr 25, 2014 14:30:00 [id number] Spine Lumbar min 4 views ACC# ??Date Time ??Exam [id number] Apr 25, 2014 14:30:00 [id number] Spine Lumbar min 4 views EXAMINATION: ?Lumbar [...] MCKEON M.D. on Apr 26 2014 ??9:35A [id number] Procedure Note Provider, MD Ton - 10/13/2016 LEANN MCKEON M.D. BETY ALEXANDRA, FINAL REPORT The radiology attending physician has personally reviewed this study, and has reviewed and/or edited this written report and agrees with it. ACC# Date Time Exam [id number] Apr 25, 2014 14:30:00 [id number] Spine Lumbar min 4 views ACC# Date Time Exam [id number] Apr 25, 2014 14:30:00 [id number] Spine Lumbar min 4 views EXAMINATION: Lumbar [...] MCKEON M.D. on Apr 26 2014 9:35A [id number] Historical Provider MD SANTIAGO XR PROCEDURES Final R esult documented in this encounter Visit Diagnoses Diagnosis Degeneration of lumbar or lumbosacral intervertebral disc Scoliosis (and kyphoscoliosis), idiopathic documented in this encounter
--- OUTSIDE RECORDS SUMMARY | 2024-06-20 20:25 | XMS_ITS | Encounter Summary ---
Author Organization [facility] Healthcare Address [address] [place] [address] Care Team Providers Care Electric Motor Repairman Name Role Phone Unknown, Notinfile Primary Care Provider Unavail able Reason for Visit * Reason Comments Follow-up Tailbone - Refill on Tramadol Encounter Details Date Type Department Care Team (Latest Contact Info) Description 12/23/2018 1:56 PM CDT - 12/23/2018 11:59 PM CDT Hospital Encounter [facility] at [place] [address] [facility] [address] [place] [address] Zuly Barriga MD [address] [facility] [address] [place], [place] [id number] Other chronic pain (Primary Dx); Encounter for [...] on file Legal Sex Female 4:55 AM PRICING CLERK Gender Identity Not on file Sexual [...] Body Mass Index 29.07 04/27/2018 12:17 PM PRICING CLERK documented in this encounter Discharge Instructions [...] Medication: MeloxicamPatient Education Meloxicam (By mouth) Meloxicam ([id number]-YM-r-[id number]) Treats symptoms of osteoarthritis (OA) and rheumatoid [...] pharmacist before using any other medicine, including [id number]-[id number] medicines, vitamins, and herbal products. ?? Do [...] may report side effects to FDA at 1-877-VBW-5753 ?? 2017 [employer] Information is for End User's use only and may not be sold, redistributed or otherwise used for commercial purposes. The above information is an special education aide only. It is not intended as medical advice for individual conditions or treatments. Talk to your doctor, nurse or pharmacist before following any medical regimen to see if it is safe and effective for you. DIET: [] Resume normal diet [] See [facility] Post Discharge Procedure Information Sheet ACTIVITY: [] Resume normal activity [] See [facility] Post Discharge Procedure Information Sheet REFERRALS: Physical Therapy [x] [facility] ([phone]) [] Other: Behavior Medicine [] Pain Psychologist, [facility] Please call to schedule appointment [phone] or [phone] Diagnostic Test(s): FOLLOW UP APPOINTMENTS: [] Return as needed [x] Follow up appointment: 3 month We will contact you the next business day to obtain: [] An update on your condition [] Your Pain diary scores [] Procedure at your next visit : INSTRUCTIONS before your next procedure: [] See [facility] Pre-Procedure Information Sheet [] Do not eat for six (6) hours or drink for three (3) hours before the time/date of the procedure. [] Inquire with your prescribing provider if ok to hold blood thinner for days before procedure. [] Blood work required 2 hours before procedure: [] Owner Operator Tanker Truck Driver needed for next procedure Patient provided information and repeated back with understanding. If you need to reach us: For any questions about your procedure, please call the Pain Management Center [phone] (M-F) (8am-4pm) If you need urgent attention [...] [facility] 12/23/2018 2:21 PM documented [...] on stairs Contact your local community or [facility] for information on exercise, fall prevention programs, [...] Performing Organization Information: ?Site ID: AP ?Name[facility] ?Address: [address] [place] [address], [address] [place] [address] ?Director: Dakota Funk Ph.D. Zuly Barriga MD LAB URINE ORDERABLES Final Result Performing Organization Address [facility] de Phone Number [facility] [...] Performing Organization Information: ?Site ID: AP ?Name: [facility] ?Address: [address] [place] [id number] ?Director: Dakota Funk Ph.D. Zuly Barriga MD LAB URINE ORDERABLES Final Result Performing Organization Address [facility] de Phone Number [facility] * Pain Management, Alcohol Metabolites, w/ Confirmation, with medMATCH, Urine (12/23/2018 2:36 PM CDT) Pathologist [facility] Prescribed Drug 1 Tramadol [facility] Alcohol Metabolites NEGATIVE <500 ng/mL [facility] Alcohol metabolites [facility] (Always Message) [facility] Comment:See Note 2 Urine 12/23/2018 2:36 PM CDT 12/24/2018 5:49 AM CDT Narrative Resulting Agency Comment Performing Organization Information: ?Site ID: AP ?Name: [facility] ?Address: [address] [place] [address], [facility] [address] [place] [address] ?Director: Dakota Funk Ph.D. Zuly Barriga MD LAB URINE ORDERABLES Final Result [facility] * Drug Monitoring, Panel [...] analytical performance characteristics have been determined by [facility]. It has not been cleared or approved [...] interpreting these drug results, please contact a [facility] Toxicology Specialist: [phone] ( ), M-F, 8am-6pm EST. Urine 12/23/2018 2:36 PM CDT 12/24/2018 5:49 AM CDT Narrative Resulting Agency Comment Performing Organization Information: ?Site ID: AP ?Name: [facility] ?Address: [address] [place] [address], [address] 2 [place] [address] ?Director: Dakota Funk Ph.D. us Zuly Barriga MD LAB URINE ORDERABLES Final Result [facility] documented in this encounter [...] documented as of this encounter Care Teams Electric Motor Repairman Relationship Specialty Start Date End Date Unknown, Notinfile PCP - General 10/24/17 09/27/20 documented as of this encounter
--- OUTSIDE RECORDS SUMMARY | 2024-06-20 20:25 | XMS_ITS | Encounter Summary ---
Author Organization [facility] Healthcare Address [address] [place] [address] Care Team Providers Care Vp Name Role Phone Maged Godoy DO Primary Care Provider [phone] Reason for Referral * Diagnostic Imaging (Routine) - Closed Specialty Diagnoses / Procedures Referred By Contac t Referred To Contact Diagnoses Hip pain Procedures XR Hips Bilateral 2 Views W Pelvis Zuly Barriga MD [address] [place] [address] Phone: tel: fax: [address] [phone] Referral ID Status Reason Start Date Expiration Date Visits Re quested Visits Authorized [id number] Closed 04/11/2021 05/11/2022 1 1 Reason for Visit * Reason Comments Follow-up Back Pain Hip Pain Encounter Details Date Type Department Care Team (Latest Contact Info) Description 04/11/2021 10:15 AM CDT - 04/11/2021 10:58 AM CDT Hospital Encounter [facility] at [place] [address] [facility] 1st [place] [phone] Zuly Barriga MD [address] [place] [address] Hip pain (Primary Dx) Discharge [...] on file Legal Sex Female 4:55 AM MECHANISM ASSEMBLER Gender Identity Not on file Sexual [...] imaging done [facility] at [facility] - [phone]. Calls are accepted Friday-Friday, 7:30am-4pm, excluding observed holidays. We highly encourage the use of [facility] for non-urgent matters as well as prescription refill requests. If you need to schedule an appointment with Dr. Mallory - Pain Psychologist - [phone] The Pain Management Center is committed to [...] preferred method for refill requests. o Call [phone] and leave a message on the RN [...] on which the pharmacy filled the prescription. [email or web address] We strive to provide you with EXCELLENT service as our patient. You may receive a survey after your visit today. If you can not rate your experience as EXCELLENT, please let us know how we can improve and better meet your needs. Thank you for choosing [facility] / Pain Management! documented in this encounter [...] Surgery - (Added by TW Conv) ??? [place] ABDOMEN SURGERY PROC UNLISTED Hernia Repair - (Added by TW Conv) ? ? [place] REMOVAL OF TONSILS,<12 Y/O Tonsillectomy - (Added by TW Conv) ??? [place] TOTAL ABDOM HYSTERECTOMY Hysterectomy - (Added by [...] evaluation of above plan. Zuly Barriga MD [facility], Department of Anesthesiology [facility] 04/24/2021 ANISM ASSEMBLER documented in this encounter Plan of Treatment [...] on stairs Contact your local community or [facility] for information on exercise, fall [...] thigh documented in this encounter Care Teams Vp Relationship Specialty Start Date End Date Maged Godoy DO PCP - General 09/28/20 documented as of this encounter
--- OUTSIDE RECORDS SUMMARY | 2024-06-20 20:25 | XMS_ITS | Encounter Summary ---
Author Organization [facility] Healthcare Address [address] [place] [address] Care Team Providers Care Library Circulation Technician Name Role Phone Unknown, Notinfile Primary Care Provider Unavail able Reason for Visit * Reason Onset Date Comments Rx Refill 08/02/2020 Encounter Details Date Type Department Care Team (Late st Contact Info) Description 08/02/2020 Telephone [place] [id number] [facility] 1st [place] [phone] Jered Garvin, RT Rx Refill Social History Tobacco Use Types Packs/Day Years Used Date Smoking Tobacco: Former Smokeless Tobacco: Never Alcohol Use Standard Drinks/Week Comments Yes 0 (1 standard drink = 0.6 oz pur e alcohol) occasionally Comments No Sex and Gender Information Value Date Recorded Sex Assigned at Not on file Legal Sex Female 4:55 AM ASSEMBLER LAY UPS Gender Identity Not on file Sexual Orientation Not on file documented as of this encounter Miscellaneous Notes * Telephone Encounter - Carla Hamm RN - 08/02/2020 4:28 PM ASSEMBLER LAY UPS Ordered 08/02/20 MBLER LAY UPS * Telephone Encounter - Jered Garvin, - 08/02/2020 3:07 PM CST Patient called and is requesting a refill for a 90 d/s on Tramadol. Please send to the [facility], [place]) on file. MBLER [employer]AY [employer] documented in this encounter Plan of Treatment [...] on filedocumented in this encounter Care Teams Library Circulation Technician Relationship Specialty Start Date End Date Unknown, Notinfile PCP - General 10/24/17 09/27/20 documented as of this encounter
--- OUTSIDE RECORDS SUMMARY | 2024-06-20 20:25 | XMS_ITS | Encounter Summary ---
Author Organization [facility] Healthcare Address [address] [place] [address] Care Team Providers Care Nursing Consultant Name Role Phone Unknown, Notinfile Primary Care Provider Unavail able Encounter Details Date Type Department Care Team (Late st Contact Info) Description 05/18/2018 Telephone [facility] at [address] [place] [address] José Miguel Dent MD [address] [address] Social History Tobacco Use Types Packs/Day Years Used Date Smoking Tobacco: Former Alcohol Use Standard Drinks/Week Comments No 0 (1 standard drink = 0.6 oz pur e alcohol) Comments No Sex and Gender Information Value Date Recorded Sex Assigned at Not on file Legal Sex Female 4:55 AM LINING CLOSER Gender Identity Not on file Sexual Orientation Not on file documented as of this encounter Miscellaneous Notes * Telephone Encounter - Aleta Warner RN - 05/28/2018 12:51 PM CST / NG CLOSER documented in this encounter Plan of Treatment [...] on filedocumented in this encounter Care Teams Nursing Consultant Relationship Specialty Start Date End Date Unknown, Notinfile PCP - General 10/24/17 09/27/20 documented as of this encounter
--- OUTSIDE RECORDS SUMMARY | 2024-06-20 20:25 | XMS_ITS | Encounter Summary ---
Author Organization [facility] Healthcare Address [address] [place] [address] Care Team Providers Care Explosive Ordnance Disposal Manager Name Role Phone Unknown, Notinfile Primary Care Provider Unavail able Reason for Visit * Reason Comments Follow-up needs meds refilled Encounter Details Date Type Department Care Team (Late st Contact Info) Description 04/27/2018 10:45 AM PHYSICAL EDUCATION PROFESSOR Office Visit [facility] at [address] [place] [address] José Miguel Dent MD [address] [address] Pain in the coccyx (Primary [...] file Legal Sex Female 4:55 AM PHYSICAL EDUCATION PROFESSOR Gender Identity Not on file Sexual Orientation Not on file documented as of this encounter Last Filed Vital Signs Vital Sign Reading Time Taken Comments Blood Pressure 138/75 04/27/2018 12:17 PM PHYSICAL EDUCATION PROFESSOR Pulse 68 04/27/2018 12:17 PM PHYSICAL EDUCATION PROFESSOR Temperature 36.6 ??C (97.8 ??F) 04/27/2018 12:[address] Respiratory Rate 18 04/27/2018 12:17 PM PHYSICAL EDUCATION PROFESSOR Oxygen Saturation 100% 04/27/2018 12:17 PM PHYSICAL EDUCATION PROFESSOR Inhaled Oxygen Concentration - - Weight 83 kg (183 lb) 04/27/2018 12:17 PM PHYSICAL EDUCATION PROFESSOR Height 167.6 cm (5' 5.98 ) 04/27/2018 12:17 PM Muna ROGERS Body Mass Index 29.55 04/27/2018 12:17 PM PHYSICAL EDUCATION PROFESSOR documented in this encounter Ordered Prescriptions Prescription [...] [] Under Nourished [] Appropriately Nourished [x] [place] Nourished ] [] Morbidly Obese [x] Good [...] tramadol since not abused fov 6 weeks ICAL EDUCATION PROFESSOR documented in this encounter Plan of Treatment [...] 19 added in this encounter Care Teams Explosive Ordnance Disposal Manager Relationship Specialty Start Date End Date Unknown, Notinfile PCP - General 10/24/17 09/27/20 documented as of this encounter
--- OUTSIDE RECORDS SUMMARY | 2024-06-20 20:25 | XMS_ITS | Encounter Summary ---
Author Organization [facility] Healthcare Address [address] [place] [address] Care Team Providers Care Enterprise Engineer Name Role Phone Maged Godoy DO Primary Care Provider [phone] Reason for Visit * Reason Onset Date Comments Request Call Back 03/01/2021 Encounter Details Date Type Department Care Team (Late st Contact Info) Description 03/01/[address] [address] Lor Rodriguez RN Request Call Back Social History Tobacco Use Types Packs/Day Years Used Date Smoking Tobacco: Former Smokeless Tobacco: Never Alcohol Use Standard Drinks/Week Comments Yes 0 (1 standard drink = 0.6 oz pur e alcohol) occasionally Comments No Sex and Gender Information Value Date Recorded Sex Assigned at Not on file Legal Sex Female 4:55 AM GRAILS WEB APPLICATION DEVELOPER Gender Identity Not on file Sexual Orientation [...] she was waiting to get in with [facility] and it really helped . Will refer. [...] on filedocumented in this encounter Care Teams Enterprise Engineer Relationship Specialty Start Date End Date Maged Godoy DO PCP - General 09/28/20 documented as of this encounter
--- OUTSIDE RECORDS SUMMARY | 2024-06-20 20:25 | XMS_ITS | Encounter Summary ---
Author Organization [facility] Healthcare Address [address] [place] [address] Care Team Providers Care Soda Room Operator Name Role Phone Maged Godoy DO Primary Care Provider [phone] Encounter Details Date Type Department Care Team (Late st Contact Info) Description 09/28/2020 8:25 PM CDT Lab [address] [address] Encounter for long-term opiate analgesic use Social History Tobacco Use Types Packs/Day Years Used Date Smoking Tobacco: Former Smokeless Tobacco: Never Alcohol Use Standard Drinks/Week Comments Yes 0 (1 standard drink = 0.6 oz pur e alcohol) occasionally Comments No Sex and Gender Information Value Date Recorded Sex Assigned at Not on file Legal Sex Female 4:55 AM PALEOLOGY TEACHER Gender Identity Not on file Sexual Orientation Not on file documented as of this encounter Plan of Treatment Not on file documented as of this encounter Goals Goal Patient Goal Type Associated Problems Recent Progress Patient-Stated? Author [facility] Chronic Pain Care Plan Chronic Care Management [...] on stairs Contact your local community or [facility] for information on exercise, fall prevention [...] ur 125.2 > or = 20.0 mg/dL [facility] pH, ur 6.1 4.5 - 9.0 [facility] Oxidants, ur NEGATIVE <200 mcg/mL [facility] Amphetamine, ur NEGATIVE <500 ng/mL [facility] Barbiturates, ur NEGATIVE <300 ng/mL [facility] Benzodiazepines, ur NEGATIVE <100 ng/mL [facility] Tetrahydrocannabino l, ur NEGATIVE <20 ng/mL [facility] Benzoylecgonine NEGATIVE <150 ng/mL [facility] Pain mgt Methadone, Ur NEGATIVE <100 ng/mL [facility] Opiates, ur NEGATIVE <100 ng/mL [facility] Pain mgt Oxycodone, Ur NEGATIVE <100 ng/mL [facility] Phencyclidine, ur NEGATIVE <25 ng/mL [facility] Ethanol, ur NEGATIVE <500 ng/mL [facility] Comment:See Note 2 Service Comment 3 SEE NOTE [facility] Comment: See Note 1 Note 1 This drug testing is for medical treatment only. ?? Analysis was performed as non-forensic testing and these results should be used only by healthcare providers to render diagnosis or treatment, or to monitor progress of medical conditions. For assistance with interpreting these drug results, please contact a [email or web address] Toxicology Specialist: [phone] ( ), M-F, 8am-6pm EST. Note 2 This test was developed and its analytical performance characteristics have been determined by [email or web address]. It has not been cleared or approved by the FDA. This assay has been validated pursuant to the CLIA regulations and is used for clinical purposes. Test Performed at: [facility] [address] ??[id number] ? AUBREE ALBERT MD Pain mgt 6-Acetylmorphine, Ur NEGATIVE <10 ng/mL [facility] Urine 09/28/2020 10:3 0 AM CDT 09/28/2020 8:25 PM CDT Zuly Barriga MD LAB BLOOD ORDERABLES Final Result [facility] [address] Department [place] [address] documented in this encounter Visit Diagnoses Diagnosis Encounter for long-term opiate analgesic use Encounter for long-term (current) use of other medications documented in this encounter Care Teams Soda Room Operator Relationship Specialty Start Date End Date Maged Godoy DO PCP - General 09/28/20 documented as of this encounter
--- OUTSIDE RECORDS SUMMARY | 2024-06-20 20:25 | XMS_ITS | Encounter Summary ---
Author Organization [facility] Facility Care Team Providers Care Prospecting Driller Helper Name Role Phone Unavailable Primary Care Provider Unavailabl e Encounter Details Date Type Department Care Team (Late st Contact Info) Description 12/24/2013 12:44 PM CDT - 12/24/2013 11:59 PM CDT Hospital Encounter [facility] José Miguel Ramos MD [address] [facility] [address] [place] [address] Social History Tobacco Use Types Packs/Day Years Used Date Smoking Tobacco: Never Assessed Comments Unknown Sex and Gender Information Value Date Recorded Sex Assigned at Not on file Legal Sex Female 4:55 AM WEBLOGIC DEVELOPER Gender Identity Not on file Sexual Orientation Not on file documented as of this encounter Plan of Treatment Not on file documented as of this encounter Visit Diagnoses Not on filedocumented in this encounter
--- OUTSIDE RECORDS SUMMARY | 2024-06-20 20:25 | XMS_ITS | Encounter Summary ---
Author Organization [facility] Healthcare Address [address] [place] [address] Care Team Providers Care Parking Enforcement Technician Name Role Phone Maged Godoy DO Primary Care Provider [phone] Reason for Visit * Reason Comments Back Pain Follow-up Encounter Details Date Type Department Care Team (Latest Contact Info) Description 09/28/2020 10:09 AM CDT - 09/28/2020 11:59 PM CDT Hospital Encounter [facility] at [facility] [address]st [place] [address] Zuly Barriga MD [facility] [address] [place] [address] Encounter for long-term opiate analgesic use (Primary [...] file Legal Sex Female 4:55 AM MEDICAL CSR Gender Identity Not on file Sexual Orientation [...] MARIE - 09/28/2020 10:30 AM CDT PAIN [facility] DISCHARGE INFORMATION PLAN: ??? Follow up as needed NEW ORDERS: ??? If you have any questions or concerns, please contact the [facility] at [phone]. Calls are accepted Friday-Friday, 7:30am-4pm, excluding observed holidays. ??? Non-urgent matters: Select the nurse line option and leave a message ??? Urgent matters: Select the current patient scheduling option ??? Urgent/emergent matters occurring outside of business hours that cannot wait until the office opens: Call 911 or go to the nearest Emergency Room. The [facility] is committed to providing your [...] to the date of need. o Call [phone] and leave a message on the RN [...] guidance recommends delaying steroid injections when possible. [email or web address] documented in this encounter Medications at Time [...] Bladder Surgery - (Added by TW Conv) [place] ABDOMEN SURGERY PROC UNLISTED Hernia Repair - (Added by TW Conv) [place] REMOVAL OF TONSILS,<12 Y/O Tonsillectomy - (Added by TW Conv) [place] TOTAL ABDOM HYSTERECTOMY Hysterectomy - (Added by [...] MD Instructor Pain Management, Department of Anesthesiology [facility] 10/05/2020 documented in this [...] Drug monitoring, tramadol, quantitative, with medMATCH, Urine [facility] Reference lab [facility] Specimen Type Urine [facility] Report Charted 10/03/2020 [facility] Result see scanned report [facility] Sendout Complete [facility] Miscellaneous 09/28/2020 10: 30 AM CDT 10/04/2020 10:10 AM CDT Narrative [facility] - 10/04/2020 10:18 AM CDT tramadol us Zuly Barriga MD LAB BLOOD ORDERABLES Final Result [facility] [address] Department [place] [address] * Pain Management Profile 6 with Confirmation, Urine (09/28/2020 10:30 AM CDT) Creatinine, ur 125.2 > or = 20.0 mg/dL [facility] pH, ur 6.1 4.5 - 9.0 [facility] Oxidants, ur NEGATIVE <200 mcg/mL [facility] Amphetamine, ur NEGATIVE <500 ng/mL [facility] Barbiturates, ur NEGATIVE <300 ng/mL [facility] Benzodiazepines, ur NEGATIVE <100 ng/mL [facility] Tetrahydrocannabino l, ur NEGATIVE <20 ng/mL [facility] Benzoylecgonine NEGATIVE <150 ng/mL [facility] Pain mgt Methadone, Ur NEGATIVE <100 ng/mL [facility] Opiates, ur NEGATIVE <100 ng/mL [facility] Pain mgt Oxycodone, Ur NEGATIVE <100 ng/mL [facility] Phencyclidine, ur NEGATIVE <25 ng/mL [facility] Ethanol, ur NEGATIVE <500 ng/mL [facility] Comment:See Note 2 Service Comment 3 SEE NOTE [facility] Comment: See Note 1 Note 1 This drug testing is for medical treatment only. ?? Analysis was performed as non-forensic testing and these results should be used only by healthcare providers to render diagnosis or treatment, or to monitor progress of medical conditions. For assistance with interpreting these drug results, please contact a [facility] Toxicology Specialist: [phone] ( ), M-F, 8am-6pm EST. Note 2 This test was developed and its analytical performance characteristics have been determined by [facility]. It has not been cleared or approved by the FDA. This assay has been validated pursuant to the CLIA regulations and is used for clinical purposes. Test Performed at: [facility] [address] ??[id number] ? AUBREE ALBERT MD Pain mgt 6-Acetylmorphine, Ur NEGATIVE <10 ng/mL [facility] Urine 09/28/2020 10:3 0 AM CDT 09/28/2020 8:25 PM CDT Zuly Barriga MD LAB BLOOD ORDERABLES Final Result [facility] [address] Department [place] [address] documented in this encounter Visit [...] needed added in this encounter Care Teams Parking Enforcement Technician Relationship Specialty Start Date End Date Maged Godoy DO PCP - General 09/28/20 documented as of this encounter
--- OUTSIDE RECORDS SUMMARY | 2024-06-20 20:25 | XMS_ITS | Encounter Summary ---
Author Organization [facility] Healthcare Address [address] [place] [address] Care Team Providers Care Fish Butcher Name Role Phone Unknown, Notinfile Primary Care Provider Unavail able Encounter Details Date Type Department Care Team (Late st Contact Info) Description 01/27/2018 Telephone [facility] at [address] [place] [address] José Miguel Dent MD [address] [address] Social History Tobacco Use Types Packs/Day Years Used Date Smoking Tobacco: Former Comments Unknown Sex and Gender Information Value Date Recorded Sex Assigned at Not on file Legal Sex Female 4:55 AM RENTAL COUNTER CLERK Gender Identity Not on file Sexual [...] on filedocumented in this encounter Care Teams Fish Butcher Relationship Specialty Start Date End Date Unknown, Notinfile PCP - General 10/24/17 09/27/20 documented as of this encounter
--- OUTSIDE RECORDS SUMMARY | 2024-06-20 20:25 | XMS_ITS | Encounter Summary ---
Author Organization [facility] Healthcare Address [address] [place] [address] Care Team Providers Care Balance Wheel Hand Filer Name Role Phone Walt, Maged Primary Care Provider [phone] Reason for Referral * Diagnostic Imaging (Routine) - Closed Specialty Diagnoses / Procedures Referred By Contac t Referred To Contact Diagnoses Low back pain Procedures FL Fluoro Guided Needle Placement Zuly Barriga MD [address] [place] [address] Phone: tel: fax: [id number] [place] [address] Referral ID Status Reason Start Date Expiration Date Visits Re quested Visits Authorized [id number] Closed 03/21/2021 04/20/2022 1 1 Reason for Visit * Diagnostic Imaging (Routine) - Closed Specialty Diagnoses / Procedures Referred By Contac t Referred To Contact Diagnoses Low back pain Procedures FL Fluoro Guided Needle Placement Zuly Barriga MD [address] [place] [address] Phone: tel: fax: [id number] [place] [address] Referral ID Status Reason Start Date Expiration Date Visits Re quested Visits Authorized [id number] Closed 03/21/2021 04/20/2022 1 1 Encounter Details Date Type Department Care Team (Latest Contact Info) Description 03/21/2021 7:46 AM CDT - 03/21/2021 11:59 PM CDT Hospital Encounter [facility] Center at [id number] [place] [address] Low back pain Discharge Disposition: Discharge to [...] file Legal Sex Female 4:55 AM RESEARCH PHYSICIAN Gender Identity Not on file Sexual Orientation [...] stairs Contact your local community or [facility] for information on exercise, fall prevention programs, or options for improving home safety. documented as of this encounter Procedures Procedure Name Priority Date/Time Associated Diagnosis Comments FLUORO GUIDED NEEDLE PLACEMENT Schedule Routine, Read Routine (OP Routine) 03/21/2021 9:00 AM CDT Low back pain documented in this encounter Results * FL Fluoro Guided Needle Placement (03/21/2021 9:00 AM CDT) Narrative [facility] - 03/21/2021 11:28 AM CDT The images from this study are not interpreted by Radiology. ??Please refer to the physician's procedure / OR operative note. us Zuly Barriga MD IMG FLUOROSCOPY RITIKA EARLY Final Result [facility] documented in this encounter Visit Diagnoses Diagnosis Low back pain Lumbago documented in this encounter Care Teams Balance Wheel Hand Filer Relationship Specialty Start Date End Date Maged Godoy DO PCP - General 09/28/20 documented as of this encounter
--- OUTSIDE RECORDS SUMMARY | 2024-06-20 20:25 | XMS_ITS | Encounter Summary ---
Author Organization [facility] Facility Care Team Providers Care Architect Marine Name Role Phone Unavailable Primary Care Provider Unavailabl e Encounter Details Date Type Department Care Team (Late st Contact Info) Description 02/21/2014 - 02/21/2014 11:59 PM CDT Hospital Encounter [facility] Shady Rodríguez MD [facility] [address] [facility] [address] [place] [address] Other disorders of coccyx; Degeneration of lumbar or lumbosacral intervertebral disc Social History Tobacco Use Types Packs/Day Years Used Date Smoking Tobacco: Never Assessed Comments Unknown Sex and Gender Information Value Date Recorded Sex Assigned at Not on file Legal Sex Female 4:55 AM ASSOCIATE SPA DIRECTOR Gender Identity Not on file Sexual [...] agrees with it. ACC# ??Date Time ??Exam [id number] Feb 21, 2014 18:05:00 [id number] MRI Lumbar Spine wo cont EXAMINATION: ?? [...] HICKEY M.D. on Mar 04 2014 ??3:27P [id number] Procedure Note Provider, MD Ton - 10/13/2016 Cammy MOORE M.D. FINAL REPORT The radiology attending physician has personally reviewed this study, and has reviewed and/or edited this written report and agrees with it. ACC# Date Time Exam [id number] Feb 21, 2014 18:05:00 [id number] MRI Lumbar Spine wo cont EXAMINATION: Lumbar [...] HICKEY M.D. on Mar 04 2014 3:27P [id number] Historical Provider MD SANTIAGO MRI PROCEDURES Final Result documented in this encounter Visit Diagnoses Diagnosis Other disorders of coccyx Degeneration of lumbar or lumbosacral intervertebral disc documented in this encounter
--- OUTSIDE RECORDS SUMMARY | 2024-06-20 20:25 | XMS_ITS | Encounter Summary ---
Author Organization [facility] Healthcare Address [address] [place] [address] Care Team Providers Care Diamond Sizer And Sorter Name Role Phone Maged Godoy Primary Care Provider [phone] Reason for Visit * Reason Onset Date Comments Imaging 02/21/2021 Request Call Back 02/21/2021 Encounter Details Date Type Department Care Team (Late st Contact Info) Description 02/21/2021 Telephone [facility] [id number] [facility] 1st [place] [address] Shanice Delarosa RN Imaging; Request Call Back Social History Tobacco Use Types Packs/Day Years Used Date Smoking Tobacco: Former Smokeless Tobacco: Never Alcohol Use Standard Drinks/Week Comments Yes 0 (1 standard drink = 0.6 oz pur e alcohol) occasionally Comments No Sex and Gender Information Value Date Recorded Sex Assigned at Not on file Legal Sex Female 4:55 AM CHIPPER Gender Identity Not on file Sexual Orientation [...] discuss. Patient states understanding. Call transferred to supervisor cemetery workers. * Telephone Encounter - Lor Rodriguez RN [...] on filedocumented in this encounter Care Teams Diamond Sizer And Sorter Relationship Specialty Start Date End Date Maged Godoy DO PCP - General 09/28/20 documented as of this encounter
--- OUTSIDE RECORDS SUMMARY | 2024-06-20 20:25 | XMS_ITS | Encounter Summary ---
Author Organization [facility] Facility Care Team Providers Care Child Care Assistant Name Role Phone Unavailable Primary Care Provider Unavailabl e Encounter Details Date Type Department Care Team (Late st Contact Info) Description 04/28/2014 2:17 PM HOME PLANNING CONSULTANT SALESPERSON - 04/28/2014 11:59 PM HOME PLANNING CONSULTANT SALESPERSON Hospital Encounter [facility] José Miguel Ramos MD [address] [address] Other chronic pain; Lumbosacral spondylosis without myelopathy; Personal history of allergy to narcotic agent; Other disorders of coccyx; Pain in soft tissues of limb; Low back pain Social History Tobacco Use Types Packs/Day Years Used Date Smoking Tobacco: Former Comments Unknown Sex and Gender Information Value Date Recorded Sex Assigned at Not on file Legal Sex Female 4:55 AM HOME PLANNING CONSULTANT SALESPERSON Gender Identity Not on file Sexual Orientation [...]
--- OUTSIDE RECORDS SUMMARY | 2024-06-20 20:25 | XMS_ITS | Encounter Summary ---
Author Organization [facility] Healthcare Address [address] [place] [address] Care Team Providers Care Knotter Name Role Phone Unknown, Notinfile Primary Care Provider Unavail able Reason for Visit * Reason Onset Date Comments please call 05/08/2018 Encounter Details Date Type Department Care Team (Late st Contact Info) Description 05/08/2018 Telephone [facility] at [address] [place] [address] José Miguel Dent MD [address] [address] please call Social History Tobacco Use Types Packs/Day Years Used Date Smoking Tobacco: Former Alcohol Use Standard Drinks/Week Comments No 0 (1 standard drink = 0.6 oz pur e alcohol) Comments No Sex and Gender Information Value Date Recorded Sex Assigned at Not on file Legal Sex Female 4:55 AM KICK PRESS SETTER Gender Identity Not on file Sexual Orientation Not on file documented as of this encounter Miscellaneous Notes * Telephone Encounter - Aleta Warner RN - 05/14/2018 11:01 AM CST Approval for Tramadol/acet given for 05-14-18 to 05-13-19 #[id number] PRESS SETTER * Telephone Encounter - Aleta Warner RN - 05/12/2018 12:42 PM CST PA placed for Tramadol/Acet [phone] ID [id number] Auth #[id number], informed a 72 hr will be required for determination. Pt received a 7 day refill on 05-10-18 PRESS SETTER * Telephone Encounter - Danielle Plata BS - 05/08/2018 3:41 PM KICK PRESS SETTER Tramadol/APAP 37.5mg tabs PA request in file folder PRESS SETTER * Telephone Encounter - Nena Calvo RN - 05/08/2018 12:29 PM KICK PRESS SETTER Received Rx for Tramadol and took it to [facility] in [place]. She states that it is still pending insurance approval. Please call patient as she is out of medications PRESS SETTER documented in this encounter Plan of Treatment [...] on filedocumented in this encounter Care Teams Knotter Relationship Specialty Start Date End Date Unknown, Notinfile PCP - General 10/24/17 09/27/20 documented as of this encounter
--- OUTSIDE RECORDS SUMMARY | 2024-06-20 20:26 | XMS_ITS | Encounter Summary ---
Author Organization [facility] Facility Care Team Providers Care Nuclear Plant Equipment Operator Name Role Phone Unavailable Primary Care Provider Unavailabl e Encounter Details Date Type Department Care Team (Late st Contact Info) Description 08/04/2013 9:36 AM CROSS COUNTRY COACH Hospital Encounter [facility] José Miguel Ramos MD [address] [address] Lumbosacral spondylosis without myelopathy; Other disorders of [...] on file Legal Sex Female 4:55 AM CROSS COUNTRY COACH Gender Identity Not on file Sexual Orientation [...]
--- OUTSIDE RECORDS SUMMARY | 2024-06-20 20:26 | XMS_ITS | Encounter Summary ---
Author Organization [facility] Facility Care Team Providers Care Auto Service Mechanic Name Role Phone Unavailable Primary Care Provider Unavailabl e Encounter Details Date Type Department Care Team (Late st Contact Info) Description 03/22/2013 - 03/22/2013 11:59 PM CDT Hospital Encounter [facility] Arron Degroot III, MD [address] [place] [address] [address] [place] [address] Pain in soft tissues of limb; Displacement of lumbar intervertebral disc without myelopathy; Arthropathy involving other sites; Degeneration of lumbar or lumbosacral intervertebral disc Social History Tobacco Use Types Packs/Day Years Used Date Smoking Tobacco: Never Assessed Comments Unknown Sex and Gender Information Value Date Recorded Sex Assigned at Not on file Legal Sex Female 4:55 AM DIRECTOR OF ENTERPRISE ARCHITECTURE Gender Identity Not on file Sexual Orientation [...] agrees with it. ACC# ??Date Time ??Exam [id number] Mar 22, 2013 16:53:00 [id number] MRI Lumbar Spine wo cont EXAMINATION: ?? [...] agrees with it. ACC# Date Time Exam [id number] Mar 22, 2013 16:53:00 [id number] MRI Lumbar Spine wo cont EXAMINATION: Lumbar [...]
--- OUTSIDE RECORDS SUMMARY | 2024-06-20 20:26 | XMS_ITS | Encounter Summary ---
Author Organization [facility] Facility Care Team Providers Care Community Fundraiser Name Role Phone Unavailable Primary Care Provider Unavailabl e Encounter Details Date Type Department Care Team (Late st Contact Info) Description 07/01/2013 - 07/01/2013 11:59 PM FURNITURE DIPPER Hospital Encounter [facility] Shady Rodríguez MD [address] [facility] [address] [place] [address] Scoliosis (and kyphoscoliosis), idiopathic; Degeneration of lumbar or lumbosacral intervertebral disc Social History Tobacco Use Types Packs/Day Years Used Date Smoking Tobacco: Never Assessed Comments Unknown Sex and Gender Information Value Date Recorded Sex Assigned at Not on file Legal Sex Female 4:55 AM FURNITURE DIPPER Gender Identity Not on file Sexual Orientation Not on file documented as of this encounter Plan of Treatment Not on file documented as of this encounter Procedures Procedure Name Priority Date/Time Associated Diagnosis Comments XR SPINE LUMBAR ROUTINE Routine 07/01/2013 8:36 AM FURNITURE DIPPER documented in this encounter Results * XR Lumbar Spine Routine (07/01/2013 8:36 AM FURNITURE DIPPER) Anatomical Region Laterality Modality L-spine N/A Radiographic Serena ging 07/01/2013 8:36 AM FURNITURE DIPPER Narrative 07/01/2013 9:04 AM FURNITURE DIPPER JF SOLER M.D. [facility] GUDINO, FINAL REPORT The radiology attending physician has personally reviewed this study, and has reviewed and/or edited this written report and agrees with it. ACC# ??Date Time ??Exam [id number] Jul 01, 2013 08:36:00 [id number] Spine Lumbar min 4 views EXAMINATION: ?Lumbar [...] agrees with it. ACC# Date Time Exam [id number] Jul 01, 2013 08:36:00 63217 Spine Lumbar min 4 views EXAMINATION: Lumbar [...]
--- OUTSIDE RECORDS SUMMARY | 2024-06-20 20:26 | XMS_ITS | Encounter Summary ---
Author Organization [facility] Facility Care Team Providers Care Slope Runner Name Role Phone Unavailable Primary Care Provider Unavailabl e Encounter Details Date Type Department Care Team (Late st Contact Info) Description 04/02/2013 - 04/02/2013 11:59 PM CDT [facility] [address] [facility] [address] [place] [address] Low back pain; Pain in soft tissues of limb; Degeneration of lumbar or lumbosacral intervertebral disc Social History Tobacco Use Types Packs/Day Years Used Date Smoking Tobacco: Never Assessed Comments Unknown Sex and Gender Information Value Date Recorded Sex Assigned at Not on file Legal Sex Female 4:55 AM BRAKESHOE REPAIRER Gender Identity Not on file Sexual [...] M.D. FINAL REPORT ACC# ??Date Time ??Exam [id number] Apr 02, 2013 09:51:00 15166 Spn Lumbar cmp wBend min6v [id number] Apr 02, 2013 09:51:00 58494 Spine TL ScoliosisStanding EXAMINATION: ? 1. Lumbar [...] M.D. FINAL REPORT ACC# Date Time Exam [id number] Apr 02, 2013 09:51:00 71265 Spn Lumbar cmp wBend min6v [id number] Apr 02, 2013 09:51:00 95698 Spine TL ScoliosisStanding EXAMINATION: 1. Lumbar spine [...] M.D. FINAL REPORT ACC# ??Date Time ??Exam [id number] Apr 02, 2013 09:51:00 16050 Spn Lumbar cmp wBend min6v [id number] Apr 02, 2013 09:51:00 25237 Spine TL ScoliosisStanding EXAMINATION: ? 1. Lumbar [...] M.D. FINAL REPORT ACC# Date Time Exam [id number] Apr 02, 2013 09:51:00 76020 Spn Lumbar cmp wBend min6v [id number] Apr 02, 2013 09:51:00 59085 Spine TL ScoliosisStanding EXAMINATION: 1. Lumbar spine [...]
--- OUTSIDE RECORDS SUMMARY | 2024-06-20 20:26 | XMS_ITS | Encounter Summary ---
Author Organization [facility] Facility Care Team Providers Care School Fundraising Director Name Role Phone Unavailable Primary Care Provider Unavailabl e Encounter Details Date Type Department Care Team (Late st Contact Info) Description 04/06/2013 2:21 PM CDT - 04/06/2013 4:00 PM CDT Hospital Encounter [facility] Shady Mercado MD [address] [place] [id number] Pre-procedural laboratory examination; Pre-operative cardiovascular examination; Displacement [...] on file Legal Sex Female 4:55 AM CONTENT WRITER Gender Identity Not on file Sexual Orientation [...] BLOOD ORDERABLES Final Result Performing Organization Address [facility] de Phone Number HISTORICAL RESULTS * Plasma partial thromboplastin time (PTT) (04/06/2013 4:32 PM CDT) Pathologist [facility] APTT 29.8 25.0 - 37.0 seconds HISTORICAL RESULTS Comment: Interpretive Data Therapeutic heparin range:60.0 - 94.0 sec based on correlation with therapeutic heparin activity range of 0.3 -0.7 Units/mL. Current interpretive data was last revised on 2011. Plasma 04/06/2013 4:32 PM CDT Shady Mercado MD LAB BLOOD ORDERABLES Final Result Performing Organization Address [facility] de Phone Number HISTORICAL RESULTS * Plasma basic metabolic panel (04/06/2013 4:32 PM CDT) [facility] Sodium 141 135 - 145 mmol/L [...] BLOOD ORDERABLES Final Result Performing Organization Address [facility] de Phone Number HISTORICAL RESULTS * Plasma prothrombin time (PT) (04/06/2013 4:32 PM CDT) Pathologist [facility] Prothrombin time (PT) 10.0 9.0 - 12.0 [...] copy of the Tool Book at [email or web address] Current Interpretive Data was last revised 2011. Plasma 04/06/2013 4:32 PM CDT Shady Mercado MD LAB BLOOD ORDERABLES Final Result HISTORICAL RESULTS * (ABNORMAL) Blood cell count (CBC) (04/06/2013 4:32 PM CDT) [facility] WBC 9.7 3.8 - 9.8 K/cumm [...] BLOOD ORDERABLES Final Result Performing Organization Address [facility] Co de Phone Number HISTORICAL RESULTS * Blood ABO, Rh, indirect ab screen (04/06/2013 4:32 PM CDT) Danielle, indirect Negative HISTORICAL RESULTS ABO, Rho(D) O Positive HISTORI SUJATHA RESULTS Blood specimen (specimen) 04/06/2013 4:32 PM CDT Shady Mercado MD LAB BLOOD ORDERABLES Final Result Performing Organization Address [facility] Co de Phone Number HISTORICAL RESULTS * All Microbiology Report Section (04/06/2013 12:00 AM CDT) 04/06/2013 Narrative HISTORICAL RESULTS - 04/08/2013 2:02 PM CDT ? [facility] ?[facility] [place] ?[place] [address] ? Patient Name: ??PAGE PAZ ? Med Rec Number: [id number] ? Fin Number: ?[id number] ? Date: ?1960 ? Sex/Age: ? Female 52 years ? Admit Date: ?04/06/2013 ? Discharge Date: 04/06/2013 ? Doctor: ?Shady Mercado ? Facility: ?[facility] ? Location: ?CPAP ?* Abnormal ??A Alert [...] HISTORICAL RESULTS - 04/08/2013 3:23 PM CDT ?[facility] ?Department of Laboratories ? [facility] [place] ? [place] [address] Patient Name: ??PAGE PAZ Rec Number: [id number] Fin Number: ?[id number] Date: ?1960 Sex/Age: ? Female 52 years Admit Date: ?04/06/2013 Discharge Date: 04/06/2013 Doctor: ?Shady Mercado Facility: ?[facility] Location: ?CPAP Chart Printed: 04/08/2013 15:23 ?? [...]
--- OUTSIDE RECORDS SUMMARY | 2024-06-20 20:26 | XMS_ITS | Encounter Summary ---
Author Organization [facility] Facility Care Team Providers Care Mill Controller Name Role Phone Unavailable Primary Care Provider Unavailabl e Encounter Details Date Type Department Care Team (Late st Contact Info) Description 07/20/2013 9:21 AM PROJECT ENG Hospital Encounter [facility] José Miguel Ramos MD [address] [address] Lumbosacral spondylosis without myelopathy; Other chronic pain; [...] on file Legal Sex Female 4:55 AM PROJECT ENG Gender Identity Not on file Sexual Orientation [...]
--- OUTSIDE RECORDS SUMMARY | 2024-06-20 20:26 | XMS_ITS | Encounter Summary ---
Author Organization [facility] Facility Care Team Providers Care Leather Softener Name Role Phone Unavailable Primary Care Provider Unavailabl e Encounter Details Date Type Department Care Team (Late st Contact Info) Description 04/13/2013 5:53 AM EARLY YEARS TEACHER - 04/19/2013 2:51 PM EARLY YEARS TEACHER Hospital Encounter [facility] Shady Mercado MD [address] [place] [address] [address] Displacement of lumbar intervertebral disc without myelopathy; Mitral valve disorder; Degeneration of lumbar or lumbosacral intervertebral disc Social History Tobacco Use Types Packs/Day Years Used Date Smoking Tobacco: Never Assessed Comments Unknown Sex and Gender Information Value Date Recorded Sex Assigned at Not on file Legal Sex Female 4:55 AM EARLY YEARS TEACHER Gender Identity Not on file Sexual Orientation Not on file documented as of this encounter Last Filed Vital Signs Vital Sign Reading Time Taken Comments Blood Pressure 126/63 04/19/2013 2:14 PM EARLY YEARS TEACHER Pulse 92 04/19/2013 2:14 PM EARLY YEARS TEACHER Temperature - - Respiratory Rate - - Oxygen Saturation 98% 04/19/2013 2:14 PM EARLY YEARS TEACHER Inhaled Oxygen Concentration - - Weight 79.4 kg (174 lb 15.7 oz) 04/13/2013 1:50 PM EARLY YEARS TEACHER Height 193 cm (6' 4 ) 04/13/2013 1:50 PM EARLY YEARS TEACHER Body Mass Index 21.3 04/13/2013 1:50 PM EARLY YEARS TEACHER documented in this encounter Miscellaneous Notes * Op Note - Provider, MD Ton - 04/13/2013 12:00 AM CST Patient: Page Paz Reg No: [id number] [facility] #: [id number] Admit Dt.: 04/13/2013 : 1960 Pt Type: 100 Room No: [id number] Attending: Shady Mercado M.D. Surgeon: Shady Mercado M.D. Dictating: Shady Mercado M.D. Service Dt: 04/13/2013 OPERATIVE REPORT FIRST VICE PRESIDENT OF OPERATIONS: Manuel Villela M.D. ANESTHESIA: General endotracheal. PREOPERATIVE DIAGNOSIS (ES): 1. Left-sided L5-S1 disk herniation. 2. Left-sided S1 radiculopathy. POSTOPERATIVE DIAGNOSIS (ES): 1. Left-sided L5-S1 disk herniation. 2. Left-sided S1 radiculopathy. NAME OF OPERATION: 1. Left-sided L5-S1 minimally invasive microscopic diskectomy with the use of the ProntoFormstronic METRx Tube System. 2. Use of the [...] She was then flipped prone on the [facility] operating room table. This was positioned in [...] Mercado M.D. 04/19/2013 11:41 A Cammy Taylor/judd #[id number] Editing MT: TD: 04/13/2013 14:21:00 cc: Shady Mercado M.D. documented in this encounter Plan of Treatment Not on file documented as of this encounter Procedures Procedure Name Priority Date/Time Associated Diagnosis Comments DISCHARGE LABORATORY CUMULATIVE REPORT Routine 04/19/2013 12:00 AM EARLY YEARS TEACHER BLOOD ABO, RH, INDIRECT AB SCREEN Routine 04/13/2013 6:20 AM EARLY YEARS TEACHER documented in this encounter Results * Discharge Laboratory Cumulative Report (04/19/2013 12:00 AM EARLY YEARS TEACHER) 04/19/2013 Narrative HISTORICAL RESULTS - 04/19/2013 3:19 PM EARLY YEARS TEACHER ?[facility] ?Department of Laboratories ? [facility] [place] ? [place] [address] Patient Name: ??PAGE PAZ Rec Number: [id number] Fin Number: ?[id number] Date: ?1960 Sex/Age: ? Female 52 years Admit Date: ?04/13/2013 Discharge Date: 04/19/2013 Doctor: ?Shady Mercado Facility: ?[facility] Location: ?[id number] Chart Printed: 04/19/2013 15:19 ?? * Abnormal [...] ORDERABLES Cassy l Result Performing Organization Address [facility] Co de Phone Number HISTORICAL RESULTS * Blood ABO, Rh, indirect ab screen (04/13/2013 6:20 AM EARLY YEARS TEACHER) ABO, Rho(D) O Positive HISTORI SUJATHA RESULTS Danielle, indirect Negative HISTORICAL RESULTS Blood specimen (specimen) 04/13/2013 6:20 AM EARLY YEARS TEACHER Shady Mercado MD LAB BLOOD ORDERABLES Final Result Performing Organization Address [facility] Co de Phone Number HISTORICAL RESULTS documented in this encounter Visit Diagnoses Diagnosis Displacement of lumbar intervertebral disc without myelopathy Mitral valve disorder Mitral valve disorders Degeneration of lumbar or lumbosacral intervertebral disc documented in this encounter
== END 2024-06-14 16:16 | disposition home or self-care (01) ==
PROVIDERS: Physician Assistant; Emergency Provider Student in an Organized Health Care Education/Training Program; PCP Emergency Medicine
DX: J20.9 Acute bronchitis, unspecified (principal); Z20.822 Contact with and (suspected) exposure to COVID-19; F17.200 Nicotine dependence, unspecified, uncomplicated; Z90.710 Acquired absence of both cervix and uterus
CPT/HCPCS: 71046; 87637; 96372; 99283; A9270

== ENCOUNTER 2024-08-17 11:19 | Outpatient (CLI) | payer OTHER, SELFPAY ==
--- NOTE | ~2024-08-17 | MM_ITS ---
EXAMINATION: MM screening nikolai BI w chula HISTORY: Screening mammogram TECHNIQUE: Craniocaudal and mediolateral oblique 3-D tomosynthesis images were obtained and synthetic 2-D images were generated. CAD analysis was submitted and interpreted. COMPARISON: 09/11/2021, 09/11/2018 BREAST PARENCHYMAL COMPOSITION:Not Dense. The breasts are almost entirely fatty FINDINGS: No suspicious mass, calcification, or architectural distortion are identified in either robbin ast to suggest malignancy. There has been no suspicious interval change. IMPRESSION: No mammographic evidence of malignancy. Recommend routine screening mammography in one year. BI-RADS Category 1: Negative Reviewed, dictated and finalized at location .
== END 2024-08-17 11:20 | disposition home or self-care (01) ==
LOC: MICIMG 11:20
PROVIDERS: PCP Internal Medicine; Visit Provider Internal Medicine
DX: Z12.31 Encounter for screening mammogram for malignant neoplasm of breast (principal)
CPT/HCPCS: 77063; 77067

== ENCOUNTER 2024-08-28 09:15 | Outpatient (CLI) | payer OTHER, SELFPAY ==
--- NOTE | ~2024-08-28 | MR_ITS ---
EXAMINATION: MR knee RT wo con DATE: 08/28/2024 09:52 INDICATION: Right knee pain TECHNIQUE: Magnetic resonance imaging (MRI) of the right knee was performed without intravenous contr ast. Sequences included coronal PD-weighted FSE, coronal PD-weighted FS FSE, sagittal T2-weighted FS E, sagittal PD-weighted FS FSE and axial PD weighted fat saturated FSE. COMPARISON: None. FINDINGS: Medial compartment: Radial tear near the posterior root of the medial meniscus. Region of partial-thickness chondral ulce ration along the lateral side of the anterior weightbearing medial femoral condyle. Lateral compartment: Lateral meniscus is normal. Articular cartilage is normal. Patellofemoral compartment: Deep chondral fissuring at the patellar apical ridge and medial patellar facet with negligible underl taiwo subarticular edema-like signal change. Trochlear cartilage is normal. Ligaments and tendons: Anterior and posterior cruciate ligaments are normal. The medial collateral ligament and fibular broderick ateral ligament complex are normal. The extensor mechanism is normal. The visualized medial and later al hamstring tendons as well as the iliotibial band are normal. Fluid: Small right knee joint effusion at the suprapatellar pouch. No loose osteochondral bodies identified. Osseous/other: Bone alignment is normal. No fracture or pathologic marrow replacing process. IMPRESSION: 1. Radial tear near the posterior root of the medial meniscus. 2. 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 3. Mild osteoarthritis at the patellofemoral compartment with high-grade chondromalacia at the apical ridge and medial facet. Reviewed, dictated and finalized at location B. IMPRESSION: 1. Radial tear near the posterior root of the medial meniscus. 2. Mild osteoarthritis in the medial compartment with moderate grade chondral m alacia along the anterior weightbearing medial femoral condyle. 3. Mild osteoarthritis at the patellofemoral compartment with high-grade chondr omalacia at the apical ridge and medial facet.
== END 2024-08-28 09:16 | disposition home or self-care (01) ==
LOC: MICIMG 09:16
PROVIDERS: PCP Internal Medicine; Visit Provider Orthopaedic Surgery
DX: M17.11 Unilateral primary osteoarthritis, right knee (principal); S83.241A Other tear of medial meniscus, current injury, right knee, initial encounter; X58.XXXA Exposure to other specified factors, initial encounter
CPT/HCPCS: 73721

== ENCOUNTER 2024-08-31 07:44 | Outpatient (CLI) | payer OTHER, SELFPAY ==
--- OUTSIDE RECORDS SUMMARY | 2024-08-31 07:47 | XMS_ITS | Clinical Summary ---
Author Organization [facility] Address [address] [address] Care Team Providers Care Outreach Educator Name Role Phone Maged Godoy Primary Care Provider [phone] Zuly Barriga MD Unavailable Allergies Active Allergy [...] 03/15/2013 Surgical History Surgery Date Site/Laterality Comments RI TOTAL ABDOMINAL HYSTERECT W/WO RMVL TUBE OVARY Hysterectomy - (Added by TW Conv) BLADDER SURGERY Bladder Surgery - (Added by TW Conv) RI UNLISTED PROCEDURE ABDOME N PERITONEUM & OMENTUM Hernia Repair - (Added by TW Conv) RI TONSILLECTOMY PRIMARY/SEC ONDARY <AGE 12 Tonsillectomy - [...] on file Legal 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 Gender Identity Not on file Sexual Orientation Not on file Obstetrics History Last Filed Vital Signs Vital Sign Reading Time Taken Comments Blood Pressure 131/89 01/12/2024 3:53 PM CDT Pulse 68 01/12/2024 3:53 PM CDT Temperature 36.3 C (97.4 F) 01/12/2024 3:53 PM CDT Respiratory Rate 16 01/12/2024 3:53 PM CDT Oxygen Saturation 97% 01/12/2024 3:53 PM CDT Inhaled Oxygen Concentration - - Weight 90.7 kg (200 lb) 08/01/2021 10:28 AM LAND ACQUISITION ANALYST Height 167.6 cm (5' 6 ) 08/01/2021 10:28 AM LAND ACQUISITION ANALYST Body Mass Index 32.28 08/01/2021 10:28 AM LAND ACQUISITION ANALYST Plan of Treatment Health Maintenance Due Date [...] eyeglasses 4. Make your home safer by: Removing clutter & tripping hazards Putting railings on all stairs & adding grab bars in the bathroom Having good lighting, especially on stairs Contact your local community or senior center for information on exercise, fall prevention programs, or options for improving home safety. Insurance [facility] OPEN ACCESS ANTHEM ACCESS [employer] OPEN ACCESS CIG[employer] OPEN ACCESS Care Teams Outreach Educator Relationship Specialty Start Date End Date Walt Maged, PCP - General 09/28/20 Zuly Barriga MD Consulting Physician Pain Management 12/14/21
--- OUTSIDE RECORDS SUMMARY | 2024-08-31 07:47 | XMS_ITS | Clinical Summary ---
Author Organization [facility] Address [address] [place] [address] Care Team Providers Care Master Welder Name Role Phone Unavailable Primary Care Provider Unavailabl e Source Comments [facility],non-owned Affiliates and Associated Physician Practices is amultiple site organization consisting of ambulatory clinics and hospital sitesin [place], [place], [place] and [place]. This disclosure is being madepursuant to the Care Everywhere program and may not contain all information available regarding this patient. Last updated 18.[facility] Sp[facility] Wave Allergies Active Allergy Reactions Criticality Noted Date [...] (1 of 2) 10/15/2011 COVID-19 VACCINE (1 2023-2 5 season) 2024 INFLUENZA VACCINE (#1) [...] to complete this topic MENINGOCOCCAL (Group B) VACC INE SHARED DECISION-MAKING Aged Out No longer eligibl e based on patient's age to complete this topic MENINGOCOCCAL GROUPS A/C/Y/W VACCINE Aged Out No longer eligible b ased on patient's age to complete this topic PNEUMOCOCCAL VACCINE Aged Out No long er eligible based on patient's age to complete this topic
--- OUTSIDE RECORDS SUMMARY | 2024-08-31 07:47 | XMS_ITS | Referral Summary ---
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 Insurance [employer] OPEN ACCESS [employer] ACCESS [employer] OPEN ACCESS [employer] OPEN ACCESS Care Teams Executive Vice President Of Sales Relationship Specialty Start Date End Date Maged Godoy DO PCP - General 09/28/20 Zuly Barriga MD Consulting Physician Pain Management 12/14/21
[2024-08-31 08:40] LABS: Basophils Percent Auto 0.4 % (0.2-1.2); Eosinophils Absolute Auto 0.3 K/mm3 (0-0.3); Eosinophils Percent Auto 3.4 % (0-4.4); Hematocrit 37.2 % (37.0-47.0); Hemoglobin 12.3 g/dL (12.0-15.0); Immature Granulocyte Absolute 0.03 K/mm3 (0.00-0.031); Immature Granulocyte Percent A 0.4 % (0-0.5); Mean Corpuscular HGB Conc 33.1 g/dl (32-36); Mean Corpuscular Hemoglobin 30.4 pg (26-34); Mean Corpuscular Volume 91.9 fl (80-100); Mean Platelet Volume 8.8 fl (7.4-10.4); Monocytes Absolute Auto 0.5 K/mm3 (0.1-0.6); Neutrophils Absolute Auto 2.7 K/mm3 (1.3-6.7); Neutrophils Percent Auto 37.8 % (45.5-73.1); Platelet Count Result 240 k/mm3 (150-375); Red Blood Count 4.05 M/mm3 (4.2-5.4); Red Cell Distribution Width 12.6 % (11.5-14.5); White Blood Count 7.3 K/mm3 (4.5-10.0)
[2024-08-31 09:00] LABS: Alanine Aminotransferase 21 U/L (6-35); Albumin Level 4.1 g/dL (3.5-5.1); Alkaline Phosphatase 89 U/L (38-126); Anion Gap 7 mmol/L (4-12); Aspartate Amino Transferase 25 U/L (14-36); Bilirubin,Total 0.4 mg/dL (0.2-1.3); Blood Urea Nitrogen 21 mg/dL (7-17); Calcium 8.9 mg/dL (8.4-10.2); Carbon Dioxide 27 mmol/L (22-30); Chloride 107 mmol/L (98-107); Estimated Glomerular Filt Rate > 60; Glucose 93 mg/dL (65-110); Potassium 3.8 mmol/L (3.4-5.0); Sodium 141 mmol/L (137-145)
== END 2024-08-31 07:45 | disposition home or self-care (01) ==
LOC: ANHLAB 07:45
PROVIDERS: PCP Internal Medicine; Visit Provider Orthopaedic Surgery
DX: M25.561 Pain in right knee (principal); Z79.1 Long term (current) use of non-steroidal anti-inflammatories (NSAID)
CPT/HCPCS: 36415; 80053; 85025

== ENCOUNTER 2024-09-07 10:08 | Emergency (ER) | payer OTHER, SELFPAY ==
--- NOTE | 2024-09-07 10:10 | ED_ITS ---
HPI - Allergic Reaction General Chief complaint: Upper Respiratory Infection Stated complaint: post allergic reaction Time Seen by Provider: 09/07/24 10:10 Source: patient Mode of arrival: ambulatory Limitations: no limitations History of Present Illness HPI narrative: Page is a 63-year-old female patient presenting to the clinic today with complaints of a possible allergic reaction. She reports over the weekend she got into a [employer] that had air fresheners and she started having a scratchy throat because she was not wearing a mask. Always has this reaction when around perfumes/scents. This occurred in [facility]. She traveled via plane. When this happens her ENT normal gives her steroids and amoxicillin. Her ENT has retired and her PCP could not get her in the office and told her to be seen in the Urgent Care. She denies any fever, chills, body aches,or runny nose. Does have non-productive cough. Has taken allergy medication, Cepacol spray, and cough syrup. Denies any chest pain, shortness of breath, or drooling. States it is painful to swallow. Related Data Home Medications ?Medication ?Instructions ?Recorded ?Confirmed ?Last Taken ?Type tramadol 37.5 mg-acetaminophen 325 1 tablet PO QID PRN Pain 04/23/19 09/07/24 09/05/21 History mg tablet valacyclovir 500 mg tablet 500 mg PO DAILY 09/13/19 09/07/24 09/05/21 History Allergies Allergy/AdvReac Type Severity Reaction Status Date / Time Quinolones Allergy Mild unknown Verified 09/07/24 10:32 codeine AdvReac Unknown Nausea and Verified 09/07/24 10:32 Vomiting Review of Systems Review of Systems: Pertinent positives per HPI. Patient denies any fever, chills, rash, headache, visual changes, dizziness, cough, shortness of breath, chest pain, palpitations, nausea, vomiting, diarrhea, constipation, abdominal pain, or any urinary issues. [facility] Past Medical History Medical History BMI 31.0-31.9,adult Steatorrhea Enlarged tonsils Hernia of abdominal wall Post-hysterectomy menopause Family History Family History Mother Family history of liver disease Family history of diabetes mellitus in first degree relative Diabetes mellitus Father Family history of diabetes mellitus in first degree relative Family history of lymphoma Diabetes mellitus Sibling Patient's sister is in good health Sarcoidosis of the lung. Patient's brother is in good health Diabetes mellitus Lung disease Social History Social History Smoking status: Former smoker Second hand tobacco smoke exposure: Yes Alcohol intake: current Substance use: never Substance use type: does not use Do You Feel Safe in your Home?: Yes Lack of Transportation: No Lack of Food: Never True Current Housing: I Have Housing Concerned About Future Housing: No Difficulty Paying Gas/Electric Bills: No Difficulty Paying for Meds: No Currently Unemployed: No Education: Associate Degree Difficulty w/ Childcare or Family Care: No Living arrangements: with family Occupation/Education: occupation 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 There is no relevant family history pertinent to the patient complaint. Exam Narrative: General: Well-developed, well nourished, in no apparent distress Head: Normocephalic, atraumatic Eyes: Pupils equally round and reactive to light bilaterally, EOM intact, sclera and conjunctive clear, no discharge, lids normal Ears: TMs intact and clear, ear canals clear, no drainage, grossly hearing normal. Nose: Nares patent, no discharge, no inflammation, no sinus tenderness. Mouth: Oral pharynx without lesions or masses, good dentition, MMM. Neck: Supple, trachea midline, no enlargement of anterior or posterior cervical nodes, no thyroid masses or goiter palpable. Cardio: Regular rate and rhythm, s1 and s2 normal, no murmur appreciated. Resp: Clear to auscultation bilaterally, no rhonchi, rales, wheezing or rubs Course Course Emergency Course: Portions of this record may have been created with voice recognition software. Level of Care: Express Care Visit Vital Signs Vital signs: Vital signs reviewed MDM - Allergic Reaction MDM Narrative Medical decision making narrative: At the time of visit patient is resting comfortably on the exam table. Patient appears to be nontoxic. Labs: Covid and strep test was negative in the clinic today. We will send strep for culture Plan: I suspect patient has allergic rhinitis/postnasal drip/allergic pharyngitis. Prescription for Flonase and prednisone was sent to the pharmacy. Supportive measures were discussed with the patient and they voiced understanding discharge instructions and agrees to treatment plan. Return precautions reviewed Differential Diagnosis Differential diagnosis: Likely anaphylaxis, allergic reaction, angioedema, contact dermatitis (Allergic rhinitis, allergic pharyngitis, postnasal drip), adverse reaction to drug, viral enanthem and urticaria Lab Data Labs: Lab Results 09/07/24 09/07/24 Range/Units 10:33 10:40 POC SARS CoV-2 Ag Negative (Negative) POC Grp A Strep Screen Negative (Negative) Discharge Plan Discharge Clinical Impression: PND (post-nasal drip), Allergic pharyngitis Allergic rhinitis Qualifiers: Allergic rhinitis trigger: unspecified Allergic rhinitis seasonality: unspecified Qualified Code(s): J30.9 - Allergic rhinitis, unspecified Patient Disposition: Home, Self-Care Condition: Stable Instructions: Antibiotic Form, Pharyngitis (ED), Allergies (ED), Postnasal Drip (DC) Additional Instructions: Strep test was negative in the clinic today. We will send strep for culture. COVID testing was negative in the clinic today. Take prescription medications only as prescribed-prednisone Increase fluids and stay well hydrated Tylenol/motrin for pain/fever Flonase and OTC antihistamines such as Zyrtec or Claritin as directed Vicks vapor rub to open sinuses Sinus rinses for congestion Cepacol spray, cough drops, throat lozenges, warm tea with honey/lemon, gargle salt water to soothe throat BRAT diet for diarrhea Clear liquids x 24 hours then advance as tolerated for nausea/vomiting Go to the ED if you develop a worsening in your condition- high fever not controlled by Tylenol or Motrin, dehydration, weakness, lethargy, shortness of breath, or chest pain. Follow up with your PCP in 3-5 days if symptoms persist. Patient Language: Moldovan Prescriptions: New fluticasone propionate 50 mcg/actuation spray,suspension 2 spray intranasal DAILY 30 Days Qty: 16 0RF Rx Instructions: administer into each nostril prednisone 20 mg tablet 40 mg PO DAILY 5 Days Qty: 10 0RF No Action tramadol-acetaminophen 37.5-325 mg tablet 1 tablet PO QID PRN (Reason: Pain) valacyclovir 500 mg tablet 500 mg PO DAILY Follow-up/Referrals: Maged Godoy, [Primary Care Provider] - Stand Alone Forms: Work/School Release IP Time of Disposition: 10:40 Quality NIHSS Nursing Documentation ED NIHSS nursing documentation: reviewed/agree
[2024-09-07 10:20] VITALS: BP 164/93; PULSE 80; RESP 18; TEMP 36.4; O2SAT 100
[2024-09-07 10:35] LABS: EDSTREPNEGPOS1 Negative (Negative)
[2024-09-07 10:42] LABS: EDCOVIDSCREEN Negative (Negative)
== END 2024-09-07 10:46 | disposition home or self-care (01) ==
PROVIDERS: Emergency Provider Nurse Practitioner Family; PCP Internal Medicine
DX: R09.82 Postnasal drip (principal); J02.9 Acute pharyngitis, unspecified; J30.9 Allergic rhinitis, unspecified; Z20.822 Contact with and (suspected) exposure to COVID-19; Z87.891 Personal history of nicotine dependence
CPT/HCPCS: 87081; 87426; 87880; 99213; G0463

== ENCOUNTER 2025-04-29 17:09 | Emergency (ER) | payer OTHER, SELFPAY ==
--- NOTE | ~2025-04-29 | US_ITS ---
EXAMINATION: US venous doppler [facility] DATE: 04/29/2025 19:02 INDICATION: Lower extremity pain. History of travel. TECHNIQUE: Grayscale ultrasound images without and with compression and Doppler ultrasound images of the left lower extremity veins were obtained. COMPARISON: Left knee x-ray dated 04/29/2025. FINDINGS: The visualized portions of left common femoral vein, profunda (deep) femoral vein, femoral vein, popliteal vein, peroneal veins, posterior tibial veins, and greater saphenous vein outflow are patent. IMPRESSION: 1. No deep venous thrombosis in the left lower extremity.. Reviewed, dictated and finalized at location [facility]
--- NOTE | ~2025-04-29 | XR_ITS ---
EXAMINATION: XR knee LT 3V, 04/29/2025 17:30 [employer] HISTORY: unable to bear weight, 10/10 pain, posterior pain COMPARISON: No comparisons available. Findings: No acute fracture or malalignment. No significant degenerative changes. Soft tissues unremarkable. Impression: No acute fracture or malalignment. Reviewed, dictated and finalized at location [facility] [employer] Impression: No acute fracture or malalignment.
[2025-04-29 17:13] VITALS: BP 152/83; PULSE 85; RESP 16; TEMP 36.5; O2SAT 99
[2025-04-29] MEDS: HYDROcodone/acetaminophen (*CRX) 5-325 MG TABLET 1 TAB PO (19:01)
[2025-04-29] MEDS: ONDANSETRON HCL ODT 4 MG TABLET PO (19:01)
--- NOTE | 2025-04-29 19:09 | ED.GENADULT ---
HPI - General Adult General Chief complaint: Extremity Problem,Nontraumatic Stated complaint: left knee pain Time Seen by Provider: 04/29/25 18:05 History of Present Illness HPI narrative: 64-year-old female presenting with right knee pain. Patient reports that she has pain for the last few months however the pain worsened this week and is most severe in the posterior aspect of the knee. She reports that she can no longer stand on this leg. She did report recent travel to [place] this past week. Took tramadol earlier with no relief. Denies any history of trauma. Denies any history of clots. Denies numbness/tingling. Neurovascular intact. Related Data Home Medications ?Medication ?Instructions ?Recorded ?Confirmed ?Last Taken ?Type tramadol 37.5 mg-acetaminophen 325 1 tablet PO QID PRN Pain 04/23/19 09/07/24 09/05/21 History mg tablet valacyclovir 500 mg tablet 500 mg PO DAILY 09/13/19 09/07/24 09/05/21 History Allergies Allergy/AdvReac Type Severity Reaction Status Date / Time Quinolones Allergy Mild unknown Verified 04/29/25 17:11 codeine AdvReac Unknown Nausea and Verified 04/29/25 17:11 Vomiting Review of Systems Review of Systems: All systems reviewed & are unremarkable except as noted in HPI and below PMFSH Past Medical History Medical History BMI 31.0-31.9,adult Steatorrhea Enlarged tonsils Hernia of abdominal wall Post-hysterectomy menopause Family History Family History Mother Family history of liver disease Family history of diabetes mellitus in first degree relative Diabetes mellitus Father Family history of diabetes mellitus in first degree relative Family history of lymphoma Diabetes mellitus Sibling Patient's sister is in good health Sarcoidosis of the lung. Patient's brother is in good health Diabetes mellitus Lung disease Social History Social History Smoking status: Former smoker Second hand tobacco smoke exposure: Yes Alcohol intake: current Substance use: never Substance use type: does not use Do You Feel Safe in your Home?: Yes Lack of Transportation: No Lack of Food: Never True Current Housing: I Have Housing Concerned About Future Housing: No Difficulty Paying Gas/Electric Bills: No Difficulty Paying for Meds: No Currently Unemployed: No Education: Associate Degree Difficulty w/ Childcare or Family Care: No Living arrangements: with family Occupation/Education: occupation Additional occupation/education comments: [employer] Gender identity (if verbalized by the patient): Female Spiritual care concerns: No Exam Narrative: GENERAL: Well-appearing, well-nourished, and in no acute distress. HEAD: Normocephalic, atraumatic. EYES: PERRLA and EOMI. ENT: Nares clear, no rhinorrhea or epistaxis. Mucous membranes moist. Oropharynx without tonsillar hypertrophy exudate or other lesions. Bilateral TMs pearly spence non-bulging NECK: Supple. No adenopathy or masses. No carotid bruits or JVD CHEST: Clear to auscultation. No respiratory distress. No wheezes rales or rhonchi HEART: Regular rate and rhythm. No murmur heard. Normal peripheral pulses. ABDOMEN: Soft, nontender, nondistended, normal active bowel sounds. EXTREMITIES: R knee ROM limited due to pain but maintains good strength. No redness, swelling, or warmth noted. No deformities. Neurovascular intact. SKIN: Warm, dry, no rash. NEURO: No focal deficits. Alert and oriented x3. PSYCH: Normal mood and affect Course Vital Signs Vital signs: Vital Signs Temperature 97.7 F 04/29/25 17:13 Pulse Rate 85 04/29/25 17:13 Respiratory Rate 16 04/29/25 17:13 Blood Pressure 152/83 H 04/29/25 17:13 Pulse Oximetry 99 04/29/25 17:13 Oxygen Delivery Room Air 04/29/25 17:13 Temperature 97.7 F 04/29/25 17:13 Pulse Rate 85 04/29/25 17:13 Respiratory Rate 16 04/29/25 17:13 Blood Pressure 152/83 H 04/29/25 17:13 Pulse Oximetry 99 04/29/25 17:13 Oxygen Delivery Room Air 04/29/25 17:13 Medical Decision Making MDM Narrative Medical decision making narrative: 64-year-old female presenting with right knee pain. Patient reports that she has pain for the last few months however the pain worsened this week and is most severe in the posterior aspect of the knee. She reports that she cannot bear weight on this leg. She did report recent travel to [place] this past week. Took tramadol earlier with no relief. Denies any history of trauma. Denies any history of clots. Denies numbness/tingling. Neurovascular intact. Upon my initial assessment patient appears uncomfortable. X-ray knee demonstrates no significant degenerative changes, unremarkable soft tissues, and no acute fracture or malalignment. Doppler ultrasound demonstrated no deep venous thrombosis. Administered Zofran and hydrocodone which improved patient's pain. No evidence of deformity, warmth, redness, or swelling. Range of motion limited due to pain but maintains good strength. Suspect soft tissue etiology. Recommended rest, ice, compression, elevation, and analgesics. Patient was placed in a knee immobilizer and sent a short-term prescription for pain control. Advised close follow-up with Orthopedics for further treatment and workup. Patient agrees with discussion and after shared medical decision making agrees with plan of care. All questions were answered to the patient's satisfaction. Given reasons to return. Medical Records Medical records reviewed: Yes I reviewed the external patient's medical records. Vital Signs Vital Signs: Vital Signs Temperature 97.7 F 04/29/25 17:13 Pulse Rate 85 04/29/25 17:13 Respiratory Rate 16 04/29/25 17:13 Blood Pressure 152/83 H 04/29/25 17:13 Pulse Oximetry 99 04/29/25 17:13 Oxygen Delivery Room Air 04/29/25 17:13 Temperature 97.7 F 04/29/25 17:13 Pulse Rate 85 04/29/25 17:13 Respiratory Rate 16 04/29/25 17:13 Blood Pressure 152/83 H 04/29/25 17:13 Pulse Oximetry 99 04/29/25 17:13 Oxygen Delivery Room Air 04/29/25 17:13 Imaging Data Radiologist's impression: ITS Impressions Knee X-Ray 04/29/25 17:42 Impression: No acute fracture or malalignment. Venous Doppler Study 04/29/25 19:03 IMPRESSION: 1. No deep venous thrombosis in the left lower extremity.. Discharge Plan Discharge Clinical Impression: Knee pain Patient Disposition: Home Condition: Stable Instructions: Knee Pain (ED) Additional Instructions: Return to the ER if you experience fever, redness and swelling of your extremity, numbness or any other symptoms that are concerning to you Wear EUGENE wrap or knee mobilizer for comfort and use crutches. Weight-bearing as tolerated. Ice and elevate extremity. Pain medication as needed and directed. Do not drive, operate heavy machinery, drink alcohol while on opiates as this may cause further sedation. Take anti-inflammatories (Aleve, Ibuprofen, Naproxen, etc) or Tylenol as needed for breakthrough pain. Follow-up with orthopedics. Number provided. Follow up with your doctor for any other general concerns. Patient Language: Guatemalan Prescriptions: New hydrocodone-acetaminophen 5-325 mg tablet 1 tablet PO Q6H PRN (Reason: pain) Qty: 20 0RF ondansetron 4 mg tablet,disintegrating 4 mg PO Q6H PRN (Reason: nausea and vomiting) Qty: 20 0RF No Action fluticasone propionate 50 mcg/actuation spray,suspension 2 spray intranasal DAILY 30 Days Qty: 16 0RF Rx Instructions: administer into each nostril prednisone 20 mg tablet 40 mg PO DAILY 5 Days Qty: 10 0RF tramadol-acetaminophen 37.5-325 mg tablet 1 tablet PO QID PRN (Reason: Pain) valacyclovir 500 mg tablet 500 mg PO DAILY Follow-up/Referrals: Mikhail Crowder MD [Physician, Orthopedics] Maged Godoy DO [Primary Care Provider, Internal Medicine]
== END 2025-04-29 20:07 | disposition home or self-care (01) ==
PROVIDERS: PCP Internal Medicine
DX: M25.562 Pain in left knee (principal); Z87.891 Personal history of nicotine dependence
CPT/HCPCS: 73562; 93971; 99284; A9270